=== PATIENT | female | born 1940 | race Caucasian/White ===

== ENCOUNTER 2017-05-31 16:10 | Inpatient (IN) ==
--- OUTSIDE RECORDS SUMMARY | 2017-05-31 17:08 | External Medical Summary | Summary of Care ---
:1940 Author Name Mireya Lance Address [address] [place], [place] [id number] Care Team Providers Name Role Phone Nilton Jaeger, Alessandro Collins Unavailable Unavailable Abraham Bustos, Mireya Unavailable Unavailable Guillermina Jaeger, Jaimee Falcon Unavailable Unavailable Wilberto Jaeger, Cami Unavailable Unavailable Dalton Jaeger, Joselyn Garsia Unavailable Unavailable Cami Ladd Unavailable Unavailable Unavailable Unavailable Unavailable Functional Status Functional Status Health Issues Name Dates Details Functional status health issues are not documented Status: Cognitive Status Health Issues Name Dates Details Cognitive status health issues are not documented Status: Problems Name Dates Details Weakness (780.79, R53.1) Status: Active Insomnia (780.52, G47.00) Status: Active Purpura (287.2, D69.2) Status: Active Hypokalemia (276.8, E87.6) Status: Active Vitamin B12 deficiency (266.2, E53.8) Status: Active Thrombocytopenia (287.5, D69.6) Status: Active Pernicious anemia (281.0, D51.0) Status: Active 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, 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 Start 11-Aug-2016 Active Budesonide 0.25 MG/2ML Inhalation Suspension NEBULIZE TWO TIMES DAILY (Dx: J44.9/J43.9) Quantity: 120 Refills: 11 Dennis Callaway M.D. Start 11-Aug-2016 Active Prolia 60 MG/ML Subcutaneous Solution INJECT SUBCUTANEOUSLY 60 MG / 1 ML EVERY 6 MONTHS Quantity: 1 Refills: 0 Cami Ladd M.D. Start 11-Nov-2014 Active Oxygen Home O2 ConcentratorUse 2 liters 8-10 hours/nightQualifying 07/22/15: Nocturnal oximetry=82%, <88%x 35 minutes Quantity: 1 Refills: 0 Ady Hoffman M.D. Start 23-Jul-2015 Active ProAir RespiClick 108 (90 Base) MCG/ACT Inhalation Aerosol Powder Breath Activated 1-2 puffs every 4-6 hours as needed Quantity: 1 Refills: 11 Dennis Callaway M.D. Start 16-Oct-2015 Active 1 Aerosol Powder Breath Activated Box Mixture 50\\50 Eucerin\\HC 1%-Apply TID 30 gm Quantity: 1 Refills: 1 Cami Ladd M.D. Start 13-Jun-2016 Active Incruse Ellipta 62.5 MCG/INH Inhalation Aerosol Powder Breath Activated INHALE 1 PUFF DAILY. Quantity: 1 Refills: 3 Ady Hoffman M.D. Start 14-Aug-2016 Active 30 Aerosol Powder Breath Activated Disp Pack Memantine HCl - 10 MG Oral Tablet TAKE 1 TABLET TWICE DAILY. Quantity: 60 Refills: 5 Ezekiel Sarmiento M.D. 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 Memory impairment (780.93, R41.3) Status: Active Osteoporosis (733.00, M81.0) Status: Active Pernicious anemia (281.0, D51.0) Status: Active Thrombocytopenia (287.5, D69.6) Status: Active Vitamin B12 deficiency (266.2, E53.8) Status: Active History of abnormal weight loss (V13.89, Z87.898) Status: Resolved History of chronic obstructive lung disease (V12.69, Z87.09) Status: Resolved History of CXR Solitary Pulmonary Nodule Right Lung Status: Resolved History of dizziness (V13.89, Z87.898) Status: Resolved History of Numbness in both hands (782.0, R20.0) Status: Resolved History of Tinnitus of both ears (388.30, H93.13) Status: Resolved Procedures Procedure Dates Details History of Hysterectomy History of Complete Colonoscopy History of Cataract Surgery History of Dental Surgery DEXA Ordered: 15-Nov-2016 MAMMOGRAM-SCREENING Ordered: 15-Nov-2016 Immunization Name Dates Details Pneumo (Pneumovax) on: 12-Dec-2008 Tdap (Adacel) on: 05-Dec-2013 Lot #: [id number] Prevnar 13 Intramuscular Suspension on: 05-Dec-2013 Lot #: [id number] Prevnar 13 Intramuscular Suspension on: 25-Nov-2014 Lot #: [id number] Fluvirin 0.5 ML Intramuscular Suspension Prefilled Syringe on: 20-May-2015 Fluzone High-Dose 0.5 ML Intramuscular Suspension Prefilled Syringe on: 2015 Pneumovax 23 25 MCG/0.5ML Injection Injectable on: 21-Jul-2016 Lot #: [id number] Family History Unknown Family Member Name Dates Details Family history of Asthma (V17.5) Comments: Family History Status: Active Mother Name Dates Details Family history of memory loss (V17.2, Z82.0) Status: Active Father Name Dates Details Family history of myocardial infarction (V17.3, Z82.49) Status: Active Social History Name Dates Details - Status: Smoking Status Name Dates Details Former smoker Vital Signs Date Test Result Details 06-Jan-2017 13:09 BP Systolic 140 mm[Hg] Status: Comments: Location: ; Position: BP Diastolic 78 mm[Hg] Status: Comments: Location: ; Position: Temperature 97.4 f Status: Heart Rate 89 /min Status: Comments: Location: ; Height 65 in Status: Weight 134.125 lb Status: Physical Findings 94 Status: Comments: O2 Saturation Body Mass Index Calculated 22.32 kg/m2 Status: Body Surface Area Calculated 1.67 m2 Status: 16-Dec-2016 11:34 BP Systolic 138 mm[Hg] Status: Comments: Location: ; Position: BP Diastolic 78 mm[Hg] Status: Comments: Location: ; Position: Heart Rate 75 /min Status: Comments: Location: ; Physical Findings 90 Status: Comments: O2 Saturation 16-Dec-2016 11:31 Weight 134 lb Status: Body Mass Index Calculated 22.3 kg/m2 Status: Body Surface Area Calculated 1.67 m2 Status: Results Date Description Value Details Results not documented Plan of Care Name Dates Details Planned Observations Planned Goals not documented Planned Encounters Appointment; Provider: Juli Samaniego On 17-May-2017 11:30 Appointment; Provider: Cami Ladd M.D. On 20-Apr-2017 10:45 Appointment; Provider: Ezekiel Sarmiento M.D. On 18-Apr-2017 15:15 Appointment; Provider: Schedule Radiology On 16:00 Appointment; Provider: Schedule Radiology On 15:30 Interventions Provided Medication ChangesCephalexin 500 MG Oral Tablet - Completed Instructions Name Dates Details Instructions not documented Encounters Appointment; Cami Ladd M.D. On 16-Dec-2016 Encounter Diagnosis: Problem not documented 11:15 Appointment; Tabby Vallecillo M.D. On 19-Nov-2016 Encounter Diagnosis: Problem not documented 14:05 Appointment; Mireya Rosario P.A. On 09-Nov-2016 Encounter Diagnosis: Problem not documented 11:30 Appointment; Sosa Zhou P.A. On 25-Oct-2016 Encounter Diagnosis: Problem not documented 14:45 Appointment; Ezekiel Sarmiento M.D. On 10-Oct-2016 Encounter Diagnosis: Problem not documented 15:45 Appointment; Cami Ladd M.D. On 05-Oct-2016 Encounter Diagnosis: Problem not documented 08:00 Appointment; Kai Diaz D.O. On 03-Oct-2016 Encounter Diagnosis: Problem not documented 13:25 Appointment; Sosa Zhou P.A. On 26-Sep-2016 Encounter Diagnosis: Problem not documented 15:15 Appointment; Yousif Figueroa M.D. On 22-Aug-2016 Encounter Diagnosis: Problem not documented 15:30 Appointment; Cami Ladd M.D. On 02-Aug-2016 Encounter Diagnosis: Problem not documented 13:00 Appointment; Cami Ladd M.D. On 21-Jul-2016 Encounter Diagnosis: Problem not documented 10:30 Appointment; Yousif Figueroa M.D. On 12-Jul-2016 Encounter Diagnosis: Problem not documented 09:15 Appointment; Cami Ladd M.D. On 11-Jul-2016 Encounter Diagnosis: Problem not documented 15:00 Appointment; Angel Mi M.D. On 28-Jun-2016 Encounter Diagnosis: Problem not documented 15:40 Appointment; Cami Ladd M.D. On 27-Jun-2016 Encounter Diagnosis: Problem not documented 14:30 Appointment; Cami Ladd M.D. On 17-Jun-2016 Encounter Diagnosis: Problem not documented 11:00 Appointment; Cami Ladd M.D. On 13-Jun-2016 Encounter Diagnosis: Problem not documented 10:45 Appointment; Ezekiel Sarmiento M.D. On 13-Jun-2016 Encounter Diagnosis: Problem not documented 09:30 Appointment; Cami Ladd M.D. On 07-Jun-2016 Encounter Diagnosis: Problem not documented 17:30 Appointment; Ady Hoffman M.D. On 20-May-2016 Encounter Diagnosis: Problem not documented 10:15 Appointment; Cami Ladd M.D. On 19-Apr-2016 Encounter Diagnosis: Problem not documented 10:00 Appointment; Geeta Oleary P.A. On 12-Apr-2016 Encounter Diagnosis: Problem not documented 08:45 Appointment; Ezekiel Sarmiento M.D. On 01-Apr-2016 Encounter Diagnosis: Problem not documented 09:15 Appointment; Cami Ladd M.D. On 31-Mar-2016 Encounter Diagnosis: Problem not documented 14:00 Appointment; Geeta Oleary P.A. On 28-Mar-2016 Encounter Diagnosis: Problem not documented 09:15 Appointment; Ady Hoffman M.D. On 18-Mar-2016 Encounter Diagnosis: Problem not documented 14:15 Appointment; Eliel Patel M.D.|FACP|Mil,FACP|Mil,FACP, On Encounter Diagnosis: Problem not documented 11:00 Appointment; Cami Ladd M.D. On Encounter Diagnosis: Problem not documented 10:15 Appointment; zEekiel Sarmiento M.D. On Encounter Diagnosis: Problem not documented 09:15 Appointment; Cami Ladd M.D. On Encounter Diagnosis: Problem not documented 16:00 Appointment; Ady Hoffman M.D. On Encounter Diagnosis: Problem not documented 11:45 Appointment; Ady Hoffman M.D. On Encounter Diagnosis: Problem not documented 10:15 Appointment; Cami Ladd M.D. On Encounter Diagnosis: Problem not documented 10:45 Appointment; Ezekiel Sarmiento M.D. On 12-Jan-2016 Encounter Diagnosis: Problem not documented 12:00 Appointment; Cami Ladd M.D. On 05-Jan-2016 Encounter Diagnosis: Problem not documented 10:20 Appointment; Ady Hoffman M.D. On 31-Dec-2015 Encounter Diagnosis: Problem not documented 10:45 Appointment; Ezekiel Sarmiento M.D. On 24-Dec-2015 Encounter Diagnosis: Problem not documented 10:00 Appointment; Cami Ladd M.D. On 20-Nov-2015 Encounter Diagnosis: Problem not documented 11:45 Appointment; Mireya Rosario PFernanda On 20-Nov-2015 Encounter Diagnosis: Problem not documented 11:00 Appointment; Yousif Figueroa M.D. On 17-Nov-2015 Encounter Diagnosis: Problem not documented 17:45 Appointment; Yousif Figueroa M.D. On 16-Nov-2015 Encounter Diagnosis: Problem not documented 09:45 Appointment; Cami Ladd M.D. On 13-Nov-2015 Encounter Diagnosis: Problem not documented 15:15 Appointment; Geeta Oleary P.A. On 09-Nov-2015 Encounter Diagnosis: Problem not documented 14:00 Appointment; Ofelia Hdez A.P.R.N. On 04-Nov-2015 Encounter Diagnosis: Problem not documented 13:30 Appointment; Tabby Vallecillo M.D. On 08-Oct-2015 Encounter Diagnosis: Problem not documented 13:15 Appointment; Cami Ladd M.D. On 24-Aug-2015 Encounter Diagnosis: Problem not documented 13:00 Appointment; Yousif Figueroa M.D. On 13-Aug-2015 Encounter Diagnosis: Problem not documented 14:30 Appointment; Cami Ladd M.D. On 11-Aug-2015 Encounter Diagnosis: Problem not documented 13:15 Appointment; Ady Hoffman M.D. On 23-Jul-2015 Encounter Diagnosis: Problem not documented 10:45 Appointment; Cami Ladd M.D. On 20-Jul-2015 Encounter Diagnosis: Problem not documented 10:00 Appointment; Yousif Figueroa M.D. On 06-May-2015 Encounter Diagnosis: Problem not documented 06:45 Appointment; Yousif Figueroa M.D. On 05-May-2015 Encounter Diagnosis: Problem not documented 14:30 Appointment; Cami Ladd M.D. On 23-Apr-2015 Encounter Diagnosis: Problem not documented 14:15 Appointment; Cami Ladd M.D. On Encounter Diagnosis: Problem not documented 11:45 Appointment; Yousif Figueroa M.D. On Encounter Diagnosis: Problem not documented 09:30 Appointment; Ady Hoffman M.D. On Encounter Diagnosis: Problem not documented 10:45 Appointment; Eliel Patel M.D.|ANDREIA,ANDREIA,DONYA, On Encounter Diagnosis: Problem not documented 16:15 Appointment; Eliel Patel M.D.|DONYA|Mil,DONYA|Mil,KHANHP, On Encounter Diagnosis: Problem not documented 09:00 Appointment; Cami Ladd M.D. On Encounter Diagnosis: Problem not documented 13:30"
--- OUTSIDE RECORDS SUMMARY | 2017-05-31 17:08 | External Medical Summary | Summary of Care ---
:1940 Author Name Cami Ladd M.D. Address [address] [place], [place] [id number] Care Team Providers Name Role Phone Juve Jaeger, Edvin Prajapati Unavailable Unavailable Carolina Jaeger, Jessica Dodd Unavailable Unavailable Wilberto Jageer, Cami Unavailable Unavailable Dalton Jaeger, Joselyn Garsia Unavailable Unavailable Cami Ladd Primary Care Provider Unavailable Unavailable Unavailable Unavailable Functional Status Functional Status Health Issues Name Dates Details Functional status health issues are not documented Status: Cognitive Status Health Issues Name Dates Details Cognitive status health issues are not documented Status: Problems Name Dates Details Thrombocytopenia (287.5, D69.6) Status: Active Nail brittleness (703.8, L60.3) Status: Active 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, 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 Weakness (780.79, R53.1) Status: Active Insomnia (780.52, G47.00) Status: Active Pernicious anemia (281.0, D51.0) Status: Active Pre-operative exam (V72.84, Z01.818) Status: Active Hypokalemia (276.8, E87.6) Status: Active 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, 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 Vitamin B12 deficiency (266.2, E53.8) Status: Active Osteoporosis (733.00, M81.0) Status: Active Lichen planus (697.0, L43.9) Status: Active SCC (squamous cell carcinoma), 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, 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) Status: Active Acute exacerbation of emphysema (491.21, J43.9) Status: Active Hypoxia (799.02, R09.02) Status: Active Painful urination (788.1, R30.9) Status: Active Generalized weakness (780.79, R53.1) Status: Active Fatigue (780.79, R53.83) Status: Active Chronic obstructive pulmonary disease (496, J44.9) Status: Active Depression (311, F32.9) Status: Active 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 Started 15-Oct-2009 ActiveSpiriva HandiHaler 18 MCG Inhalation Capsule 1 PUFF EVERY MORNING Quantity: 30 Refills: 6 Ady Hoffman M.D. Started 17-Jun-2009 ActiveBudesonide 0.25 MG/2ML Inhalation Suspension NEBULIZE TWO TIMES DAILY (Dx: J44.9/J43.9) Quantity: 120 Refills: 11 Ady Hoffman M.D. Started 15-Oct-2009 ActiveProAir HFA 108 (90 Base) MCG/ACT Inhalation Aerosol Solution INHALE 2 PUFFS UP TO FOUR TIMES DAILY NEEDED Quantity: 8.5 Refills: 5 Ady Hoffman M.D. Started 30-Sep-2011 ActiveAmLODIPine Besylate 5 MG Oral Tablet TAKE 1 TABLET DAILY DIRECTED. Quantity: 30 Refills: 6 Alo An M.D. Started 22-Jul-2013 ActiveHalobetasol Propionate 0.05 % External Cream APPLY AND GENTLY MASSAGE INTO AFFECTED AREA(S) TWICE DAILY. Quantity: 1 Refills: 2 Yousif Figueroa M.D. Started 26-May-2014 [id number] GM Tube Prolia 60 MG/ML Subcutaneous Solution INJECT SUBCUTANEOUSLY 60 MG / 1 ML EVERY 6 MONTHS Quantity: 1 Refills: 0 Cami Ladd M.D. Started 11-Nov-2014 ActiveLexapro 10 MG Oral Tablet 1\2 tab daily for 10 day then 1 tab daily Quantity: 33 Refills: 0 Cami Ladd M.D. Started 20-Jul-2015 Active Allergies and Adverse Reactions Name Dates Details Levaquin TABS Status: Active Past Medical History Name Dates Details History of CXR Solitary Pulmonary Nodule Right Lung Status: Resolved Procedures Procedure Dates Details History of Hysterectomy History of Complete Colonoscopy URINE CULTURE [id number] Ordered:20-Jul-2015 Immunization Name Dates Details Pneumo (Pneumovax) Administered on:12-Dec-2008 Tdap (Adacel) Administered on:05-Dec-2013 Lot #: [id number] Prevnar 13 Intramuscular Suspension Administered on:05-Dec-2013 Lot #: [id number] Prevnar 13 Intramuscular Suspension Administered on:25-Nov-2014 Lot #: [id number] Fluvirin 0.5 ML Intramuscular Suspension Prefilled Syringe Administered on:May-2015 Family History Unknown Family Member Name Dates Details Family history of Asthma (V17.5) Comments: Family History Status: Active Father Name Dates Details Family history of myocardial infarction (V17.3, Z82.49) Status: Active Social History Name Dates Details Smoking StatusFormer smoker Vital Signs Date Test Result Details 20-Jul-2015 10:09 BP Systolic 156 mm[Hg] Status: BP Diastolic 80 mm[Hg] Status: Heart Rate 84 /min Status: Weight 142 lb Status: Body Mass Index Calculated 24.37 kg/m2 Status: Body Surface Area Calculated 1.69 m2 Status: Results Date Description Value Details 20-Jul-2015 11:19 CBC w/ Auto Diff 7150 Comments: Manual differential indicated. WBC 10.2 K/uL (Better) Range: 4.5-11.0 RBC 4.68 mil/uL (Better) Range: 3.60-5.00 HGB 15.1 g/dL (Better) Range: 12.0-16.0 HCT 45.8 % (Better) Range: 36.0-48.0 MCV 97.8 fL (Better) Range: 80.0-99.0 MCH 32.2 pg (Better) Range: 27.3-32.5 MCHC 32.9 % (Better) Range: 32.0-36.0 RDW 12.7 % (Better) Range: 11.6-14.8 PLATELETS 213 K/uL (Better) Range: 150-400 MPV 8.5 fL (Better) Range: 6.0-11.0 11:41 Manual Differential 7400 SEGS 83 % (Above high Range: 37-80 threshold) BANDS 0 % (Better) Range: 0-7 LYMPH 11 % (Below low Range: 13-50 threshold) MONO 6 % (Better) Range: 0-12 EOSIN 0 % (Better) Range: 0-7 BASO 0 % (Better) Range: 0-3 TRINA LYMPH 0 % (Better) Range: 0-0 META 0 % (Better) Range: 0-0 MYELO 0 % (Better) Range: 0-0 PRO 0 % (Better) Range: 0-0 BLAST 0 % (Better) Range: 0-0 NUC RBC 0 /100 WBC (Better) Range: 0-0 SMUDGE 0 /100 WBC (Better) PLATELET Decreased (Abnormal) Range: Adequate 11:44 THYROID STIM. HORMONE 3602 THYROID STIM. HORMONE 1.443 uIU/mL Range: 0.550-4.780 (Better) Comments: No established reference ranges for infants and children <2 years of age----- 11:52 Urinalysis, Reflex to Microscopic or Culture PRN 8005 pH 6.0 (Better) Range: 5.0-7.5 SP GRAVITY 1.020 (Better) Range: 1.010-1.030 APPEARANCE CLEAR (Better) Range: Clear COLOR YELLOW (Better) Range: Straw-Yellow PROTEIN NEGATIVE mg/dL Range: Negative-Trace (Better) GLUCOSE NEGATIVE mg/dL Range: Negative (Better) KETONE TRACE mg/dL Range: Negative (Abnormal) BILIRUB SMALL (Abnormal) Range: Negative BLOOD MODERATE (Abnormal) Range: Negative UROBIL 1.0 EU/dL (Better) Range: 0.2-1.0 NITRITE NEGATIVE (Better) Range: Negative LEUK LARGE (Abnormal) Range: Negative 11:52 Urine Microscopic UMIC WBC 3-5 /HPF (Better) Range: 0-5 RBC 0-2 /HPF (Better) Range: 0-2 MUCUS 1+ /LPF (Better) Range: Negative-2+ BACTERIA Trace /HPF (Better) Range: Negative-Trace EPITH 0-2 /HPF (Better) Range: 0-10 13:23 Comprehensive Metabolic Panel 1212 SODIUM 134 mmol/L (Better) Range: 133-144 POTASSIUM 3.4 mmol/L (Below Range: 3.5-5.1 low threshold) CHLORIDE 96 mmol/L (Below low Range: 98-110 threshold) CARBON DIOXIDE 30.3 mmol/L (Better) Range: 23.0-33.0 ANION GAP 8 mmol/L (Better) Range: 6-16 BUN 20 mg/dL (Above high Range: 7-18 threshold) CREATININE, SERUM 0.58 mg/dL (Better) Range: 0.55-1.02 Comments: Please note new reference ranges effective 2015.----- BUN:CREATININE RATIO 34 (Better) EST GFR, >60 ml/min Range: >60 (Better) EST GFR, NON-AFR [place] >60 ml/min Range: >60 (Better) Comments: EST GFR is reported in ml/min per 1.73 m2 of body surface area. For -[place], please multiple result by 1.2.----- GLUCOSE 101 mg/dL (Above Range: 70-100 high threshold) ALK PHOSPHATASE 49 U/L (Better) Range: 46-116 TOTAL BILIRUBIN 0.90 mg/dL (Better) Range: 0.20-1.00 AST 10 U/L (Better) Range: 8-35 ALT 26 U/L (Better) Range: 14-59 Comments: Please note new reference ranges. Effective 10/23/2014.----- ALBUMIN 3.5 g/dL (Better) Range: 3.4-5.0 TOTAL PROTEIN 6.3 g/dL (Below low Range: 6.4-8.2 threshold) A/G RATIO 1.3 units (Better) Range: 1.0-1.8 CALCIUM 8.0 mg/dL (Below low Range: 8.5-10.1 threshold) Plan of Care Planned Observations Name Dates Details Planned Goals not documented Goal Planned Encounters Appointment; Provider: Eliel Patel On 09:30 Appointment; Provider: Yousif Figueroa On 13-Aug-2015 14:30 Appointment; Provider: Geeta Oleary On 03-Aug-2015 10:00 Appointment; Provider: Ady Hoffman On 23-Jul-2015 10:45 Instructions Instructions not documented Encounters Appointment; Cami Ladd On 20-Jul-2015 Encounter Diagnosis: Problem not documented 10:00 Appointment; Yousif Figueroa On 06-May-2015 Encounter Diagnosis: Problem not documented 06:45 Appointment; Yousif Figueroa On 05-May-2015 Encounter Diagnosis: Problem not documented 14:30 Appointment; Cami Ladd On 23-Apr-2015 Encounter Diagnosis: Problem not documented 14:15 Appointment; Cami Ladd On Encounter Diagnosis: Problem not documented 11:45 Appointment; Yousif Figueroa On Encounter Diagnosis: Problem not documented 09:30 Appointment; Ady Hoffman On Encounter Diagnosis: Problem not documented 10:45 Appointment; Eliel Patel On Encounter Diagnosis: Problem not documented 16:15 Appointment; Eliel Patel On Encounter Diagnosis: Problem not documented 09:00 Appointment; Cami Ladd On Encounter Diagnosis: Problem not documented 13:30 Appointment; Cami Ladd On 19-Dec-2014 Encounter Diagnosis: Problem not documented 11:15 Appointment; Cami Ladd On 04-Dec-2014 Encounter Diagnosis: Problem not documented 14:45 Appointment; Ady Hoffman On 25-Nov-2014 Encounter Diagnosis: Problem not documented 10:15 Appointment; Cami Ladd On 10-Nov-2014 Encounter Diagnosis: Problem not documented 11:30 Appointment; Alo An On 09-Oct-2014 Encounter Diagnosis: Problem not documented 10:30 Appointment; Alo An On 17-Sep-2014 Encounter Diagnosis: Problem not documented 10:30 Appointment; Ady Hoffman On 15-Sep-2014 Encounter Diagnosis: Problem not documented 11:30 Appointment; Alo An On 29-Aug-2014 Encounter Diagnosis: Problem not documented 10:30 Appointment; Alo An On 22-Aug-2014 Encounter Diagnosis: Problem not documented 13:00 Appointment; Alo An On 06-Jun-2014 Encounter Diagnosis: Problem not documented 13:00 Appointment; Yousif Figueroa On 21-May-2014 Encounter Diagnosis: Problem not documented 10:00 Appointment; Alo An On 09-May-2014 Encounter Diagnosis: Problem not documented 13:30 Appointment; Ady Hoffman On Encounter Diagnosis: Problem not documented 10:30 Appointment; Eliel Patel On Encounter Diagnosis: Problem not documented 13:15 Appointment; Alo An On 05-Dec-2013 Encounter Diagnosis: Problem not documented 13:45 Appointment; Delicia Jeronimo On 25-Sep-2013 Encounter Diagnosis: Problem not documented 10:00 Appointment; Delicia Jeronimo On 28-Aug-2013 Encounter Diagnosis: Problem not documented 10:00 Appointment; Delicia Jeronimo On 22-Jul-2013 Encounter Diagnosis: Problem not documented 09:00
--- OUTSIDE RECORDS SUMMARY | 2017-05-31 17:09 | External Medical Summary | Summary of Care ---
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 Started 26-May-2014 Bfwlel60 GM Tube Prolia 60 MG/ML Subcutaneous Solution INJECT SUBCUTANEOUSLY 60 MG / 1 ML EVERY 6 MONTHS Quantity: 1 Refills: 0 Cami Ladd M.D. Started 11-Nov-2014 ActiveLexapro 10 MG Oral Tablet 1\2 tab daily for 10 day then 1 tab daily Quantity: 33 Refills: 0 Cami Ladd M.D. Started 20-Jul-2015 ActiveNitrofurantoin Monohyd Macro 100 MG Oral Capsule TAKE 1 CAPSULE TWICE DAILY WITH MEALS. Quantity: 14 Refills: 0 Cami Ladd M.D. Started 23-Jul-2015 Ended 30-Jul-2015 ActiveOxygen Home O2 ConcentratorUse 2 liters 8-10 hours/nightQualifying 12/9/15: Nocturnal oximetry=82%, <88%x 35 minutes Quantity: 1 Refills: 0 Ady Hoffman M.D. Started 23-Jul-2015 Active Allergies and Adverse Reactions Name Dates Details Levaquin TABS Status: Active Past Medical History Name Dates Details History of CXR Solitary Pulmonary Nodule Right Lung Status: Resolved Procedures Procedure Dates Details History of Hysterectomy History of Complete Colonoscopy Procedures not documented Immunization Name Dates Details Pneumo (Pneumovax) Administered on:12-Dec-2008 Tdap (Adacel) Administered on:05-Dec-2013 Lot #: [id number] Prevnar 13 Intramuscular Suspension Administered on:05-Dec-2013 Lot #: [id number] Prevnar 13 Intramuscular Suspension Administered on:25-Nov-2014 Lot #: [id number] Fluvirin 0.5 ML Intramuscular Suspension Prefilled Syringe Administered on:May-2015 Family History Unknown Family Member Name Dates Details Family history of Asthma (V17.5) Comments: Family History Status: Active Father Name Dates Details Family history of myocardial infarction (V17.3, Z82.49) Status: Active Social History Name Dates Details Smoking StatusFormer smoker Vital Signs Date Test Result Details 23-Jul-2015 10:47 BP Systolic 126 mm[Hg] Status: BP Diastolic 78 mm[Hg] Status: Heart Rate 84 /min Status: Weight 142 lb Status: O2 SAT 96 % Status: Body Mass Index Calculated 24.37 kg/m2 Status: Body Surface Area Calculated 1.69 m2 Status: 20-Jul-2015 10:09 BP Systolic 156 mm[Hg] Status: BP Diastolic 80 mm[Hg] Status: Heart Rate 84 /min Status: Weight 142 lb Status: Body Mass Index Calculated 24.37 kg/m2 Status: Body Surface Area Calculated 1.69 m2 Status: Results Date Description Value Details 20-Jul-2015 11:19 CBC w/ Auto Diff 7150 Comments: Manual differential indicated. WBC 10.2 K/uL (Better) Range: 4.5-11.0 RBC 4.68 mil/uL Range: 3.60-5.00 (Better) HGB 15.1 g/dL (Better) Range: 12.0-16.0 HCT [...] SMUDGE 0 /100 WBC (Better) PLATELET Decreased Range: Adequate (Abnormal) 11:44 THYROID STIM. HORMONE 3602 THYROID STIM. [...] 3.5-5.1 low threshold) CHLORIDE 96 mmol/L (Below Range: 98-110 low threshold) CARBON DIOXIDE 30.3 mmol/L Range: 23.0-33.0 (Better) ANION GAP 8 mmol/L (Better) Range: 6-16 BUN 20 mg/dL (Above Range: 7-18 high threshold) CREATININE, SERUM 0.58 mg/dL (Better) Range: 0.55-1.02 Comments: Please note new reference ranges effective 2015.----- BUN:CREATININE RATIO 34 (Better) EST GFR, >60 ml/min Range: >60 LATVIAN (Better) EST GFR, NON-AFR >60 ml/min Range: >60 LATVIAN (Better) Comments: EST GFR is reported in ml/min per 1.73 m2 of body surface area. For -Swiss, please multiple result by 1.2.----- GLUCOSE 101 [...] (Better) Range: 1.0-1.8 CALCIUM 8.0 mg/dL (Below Range: 8.5-10.1 low threshold) 23-Jul-2015 URINE CULTURE [id number] Comments: [facility] performed at: [facility], [facility] [place], [address], Bag Hanger: Ezekiel Sun D.O., MPHQuest Collection Date/Time: 20140815 07:56 [id number] Results Received Date/Time: [id number] Reported Date/Time: [id number] performed at: [facility], [address] [place], [address], Bag Hanger: Ezekiel Sun D.O., MPHQuest Collection Date/Time: [id number] Results Received Date/Time: [id number] Reported Date/Time: [id number] CULTURE, URINE, ROUTINE SEE NOTE (Abnormal) Comments: CULTURE, URINE, ROUTINE MICRO NUMBER: [id number] TEST STATUS: FINAL SPECIMEN SOURCE : URINE, CLEAN CATCH SPECIMEN QUALITY: ADEQUATE RESULT: 10,000- 50,000 CFU/mL of Enteroco ccus species COMMENT: Additional organism(s) less than 10,000 CFU/mL isolated. These organisms, commonly found on external and internal genitalia, are considered colonizers. No further testing performed. Enterococcus sp. ---- INT KIM AMPICILL IN S <=2 NITROFURANTOIN S <=16 VANCOMYCIN S 1S=Susceptible I=Intermediate R=Resistant *=Not TestedNR=Not Reported NN=See Therapy Comments[KS]----- Plan of Care Planned Observations Name Dates Details Planned Goals not documented Goal Planned Encounters Appointment; Provider: Eliel Patel On 09:30 Appointment; Provider: Ady Hoffman On 13:15 Appointment; Provider: Yousif Figueroa On 13-Aug-2015 14:30 Instructions Instructions not documented Encounters Appointment; Ady Hoffman On 23-Jul-2015 Encounter Diagnosis: Problem not documented 10:45 Appointment; Cami Ladd On 20-Jul-2015 Encounter Diagnosis: [...]
--- OUTSIDE RECORDS SUMMARY | 2017-05-31 17:09 | External Medical Summary | Summary of Care ---
:1940 Author Name Wilberto Jaeger, Cami Address Unavailable Unavailable , Care Team Providers Name Role Phone Carolina Jaeger, Jessica Dodd Unavailable Unavailable Jaimee Sarmiento M.D. 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, 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 Generalized weakness (780.79, R53.1) Status: Active Fatigue (780.79, R53.83) Status: Active 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, 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 Other specified local infection of skin or subcutaneous tissue (686.8, L08.89) Status: Active Edema (782.3, R60.9) Status: Active 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, 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 Purpura (287.2, D69.2) Status: Active Keloid (701.4, L91.0) Status: Active Complaints of leg weakness (729.89, R29.898) Status: Active Hypokalemia (276.8, E87.6) Status: Active Confusion (298.9, R41.0) Status: Active Difficulty breathing (786.09, R06.89) Status: Active Depression (311, F32.9) Status: Active Left shoulder pain (719.41, M25.512) Status: Active Hypertension, uncontrolled (401.9, I10) Status: Active Acute exacerbation of emphysema (491.21, J43.9) Status: Active Nausea (787.02, R11.0) Status: Active Pernicious anemia (281.0, D51.0) Status: Active Vitamin B12 deficiency (266.2, E53.8) Status: Active Osteoporosis (733.00, M81.0) Status: Active Hypertension (401.9, I10) Status: Active Memory impairment (780.93, R41.3) Status: Active 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 Start 15-Oct-2009 Active Spiriva HandiHaler 18 MCG Inhalation Capsule USE 1 PUFF BY MOUTH EVERY MORNING Quantity: 30 Refills: 11 Ady Hoffman M.D. Start 17-Jun-2009 Active Budesonide 0.25 MG/2ML Inhalation Suspension NEBULIZE TWO TIMES DAILY (Dx: J44.9/J43.9) Quantity: 120 Refills: 0 Ady Hoffman M.D. Start 15-Oct-2009 Active Halobetasol Propionate 0.05 % External Cream APPLY AND GENTLY MASSAGE INTO AFFECTED AREA(S) ON LEGS TWICE DAILY. Quantity: 1 Refills: 2 Yousif Figueroa M.D. Start 26-May-2014 Active 50 GM Tube Prolia 60 MG/ML Subcutaneous Solution INJECT SUBCUTANEOUSLY 60 MG / 1 ML EVERY 6 MONTHS Quantity: 1 Refills: 0 Cami Ladd M.D. Start 11-Nov-2014 Active Oxygen Home O2 ConcentratorUse 2 liters 8-10 hours/nightQualifying 07/22/15: Nocturnal oximetry=82%, <88%x 35 minutes Quantity: 1 Refills: 0 Ady Hoffman M.D. Start 23-Jul-2015 Active Potassium Chloride ER 10 MEQ Oral Capsule Extended Release TAKE ONE CAPSULE BY MOUTH TWICE A DAY Quantity: 60 Refills: 3 Ladd M.Livia Cami Start 11-Aug-2015 Active ProAir RespiClick 108 (90 Base) MCG/ACT Inhalation Aerosol Powder Breath Activated INHALE 2 PUFFS BY MOUTH UP TO FOUR TIMES A DAY NEEDED Quantity: 1 Refills: 5 Dalton Jaeger Ady Joselyn Start 16-Oct-2015 Active AmLODIPine Besylate 10 MG Oral Tablet TAKE 1 TABLET DAILY. Quantity: 30 Refills: 4 Ladd M.Livia, Cami Start 13-Nov-2015 Active Escitalopram Oxalate 5 MG Oral Tablet TAKE 1 TABLET Every morning at breakfast Quantity: 30 Refills: 3 Ladd M.D., Cami Start Active Losartan Potassium-HCTZ 100-12.5 MG Oral Tablet ONE TABLET BY MOUTH EVERY DAY Quantity: 30 Refills: 6 Ladd M.D., Cami Start Active Memantine HCl - 10 MG Oral Tablet TAKE 1 TABLET TWICE DAILY. Quantity: 60 Refills: 5 Ezekiel Sarmiento M.D. Start 01-Apr-2016 Active Allergies and Adverse Reactions Name Dates Details Levaquin TABS (Allergy) Reaction: Other Status: Active Past Medical History Name Dates Details History of abnormal weight loss (V13.89, Z87.898) [...] of Cataract Surgery History of Dental Surgery CBC w/ Auto Diff 7150 Ordered: 19-Apr-2016 Comprehensive Metabolic Panel 1212 Ordered: 19-Apr-2016 LIPID PROFILE 1184 Ordered: 19-Apr-2016 THYROID STIM. HORMONE 3602 Ordered: 19-Apr-2016 Urinalysis, Reflex to Microscopic or Culture PRN [id number] Ordered: 19-Apr-2016 Comprehensive Metabolic Panel 1212 Ordered: 28-Apr-2016 Immunization Name Dates Details Pneumo (Pneumovax) on: 12-Dec-2008 Tdap (Adacel) on: 05-Dec-2013 Lot #: [id number] Prevnar 13 Intramuscular Suspension on: 05-Dec-2013 Lot #: [id number] Prevnar 13 Intramuscular Suspension on: 25-Nov-2014 Lot #: [id number] Fluvirin 0.5 ML Intramuscular Suspension Prefilled Syringe on: 20-May-2015 Family History Unknown Family Member Name Dates [...] smoker Vital Signs Date Test Result Details 20-May-2016 10:10 BP Systolic 122 mm[Hg] Status: Comments: Location: ; Position: BP Diastolic 76 mm[Hg] Status: Comments: Location: ; Position: Heart Rate 88 /min Status: Comments: Location: ; Height 64 in Status: Weight 140 lb Status: Physical Findings 97 Status: Comments: O2 Saturation Body Mass Index Calculated 24.03 kg/m2 Status: Body Surface Area Calculated 1.68 m2 Status: Results Date Description Value Details Results not documented Plan of Care Name Dates Details Planned Observations Comprehensive Metabolic Panel 1212 On 19-May-2016 Intent Planned Goals not documented Planned Encounters Appointment; Provider: Cami Ladd M.D. On 21-Jul-2016 10:30 Appointment; Provider: Ezekiel Sarmiento M.D. On 13-Jun-2016 09:30 Instructions Name Dates Details Instructions not documented Encounters Appointment; Cami Ladd M.D. On 19-Apr-2016 Encounter Diagnosis: Problem not documented 10:00 Appointment; Geeta Oleary, PFernanda On 12-Apr-2016 Encounter Diagnosis: Problem not documented [...] Encounter Diagnosis: Problem not documented 10:15 Appointment; Ezekiel Sarmiento M.D. On Encounter Diagnosis: Problem not [...] Diagnosis: Problem not documented 11:45 Appointment; Mireya Rosario, P.AAshley On 20-Nov-2015 Encounter Diagnosis: Problem not documented 11:00 Appointment; Yousif Figueroa M.D. On 17-Nov-2015 Encounter Diagnosis: Problem not documented 17:45 Appointment; Yousif Figueroa M.D. On 16-Nov-2015 Encounter Diagnosis: Problem not documented 09:45 Appointment; Cami Ladd M.D. On 13-Nov-2015 Encounter Diagnosis: Problem not documented 15:15 Appointment; Geeta Oleary, P.AAshley On 09-Nov-2015 Encounter Diagnosis: Problem not documented 14:00 Appointment; Ofelia Hdez A.PLuis On 04-Nov-2015 Encounter Diagnosis: Problem not documented [...] Problem not documented 10:45 Appointment; Eliel Patel M.D.|FACP|M.DAshley,FACPRexMDella,FACP, On Encounter Diagnosis: Problem not documented 16:15 Appointment; Eliel Patel M.D.|FACP|M.DAshley,FACP|MDella,FACP, On Encounter Diagnosis: Problem not documented 09:00 Appointment; Cami Ladd M.D. On Encounter Diagnosis: Problem not documented 13:30 Appointment; Cami Ladd M.D. On 19-Dec-2014 Encounter Diagnosis: Problem not documented 11:15 Appointment; Cami Ladd M.D. On 04-Dec-2014 Encounter Diagnosis: Problem not documented 14:45 Appointment; Ady Hoffman M.D. On 25-Nov-2014 Encounter Diagnosis: Problem not documented 10:15 Appointment; Cami Ladd M.D. On 10-Nov-2014 Encounter Diagnosis: Problem not documented 11:30 Appointment; Alo An M.D. On 09-Oct-2014 Encounter Diagnosis: Problem not documented 10:30 Appointment; Alo An M.D. On 17-Sep-2014 Encounter Diagnosis: Problem not documented 10:30 Appointment; Ady Hoffman M.D. On 15-Sep-2014 Encounter Diagnosis: Problem not documented 11:30 Appointment; Alo An M.D. On 29-Aug-2014 Encounter Diagnosis: Problem not documented 10:30 Appointment; Alo An M.D. On 22-Aug-2014 Encounter Diagnosis: Problem not documented 13:00 Appointment; Alo An M.D. On 06-Jun-2014 Encounter Diagnosis: Problem not documented 13:00"
--- OUTSIDE RECORDS SUMMARY | 2017-05-31 17:09 | External Medical Summary | Summary of Care ---
:1940 Author Name Wilberto Jaeger, Cami Address Unavailable Unavailable , Care Team Providers Name Role Phone Nilton Jaeger, Alessandro Collins Unavailable Unavailable Jaimee Sarmiento M.D. 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 , F99) Status: Active Secondary infection of skin (686.8, L08.89) Status: Active Asteototic dermatitis (692.89, L30.8) Status: Active Osteoporosis (733.00, M81.0) Status: Active Generalized anxiety disorder (300.02, F41.1) Status: Active Depression (311, F32.9) Status: Active Acute exacerbation of emphysema (491.21, J43.9) Status: Active Hypoxia (799.02, R09.02) Status: Active Eczema craquele (706.8, L30.8) Status: Active Memory impairment (780.93, R41.3) Status: Active Difficulty breathing (786.09, R06.89) Status: Active Hospital discharge follow-up (V67.59, Z09) Status: Active Metabolic encephalopathy (348.31, G93.41) Status: Active 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 Quantity: 60 Refills: 5 Ezekiel Sarmiento M.D. Start 01-Apr-2016 Active Mixture 50\\50 Eucerin\\HC 1%-Apply TID 30 gm Quantity: 1 Refills: 1 Cami Ladd M.D. Start 13-Jun-2016 Active Incruse Ellipta 62.5 MCG/INH Inhalation Aerosol Powder Breath Activated INHALE 1 PUFF DAILY. Quantity: 1 Refills: 3 Janack M.Jessica., Ady Alves Start 14-Aug-2016 Active 30 Aerosol Powder Breath Activated Disp Pack Aspirin 81 MG Oral Tablet Delayed Release TAKE 1 TABLET DAILY. Refills: 0 Start Active AmLODIPine Besylate 10 MG Oral Tablet TAKE 1 TABLET DAILY. Refills: 0 Ladd M.D., Cami Start Active Allergies and Adverse Reactions Name Dates [...] of Cataract Surgery History of Dental Surgery Procedures not documented Immunization Name Dates Details Pneumo (Pneumovax) on: 12-Dec-2008 Tdap (Adacel) on: 05-Dec-2013 Lot #: [id number] Prevnar 13 Intramuscular Suspension on: 05-Dec-2013 Lot #: [id number] Prevnar 13 Intramuscular Suspension on: 25-Nov-2014 Lot #: [id number] Fluvirin 0.5 ML Intramuscular Suspension Prefilled Syringe on: 20-May-2015 Fluzone High-Dose 0.5 ML Intramuscular Suspension Prefilled Syringe on: 2015 Pneumovax 23 25 MCG/0.5ML Injection Injectable on: 21-Jul-2016 Lot #: [id number] Family History Unknown Family Member Name Dates [...] smoker Vital Signs Date Test Result Details 14:28 BP Systolic 126 mm[Hg] Status: Comments: Location: ; Position: BP Diastolic 74 mm[Hg] Status: Comments: Location: ; Position: Heart Rate 75 /min Status: Comments: Location: ; Weight 124 lb Status: Physical Findings 96 Status: Comments: O2 Saturation Body Mass Index Calculated 20.63 kg/m2 Status: Body Surface Area Calculated 1.61 m2 Status: 10:33 BP Systolic 134 mm[Hg] Status: Comments: Location: ; Position: BP Diastolic 62 mm[Hg] Status: Comments: Location: ; Position: Heart Rate 79 /min Status: Comments: Location: ; Weight 128 lb Status: Physical Findings 95 Status: Comments: O2 Saturation Body Mass Index Calculated 21.3 kg/m2 Status: Body Surface Area Calculated 1.64 m2 Status: Results Date Description Value Details 09:21 XRay CHEST-PA & LAT Comments: Exam Date: 01/26/2017 09 :06Dictation Date: 01/26/2017 09:21 X CHEST PA & LAT Plan of Care Name Dates Details Planned Observations Planned Goals not documented Planned Encounters Appointment; Provider: Juli Samaniego On 17-May-2017 11:30 Appointment; Provider: Schedule Radiology On 03-May-2017 15:30 Appointment; Provider: Schedule Radiology On 03-May-2017 15:00 Appointment; Provider: Cami Ladd M.D. On 20-Apr-2017 10:45 Appointment; Provider: Ezekiel Sarmiento M.D. On 18-Apr-2017 15:15 Appointment; Provider: Dennis Callaway M.D. On 12:45 Appointment; Provider: Cami Ladd M.D. On 14:15 Instructions Name Dates Details Instructions not documented Encounters Appointment; Dennis Callaway M.D. On Encounter Diagnosis: Problem not documented 10:30 Appointment; Dennis Callaway M.D. On Encounter Diagnosis: Problem not documented 12:30 Appointment; Mireya Rosario PFernanda On 06-Jan-2017 Encounter Diagnosis: Problem not documented 13:00 Appointment; Cami Ladd M.D. On 16-Dec-2016 Encounter Diagnosis: Problem not documented 11:15 Appointment; Tabby Vallecillo M.D. On 19-Nov-2016 Encounter Diagnosis: Problem not documented 14:05 Appointment; Mireya Rosario P.AAshley On 09-Nov-2016 Encounter Diagnosis: Problem not documented 11:30 Appointment; Sosa Zhou PFernanda On 25-Oct-2016 Encounter Diagnosis: Problem not documented 14:45 Appointment; Ezekiel Sarmiento M.D. On 10-Oct-2016 Encounter Diagnosis: Problem not documented 15:45 Appointment; Cami Ladd M.D. On 05-Oct-2016 Encounter Diagnosis: Problem not documented 08:00 Appointment; Kai Diaz D.O. On 03-Oct-2016 Encounter Diagnosis: Problem not documented 13:25 Appointment; Sosa Zhou PAshleyAAshley On 26-Sep-2016 Encounter Diagnosis: Problem not documented [...] Problem not documented 14:15 Appointment; Eliel Patel M.D.|ANDREIA,ANDREIA,DONYA, On Encounter Diagnosis: Problem not documented 11:00 [...] Problem not documented 11:45 Appointment; Mireya Rosario, PAshleyAAshley On 20-Nov-2015 Encounter Diagnosis: Problem not documented [...] M.D.|ANDREIA,ANDREIA,DONYA, On Encounter Diagnosis: Problem not documented 16:15"
--- OUTSIDE RECORDS SUMMARY | 2017-05-31 17:09 | External Medical Summary | Summary of Care ---
:1940 Author Name Dalton Jaeger, Joselyn Garsia Address Unavailable Unavailable , Care Team Providers Name Role Phone Abraham Bustos, Mireya Unavailable Unavailable Carolina Jaeger, Jessica Dodd Unavailable Unavailable Wilberto Jaeger, Cami Unavailable Unavailable Dalton Jaeger, Joselyn Garsia Unavailable Unavailable aCmi Ladd Unavailable Unavailable Unavailable Unavailable Unavailable Functional Status Functional Status Health Issues Name Dates Details Functional status health issues are not documented Status: Cognitive Status Health Issues Name Dates Details Cognitive status health issues are not documented Status: Problems Name Dates Details Thrombocytopenia (287.5, D69.6) Status: Active Weakness (780.79, R53.1) Status: Active Insomnia (780.52, G47.00) Status: Active Pernicious anemia (281.0, D51.0) Status: Active 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, 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 Vitamin B12 deficiency (266.2, E53.8) Status: Active Osteoporosis (733.00, M81.0) Status: Active Generalized weakness (780.79, R53.1) Status: Active Fatigue (780.79, R53.83) Status: Active 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, 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 Other specified local infection of skin or subcutaneous tissue (686.8, L08.89) Status: Active Edema (782.3, R60.9) Status: Active Hypertension (401.9, I10) Status: Active 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, 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 Purpura (287.2, D69.2) Status: Active Keloid (701.4, L91.0) Status: Active Complaints of leg weakness (729.89, R29.898) Status: Active Hypokalemia (276.8, E87.6) Status: Active Confusion (298.9, R41.0) Status: Active Difficulty breathing (786.09, R06.89) Status: Active Emphysema/COPD (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 Quantity: 1 Refills: 2 Carolina Jaeger, Yousif Lopez Start 26-May-2014 Active 50 GM Tube Prolia [...] TWICE A DAY Quantity: 60 Refills: 3 Cami Ladd M.D. Start 11-Aug-2015 Active ProAir RespiClick 108 (90 Base) MCG/ACT Inhalation Aerosol Powder Breath Activated INHALE 2 PUFFS BY MOUTH UP TO FOUR TIMES A DAY NEEDED Quantity: 1 Refills: 5 Ady Hoffman M.D. Start 16-Oct-2015 Active AmLODIPine Besylate 10 MG Oral Tablet TAKE 1 TABLET DAILY. Quantity: 30 Refills: 4 Ladd M.D.Cami Start 13-Nov-2015 Active Donepezil HCl - 5 MG Oral Tablet take one tablet by mouth every day Quantity: 30 Refills: 2 Ladd M.D., Cami Start 20-Nov-2015 Active Escitalopram Oxalate 5 MG Oral Tablet TAKE 1 TABLET Every morning at breakfast Quantity: 30 Refills: 3 Ladd M.D., Cami Start Active Losartan Potassium-HCTZ 50-12.5 MG Oral Tablet take one tablet by mouth every day Quantity: 30 Refills: 4 Ladd M.D., Cami Start Active Azithromycin 250 MG Oral Tablet TAKE 2 TABLETS ON DAY 1 THEN TAKE 1 TABLET A DAY FOR 4 DAYS. Quantity: 1 Refills: 0 Abraham P.A. Mireya Start 18-Mar-2016 Active 6 Tablet Bottle Allergies and Adverse Reactions Name Dates Details Levaquin TABS (Allergy) Status: Active Past Medical History Name Dates [...] 12-Dec-2008 Tdap (Adacel) on: 05-Dec-2013 Lot #: [id number] Prevnar 13 Intramuscular Suspension on: 05-Dec-2013 Lot #: [id number] Prevnar 13 Intramuscular Suspension on: 25-Nov-2014 Lot #: [id number] Fluvirin 0.5 ML Intramuscular Suspension Prefilled Syringe [...] smoker Vital Signs Date Test Result Details 18-Mar-2016 13:56 BP Systolic 158 mm[Hg] Status: Comments: Location: ; Position: BP Diastolic 82 mm[Hg] Status: Comments: Location: ; Position: Heart Rate 84 /min Status: Comments: Location: ; Height 64 in Status: Weight 140 lb Status: Physical Findings 94 Status: Comments: O2 Saturation Body Mass Index Calculated 24.03 kg/m2 Status: Body Surface Area Calculated 1.68 m2 Status: Results Date Description Value Details Results not documented Plan of Care Name Dates Details Planned Observations Planned Goals not documented Planned Encounters Appointment; Provider: Ady Hoffman M.D. On 18-Jul-2016 15:00 Appointment; Provider: Ady Hoffman M.D. On 20-May-2016 10:15 Appointment; Provider: Cami Ladd M.D. On 19-Apr-2016 10:00 Appointment; Provider: Ezekiel Sarmiento M.D. On 01-Apr-2016 09:15 Appointment; Provider: Eliel Patel M.D.|ANDREIA,ANDREIA,DONYA, On Mar-2016 10:45 Interventions Provided Medication ChangesAzithromycin 250 MG Oral Tablet - Start Instructions Name Dates Details Instructions not documented Encounters Appointment; Eliel Patel M.D.|ANDREIA,KHANHPSanjay,DONYA, On Encounter Diagnosis: Problem not documented 11:00 [...] Problem not documented 10:45 Appointment; Eliel Patel M.D.|FACP|M.DAshley,FACP|M.DAshley,FACP, On Encounter Diagnosis: Problem not documented 16:15 [...] documented 13:00 Appointment; Yousif Figueroa M.D. On 21-May-2014 Encounter Diagnosis: Problem not documented 10:00 Appointment; Alo An M.D. On 09-May-2014 Encounter Diagnosis: Problem not documented 13:30"
--- OUTSIDE RECORDS SUMMARY | 2017-05-31 17:09 | External Medical Summary ---
:1940 Author Name GENERATED, SYSTEM Care Team Providers Name Role Phone MD CASIMIRO, MARILU Primary Care Provider [phone] Reason For Visit Reason for Visit from 06/03/2015 11:14 AM:Pt Stated Reason for Adm : Prolia injection Chief Complaint OSTEOPOROSIS Social History Functional Status Functional Status from 06/03/2015 11:14 AM:LOC : AlertOriented To : Person,Place ,Time,Event Vital Signs Hospital Vital Signs from 06/03/2015 11:02 AM:Height : 5/5 ft,inTemperature : 98.0 FPulse : 83Respirations : 18BP : 166/91 Results Problems Encounter Diagnosis No relevant problems exist. Additional Problems Pulmonary Emphysema Comment:Problem resolved by [facility] Workflow upon Discharge , Status:Resolved. Encounters Encounter Diagnosis No relevant problems exist. Plan of Care Procedures Completed Procedure Code: 00.00 Procedure Name: not valued, on 11/28/2014 12:00 AM Immunizations No immunizations administered or ordered. Hospital Course Hospital Discharge Instructions Allergies, Adverse Reactions, Alerts Levaquin causes unspecified.No Latex Allergy.No IV Contrast Allergy. Medication Medication reconciliation has not been performed.
--- OUTSIDE RECORDS SUMMARY | 2017-05-31 17:09 | External Medical Summary | Summary of Care ---
:1940 Author Name Cami Ladd M.D. Address [address] [place], [place] [id number] Care Team Providers Name Role Phone Juve [...] Status: Active Hypoxia (799.02, R09.02) Status: Active Edema (782.3, R60.9) Status: Active Medications Name Dates Details Brovana 15 MCG/2ML Inhalation Nebulization Solution USE EVERY 12 HOURS (copd J44.9/J43.9) Quantity: 120 Refills: 5 Ady Hoffman M.D. Started 15-Oct-2009 ActiveSpiriva HandiHaler 18 MCG Inhalation Capsule 1 PUFF EVERY MORNING Quantity: 30 Refills: 6 Ady Hoffman M.D. Started 17-Jun-2009 ActiveBudesonide 0.25 MG/2ML Inhalation Suspension NEBULIZE TWO TIMES DAILY (Dx: J44.9/J43.9) Quantity: 120 Refills: 5 Ady Hoffman M.D. Started 15-Oct-2009 ActiveProAir HFA [...] Refills: 2 Yousif Figueroa M.D. Started 26-May-2014 Vihpcq59 GM Tube Prolia 60 MG/ML Subcutaneous Solution INJECT SUBCUTANEOUSLY 60 MG / 1 ML EVERY 6 MONTHS Quantity: 1 Refills: 0 Cami Ladd M.D. Started 11-Nov-2014 ActiveLexapro 10 MG Oral Tablet 1\2 tab daily for 10 day then 1 tab daily Quantity: 33 Refills: 0 Cami Ladd M.D. Started 20-Jul-2015 ActiveOxygen Home O2 ConcentratorUse 2 liters 8-10 hours/nightQualifying 07/22/15: Nocturnal oximetry=82%, <88%x 35 minutes Quantity: 1 Refills: 0 Ady Hoffman M.D. Started 23-Jul-2015 ActiveHydrochlorothiazide 25 MG Oral Tablet take one tablet by mouth every day Quantity: 30 Refills: 3 Cami Ladd M.D. Started 11-Aug-2015 ActivePotassium Chloride ER 10 MEQ Oral Capsule Extended Release TAKE ONE CAPSULE BY MOUTH TWICE A DAY Quantity: 60 Refills: 3 Cami Ladd M.D. Started 11-Aug-2015 Active Allergies and Adverse Reactions Name Dates Details Levaquin TABS Status: Active Past Medical History Name Dates Details History of CXR Solitary Pulmonary Nodule Right Lung Status: Resolved Procedures Procedure Dates Details History of Hysterectomy History of Complete Colonoscopy Urinalysis, Reflex to Microscopic or Culture PRN [id number] Ordered:11-Aug-2015 BASIC METABOLIC PROFILE 1210 Ordered:11-Aug-2015 Immunization Name Dates Details Pneumo (Pneumovax) Administered on:12-Dec-2008 Tdap (Adacel) Administered on:05-Dec-2013 Lot #: [id number] Prevnar 13 Intramuscular Suspension Administered on:05-Dec-2013 Lot #: [id number] Prevnar 13 Intramuscular Suspension Administered on:25-Nov-2014 Lot #: [id number] Fluvirin 0.5 ML Intramuscular Suspension Prefilled Syringe Administered on:May-2015 Family History Unknown Family Member Name Dates Details Family history of Asthma (V17.5) Comments: Family History Status: Active Father Name Dates Details Family history of myocardial infarction (V17.3, Z82.49) Status: Active Social History Name Dates Details Smoking StatusFormer smoker Vital Signs Date Test Result Details 11-Aug-2015 12:59 BP Systolic 130 mm[Hg] Status: BP Diastolic 76 mm[Hg] Status: Heart Rate 94 /min Status: Weight 148 lb Status: O2 SAT 94 % Status: Body Mass Index Calculated 25.4 kg/m2 Status: Body Surface Area Calculated 1.72 m2 Status: 23-Jul-2015 10:47 BP Systolic 126 mm[Hg] Status: [...] (Better) EST GFR, >60 ml/min Range: >60 TUVALUAN (Better) EST GFR, NON-AFR >60 ml/min Range: >60 TUVALUAN (Better) Comments: EST GFR is reported in ml/min per 1.73 m2 of body surface area. For -Palestinian, please multiple result by 1.2.----- GLUCOSE 101 [...] Range: 8.5-10.1 low threshold) 23-Jul-2015 URINE CULTURE [id number] Comments: Aunalytics performed at: [facility], [address] [place] [address], [phone], [place] Cutter: Ezekiel Sun D.O., MPHQuest Collection Date/Time: 20140815 07:56 [id number] Results Received Date/Time: [id number] Reported Date/Time: [id number] performed at: [facility], [address] [place] [address], [phone], [place] Cutter: Ezekiel Sun D.O., MPHQuest Collection Date/Time: [id number] Results Received Date/Time: [id number] Reported Date/Time: [id number] CULTURE, URINE, ROUTINE SEE NOTE (Abnormal) Comments: CULTURE, URINE, ROUTINE MICRO NUMBER: [id number] TEST STATUS: FINAL SPECIMEN SOURCE : URINE, [...] I=Intermediate R=Resistant *=Not TestedNR=Not Reported NN=See Therapy Comments[OK]----- 11-Aug-2015 CBC w/ Auto Diff 7150 13:31 WBC 7.7 K/uL (Better) Range: 4.5-11.0 RBC 4.22 mil/uL Range: 3.60-5.00 (Better) HGB 13.6 g/dL (Better) Range: 12.0-16.0 HCT 41.6 % (Better) Range: 36.0-48.0 MCV 98.4 fL (Better) Range: 80.0-99.0 MCH 32.3 pg (Better) Range: 27.3-32.5 MCHC 32.8 % (Better) Range: 32.0-36.0 RDW 12.8 % (Better) Range: 11.6-14.8 PLATELETS 243 K/uL (Better) Range: 150-400 MPV 8.2 fL (Better) Range: 6.0-11.0 %NEUTRO 75.2 % (Better) Range: 37.0-80.0 %LYMPHS 13.4 % (Better) Range: 13.0-50.0 %MONO 5.9 % (Better) Range: 0.0-12.0 %EOS 2.7 % (Better) Range: 0.0-7.0 %BASO 0.7 % (Better) Range: 0.0-2.5 %SIMONE 2.1 % (Better) Range: 0.0-5.0 NEUTRO 5.8 K/uL (Better) Range: 2.0-6.9 LYMPHS 1.0 K/uL (Better) Range: 0.6-3.4 MONOS 0.5 K/uL (Better) Range: 0.0-0.9 EOS 0.2 K/uL (Better) Range: 0.0-0.7 BASO 0.1 K/uL (Better) Range: 0.0-0.2 13:54 BNP 3103 BNP 84.8 pg/mL (Better) Range: 0.0-100.0 13:58 Comprehensive Metabolic Panel 1212 SODIUM 140 mmol/L (Better) Range: 133-144 POTASSIUM 3.2 mmol/L (Below Range: 3.5-5.1 low threshold) CHLORIDE 104 mmol/L (Better) Range: 98-110 CARBON DIOXIDE 30.2 mmol/L Range: 23.0-33.0 (Better) ANION GAP 6 mmol/L (Better) Range: 6-16 BUN 14 mg/dL (Better) Range: 7-18 CREATININE, SERUM 0.64 mg/dL (Better) Range: 0.55-1.02 Comments: Please note new reference ranges effective 2015.----- BUN:CREATININE RATIO 22 (Better) EST GFR, >60 ml/min Range: >60 TUVALUAN (Better) EST GFR, NON-AFR >60 ml/min Range: >60 TUVALUAN (Better) Comments: EST GFR is reported in ml/min per 1.73 m2 of body surface area. For -Palestinian, please multiple result by 1.2.----- GLUCOSE 102 mg/dL (Above Range: 70-100 high threshold) ALK PHOSPHATASE 57 U/L (Better) Range: 46-116 TOTAL BILIRUBIN 0.60 mg/dL (Better) Range: 0.20-1.00 AST 11 U/L (Better) Range: 8-35 ALT 19 U/L (Better) Range: 14-59 Comments: Please note new reference ranges. Effective 10/23/2014.----- ALBUMIN 3.4 g/dL (Better) Range: 3.4-5.0 TOTAL PROTEIN 6.3 g/dL (Below low Range: 6.4-8.2 threshold) A/G RATIO 1.2 units (Better) Range: 1.0-1.8 CALCIUM 8.1 mg/dL (Below Range: 8.5-10.1 low threshold) Plan of Care Planned Observations Name Dates Details Planned Goals not documented Goal Planned Encounters Appointment; Provider: Eliel Patel On 09:30 Appointment; Provider: Ady Hoffman On 13:15 Appointment; Provider: Cami Ladd On 24-Aug-2015 13:00 Appointment; Provider: Yousif Figueroa On 13-Aug-2015 14:30 Instructions Instructions not documented Encounters Appointment; Cami Ladd On 11-Aug-2015 Encounter Diagnosis: Problem not documented 13:15 Appointment; Ady Hoffman On 23-Jul-2015 Encounter Diagnosis: [...]
--- OUTSIDE RECORDS SUMMARY | 2017-05-31 17:10 | External Medical Summary | Summary of Care ---
:1940 Author Name Geeta Quach Address [address] [place] [address] Care Team Providers Name Role Phone Geeta Quach Unavailable Unavailable Jessica Figueroa M.D. 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 Started 15-Oct-2009 ActiveHalobetasol Propionate 0.05 % External Cream APPLY AND GENTLY MASSAGE INTO AFFECTED AREA(S) ON LEGS TWICE DAILY. Quantity: 1 Refills: 2 Yousif Figueroa M.D. Started 26-May-2014 Grpxst59 GM Tube Prolia 60 MG/ML Subcutaneous Solution INJECT SUBCUTANEOUSLY 60 MG / 1 ML EVERY 6 MONTHS Quantity: 1 Refills: 0 Cami Ladd M.D. Started 11-Nov-2014 ActiveOxygen Home O2 ConcentratorUse 2 liters 8-10 hours/nightQualifying 07/22/15: Nocturnal oximetry=82%, <88%x 35 minutes Quantity: 1 Refills: 0 Ady Hoffman M.D. Started 23-Jul-2015 ActiveHydrochlorothiazide 25 MG Oral Tablet take one tablet by mouth every day Quantity: 30 Refills: 3 Ladd, Cami M.D. Started 11-Aug-2015 ActivePotassium Chloride ER 10 MEQ Oral Capsule Extended Release TAKE ONE CAPSULE BY MOUTH TWICE A DAY Quantity: 60 Refills: 3 Cami Ladd M.D. Started 11-Aug-2015 ActiveProAir RespiClick 108 (90 Base) MCG/ACT Inhalation Aerosol Powder Breath Activated INHALE 2 PUFFS BY MOUTH UP TO FOUR TIMES A DAY NEEDED Quantity: 1 Refills: 5 Ady Hoffman M.D. Started 16-Oct-2015 ActiveAmLODIPine Besylate 10 MG Oral Tablet TAKE 1 TABLET DAILY. Quantity: 30 Refills: 1 Cami Ladd M.D. Started 13-Nov-2015 ActiveLosartan Potassium 50 MG Oral Tablet Take one tablet by mouth daily Quantity: 30 Refills: 0 Cami Ladd M.D. Started 13-Nov-2015 ActiveDonepezil HCl - 5 MG Oral Tablet take one tablet by mouth every day Quantity: 30 Refills: 2 Cami Ladd M.D. Started 20-Nov-2015 ActiveAzithromycin 250 MG Oral Tablet TAKE 2 TABLETS ON DAY 1 THEN TAKE 1 TABLET A DAY FOR 4 DAYS. Quantity: 1 Refills: 0 Geeta Oleary Started 31-Dec-2015 Active Allergies and Adverse Reactions Name Dates [...] of Cataract Surgery History of Dental Surgery CT HEAD WITHOUT AND WITH IV CONTRAST Ordered:25-Dec-2015 Immunization Name Dates Details Pneumo (Pneumovax) Administered on:12-Dec-2008 Tdap (Adacel) Administered on:05-Dec-2013 Lot #: [id number] Prevnar 13 Intramuscular Suspension Administered on:05-Dec-2013 Lot #: [id number] Prevnar 13 Intramuscular Suspension Administered on:25-Nov-2014 Lot #: [id number] Fluvirin 0.5 ML Intramuscular Suspension Prefilled Syringe [...] smoker Vital Signs Date Test Result Details 31-Dec-2015 10:52 BP Systolic 146 mm[Hg] Status: BP Diastolic 86 mm[Hg] Status: Heart Rate 82 /min Status: Weight 141 lb Status: O2 SAT 96 % Status: Body Mass Index Calculated 24.2 kg/m2 Status: Body Surface Area Calculated 1.69 m2 Status: 24-Dec-2015 10:25 BP Systolic 120 mm[Hg] Status: BP Diastolic 84 mm[Hg] Status: Heart Rate 88 /min Status: Height 64 in Status: Weight 143.4 lb Status: O2 SAT 96 % Status: Body Mass Index Calculated 24.61 kg/m2 Status: Body Surface Area Calculated 1.7 m2 Status: Results Date Description Value Details Results not documented Plan of Care Planned Observations Name Dates Details Planned Goals not documented Goal Planned Encounters Appointment; Provider: Ady Hoffman On 20-May-2016 10:15 Appointment; Provider: Ezekiel Sarmiento On 09:15 Appointment; Provider: Eliel Patel On 09:30 Appointment; Provider: Cami Ladd On 10:45 Appointment; Provider: Ezekiel Sarmiento On 12-Jan-2016 12:00 Appointment; Provider: Schedule Radiology On 05-Jan-2016 13:00 Appointment; Provider: Chai Garcias On 16-Nov-2015 08:20 Instructions Instructions not documented Encounters Appointment; Ady Hoffman On 31-Dec-2015 Encounter Diagnosis: Problem not documented 10:45 Appointment; Ezekiel Sarmiento On 24-Dec-2015 Encounter Diagnosis: Problem not documented 10:00 Appointment; Cami Ladd On 20-Nov-2015 Encounter Diagnosis: Problem not documented 11:45 Appointment; Mireya Rosario On 20-Nov-2015 Encounter Diagnosis: Problem not documented 11:00 Appointment; Yousif Figueroa On 17-Nov-2015 Encounter Diagnosis: Problem not documented 17:45 Appointment; Yousif Figueroa On 16-Nov-2015 Encounter Diagnosis: Problem not documented 09:45 Appointment; Cami Ladd On 13-Nov-2015 Encounter Diagnosis: Problem not documented 15:15 Appointment; Geeta Oleary On 09-Nov-2015 Encounter Diagnosis: Problem not documented 14:00 Appointment; Ofelia Hdez On 04-Nov-2015 Encounter Diagnosis: Problem not documented 13:30 Appointment; Tabby Vallecillo On 08-Oct-2015 Encounter Diagnosis: Problem not documented 13:15 Appointment; Cami Ladd On 24-Aug-2015 Encounter Diagnosis: Problem not documented 13:00 Appointment; Yousif Figueroa On 13-Aug-2015 Encounter Diagnosis: Problem not documented 14:30 Appointment; Cami Ladd On 11-Aug-2015 Encounter Diagnosis: [...]
--- OUTSIDE RECORDS SUMMARY | 2017-05-31 17:10 | External Medical Summary ---
:1940 Author Name GENERATED, SYSTEM Care Team Providers Name Role Phone MD CASIMIRO, MARILU Primary Care Provider [phone] Reason For Visit Chief Complaint LEFT SHOULDER PAIN Social History Functional Status Vital Signs Results Problems Encounter Diagnosis No relevant problems exist. Additional Problems Acute Exacerbation of Chronic Obstructive Airways Disease Comment:Problem resolved by [facility] Workflow upon Discharge, Status:Resolved.Acute Renal Failure Syndrome Comment:Problem resolved by [facility] Workflow upon Discharge, Status:Resolved.Chronic Obstructive Lung Disease Comment:Problem resolved by [facility] Workflow upon Discharge, Status:Resolved.Fall Risk Comment:Problem resolved by [facility] Workflow upon Discharge, Status:Resolved.Fall Risk Comment: Problem resolved by [facility] Workflow upon Discharge, Status:Resolved.History of Hypertension Comment:Problem resolved by [facility] Workflow upon Discharge, Status :Resolved.Hypertensive Disorder Comment:Problem resolved by [facility] Workflow upon Discharge, Status:Resolved.Pulmonary Emphysema Comment:Problem resolved by [facility] Workflow upon Discharge, Status:Resolved.Pulmonary Emphysema Comment: Problem resolved by [facility] Workflow upon Discharge, Status:Resolved. Encounters Encounter Diagnosis No relevant problems exist. Plan of Care Procedures Completed Procedure Code: 00.00 Procedure Name: not valued, on 11/28/2014 12:00 AM Immunizations No immunizations administered or ordered. Hospital Course Hospital Discharge Instructions Allergies, Adverse Reactions, Alerts Levaquin causes unspecified.Latex Allergy has not been assessed.IV Contrast Allergy has not been assessed.No Known Food Allergies. Medication Medication reconciliation has not been performed.
--- OUTSIDE RECORDS SUMMARY | 2017-05-31 17:10 | External Medical Summary | Summary of Care ---
:1940 Author Name Jaimee Sarmiento M.D. Address [address], [place] [id number] Care Team Providers Name Role Phone Geeta [...] Active Difficulty breathing (786.09, R06.89) Status: Active Hypoxia (799.02, R09.02) Status: Active Shortness of breath at rest (786.05, R06.02) Status: Active Acute bronchitis, unspecified organism (466.0, J20.9) Status: Active Acute exacerbation of emphysema (491.21, J43.9) Status: Active Chronic obstructive pulmonary disease (496, J44.9) Status: Active Medications Name Dates Details Brovana 15 MCG/2ML Inhalation Nebulization Solution USE EVERY 12 HOURS (copd J44.9/J43.9) Quantity: 120 Refills: 5 Ady Hoffman M.D. Started 15-Oct-2009 ActiveSpiriva HandiHaler 18 MCG Inhalation Capsule USE 1 PUFF BY MOUTH EVERY MORNING Quantity: 30 Refills: 11 Ady Hoffman M.D. Started 17-Jun-2009 ActiveBudesonide 0.25 MG/2ML Inhalation Suspension NEBULIZE TWO TIMES DAILY (Dx: J44.9/J43.9) Quantity: 120 Refills: 5 Ady Hoffman M.D. Started 15-Oct-2009 ActiveHalobetasol Propionate 0.05 % External Cream APPLY AND GENTLY MASSAGE INTO AFFECTED AREA(S) ON LEGS TWICE DAILY. Quantity: 1 Refills: 2 Yousif Figueroa M.D. Started 26-May-2014 Lorpdq48 GM Tube Prolia 60 MG/ML Subcutaneous Solution INJECT SUBCUTANEOUSLY 60 MG / 1 ML EVERY 6 MONTHS Quantity: 1 Refills: 0 Cami Ladd M.D. Started 11-Nov-2014 ActiveOxygen Home O2 ConcentratorUse 2 liters 8-10 hours/nightQualifying 07/22/15: Nocturnal oximetry=82%, <88%x 35 minutes Quantity: 1 Refills: 0 Ady oHffman M.D. Started 23-Jul-2015 ActiveHydrochlorothiazide 25 MG Oral [...] 1 Refills: 0 Geeta Oleary Started 31-Dec-2015 ActivePredniSONE 10 MG Oral Tablet 4 tabs for 2 days, 2 tabs for 4 days and 1 tab for 4 days then d/c Quantity: 20 Refills: 0 Cami Ladd M.D. Started 05-Jan-2016 ActiveAmoxicillin-Pot Clavulanate 875-125 MG Oral Tablet TAKE 1 TABLET EVERY 12 HOURS UNTIL GONE. Quantity: 20 Refills: 0 Cami Ladd M.D. Started 05-Jan-2016 Ended Active Allergies and Adverse Reactions Name Dates [...] on:12-Dec-2008 Tdap (Adacel) Administered on:05-Dec-2013 Lot #: [id number] Prevnar 13 Intramuscular Suspension Administered on:05-Dec-2013 Lot #: [id number] Prevnar 13 Intramuscular Suspension Administered on:25-Nov-2014 Lot #: [id number] Fluvirin 0.5 ML Intramuscular Suspension Prefilled Syringe [...] smoker Vital Signs Date Test Result Details 05-Jan-2016 10:24 BP Systolic 150 mm[Hg] Status: BP Diastolic 80 mm[Hg] Status: Temperature 98.6 f Status: Heart Rate 86 /min Status: O2 SAT 95 % Status: 31-Dec-2015 10:52 BP Systolic 146 mm[Hg] Status: [...] m2 Status: Results Date Description Value Details 31-Dec-2015 XRay CHEST-PA & LAT Comments: Exam Date: 12/31/2015 10: 38Dictation Date: 12/31/2015 11:00 11:00 X CHEST PA & LAT (Better) 05-Jan-2016 CBC w/ Auto Diff 7150 Comments: Manual differential indicated. 11:13 WBC 8.2 K/uL (Better) Range: 4.5-11.0 RBC 4.37 mil/uL Range: 3.60-5.00 (Better) HGB 13.9 g/dL (Better) Range: 12.0-16.0 HCT 42.7 % (Better) Range: 36.0-48.0 MCV 97.6 fL (Better) Range: 80.0-99.0 MCH 31.9 pg (Better) Range: 27.3-32.5 MCHC 32.6 % (Better) Range: 32.0-36.0 RDW 13.7 % (Better) Range: 11.6-14.8 PLATELETS 330 K/uL (Better) Range: 150-400 MPV 8.2 fL (Better) Range: 6.0-11.0 11:21 XRay CHEST-PA & LAT Comments: Exam Date: 01/05/2016 10: 53Dictation Date: 01/05/2016 11:21 X CHEST PA & LAT (Better) 11:37 Manual Differential 7400 SEGS 89 % (Above high Range: 37-80 threshold) BANDS 0 % (Better) Range: 0-7 LYMPH 5 % (Below low Range: 13-50 threshold) MONO [...] 0-0 SMUDGE 0 /100 WBC (Better) PLATELET Adequate (Better) Range: Adequate 11:38 Comprehensive Metabolic Panel 1212 SODIUM 142 mmol/L (Better) Range: 133-144 POTASSIUM 3.4 mmol/L (Below Range: 3.5-5.1 low threshold) CHLORIDE 102 mmol/L (Better) Range: 98-110 CARBON DIOXIDE 30.2 mmol/L Range: 23.0-33.0 (Better) ANION GAP 10 mmol/L (Better) Range: 6-16 BUN 9 mg/dL (Better) Range: 7-18 CREATININE, SERUM 0.49 mg/dL (Below Range: 0.55-1.02 low threshold) Comments: Please note new reference ranges effective 2014.----- BUN:CREATININE RATIO 18 (Better) EST GFR, >60 ml/min Range: >60 (Better) EST GFR, NON-AFR BANGLADESHI >60 ml/min Range: >60 (Better) Comments: EST GFR is reported in ml/min per 1.73 m2 of body surface area. For -Nigerian, please multiple result by 1.2.----- GLUCOSE 101 mg/dL (Above Range: 70-100 high threshold) ALK PHOSPHATASE 57 U/L (Better) Range: 46-116 TOTAL BILIRUBIN 0.70 mg/dL (Better) Range: 0.20-1.00 AST 11 U/L (Better) Range: 8-35 ALT 22 U/L (Better) Range: 14-59 Comments: Please note new reference ranges. Effective 10/23/2014.----- ALBUMIN 3.5 g/dL (Better) Range: 3.4-5.0 TOTAL PROTEIN 6.8 g/dL (Better) Range: 6.4-8.2 A/G RATIO 1.1 units (Better) Range: 1.0-1.8 CALCIUM 7.8 mg/dL (Below Range: 8.5-10.1 low threshold) 13:37 CT HEAD WITHOUT AND WITH Comments: Exam Date: 01/05/2016 12: 53Dictation Date: 01/05/2016 13:37 IV CONTRAST XC HEAD (Better) Plan of Care Planned Observations Name Dates Details Planned Goals not documented Goal Planned Encounters Appointment; Provider: Ady Hoffman On 20-May-2016 10:15 Appointment; Provider: Ezekiel Sarmiento On 09:15 Appointment; Provider: Cami Ladd On 10:45 Appointment; Provider: Ezekiel Sarmiento On 12-Jan-2016 12:00 Appointment; Provider: Schedule Radiology On 05-Jan-2016 13:00 Appointment; Provider: Chai Garcias On 16-Nov-2015 08:20 Instructions Instructions not documented Encounters Appointment; Cami Ladd On 05-Jan-2016 Encounter Diagnosis: Problem not documented 10:20 Appointment; Ady Hoffman On 31-Dec-2015 Encounter Diagnosis: [...]
--- OUTSIDE RECORDS SUMMARY | 2017-05-31 17:10 | External Medical Summary | Summary of Care ---
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 Cough (786.2, R05) Status: Active Acute exacerbation of emphysema (491.21, J43.9) Status: Active Acute bronchitis (466.0, J20.9) Status: Active Weakness (780.79, R53.1) Status: Active Depression (311, F32.9) Status: Active Insomnia (780.52, G47.00) Status: Active Pernicious anemia (281.0, D51.0) Status: Active Sinusitis (473.9, J32.9) Status: Active Pre-operative exam (V72.84, Z01.818) Status: Active Chronic obstructive pulmonary disease (496, J44.9) Status: Active Hypertension (401.9, I10) Status: Active Emphysema/COPD (492.8, J43.9) Status: Active Hypokalemia (276.8, E87.6) Status: Active Osteoporosis (733.00, M81.0) Status: Active 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 Started 15-Oct-2009 ActiveSpiriva HandiHaler 18 MCG Inhalation Capsule 1 PUFF EVERY MORNING Quantity: 30 Refills: 6 Ady Hoffman M.D. Started 17-Jun-2009 ActiveBudesonide 0.25 MG/2ML Inhalation Suspension NEBULIZE TWO TIMES DAILY Dx: copd 496 Quantity: 120 Refills: 0 Ady Hoffman M.D. Started 15-Oct-2009 ActiveProAir HFA 108 (90 Base) MCG/ACT Inhalation Aerosol Solution INHALE 1 TO 2 PUFFS EVERY 4 TO 6 HOURS NEEDED. Quantity: 1 Refills: 11 Ady Hoffman M.D. Started 30-Sep-2011 Active8.5 GM Inhaler AmLODIPine Besylate 5 MG Oral Tablet TAKE 1 TABLET DAILY DIRECTED. Quantity: 30 Refills: 6 Alo An M.D. Started 22-Jul-2013 ActiveProlia 60 MG/ML Subcutaneous Solution INJECT SUBCUTANEOUSLY 60 MG / 1 ML EVERY 6 MONTHS Refills: 0 Cami Ladd M.D. Started 11-Nov-2014 ActivePredniSONE 10 MG Oral Tablet 2 tabs for 7 days then 1 tab daily for 7 days. Quantity: 21 Refills: 0 Cami Ladd M.D. Started ActiveTriamcinolone Acetonide 0.1 % External Cream APPLY SPARINGLY TO AFFECTED AREA(S) 3 TIMES A DAY Quantity: 1 Refills: 0 Cami Ladd M.D. Started Ended [id number] GM Tube Allergies and Adverse Reactions Name Dates Details Levaquin TABS Status: Active Past Medical History Name Dates Details History of CXR Solitary Pulmonary Nodule Right Lung Status: Resolved Procedures Procedure Dates Details History of Hysterectomy History of Complete Colonoscopy CBC w/ Auto Diff 7150 Ordered: Comprehensive Metabolic Panel 1212 Ordered: EPO PANEL 3699 Ordered: CBC w/ Auto Diff 7150 Ordered: Immunization Name Dates Details Pneumo (Pneumovax) Administered on:12-Dec-2008 Tdap (Adacel) Administered on:05-Dec-2013 Lot #: [id number] Prevnar 13 Intramuscular Suspension Administered on:05-Dec-2013 Lot #: [id number] Prevnar 13 Intramuscular Suspension Administered on:25-Nov-2014 Lot #: [id number] Family History Unknown Family Member Name Dates Details Family history of Asthma (V17.5) Comments: Family History Status: Active Father Name Dates Details Family history of myocardial infarction (V17.3, Z82.49) Status: Active Social History Name Dates Details Smoking StatusFormer smoker Vital Signs Date Test Result Details 16:20 BP Systolic 146 mm[Hg] Status: BP Diastolic 83 mm[Hg] Status: Heart Rate 89 /min Status: Temperature 98.6 f Status: Weight 144 lb Status: Body Mass Index Calculated 24.72 kg/m2 Status: Body Surface Area Calculated 1.7 m2 Status: 09:47 BP Systolic 165 mm[Hg] Status: BP Diastolic 84 mm[Hg] Status: Heart Rate 79 /min Status: Temperature 97.8 f Status: Weight 148 lb Status: Body Mass Index Calculated 25.4 kg/m2 Status: Body Surface Area Calculated 1.72 m2 Status: 13:57 BP Systolic 162 mm[Hg] Status: BP Diastolic 84 mm[Hg] Status: Heart Rate 78 /min Status: Weight 147 lb Status: O2 SAT 96 % Status: Body Mass Index Calculated 25.23 kg/m2 Status: Body Surface Area Calculated 1.72 m2 Status: Results Date Description Value Details 09:09 CBC w/ Auto Diff 7150 WBC 7.3 K/uL (Better) Range: 4.5-11.0 RBC 4.80 mil/uL Range: 3.60-5.00 (Better) HGB 14.8 g/dL Range: 12.0-16.0 (Better) HCT 45.1 % (Better) Range: 36.0-48.0 MCV 93.9 fL (Better) Range: 80.0-99.0 MCH 30.9 pg (Better) Range: 27.3-32.5 MCHC 32.8 % (Better) Range: 32.0-36.0 RDW 12.5 % (Better) Range: 11.6-14.8 PLATELETS 197 K/uL (Better) Range: 150-400 MPV 8.7 fL (Better) Range: 6.0-11.0 %NEUTRO 69.7 % (Better) Range: 37.0-80.0 %LYMPHS 15.9 % (Better) Range: 13.0-50.0 %MONO 7.9 % (Better) Range: 0.0-12.0 %EOS 3.4 % (Better) Range: 0.0-7.0 %BASO 0.9 % (Better) Range: 0.0-2.5 %SIMONE 2.2 % (Better) Range: 0.0-5.0 NEUTRO 5.1 K/uL (Better) Range: 2.0-6.9 LYMPHS 1.2 K/uL (Better) Range: 0.6-3.4 MONOS 0.6 K/uL (Better) Range: 0.0-0.9 EOS 0.3 K/uL (Better) Range: 0.0-0.7 BASO 0.1 K/uL (Better) Range: 0.0-0.2 09:37 Iron Panel with TIBC 1612 IRON 106 ug/dL Range: 50-170 (Better) TOTAL IRON BIND. CAPACITY 289 ug/dL Range: 250-450 (Better) % IRON SATURATION 37 % (Better) Range: 20-55 09:37 Comprehensive Metabolic Panel 1212 SODIUM 136 mmol/L Range: 133-144 (Better) POTASSIUM 4.0 mmol/L Range: 3.5-5.1 (Better) CHLORIDE 99 mmol/L Range: 98-110 (Better) CARBON DIOXIDE 30.6 mmol/L Range: 23.0-33.0 (Better) ANION GAP 6 mmol/L (Better) Range: 6-16 BUN 17 mg/dL (Better) Range: 7-18 CREATININE, SERUM 0.70 mg/dL Range: 0.70-1.30 (Better) Comments: Please note new reference ranges effective 2015.- ---- BUN:CREATININE RATIO 24 (Better) EST GFR, >60 ml/min Range: >60 (Better) EST GFR, NON-AFR LITHUANIAN >60 ml/min Range: >60 (Better) Comments: EST GFR is reported in ml/min per 1.73 m2 of body surface area. For -Armenian, please multiple result by 1.2.----- GLUCOSE 95 mg/dL (Better) Range: 70-100 ALK PHOSPHATASE 52 U/L (Better) Range: 46-116 TOTAL BILIRUBIN 0.80 mg/dL Range: 0.20-1.00 (Better) AST 16 U/L (Better) Range: 8-35 ALT 17 U/L (Better) Range: 14-59 Comments: Please note new reference ranges. Effective 10/23/2014.----- ALBUMIN 3.8 g/dL (Better) Range: 3.4-5.0 TOTAL PROTEIN 6.6 g/dL (Better) Range: 6.4-8.2 A/G RATIO 1.4 units Range: 1.0-1.8 (Better) CALCIUM 8.3 mg/dL (Below Range: 8.5-10.1 low threshold) 09:46 VITAMIN B12 3606 VITAMIN B12 583 pg/mL Range: 211-911 (Better) 09:46 FOLATE 3608 FOLATE 9.8 ng/mL Range: 5.4-20.8 (Better) 09:46 FERRITIN 3025 FERRITIN 96 ng/mL (Better) Range: 10-291 Plan of Care Planned Observations Name Dates Details Planned Goals not documented Goal Planned Encounters Appointment; Provider: Eliel Patel On 09:30 Appointment; Provider: Ady Hoffman On 10:45 Instructions Instructions not documented Encounters Appointment; Eliel Patel On Encounter Diagnosis: Problem [...] 22-Jul-2013 Encounter Diagnosis: Problem not documented 09:00 Appointment; Delicia Jeronimo On 15-Jul-2013 Encounter Diagnosis: Problem not documented 09:45 Appointment; Delicia Jernoimo On 27-Jun-2013 Encounter Diagnosis: Problem not documented 10:30
--- OUTSIDE RECORDS SUMMARY | 2017-05-31 17:10 | External Medical Summary | Summary of Care ---
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 Vitamin B12 deficiency (266.2, E53.8) Status: Active Osteoporosis (733.00, M81.0) Status: Active Lichen planus (697.0, L43.9) Status: Active SCC (squamous cell carcinoma), arm (173.62, C44.621) Status: Active Generalized weakness (780.79, R53.1) Status: Active Fatigue (780.79, R53.83) Status: Active Chronic obstructive pulmonary disease (496, J44.9) Status: Active Depression (311, F32.9) Status: Active Hypoxia (799.02, R09.02) Status: Active 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 Started 26-May-2014 [id number] GM Tube Prolia 60 MG/ML Subcutaneous Solution [...] MCG/ACT Inhalation Aerosol Powder Breath Activated 1-2 inhilations every 4-6 hrs Refills: 0 Ady Hoffman M.D. Started 16-Oct-2015 ActiveAzithromycin 500 MG Oral Tablet Take 1 tablet daily Quantity: 10 Refills: 0 Ofelia Hdez APRN Started 04-Nov-2015 Active Allergies and Adverse Reactions Name Dates Details Levaquin TABS Status: Active Past Medical History Name Dates Details History of CXR Solitary Pulmonary Nodule Right Lung Status: Resolved Procedures Procedure Dates Details History of Hysterectomy History of Complete Colonoscopy Procedures not documented Immunization Name Dates Details Pneumo (Pneumovax) Administered on:12-Dec-2008 Tdap (Adacel) Administered on:05-Dec-2013 Lot #: [id number] Prevnar 13 Intramuscular Suspension Administered on:05-Dec-2013 Lot #: [id number] Prevnar 13 Intramuscular Suspension Administered on:25-Nov-2014 Lot #: [id number] Fluvirin 0.5 ML Intramuscular Suspension Prefilled Syringe Administered on:May-2015 Family History Unknown Family Member Name Dates Details Family history of Asthma (V17.5) Comments: Family History Status: Active Father Name Dates Details Family history of myocardial infarction (V17.3, Z82.49) Status: Active Social History Name Dates Details Smoking StatusFormer smoker Vital Signs Date Test Result Details 04-Nov-2015 13:21 BP Systolic 152 mm[Hg] Status: BP Diastolic 90 mm[Hg] Status: Heart Rate 84 /min Status: Weight 143 lb Status: O2 SAT 91 % Status: Body Mass Index Calculated 24.55 kg/m2 Status: Body Surface Area Calculated 1.7 m2 Status: 08-Oct-2015 13:18 BP Systolic 156 mm[Hg] Status: BP Diastolic 80 mm[Hg] Status: Heart Rate 84 /min Status: Respiration Rate 20 /min Status: Weight 147 lb Status: Body Mass Index Calculated 25.23 kg/m2 Status: Body Surface Area Calculated 1.72 m2 Status: Results Date Description Value Details Results not documented Plan of Care Planned Observations Name Dates Details Planned Goals not documented Goal Planned Encounters Appointment; Provider: Eliel Patel On 09:30 Appointment; Provider: Ady Hoffman On 13:15 Appointment; Provider: Yousif Figueroa On 16-Nov-2015 09:45 Instructions Instructions not documented Encounters Appointment; Ofelia Hdez On 04-Nov-2015 Encounter Diagnosis: [...]
--- OUTSIDE RECORDS SUMMARY | 2017-05-31 17:10 | External Medical Summary ---
:1940 Author Name GENERATED, SYSTEM Care Team Providers Name Role Phone MD CASIMIRO, MARILU Primary Care Provider [phone] Reason For Visit Chief Complaint DIFFICULTY BREATHING Social History Functional Status Vital Signs Results Problems Encounter Diagnosis No relevant problems exist. Additional Problems Acute Exacerbation of Chronic Obstructive Airways Disease Comment:Problem resolved by [facility] Workflow upon Discharge, Status:Resolved.Acute Renal Failure Syndrome Comment:Problem resolved by [facility] Workflow upon Discharge, Status:Resolved.Fall Risk Comment:Problem resolved by [facility] Workflow upon Discharge, Status:Resolved.Hypertensive Disorder Comment:Problem resolved by [facility] Workflow upon [...]
--- OUTSIDE RECORDS SUMMARY | 2017-05-31 17:10 | External Medical Summary | Summary of Care ---
:1940 Author Name Dalotn Jaeger, Joselyn Garsia Address [address] [place], [place] [address] Care Team Providers Name Role Phone Abraham Bustos, Mireya Unavailable Unavailable Anirudh Bustos, Geeta Unavailable Unavailable Carolina Jaeger, Jessica Dodd Unavailable Unavailable Wilberto Jaeger, Cami Unavailable Unavailable Dalton Jaeger, Jsoelyn Garsia Unavailable Unavailable Cami Ladd Unavailable Unavailable [...] Active Hypertension, uncontrolled (401.9, I10) Status: Active Hypoxia (799.02, R09.02) Status: Active Acute exacerbation of emphysema (491.21, J43.9) Status: Active Nausea (787.02, R11.0) Status: Active Hypertension (401.9, I10) Status: Active [...] A DAY Quantity: 60 Refills: 3 Ladd M.DCami Ramirez Start 11-Aug-2015 Active ProAir RespiClick 108 (90 Base) MCG/ACT Inhalation Aerosol Powder Breath Activated INHALE 2 PUFFS BY MOUTH UP TO FOUR TIMES A DAY NEEDED Quantity: 1 Refills: 5 Dalton MDella Ady Joselyn Start 16-Oct-2015 Active AmLODIPine Besylate [...] 4 DAYS. Quantity: 1 Refills: 0 Abraham Pereyra.AMireya Ramirez Start 18-Mar-2016 Active 6 Tablet Bottle Allergies [...] 12-Dec-2008 Tdap (Adacel) on: 05-Dec-2013 Lot #: [id number] Prevnar 13 Intramuscular Suspension on: 05-Dec-2013 Lot #: [id number] Prevnar 13 Intramuscular Suspension on: 25-Nov-2014 Lot #: [id number] Fluvirin 0.5 ML Intramuscular Suspension Prefilled Syringe [...] smoker Vital Signs Date Test Result Details 28-Mar-2016 09:42 Heart Rate 76 /min Status: Comments: Location: ; Height 64 in Status: Weight 135.2 lb Status: Physical Findings 96 Status: Comments: O2 Saturation Body Mass Index Calculated 23.21 kg/m2 Status: Body Surface Area Calculated 1.66 m2 Status: 18-Mar-2016 13:56 BP Systolic 158 mm[Hg] Status: BP Diastolic 82 mm[Hg] Status: Heart Rate 84 /min Status: Comments: Location: [...] Provider: Ezekiel Sarmiento M.D. On 01-Apr-2016 09:15 Instructions Name Dates Details Instructions not documented Encounters Appointment; Geeta Oleary P.A. On 28-Mar-2016 Encounter Diagnosis: Problem not documented 09:15 Appointment; Ady Hoffman M.D. On 18-Mar-2016 Encounter Diagnosis: Problem not documented 14:15 Appointment; Eliel Patel M.D.|[facility], On Encounter Diagnosis: Problem not documented 11:00 [...] Diagnosis: Problem not documented 15:15 Appointment; Geeta Oleayr, PAshleyAAshley On 09-Nov-2015 Encounter Diagnosis: Problem not documented [...] Problem not documented 10:45 Appointment; Eliel Patel M.D.|FACP|M.D.,FACP|M.DAshley,FACP, On Encounter Diagnosis: Problem not documented 16:15 Appointment; Eliel Patel M.D.|FACP|M.D.,FACP|M.D.,FACP, On Encounter Diagnosis: Problem not documented 09:00 [...]
--- OUTSIDE RECORDS SUMMARY | 2017-05-31 17:10 | External Medical Summary | Summary of Care ---
:1940 Author Name Tabby Vallecillo M.D. Address [address] [place], [place] [address] Care Team Providers Name Role Phone Avel Jaeger, Tabby Unavailable Unavailable Jessica Fgiueroa M.D. Unavailable Unavailable Wilberto Jaeger, Cami Unavailable [...] Active Pre-operative exam (V72.84, Z01.818) Status: Active 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, D69.3) [...] Refills: 5 Ady Hoffman M.D. Started 30-Sep-2011 ActiveHalobetasol Propionate 0.05 % External Cream APPLY AND GENTLY MASSAGE INTO AFFECTED AREA(S) TWICE DAILY. Quantity: 1 Refills: 2 Yousif Figueroa M.D. Started 26-May-2014 [id number] GM Tube Prolia 60 MG/ML Subcutaneous Solution [...] Refills: 3 Cami Ladd M.D. Started 11-Aug-2015 ActivePredniSONE 10 MG Oral Tablet 3 pills for 3 days, 2 pills for 3 days, 1 pill for 3 days then stop Quantity: 18 Refills: 0 Tabby Vallecillo M.D. Started 08-Oct-2015 Active Allergies and Adverse Reactions Name Dates Details Levaquin TABS Status: Active Past Medical History Name Dates Details History of CXR Solitary Pulmonary Nodule Right Lung Status: Resolved Procedures Procedure Dates Details History of Hysterectomy History of Complete Colonoscopy Procedures not documented Immunization Name Dates Details Pneumo (Pneumovax) Administered on:12-Dec-2008 Tdap (Adacel) Administered on:05-Dec-2013 Lot #: [id number] Prevnar 13 Intramuscular Suspension Administered on:05-Dec-2013 Lot #: [id number] Prevnar 13 Intramuscular Suspension Administered on:25-Nov-2014 Lot #: [id number] Fluvirin 0.5 ML Intramuscular Suspension Prefilled Syringe Administered on:May-2015 Family History Unknown Family Member Name Dates Details Family history of Asthma (V17.5) Comments: Family History Status: Active Father Name Dates Details Family history of myocardial infarction (V17.3, Z82.49) Status: Active Social History Name Dates Details Smoking StatusFormer smoker Vital Signs Date Test Result Details 08-Oct-2015 13:18 BP Systolic 156 mm[Hg] Status: [...] 09:45 Instructions Instructions not documented Encounters Appointment; Tabby Vallecillo On 08-Oct-2015 Encounter Diagnosis: [...] Diagnosis: Problem not documented 14:15 Appointment; Cami Ldad On Encounter Diagnosis: Problem not documented 11:45 [...]
--- OUTSIDE RECORDS SUMMARY | 2017-05-31 17:11 | External Medical Summary | Summary of Care ---
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 Started 26-May-2014 [id number] GM Tube Prolia 60 MG/ML Subcutaneous Solution INJECT SUBCUTANEOUSLY 60 MG / 1 ML EVERY 6 MONTHS Quantity: 1 Refills: 0 Cami Ladd M.D. Started 11-Nov-2014 Active Allergies and Adverse Reactions Name Dates Details Levaquin TABS Status: Active Past Medical History Name Dates Details History of CXR Solitary Pulmonary Nodule Right Lung Status: Resolved Procedures Procedure Dates Details History of Hysterectomy History of Complete Colonoscopy Procedures not documented Immunization Name Dates Details Pneumo (Pneumovax) Administered on:12-Dec-2008 Tdap (Adacel) Administered on:05-Dec-2013 Lot #: [id number] Prevnar 13 Intramuscular Suspension Administered on:05-Dec-2013 Lot #: [id number] Prevnar 13 Intramuscular Suspension Administered on:25-Nov-2014 Lot #: [id number] Family History Unknown Family Member Name Dates Details Family history of Asthma (V17.5) Comments: Family History Status: Active Father Name Dates Details Family history of myocardial infarction (V17.3, Z82.49) Status: Active Social History Name Dates Details Smoking StatusFormer smoker Vital Signs Date Test Result Details No Known Vitals to report Results Date Description Value Details Results not documented Plan of Care Planned Observations Name Dates Details Planned Goals not documented Goal Planned Encounters Appointment; Provider: Eliel Patel On 09:30 Appointment; Provider: Yousif Figueroa On 13-Aug-2015 14:30 Appointment; Provider: Ady Hoffman On 23-Jul-2015 10:45 Instructions Instructions not documented Encounters Appointment; Yousif Figueroa On 06-May-2015 Encounter Diagnosis: [...]
--- OUTSIDE RECORDS SUMMARY | 2017-05-31 17:11 | External Medical Summary ---
:1940 Author Name GENERATED, SYSTEM Care Team Providers Name Role Phone MD CASIMIRO, MARILU Primary Care Provider [phone] Reason For Visit Reason for Visit from 12/04/2015 10:10 AM:Pt Stated Reason for Adm : Prolia Chief Complaint OSTEOPOROSIS Social History Functional Status Functional Status from 12/04/2015 10:10 AM:LOC : AlertOriented To : Person,Place, Time Vital Signs Hospital Vital Signs from 12/04/2015 10:17 AM:Height : 5/8 ft,inTemperature : 97.8 FPulse : 85Respirations : 18BP : 149/74Hospital Vital Signs from 12/04/2015 10:10 AM:Weight : 137/ lbs,ozHeight : 5/8 ft,in Results Problems Encounter Diagnosis No relevant problems [...] Levaquin causes unspecified.No Latex Allergy.No IV Contrast Allergy.No Known Food Allergies. Medication Medication reconciliation has not been performed.
--- OUTSIDE RECORDS SUMMARY | 2017-05-31 17:11 | External Medical Summary | Summary of Care ---
:1940 Author Name Cami Ladd M.D. Address Unavailable Unavailable , Care Team Providers Name Role Phone Jessica Figueroa M.D. Unavailable Unavailable Caim Ladd M.D. Unavailable Unavailable Joselyn Hoffman M.D. Unavailable Unavailable Cami Ladd Unavailable Unavailable Unavailable [...] A DAY NEEDED Quantity: 1 Refills: 5 Ronsick M.D.Jordonlevar Alves Start 16-Oct-2015 Active AmLODIPine Besylate 10 MG Oral Tablet TAKE 1 TABLET DAILY. Quantity: 30 Refills: 4 Ladd M.D., Cami Start 13-Nov-2015 Active Donepezil HCl - 5 [...] Refills: 6 Ladd M.D., Cami Start Active Allergies and [...] 12-Dec-2008 Tdap (Adacel) on: 05-Dec-2013 Lot #: [id number] Prevnar 13 Intramuscular Suspension on: 05-Dec-2013 Lot #: [id number] Prevnar 13 Intramuscular Suspension on: 25-Nov-2014 Lot #: [id number] Fluvirin 0.5 ML Intramuscular Suspension Prefilled Syringe [...] smoker Vital Signs Date Test Result Details 31-Mar-2016 14:24 Physical Findings 95 Status: Comments: O2 Saturation 31-Mar-2016 14:18 BP Systolic 136 mm[Hg] Status: Comments: Location: ; Position: BP Diastolic 72 mm[Hg] Status: Comments: Location: ; Position: Heart Rate 90 /min Status: Comments: Location: ; Weight 137 lb Status: Physical Findings 92 Status: Comments: O2 Saturation Body Mass Index Calculated 23.52 kg/m2 Status: Body Surface Area Calculated 1.67 m2 Status: 28-Mar-2016 09:42 Heart Rate 76 /min Status: Comments: Location: ; Height 64 in Status: Weight 135.2 lb Status: Physical Findings 96 Status: Comments: O2 Saturation Body Mass Index Calculated 23.21 kg/m2 Status: Body Surface Area Calculated 1.66 m2 Status: 18-Mar-2016 13:56 BP Systolic 158 mm[Hg] Status: BP Diastolic 82 mm[Hg] Status: Heart Rate 84 /min Status: Height 64 in Status: Weight 140 lb [...] Ladd M.D. On 19-Apr-2016 10:00 Appointment; Provider: Juli Cullen On 12-Apr-2016 08:45 Appointment; Provider: Ezekiel Sarmiento M.D. On 01-Apr-2016 09:15 Interventions Provided Medication ChangesAzithromycin 250 MG Oral Tablet - Completed Instructions Name Dates Details Instructions not documented Encounters Appointment; Geeta Oleary P.A. On 28-Mar-2016 Encounter Diagnosis: Problem not documented 09:15 Appointment; Ady Hoffman M.D. On 18-Mar-2016 Encounter Diagnosis: Problem not documented 14:15 Appointment; Eliel Patel M.D.|DONYA|Mil,DONYA|Mil,FACHafsa, On Encounter Diagnosis: Problem not documented 11:00 [...] Problem not documented 15:15 Appointment; Geeta Oleary, PAshleyAAshley On 09-Nov-2015 Encounter Diagnosis: Problem not [...] Problem not documented 10:45 Appointment; Eliel Patel M.D.|FACP|M.DAshley,FACP|MDella,FACP, On Encounter Diagnosis: Problem not documented 16:15 [...]
--- OUTSIDE RECORDS SUMMARY | 2017-05-31 17:11 | External Medical Summary | Summary of Care ---
:1940 Author Name Cami Ladd M.D. 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 Cough (786.2, R05) Status: Active Acute exacerbation of emphysema (491.21, J43.9) Status: Active Acute bronchitis (466.0, J20.9) Status: Active Weakness (780.79, R53.1) Status: Active Fatigue (780.79, R53.83) Status: Active Depression (311, F32.9) Status: Active Insomnia (780.52, G47.00) Status: Active Pernicious anemia (281.0, D51.0) Status: Active 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 Started 15-Oct-2009 ActiveSpiriva HandiHaler 18 MCG Inhalation Capsule 1 PUFF EVERY MORNING Quantity: 30 Refills: 6 Ady Hoffman M.D. Started 17-Jun-2009 ActiveBudesonide 0.25 MG/2ML Inhalation Suspension NEBULIZE TWO TIMES DAILY Quantity: 120 Refills: 0 Dennis Callaway M.D. Started 15-Oct-2009 ActiveProAir HFA 108 (90 Base) MCG/ACT Inhalation Aerosol Solution INHALE 1 TO 2 PUFFS EVERY 4 TO 6 HOURS NEEDED. Quantity: 1 Refills: 11 Ady Hoffman M.D. Started 30-Sep-2011 Active8.5 GM Inhaler Hydrochlorothiazide 25 MG Oral Tablet TAKE 1/2 TABLET DAILY. Quantity: 30 Refills: 3 Alo An M.D. Started 27-Jun-2013 ActiveAmLODIPine Besylate 5 MG Oral Tablet TAKE [...] on:12-Dec-2008 Tdap (Adacel) Administered on:05-Dec-2013 Lot #: [id number] Prevnar 13 Intramuscular Suspension Administered on:05-Dec-2013 Lot #: [id number] Prevnar 13 Intramuscular Suspension Administered on:25-Nov-2014 Lot #: [id number] Family History Unknown Family Member Name Dates [...] not documented Goal Planned Encounters Appointment; Provider: Cami Ladd On 27-Mar-2015 10:00 Appointment; Provider: Ady Hoffman On 10:45 Appointment; Provider: Eliel Patel On 09:00 Instructions Instructions not documented Encounters Appointment; Cami Ladd On 19-Dec-2014 Encounter Diagnosis: [...] Diagnosis: Problem not documented 09:45 Appointment; Delicia Jeronimo On 27-Jun-2013 Encounter Diagnosis: Problem not documented 10:30 Appointment; Eliel Patel On Encounter Diagnosis: Problem not documented 10:00
--- OUTSIDE RECORDS SUMMARY | 2017-05-31 17:11 | External Medical Summary | Summary of Care ---
:1940 Author Name Tabby Vallecillo M.D. Address [address] [place], [place] [id number] Care Team Providers Name Role Phone Avel Jaeger, Tabby Unavailable Unavailable Jessica Figueroa M.D. Unavailable Unavailable [...] Refills: 2 Yousif Figueroa M.D. Started 26-May-2014 [id number] GM Tube Prolia 60 MG/ML Subcutaneous Solution INJECT SUBCUTANEOUSLY 60 MG / 1 ML EVERY 6 MONTHS Quantity: 1 Refills: 0 Cami Ladd M.D. Started 11-Nov-2014 ActiveOxygen Home O2 ConcentratorUse 2 liters 8-10 hours/nightQualifying 07/22/15: Nocturnal oximetry=82%, <88%x 35 minutes Quantity: 1 Refills: 0 dAy Hoffman M.D. Started 23-Jul-2015 ActiveHydrochlorothiazide 25 MG [...] on:12-Dec-2008 Tdap (Adacel) Administered on:05-Dec-2013 Lot #: [id number] Prevnar 13 Intramuscular Suspension Administered on:05-Dec-2013 Lot #: [id number] Prevnar 13 Intramuscular Suspension Administered on:25-Nov-2014 Lot #: [id number] Fluvirin 0.5 ML Intramuscular Suspension Prefilled Syringe [...] Encounter Diagnosis: Problem not documented 13:15 Appointment; Cmai Ladd On 24-Aug-2015 Encounter Diagnosis: Problem not [...]
--- OUTSIDE RECORDS SUMMARY | 2017-05-31 17:11 | External Medical Summary | Summary of Care ---
:1940 Author Name Wilberto Jaeger, Cami Address Unavailable Unavailable , Care Team Providers Name Role Phone Hiwot Jaeger, Alessandro Ortiz Unavailable Unavailable Carolina Jaeger, Jessica Dodd Unavailable Unavailable Guillermina Jaeger, Jaimee Falcon Unavailable [...] Status: Active Insomnia (780.52, G47.00) Status: Active Generalized weakness (780.79, R53.1) Status: Active Fatigue (780.79, R53.83) Status: Active Purpura (287.2, D69.2) Status: Active Complaints of leg weakness (729.89, R29.898) Status: Active Confusion (298.9, R41.0) Status: Active Difficulty breathing (786.09, R06.89) Status: Active Left shoulder pain (719.41, M25.512) Status: Active Acute exacerbation of emphysema (491.21, J43.9) Status: Active Hypokalemia (276.8, E87.6) Status: Active Edema (782.3, R60.9) Status: Active Cellulitis (682.9, L03.90) Status: Active Thrombocytopenia (287.5, D69.6) Status: Active Vitamin B12 deficiency (266.2, E53.8) Status: Active 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, 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 Pernicious anemia (281.0, D51.0) Status: Active 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, 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 Hypoxia (799.02, R09.02) Status: Active Keloid (701.4, L91.0) Status: Active 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, 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 Generalized anxiety disorder (300.02, F41.1) Status: Active Syncope (780.2, R55) Status: Active Contusion of right shoulder (923.00, S40.011A) Status: Active Memory impairment (780.93, R41.3) Status: Active Other specified local infection of skin or subcutaneous tissue (686.8, L08.89) Status: Active 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, 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 Visit for screening mammogram (V76.12, Z12.31) Status: Active Skin rash (782.1, R21) Status: Active Hypertension (401.9, I10) Status: Active Osteoporosis (733.00, M81.0) Status: Active Depression (311, F32.9) Status: Active 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 15-Oct-2009 Active Spiriva HandiHaler 18 MCG Inhalation Capsule USE 1 PUFF BY MOUTH EVERY MORNING Quantity: 30 Refills: 11 Ady Hoffman M.D. 17-Jun-2009 Active Budesonide 0.25 MG/2ML Inhalation Suspension NEBULIZE TWO TIMES DAILY (Dx: J44.9/J43.9) Quantity: 120 Refills: 0 Ady Hoffman M.D. 15-Oct-2009 Active Halobetasol Propionate 0.05 % External Cream APPLY AND GENTLY MASSAGE INTO AFFECTED AREA(S) ON LEGS TWICE DAILY. Quantity: 1 Refills: 2 Carolina JaegerYousif Start 26-May-2014 Active 50 GM Tube Prolia 60 MG/ML Subcutaneous Solution INJECT SUBCUTANEOUSLY 60 MG / 1 ML EVERY 6 MONTHS Quantity: 1 Refills: 0 Wilberto JaegerCami Start 11-Nov-2014 Active Oxygen Home O2 ConcentratorUse 2 liters 8-10 hours/nightQualifying 07/22/15: Nocturnal oximetry=82%, <88%x 35 minutes Quantity: 1 Refills: 0 Ady Hoffman M.D. Start 23-Jul-2015 Active Potassium Chloride ER 10 MEQ Oral Capsule Extended Release TAKE TWO CAPSULE BY MOUTH ONCE A DAY Quantity: 60 Refills: 3 Cami Ladd M.D. Start 11-Aug-2015 Active ProAir RespiClick 108 (90 Base) MCG/ACT Inhalation Aerosol Powder Breath Activated INHALE 2 PUFFS BY MOUTH UP TO FOUR TIMES A DAY NEEDED Quantity: 1 Refills: 5 Jordon Hoffman M.D.en Joselyn Start 16-Oct-2015 Active Losartan Potassium-HCTZ 100-12.5 MG Oral Tablet ONE TABLET BY MOUTH EVERY DAY Quantity: 30 Refills: 6 Wilberto Jaeger Cami Start Active Memantine HCl - 10 MG Oral Tablet TAKE 1 TABLET TWICE DAILY. Quantity: 60 Refills: 5 Ezekiel Sarmiento M.D. Start 01-Apr-2016 Active Furosemide 40 MG Oral Tablet TAKE 1 TABLET DAILY. Quantity: 30 Refills: 3 Cami Ladd M.D. Start 08-Jun-2016 Active Mixture 50\\50 Eucerin\\HC 1%-Apply TID 30 gm Quantity: 1 Refills: 1 Ladd Mil, Cami Start 13-Jun-2016 Active Escitalopram Oxalate 5 MG Oral Tablet TAKE 1 TABLET DAILY. Quantity: 30 Refills: 1 Ladd Cami Jaeger Start 17-Jun-2016 Active Triamcinolone .1%/ Eucerin Compound (50/50 Mix) -- 1 pound tub (480 grams) Apply TID to affected area Quantity: 1 Refills: 0 Angel Mi M.D. Start 28-Jun-2016 Active 480 GM Package Clobetasol Propionate 0.05 % External Cream APPLY SPARINGLY TO AFFECTED AREA(S) TWICE DAILY Quantity: 45 Refills: 1 Carolina JaegerYousif Start 12-Jul-2016 Active Incruse Ellipta 62.5 MCG/INH Inhalation Aerosol Powder Breath Activated INHALE 1 PUFF DAILY. 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, 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 Memory impairment (780.93, R41.3) Status: Active Osteoporosis (733.00, M81.0) Status: Active Pernicious anemia (281.0, D51.0) Status: Active Syncope (780.2, R55) Status: Active Thrombocytopenia (287.5, D69.6) Status: Active [...] of Cataract Surgery History of Dental Surgery ECG/ EKG Pendin27-Jun-2016 MAMMOGRAM-SCREENING Ordered: 21-Jul-2016 DEXA Ordered: 21-Jul-2016 XRay RIBS-Left W/PA CXR Ordered: 02-Aug-2016 Immunization Name Dates Details Pneumo (Pneumovax) on: 12-Dec-2008 Tdap (Adacel) on: 05-Dec-2013 Lot #: [id number] Prevnar 13 Intramuscular Suspension on: 05-Dec-2013 Lot #: [id number] Prevnar 13 Intramuscular Suspension on: 25-Nov-2014 Lot #: [id number] Fluvirin 0.5 ML Intramuscular Suspension Prefilled Syringe on: 20-May-2015 Fluzone High-Dose 0.5 ML Intramuscular Suspension Prefilled Syringe on: 2015 Pneumovax 23 25 MCG/0.5ML Injection Injectable on: 21-Jul-2016 Lot #: [id number] Family History Unknown Family Member Name Dates [...] smoker Vital Signs Date Test Result Details 02-Aug-2016 12:55 BP Systolic 136 mm[Hg] Status: Comments: Location: ; Position: BP Diastolic 78 mm[Hg] Status: Comments: Location: ; Position: Heart Rate 83 /min Status: Comments: Location: ; Weight 139 lb Status: Physical Findings 93 Status: Comments: O2 Saturation Body Mass Index Calculated 23.13 kg/m2 Status: Body Surface Area Calculated 1.69 m2 Status: 21-Jul-2016 10:34 BP Systolic 140 mm[Hg] Status: Comments: Location: ; Position: BP Diastolic 80 mm[Hg] Status: Comments: Location: ; Position: Heart Rate 84 /min Status: Comments: Location: ; Height 65 in Status: Weight 141 lb Status: Body Mass Index Calculated 23.46 kg/m2 Status: Body Surface Area Calculated 1.71 m2 Status: 11-Jul-2016 15:12 BP Systolic 128 mm[Hg] Status: Comments: Location: ; Position: BP Diastolic 70 mm[Hg] Status: Comments: Location: ; Position: Heart Rate 95 /min Status: Comments: Location: ; Weight 141 lb Status: Physical Findings 96 Status: Comments: O2 Saturation Body Mass Index Calculated 24.2 kg/m2 Status: Body Surface Area Calculated 1.69 m2 Status: Results Date Description Value Details 02-Aug-2016 14:27 CT HEAD WITHOUT IV CONTRAST Comments: Exam Date: 2015 14:00Dictation Date: 08/02/2016 14:27 XC HEAD 14:35 CT FACIAL BONES Comments: Exam Date: 08/02/2016 13:59Dictation Date: 14:35 XC FACIAL BONES Plan of Care Name Dates Details Planned Observations Planned Goals not documented Planned Encounters Appointment; Provider: Juli Samaniego On 09-Nov-2016 11:30 Appointment; Provider: Cami Ladd M.D. On 21-Oct-2016 10:00 Appointment; Provider: Ezekiel Sarmiento M.D. On 10-Oct-2016 15:45 Appointment; Provider: Schedule Radiology On 05-Oct-2016 14:00 Appointment; Provider: Schedule Radiology On 05-Oct-2016 13:40 Appointment; Provider: Yousif Figueroa M.D. On 18-Aug-2016 15:45 Interventions Provided Labs/Procedures/ImagingXRay RIBS-Left W/PA CXR; To be Done: 02 Aug 2016CT FACIAL BONES; Done: Aug 02 2016 2:35PMCT HEAD WITHOUT IV CONTRAST; Done: Aug 02 2016 2:27PM Instructions Name Dates Details Instructions not documented Encounters Appointment; Cami Ladd M.D. On 21-Jul-2016 Encounter [...] Problem not documented 14:15 Appointment; Eliel Patel M.D.|KHANHP|Mil,FACP|Mil,FACP, On Encounter Diagnosis: Problem not documented 11:00 [...] Problem not documented 10:45 Appointment; Eliel Patel M.D.|FACP|M.D.,FACP|MDella,FACP, On Encounter Diagnosis: Problem not documented 16:15 Appointment; Eliel Patel M.D.|FACP|M.D.,FACP|Mil,FACP, On Encounter Diagnosis: Problem not documented 09:00 [...] On 22-Aug-2014 Encounter Diagnosis: Problem not documented 13:00"
[2017-05-31] MEDS ORDERED: HALOPERIDOL 5 MG/ML INJECTION IM PRN (17:12)
--- OUTSIDE RECORDS SUMMARY | 2017-05-31 17:12 | External Medical Summary | Summary of Care ---
:1940 Author Name Cami Ladd M.D. 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 Cough (786.2, R05) Status: Active Acute exacerbation of emphysema (491.21, J43.9) Status: Active Acute bronchitis (466.0, J20.9) Status: Active Weakness (780.79, R53.1) Status: Active Fatigue (780.79, R53.83) Status: Active Depression (311, F32.9) Status: Active Chronic obstructive pulmonary disease (496, J44.9) Status: Active Insomnia (780.52, G47.00) Status: Active Pre-operative exam (V72.84, Z01.818) Status: Active Hypertension (401.9, I10) Status: Active Osteoporosis (733.00, M81.0) Status: Active Pernicious anemia (281.0, D51.0) Status: Active 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 Started 15-Oct-2009 ActiveSpiriva HandiHaler 18 MCG Inhalation Capsule 1 PUFF EVERY MORNING Quantity: 30 Refills: 0 Ady Hoffman M.D. Started 17-Jun-2009 ActiveBudesonide 0.25 MG/2ML Inhalation Suspension NEBULIZE TWO TIMES DAILY Quantity: 120 Refills: 11 Ady Hoffman M.D. [...] Complete Colonoscopy CBC w/ Auto Diff 7150 Ordered:06-Nov-2014 Comprehensive Metabolic Panel 1212 Ordered:06-Nov-2014 LIPID PROFILE 1184 Ordered:06-Nov-2014 THYROID STIM. HORMONE 3602 Ordered:06-Nov-2014 Urinalysis, Reflex to Microscopic or Culture PRN 8005 Ordered:06-Nov-2014 Vitamin D, 25 - Hydroxy 3111 Ordered:10-Nov-2014 Immunization Name Dates Details Pneumo (Pneumovax) Administered on:12-Dec-2008 Tdap (Adacel) Administered on:05-Dec-2013 Lot #: [id number] Prevnar 13 Intramuscular Suspension Administered on:05-Dec-2013 Lot #: [id number] Prevnar 13 Intramuscular Suspension Administered on:25-Nov-2014 Lot #: [id number] Family History Unknown Family Member Name Dates Details Family history of Asthma (V17.5) Comments: Family History Status: Active Father Name Dates Details Family history of myocardial infarction (V17.3, Z82.49) Status: Active Social History Name Dates Details Smoking StatusFormer smoker Vital Signs Date Test Result Details 04-Dec-2014 14:55 BP Systolic 140 mm[Hg] Status: BP Diastolic 82 mm[Hg] Status: Heart Rate 81 /min Status: Weight 148 lb Status: O2 SAT 96 % Status: Body Mass Index Calculated 25.4 kg/m2 Status: Body Surface Area Calculated 1.72 m2 Status: 25-Nov-2014 10:29 BP Systolic 156 mm[Hg] Status: BP Diastolic 82 mm[Hg] Status: Heart Rate 83 /min Status: Weight 148 lb Status: Height 64 in Status: O2 SAT 96 % Status: Body Mass Index Calculated 25.4 kg/m2 Status: Body Surface Area Calculated 1.72 m2 Status: Results Date Description Value Details 04-Dec-2014 13:53 CBC w/ Auto Diff 7150 Comments: DOS 12-17-14 AND 12-24-14 DR. MCCLENDON @ [facility] WBC 6.7 K/uL (Better) Range: 4.5-11.0 RBC 4.47 mil/uL (Better) Range: 3.60-5.00 HGB 14.4 g/dL (Better) Range: 12.0-16.0 HCT 40.3 % (Better) Range: 36.0-48.0 MCV 90.1 fL (Better) Range: 80.0-99.0 MCH 32.3 pg (Better) Range: 27.3-32.5 MCHC 35.8 % (Better) Range: 32.0-36.0 RDW 12.8 % (Better) Range: 11.6-14.8 PLATELETS 224 K/uL (Better) Range: 150-400 MPV 8.4 fL (Better) Range: 6.0-11.0 %NEUTRO 71.3 % (Better) Range: 37.0-80.0 %LYMPHS 16.1 % (Better) Range: 13.0-50.0 %MONO 6.8 % (Better) Range: 0.0-12.0 %EOS 3.6 % (Better) Range: 0.0-7.0 %BASO 1.2 % (Better) Range: 0.0-2.5 %SIMONE 0.9 % (Better) Range: 0.0-5.0 NEUTRO 4.8 K/uL (Better) Range: 2.0-6.9 LYMPHS 1.1 K/uL (Better) Range: 0.6-3.4 MONOS 0.5 K/uL (Better) Range: 0.0-0.9 EOS 0.2 K/uL (Better) Range: 0.0-0.7 BASO 0.1 K/uL (Better) Range: 0.0-0.2 14:02 ECG/ EKG Preop Electro CardioGram ECG waiting for interpretation, click ImageLink button to view/confirm the study. (Better) 14:21 BASIC METABOLIC PROFILE Comments: DOS 12-17-14 AND 12-24-14 DR. MCCLENDON @ [facility] 1210 SODIUM 136 mmol/L (Better) Range: 133-144 POTASSIUM 3.6 mmol/L (Better) Range: 3.5-5.1 CHLORIDE 99 mmol/L (Better) Range: 98-110 CARBON DIOXIDE 31.1 mmol/L (Better) Range: 23.0-33.0 ANION GAP 6 mmol/L (Better) Range: 6-16 BUN 11 mg/dL (Better) Range: 7-18 CREATININE, SERUM 0.58 mg/dL (Better) Range: 0.43-1.13 EST GFR, >60 ml/min Range: >60 RWANDAN (Better) EST GFR, NON-AFR >60 ml/min Range: >60 RWANDAN (Better) Comments: EST GFR is reported in ml/min per 1.73 m2 of body surface area. For -Panamanian, please multiple result by 1.2.----- BUN:CREATININE RATIO 19 (Better) GLUCOSE 81 mg/dL (Better) Range: 70-100 CALCIUM 8.2 mg/dL (Below low Range: 8.5-10.1 threshold) Comments: Verified by Repeat Analysis----- 14:41 XRay CHEST-PA & LAT Comments: Exam Date: 14: 08Dictation Date: 14:41 X CHEST PA & LAT (Better) 15:01 Urinalysis, Reflex to Comments: DOS 12-17-14 AND 12-24-14 DR. MCCLENDON @ [facility] Microscopic or Culture PRN 8005 pH 7.5 (Better) Range: 5.0-7.5 SP GRAVITY <=1.005 (Abnormal) Range: 1.010-1.030 APPEARANCE CLEAR (Better) Range: Clear COLOR YELLOW (Better) Range: Straw-Yellow PROTEIN NEGATIVE mg/dL Range: Negative-Trace (Better) GLUCOSE NEGATIVE mg/dL Range: Negative (Better) KETONE NEGATIVE mg/dL Range: Negative (Better) BILIRUB NEGATIVE (Better) Range: Negative BLOOD MODERATE (Abnormal) Range: Negative UROBIL 1.0 EU/dL (Better) Range: 0.2-1.0 NITRITE NEGATIVE (Better) Range: Negative LEUK NEGATIVE (Better) Range: Negative 15:01 Urine Microscopic UMIC RBC 3-5 /HPF (Abnormal) Range: 0-2 Plan of Care Planned Observations Name Dates Details Planned Goals not documented Goal Planned Encounters Appointment; Provider: Ady Hoffman On 10:45 Appointment; Provider: Eliel Patel On 09:00 Appointment; Provider: Cami Ladd On 19-Dec-2014 11:15 Instructions Instructions not documented Encounters Appointment; Cami Ladd On 04-Dec-2014 Encounter Diagnosis: [...]
--- OUTSIDE RECORDS SUMMARY | 2017-05-31 17:12 | External Medical Summary | Summary of Care ---
:1940 Author Name Cami Ladd M.D. Address [address] [place], [place] [id number] Care Team Providers Name Role Phone Ketty JACKSON Ofelia Unavailable Unavailable Jessica Figueroa M.D. 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 Hypokalemia (276.8, E87.6) Status: Active Asteototic dermatitis (692.89, L30.8) Status: Active Other specified local infection of skin or subcutaneous tissue (686.8, L08.89) Status: Active Actinic keratosis (702.0, L57.0) Status: Active Edema (782.3, R60.9) Status: Active Rash and other nonspecific skin eruption (782.1, R21) Status: Active Emphysema/COPD (492.8, J43.9) Status: Active Chronic obstructive pulmonary disease (496, J44.9) Status: Active Acute exacerbation of emphysema (491.21, J43.9) Status: Active Hypertension (401.9, I10) Status: Active Confusion (298.9, R41.0) Status: Active Hypoxia (799.02, R09.02) Status: Active [...] Refills: 2 Yousif Figueroa M.D. Started 26-May-2014 [id number] GM Tube Prolia 60 MG/ML Subcutaneous Solution [...] Refills: 0 Ofelia Hdez APRN Started 04-Nov-2015 ActiveAmLODIPine Besylate 10 MG Oral Tablet TAKE 1 TABLET DAILY. Quantity: 30 Refills: 1 LaddCami M.D. Started 13-Nov-2015 ActiveLosartan Potassium 50 MG Oral Tablet Take 1 tablet daily Quantity: 30 Refills: 0 Cami Ladd M.D. Started 13-Nov-2015 Active Allergies and Adverse Reactions Name Dates Details Levaquin TABS Status: Active Past Medical History Name Dates Details History of CXR Solitary Pulmonary Nodule Right Lung Status: Resolved Procedures Procedure Dates Details History of Hysterectomy History of Complete Colonoscopy Procedures not documented Immunization Name Dates Details Pneumo (Pneumovax) Administered on:12-Dec-2008 Tdap (Adacel) Administered on:05-Dec-2013 Lot #: [id number] Prevnar 13 Intramuscular Suspension Administered on:05-Dec-2013 Lot #: [id number] Prevnar 13 Intramuscular Suspension Administered on:25-Nov-2014 Lot #: [id number] Fluvirin 0.5 ML Intramuscular Suspension Prefilled Syringe Administered on:May-2015 Family History Unknown Family Member Name Dates Details Family history of Asthma (V17.5) Comments: Family History Status: Active Father Name Dates Details Family history of myocardial infarction (V17.3, Z82.49) Status: Active Social History Name Dates Details Smoking StatusFormer smoker Vital Signs Date Test Result Details 13-Nov-2015 16:18 BP Systolic 160 mm[Hg] Status: BP Diastolic 76 mm[Hg] Status: Heart Rate 93 /min Status: Weight 138 lb Status: O2 SAT 95 % Status: Body Mass Index Calculated 23.69 kg/m2 Status: Body Surface Area Calculated 1.67 m2 Status: 09-Nov-2015 14:15 Heart Rate 117 /min Status: Weight 142 lb Status: O2 SAT 97 % Status: Body Mass Index Calculated 24.37 kg/m2 Status: Body Surface Area Calculated 1.69 m2 Status: 04-Nov-2015 13:21 BP Systolic 152 mm[Hg] Status: [...] Provider: Ady Hoffman On 13:15 Appointment; Provider: Ezekiel Sarmiento On 24-Dec-2015 10:00 Appointment; Provider: Cami Ladd On 20-Nov-2015 11:45 Appointment; Provider: Mireya Rosario On 20-Nov-2015 11:00 Appointment; Provider: Yousif Figueroa On 16-Nov-2015 09:45 Instructions Instructions not documented Encounters Appointment; Cami Ladd On 13-Nov-2015 Encounter Diagnosis: [...]
--- OUTSIDE RECORDS SUMMARY | 2017-05-31 17:12 | External Medical Summary ---
:1940 Author Name GENERATED, SYSTEM Care Team Providers Name Role Phone MD CASIMIRO, MARILU Primary Care Provider [phone] Reason For Visit Reason for Visit from 03/28/2016 10:30 AM:Pt Stated Reason for Adm : COPD Chief Complaint COPD EXACERBATION Social History Social History from 03/29/2016 6:15 PM:Tobacco Use? : Former SmokerSocial History from 03/28/2016 10:30 AM:Tobacco Use? : Former Smoker Functional Status Functional Status from 03/29/2016 8:20 AM:LOC : ConfusedOriented To : PlaceWeight Bearing Status : FullAssist Level : Independent# Assists : IndependentFunctional Status from 03/28/2016 7:23 PM:LOC : AlertOriented To : Person,Place,TimeWeight Bearing Status : FullAssist Level : Independent# Assists : IndependentFunctional Status from 03/28/2016 10:30 AM:Oriented To : Person,Place,EventWeight Bearing Status : FullAssist Level : Partial# Assists : 1 Vital Signs Hospital Vital Signs from 03/29/2016 6:10 PM:Height : 5/7 ft,inBP : 145/ 69Hospital Vital Signs from 03/29/2016 5:40 PM:Height : 5/7 ft,inBP : 163/ 97Hospital Vital Signs from 03/29/2016 3:29 PM:Height : 5/7 ft,inBP : 185/ 78Hospital Vital Signs from 03/29/2016 3:24 PM:Height : 5/7 ft,inTemperature : 97.2 FPulse : 93Respirations : 18BP : 175/79Hospital Vital Signs from 03/29/2016 11:30 AM:Height : 5/7 ft,inTemperature : 96.6 FPulse : 91Respirations : 18BP : 144/67Hospital Vital Signs from 03/29/2016 11:20 AM:Weight : 62.2/ kgHeight : 5/ 7 ft,inHospital Vital Signs from 03/29/2016 6:13 AM:Height : 5/7 ft, inTemperature : 96.7 FPulse : 114Respirations : 18BP : 187/86Hospital Vital Signs from 03/29/2016 4:41 AM:Height : 5/7 ft,inPulse : 96BP : 193/86Hospital Vital Signs from 03/29/2016 3:36 AM:Height : 5/7 ft,inBP : 179/123Hospital Vital Signs from 03/29/2016 2:57 AM:Height : 5/7 ft,inTemperature : 97.1 FPulse : 86Respirations : 18BP : 207/95Hospital Vital Signs from 03/28/2016 10:06 PM: Height : 5/7 ft,inTemperature : 97.5 FPulse : 82Respirations : 18BP : 146/ 67Hospital Vital Signs from 03/28/2016 6:31 PM:Height : 5/7 ft,inTemperature : 96.1 FPulse : 98Respirations : 18BP : 120/76Hospital Vital Signs from 03/28/2016 3:17 PM:Height : 5/7 ft,inTemperature : 98.9 FPulse : 82Respirations : 18BP : 161/68Hospital Vital Signs from 03/28/2016 10:30 AM:Weight : 62.2/ kgHeight : 5/ 7 ft,inHospital Vital Signs from 03/28/2016 10:21 AM:Weight : 62.2/ kgHeight : 5/ 7 ft,inTemperature : 97.0 FPulse : 69Respirations : 18BP : 170/74 Results Problems Encounter Diagnosis Activity Intolerance Status:Active.Acute Exacerbation of Chronic Obstructive Airways Disease Status:Active.Altered Mental Status Status:Active.Anxiety Status :Active.Fall Risk Status:Active.Additional Problems Acute Renal Failure Syndrome Comment:Problem resolved by [facility] Work[facility] upon Discharge, Status:Resolved.Chronic Obstructive Lung Disease Comment:Problem resolved by [facility] Work[facility] upon Discharge, Status:Resolved.History of Hypertension Comment:Problem resolved by [facility] Work[facility] upon Discharge, Status :Resolved.Hypertensive Disorder Comment:Problem resolved by [facility] Work[facility] upon Discharge, Status:Resolved.Pulmonary Emphysema Comment:Problem resolved by [facility] Work[facility] upon Discharge, Status:Resolved.Pulmonary Emphysema Comment: Problem resolved by [facility] Workflow upon Discharge, Status:Resolved. Encounters Encounter Diagnosis Activity Intolerance Status:Active.Acute Exacerbation of Chronic Obstructive Airways Disease Status:Active.Altered Mental Status Status:Active.Anxiety Status :Active.Fall Risk Status:Active. Plan of Care Follow-up Appointments from 03/29/2016 6:15 PM:#1 Office appointment: : Dr. Ladd Call in am for appointment to be seen in 2 daysAddress # 1 : [facility]: [address] [place]- or #2 Office appointment: : Dr. Hoffman's office call in am to be seen by Geeta Inman or Ton Rosario in 1-2 weeksAddress # 2 : [facility]: [address] [place]- or Treatment Plan from 2:14 PM:Care Management Note : Medicare guidelines regarding medications in outpatient setting and Code 44 letter provided to patient and spouse with questions answered to their satisfaction. Copy of Code 44 letter given to patient and original placed on chart.Treatment Plan from 03/29/2016 1: 51 PM:Care Management Note : Clinical information provided to Dr. Deven Prescott. She agrees with outpatient observation and completed Medical Necessity Determination form. Copy of form provided to Dr. Mejia and original placed on chart.Treatment Plan from 03/29/2016 11:40 AM:Care Management Note : Patient is inpatient status being treated for COPD exacerbation. POC reviewed with Dr. Mejia. Plan is discharge today. Patient will not meet CMS guideline for 2 midnights as inpatient. Order received to change to outpatient observation. Will complete Code 44 process.Treatment Plan from 03/29/2016 9:30 AM :Care Management Note :SW consulted with Pt to assess and address Pt's barriers to accessing appropriate and affordable care.SOCIAL BACKGROUNDPt currently resides at home with her , Nimisha Ball (p: [phone] [place] p: [phone] ) in [place], [place]. Pt reports that she and are "around eachother /" (per Pt). Current dx- COPD Exacerbation. Hx- (per Pt's chart)- Chronic Kidney Disease, arthritis. Pt is currently on SSI. Medical insurance coverage- Medicare (primary) and BCBS, 65+ plan (secondary)Pt reports that she is independent with IDLs, and mostly independent with ADLs. Pt did report some concerns showering due to her COPD- "The steam suffocates me." Pt reports that she uses a lawn chair in the shower, or takes baths. Pt denies concerns moving in and out of the bathtub (while lying). Pt also reported some concerns with cleaning her home while recovering from her hospitalization. Pt is able to mobilize at home, and have no DME.Pt wears a CPAP machine at night; denied concerns with CPAP; CPAP from [facility].Pt's current discharge plan is to return home without services.SOCIAL WORK INTERVENTION/ OUTCOMEPt denies the need for services at this time. Pt would not qualify for Pulmonary Program (Pt does not wear O2).SW provided the Pt with a list of private-duty care facilities to address her concerns with house keeping.LUIGI also educated Pt about Voice Alert to address her concerns about her increased COPD symptoms in the shower; Pt denied need for this services due to her being present at all times. Procedures Completed Procedure Code: 00.00 Procedure Name: not valued, on 11/28/2014 12:00 AM Immunizations No immunizations administered or ordered. Hospital Course Hospital Discharge Instructions How to care for yourself at home from 03/29/2016 6:15 PM:Discharge Activity : Activity as toleratedDischarge Diet : Modification as given by physicianDischarge Diet: : No added saltCall your doctor if: : Fever over 101 F or severe chills,Chest pain or other unexplained symptoms,Tingling or numbness develops,A sudden increase or decrease in weight,You have persistent or worsening symptoms,If you have Heart Failure and you gain 3 pounds within 1 week or your symptoms worsen. (Weigh at home tomorrow morning)Specific Discharge Teaching Instructions provided: : NoDischarge on Warfarin : No Allergies, Adverse Reactions, Alerts Levaquin causes unspecified.No Latex Allergy.No IV Contrast Allergy.No Known Food Allergies. Medication It is the responsibility of the patient or patient key account representative to confirm the list of medicationswith either the patient's personal care provider or the patient's follow-up care provider to ensure the patient has an appropriate list of medications to take at home. Discharge medicationsContinued medicationsalbuterol sulfate (ProAir RespiClick) 90 mcg Aerosol Powdr Breath Activated, Ordered By: KEATON MEJIA MD Directions: 2 puff by inhalation up to 4 times a day PRN cough amLODIPine 10 mg Tablet, Ordered By: KEATON MEJIA MD Directions: 1 tablet oral daily arformoterol (Brovana) 15 mcg/2 mL Solution for Nebulization, Ordered By: KEATON MEJIA MD Directions: 2 mL by inhalation twice a day budesonide 0.5 mg/2 mL Suspension for Nebulization, Ordered By: KEATON MEJIA MD Directions: 2 mL by inhalation twice a day denosumab (Prolia) 60 mg/mL Syringe, Ordered By: KEATON MEJIA MD Directions: 1 mL subcutaneous every 6 months donepezil 5 mg Tablet, Ordered By: KEATON MEJIA MD Directions: 1 tablet oral daily escitalopram oxalate 5 mg Tablet, Ordered By: KEATON MEJIA MD Directions: 1 tablet oral daily every morning halobetasol propionate 0.05 % Cream, Ordered By: KEATON MEJIA MD Directions: 1 application topical twice a day potassium chloride 10 mEq Capsule, Extended Release, Ordered By: KEATON MEJIA MD Directions: 1 capsule oral twice a day tiotropium bromide (SPIriva with HandiHaler) 18 mcg Capsule, w/Inhalation Device , Ordered By: KEATON MEJIA MD Directions: 1 capsule by inhalation daily Changed medicationslosartan-hydrochlorothiazide (Hyzaar) 100 mg-12.5 mg Tablet, Ordered By: KEATON MEJIA MD Directions: 1 tablet oral daily Stopped medicationsNone
--- OUTSIDE RECORDS SUMMARY | 2017-05-31 17:12 | External Medical Summary | Summary of Care ---
:1940 Author Name Cami Ladd M.D. Address Unavailable Unavailable , Care Team Providers Name Role Phone Alessandro Callaway M.D. Unavailable Unavailable Avel Jaeger, Tabby Unavailable Unavailable Jaimee Sarmiento M.D. Unavailable Unavailable Wilberto Jaeger, Cami Unavailable Unavailable Joselyn Hoffman M.D. Unavailable Unavailable [...] Status: Active Hypertension (401.9, I10) Status: Active Hypoxia (799.02, R09.02) Status: Active Asteototic dermatitis (692.89, L30.8) Status: Active Memory impairment (780.93, R41.3) Status: Active Osteoporosis (733.00, M81.0) Status: Active Generalized anxiety disorder (300.02, F41.1) Status: Active Depression (311, F32.9) Status: Active Emphysema/COPD (492.8, J43.9) Status: Active Medications Name Dates Details Brovana 15 MCG/2ML Inhalation Nebulization Solution USE EVERY 12 HOURS (copd J44.9/J43.9) Quantity: 120 Refills: 11 Nilton JaegerDennis Start 11-Aug-2016 Active Budesonide 0.25 MG/2ML Inhalation Suspension NEBULIZE TWO TIMES DAILY (Dx: J44.9/J43.9) Quantity: 120 Refills: 11 Nilton JaegerDennis Start 11-Aug-2016 Active Prolia 60 MG/ML Subcutaneous [...] hours as needed Quantity: 1 Refills: 11 Nilton Jaeger Dennis Alessandro Start 16-Oct-2015 Active 1 Aerosol Powder Breath [...] 30 Aerosol Powder Breath Activated Disp Pack Cephalexin 500 MG Oral Tablet TAKE 1 TABLET 3 TIMES DAILY. Quantity: 21 Refills: 0 Tabby Vallecillo M.D. Start 19-Nov-2016 Active Allergies and Adverse Reactions Name Dates [...] 12-Dec-2008 Tdap (Adacel) on: 05-Dec-2013 Lot #: [id number] Prevnar 13 Intramuscular Suspension on: 05-Dec-2013 Lot #: [id number] Prevnar 13 Intramuscular Suspension on: 25-Nov-2014 Lot #: [id number] Fluvirin 0.5 ML Intramuscular Suspension Prefilled Syringe on: 20-May-2015 Fluzone High-Dose 0.5 ML Intramuscular Suspension Prefilled Syringe on: 2015 Pneumovax 23 25 MCG/0.5ML Injection Injectable on: 21-Jul-2016 Lot #: [id number] Family History Unknown Family Member Name Dates [...] smoker Vital Signs Date Test Result Details 16-Dec-2016 11:34 BP Systolic 138 mm[Hg] Status: Comments: Location: ; Position: BP Diastolic 78 mm[Hg] Status: Comments: Location: ; Position: Heart Rate 75 /min Status: Comments: Location: ; Physical Findings 90 Status: Comments: O2 Saturation 16-Dec-2016 11:31 Weight 134 lb Status: Body Mass Index Calculated 22.3 kg/m2 Status: Body Surface Area Calculated 1.67 m2 Status: 19-Nov-2016 14:30 BP Systolic 140 mm[Hg] Status: BP Diastolic 86 mm[Hg] Status: Temperature 97.2 f Status: Heart Rate 88 /min Status: Weight 130 lb Status: Physical Findings 92 Status: Comments: O2 Saturation Body Mass Index Calculated 21.63 kg/m2 Status: Body Surface Area Calculated 1.65 m2 Status: Results Date Description Value Details 05-Dec-2016 15:42 Comprehensive Metabolic Panel 1212 SODIUM 141 mmol/L Range: 133-144 POTASSIUM 3.4 mmol/L (Below low Range: 3.5-5.1 threshold) CHLORIDE 103 mmol/L Range: 98-110 CARBON DIOXIDE 33.6 mmol/L (Above high Range: 23.0-33.0 threshold) ANION GAP 4 mmol/L (Below low Range: 6-16 threshold) BUN 22 mg/dL (Above high Range: 7-18 threshold) CREATININE, SERUM 0.81 mg/dL Range: 0.55-1.02 BUN:CREATININE RATIO 27 EST GFR, >60 ml/min Range: >60 EST GFR, NON-AFR CUBAN >60 ml/min Range: >60 Comments: EST GFR is reported in ml/min per 1.73 m2 of body surface area. ----- GLUCOSE 149 mg/dL (Above high Range: 70-100 threshold) ALK PHOSPHATASE 68 U/L Range: 46-116 TOTAL BILIRUBIN 0.40 mg/dL Range: 0.20-1.00 AST 10 U/L Range: 8-35 ALT 19 U/L Range: 14-59 ALBUMIN 3.2 g/dL (Below low Range: 3.4-5.0 threshold) TOTAL PROTEIN 6.3 g/dL (Below low Range: 6.4-8.2 threshold) A/G RATIO 1.0 units Range: 1.0-1.8 CALCIUM 8.5 mg/dL Range: 8.5-10.1 Plan of Care Name Dates Details Planned Observations Planned Goals not documented Planned Encounters Appointment; Provider: Juli Samaniego On 17-May-2017 11:30 Appointment; Provider: Cami Ladd M.D. On 20-Apr-2017 10:45 Appointment; Provider: Ezekiel Sarmiento M.D. On 18-Apr-2017 15:15 Appointment; Provider: Schedule Radiology On 16:00 Appointment; Provider: Schedule Radiology On 15:30 Instructions Name Dates Details Instructions not documented Encounters Appointment; Tabby Vallecillo M.D. On 19-Nov-2016 Encounter [...] Diagnosis: Problem not documented 14:00 Appointment; Geeta Oleary, P.AAshley On 28-Mar-2016 Encounter Diagnosis: Problem not documented [...] Problem not documented 11:45 Appointment; Mireya Rosario, PFernanda On 20-Nov-2015 Encounter Diagnosis: Problem not documented 11:00 Appointment; Yousif Figueroa M.D. On 17-Nov-2015 Encounter Diagnosis: Problem not documented 17:45 Appointment; Yousif Figueroa M.D. On 16-Nov-2015 Encounter Diagnosis: Problem not documented 09:45 Appointment; Cami Ladd M.D. On 13-Nov-2015 Encounter Diagnosis: Problem not documented 15:15 Appointment; Geeta Oleary, PFernanda On 09-Nov-2015 Encounter Diagnosis: Problem not documented [...] Problem not documented 16:15 Appointment; Eliel Patel M.D.|FACP|M.D.,FACP|M.DAshley,FACP, On Encounter Diagnosis: Problem not documented 09:00 Appointment; Cami Ladd M.D. On Encounter Diagnosis: Problem not documented 13:30 Appointment; Cami Ladd M.D. On 19-Dec-2014 Encounter Diagnosis: Problem not documented 11:15"
--- OUTSIDE RECORDS SUMMARY | 2017-05-31 17:12 | External Medical Summary | Summary of Care ---
[...] Active Eczema craquele (706.8, L30.8) Status: Active Medications Name Dates Details Brovana [...] 6 MONTHS Quantity: 1 Refills: 0 Wilberto Jaeger Cami Start 11-Nov-2014 Active Oxygen Home O2 ConcentratorUse 2 liters 8-10 hours/nightQualifying 07/22/15: Nocturnal oximetry=82%, <88%x 35 minutes Quantity: 1 Refills: 0 Dalton JaegerAdy Joselyn Start 23-Jul-2015 Active Potassium Chloride ER 10 MEQ Oral Capsule Extended Release TAKE TWO CAPSULE BY MOUTH ONCE A DAY Quantity: 60 Refills: 3 Renetta Ladd M.D.thia Start 11-Aug-2015 Active ProAir RespiClick 108 (90 Base) MCG/ACT Inhalation Aerosol Powder Breath Activated INHALE 2 PUFFS BY MOUTH UP TO FOUR TIMES A DAY NEEDED Quantity: 1 Refills: 5 Dalton Jaeger Ady Joselyn Start 16-Oct-2015 Active Losartan Potassium-HCTZ 100-12.5 MG Oral Tablet ONE TABLET BY MOUTH EVERY DAY Quantity: 30 Refills: 6 Renetta Ladd M.D.thia Start Active Memantine HCl - 10 MG Oral Tablet TAKE 1 TABLET TWICE DAILY. Quantity: 60 Refills: 5 Guillermina Jaeger Ezekiel [place] Start 01-Apr-2016 Active Furosemide 40 MG Oral Tablet TAKE 1 TABLET DAILY. Quantity: 30 Refills: 3 Renetta Ladd M.D.thia Start 08-Jun-2016 Active Mixture 50\\50 Eucerin\\HC 1%-Apply TID 30 gm Quantity: 1 Refills: 1 Wilberto Jaeger, Cami Start 13-Jun-2016 Active Escitalopram Oxalate 5 MG Oral Tablet TAKE 1 TABLET DAILY. Quantity: 30 Refills: 1 Cami Ladd M.D. Start 17-Jun-2016 Active Triamcinolone .1%/ Eucerin Compound (50/50 Mix) -- 1 pound tub (480 grams) Apply TID to affected area Quantity: 1 Refills: 0 Hiwot Jaeger Angel Alessandro Start 28-Jun-2016 Active 480 GM Package Clobetasol Propionate 0.05 % External Cream APPLY SPARINGLY TO AFFECTED AREA(S) TWICE DAILY Quantity: 45 Refills: 1 Yousif Figueroa M.D. Start 12-Jul-2016 Active Incruse Ellipta 62.5 MCG/INH Inhalation Aerosol Powder Breath Activated INHALE 1 PUFF DAILY. Quantity: 1 Refills: 3 Dalton Jaeger Ady Joselyn Coyle 14-Aug-2016 Active 30 Aerosol Powder Breath Activated [...] Pendin27-Jun-2016 MAMMOGRAM-SCREENING Ordered: 21-Jul-2016 DEXA Ordered: 21-Jul-2016 Immunization Name Dates Details Pneumo (Pneumovax) on: 12-Dec-2008 Tdap (Adacel) on: 05-Dec-2013 Lot #: [id number] Prevnar 13 Intramuscular Suspension on: 05-Dec-2013 Lot #: [id number] Prevnar 13 Intramuscular Suspension on: 25-Nov-2014 Lot #: [id number] Fluvirin 0.5 ML Intramuscular Suspension Prefilled Syringe on: 20-May-2015 Fluzone High-Dose 0.5 ML Intramuscular Suspension Prefilled Syringe on: 2015 Pneumovax 23 25 MCG/0.5ML Injection Injectable on: 21-Jul-2016 Lot #: [id number] Family History Unknown Family Member Name Dates [...] smoker Vital Signs Date Test Result Details 21-Jul-2016 10:34 BP Systolic 140 mm[Hg] Status: [...] Body Surface Area Calculated 1.69 m2 Status: 28-Jun-2016 16:03 BP Systolic 130 mm[Hg] Status: Comments: Location: ; Position: BP Diastolic 78 mm[Hg] Status: Comments: Location: ; Position: Temperature 97.9 f Status: Heart Rate 87 /min Status: Comments: Location: ; Physical Findings 97 Status: Comments: O2 Saturation 27-Jun-2016 15:05 BP Systolic 122 mm[Hg] Status: Comments: Location: ; Position: BP Diastolic 68 mm[Hg] Status: Comments: Location: ; Position: Heart Rate 104 /min Status: Comments: Location: ; Weight 143 lb Status: Physical Findings 98 Status: Comments: O2 Saturation Body Mass Index Calculated 24.55 kg/m2 Status: Body Surface Area Calculated 1.7 m2 Status: Results Date Description Value Details 30-Jun-2016 10:27 CBC w/ Auto Diff 7150 Comments: Non Fasting ok'd by Graciela BANGURA WBC 7.8 K/uL Range: 4.5-11.0 RBC 4.02 mil/uL Range: 3.60-5.00 HGB 13.3 g/dL Range: 12.0-16.0 HCT 39.5 % Range: 36.0-48.0 MCV 98.1 fL Range: 80.0-99.0 MCH 33.0 pg (Above high threshold) Range: 27.3-32.5 MCHC 33.7 % Range: 32.0-36.0 RDW 14.1 % Range: 11.6-14.8 PLATELETS 248 K/uL Range: 150-400 MPV 8.3 fL Range: 6.0-11.0 %NEUTRO 72.3 % Range: 37.0-80.0 %LYMPHS 14.5 % Range: 13.0-50.0 %MONO 5.8 % Range: 0.0-12.0 %EOS 4.4 % Range: 0.0-7.0 %BASO 0.9 % Range: 0.0-2.5 %SIMONE 2.0 % Range: 0.0-5.0 NEUTRO 5.6 K/uL Range: 2.0-6.9 LYMPHS 1.1 K/uL Range: 0.6-3.4 MONOS 0.5 K/uL Range: 0.0-0.9 EOS 0.3 K/uL Range: 0.0-0.7 BASO 0.1 K/uL Range: 0.0-0.2 10:49 Urinalysis, Reflex to Microscopic or Comments: Non Fasting ok'd by Graciela BANGURA Culture PRN 8005 pH 6.5 Range: 5.0-7.5 SP GRAVITY 1.025 Range: 1.010-1.030 APPEARANCE CLEAR Range: Clear COLOR DKYELLOW (Abnormal) Range: Straw-Yellow PROTEIN NEGATIVE mg/dL Range: Negative-Trace GLUCOSE NEGATIVE mg/dL Range: Negative KETONE NEGATIVE mg/dL Range: Negative BILIRUB SMALL (Abnormal) Range: Negative BLOOD NEGATIVE Range: Negative UROBIL 1.0 EU/dL Range: 0.2-1.0 NITRITE NEGATIVE Range: Negative LEUK TRACE (Abnormal) Range: Negative 10:49 Urine Microscopic UMIC Comments: Non Fasting ok'd by Graciela BANGURA WBC 0-2 /HPF Range: 0-5 RBC 0-2 /HPF Range: 0-2 HYAL CAST 3-5 /LPF (Abnormal) Range: 0-2 MUCUS 1+ /LPF Range: Negative-2+ EPITH 0-2 /HPF Range: 0-10 10:50 Comprehensive Metabolic Panel 1212 Comments: Non Fasting ok'd by Graciela BANGURA SODIUM 140 mmol/L Range: 133-144 POTASSIUM 3.5 mmol/L Range: 3.5-5.1 CHLORIDE 101 mmol/L Range: 98-110 CARBON DIOXIDE 32.3 mmol/L Range: 23.0-33.0 ANION GAP 7 mmol/L Range: 6-16 BUN 18 mg/dL Range: 7-18 CREATININE, SERUM 0.85 mg/dL Range: 0.55-1.02 BUN:CREATININE RATIO 21 EST GFR, >60 ml/min Range: >60 EST GFR, NON-AFR DANISH >60 ml/min Range: >60 Comments: EST GFR is reported in ml/min per 1.73 m2 of body surface area. ----- GLUCOSE 103 mg/dL (Above high Range: 70-100 threshold) ALK PHOSPHATASE 63 U/L Range: 46-116 TOTAL BILIRUBIN 0.70 mg/dL Range: 0.20-1.00 AST 9 U/L Range: 8-35 ALT 18 U/L Range: 14-59 ALBUMIN 3.6 g/dL Range: 3.4-5.0 TOTAL PROTEIN 6.8 g/dL Range: 6.4-8.2 A/G RATIO 1.1 units Range: 1.0-1.8 CALCIUM 8.5 mg/dL Range: 8.5-10.1 10:50 LIPID PROFILE 1184 Comments: Non Fasting ok'd by Graciela BANGURA CHOLESTEROL 204 mg/dL (Above high threshold) Range: <200 TRIGLYCERIDES 88 mg/dL Range: 30-200 HDL Cholesterol 110 mg/dL Range: >39 NON HDL CHOLESTEROL 94 CARDIAC RSK FACTOR 1.9 units (Below low threshold) Range: 4.4-5.0 LDL - CALCULATED 76 mg/dL Range: 0-130 11:05 THYROID STIM. HORMONE 3602 Comments: Non Fasting ok'd by Graciela BANGURA THYROID STIM. HORMONE 2.272 uIU/mL Range: 0.550-4.780 Comments: No established reference ranges for infants and children &lt ;2 years of age----- 13:37 CT HEAD WITHOUT AND WITH IV CONTRAST Comments: Exam Date: 06/30/2016 12 :52Dictation Date: 06/30/2016 13:37 [facility] Radiologic ReportSUSAN BALL A- [id number] (X-RAY)PATIENT OF DR. LADD BD: 1940 SECONDARY 06/30/16 XC HEAD WITHOUT/ WITH XC OPTIRAY 320 75ML INDICATION: SYNCOPE Plan of Care Name Dates Details Planned Observations Planned Goals not documented Planned Encounters Appointment; Provider: Juli Samaniego On 09-Nov-2016 11:30 Appointment; Provider: Cami Ladd M.D. On 21-Oct-2016 10:00 Appointment; Provider: Ezekiel Sarmiento M.D. On 10-Oct-2016 15:45 Appointment; Provider: Schedule Radiology On 05-Oct-2016 14:00 Appointment; Provider: Schedule Radiology On 05-Oct-2016 13:40 Appointment; Provider: Yousif Figueroa M.D. On 18-Aug-2016 15:45 Interventions Provided Medication ChangesCephalexin 500 MG Oral Capsule - CompletedLabs/Procedures/ ImagingDEXA; To be Done: 21 Jul 2016MAMMOGRAM-SCREENING; To be Done: 21 Jul 2016 Medications/Immunizations AdministeredPneumovax 23 25 MCG/0.5ML Injection Injectable; Done: 21 Jul 2016 Instructions Name Dates Details Instructions not documented Encounters Appointment; Yousif Figueroa M.D. On 12-Jul-2016 Encounter [...] Problem not documented 14:15 Appointment; Eliel Patel M.D.|ANDREIA,ANDREIA,FACHafsa, On Encounter Diagnosis: Problem not documented 11:00 [...] Problem not documented 11:45 Appointment; Mireya Rosario P.Casa On 20-Nov-2015 Encounter Diagnosis: Problem not documented 11:00 Appointment; Yousif Figueroa M.D. On 17-Nov-2015 Encounter Diagnosis: Problem not documented 17:45 Appointment; Yousif Figueroa M.D. On 16-Nov-2015 Encounter Diagnosis: Problem not documented 09:45 Appointment; Cami Ladd M.D. On 13-Nov-2015 Encounter Diagnosis: Problem not documented 15:15 Appointment; Geeta Oleary PFernanda On 09-Nov-2015 Encounter Diagnosis: Problem not [...] Problem not documented 10:45 Appointment; Eliel Patel M.D.|FACP|M.DAshley,FACP|Mil,FACP, On Encounter Diagnosis: Problem not documented 16:15 Appointment; Eliel Patel M.D.|FACP|MDella,FACP|Mil,FACP, On Encounter Diagnosis: Problem not documented 09:00 [...]
--- OUTSIDE RECORDS SUMMARY | 2017-05-31 17:12 | External Medical Summary | Summary of Care ---
:1940 Author Name Alessandro Callaway M.D. Address Unavailable Unavailable , Care Team Providers Name Role Phone Alessandro Callaway M.D. Unavailable Unavailable Jaimee Sarmiento M.D. 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, J43.9) Status: Active Difficulty breathing (786.09, R06.89) Status: Active Medications Name Dates Details Brovana 15 MCG/2ML Inhalation Nebulization Solution USE EVERY 12 HOURS (copd J44.9/J43.9) Quantity: 120 Refills: 11 Nilton Jaeger Dennis Alessandro Start 11-Aug-2016 Active Budesonide 0.25 MG/2ML Inhalation [...] 12-Dec-2008 Tdap (Adacel) on: 05-Dec-2013 Lot #: [id number] Prevnar 13 Intramuscular Suspension on: 05-Dec-2013 Lot #: [id number] Prevnar 13 Intramuscular Suspension on: 25-Nov-2014 Lot #: [id number] Fluvirin 0.5 ML Intramuscular Suspension Prefilled Syringe on: 20-May-2015 Fluzone High-Dose 0.5 ML Intramuscular Suspension Prefilled Syringe on: 2015 Pneumovax 23 25 MCG/0.5ML Injection Injectable on: 21-Jul-2016 Lot #: [id number] Family History Unknown Family Member Name Dates [...] smoker Vital Signs Date Test Result Details 10:33 BP Systolic 134 mm[Hg] Status: Comments: Location: ; Position: BP Diastolic 62 mm[Hg] Status: Comments: Location: ; Position: Heart Rate 79 /min Status: Comments: Location: ; Weight 128 lb Status: Physical Findings 95 Status: Comments: O2 Saturation Body Mass Index Calculated 21.3 kg/m2 Status: Body Surface Area Calculated 1.64 m2 Status: 12:44 BP Systolic 130 mm[Hg] Status: Comments: Location: ; Position: BP Diastolic 84 mm[Hg] Status: Comments: Location: ; Position: Heart Rate 79 /min Status: Comments: Location: ; Height 65 in Status: Weight 130 lb Status: Physical Findings 94 Status: Comments: O2 Saturation Body Mass Index Calculated 21.63 kg/m2 Status: Body Surface Area Calculated 1.65 m2 Status: 06-Jan-2017 13:09 BP Systolic 140 mm[Hg] Status: [...] Appointment; Provider: Dennis Callaway M.D. On 12:45 Interventions Provided Labs/Procedures/ImagingXRay CHEST-PA & LAT; Done: Jan 26 2017 9:21AM Instructions Name Dates Details Instructions not documented Encounters Appointment; Dennis Callaway M.D. On Encounter Diagnosis: Problem not documented 12:30 Appointment; Mireya Rosario P.A. On 06-Jan-2017 Encounter Diagnosis: Problem not documented 13:00 Appointment; Cami Ladd M.D. On 16-Dec-2016 Encounter Diagnosis: Problem not documented 11:15 Appointment; Tabby Vallecillo M.D. On 19-Nov-2016 Encounter Diagnosis: Problem not documented 14:05 Appointment; Mireya Rosario PAshleyAAshley On 09-Nov-2016 Encounter Diagnosis: Problem not documented 11:30 Appointment; Sosa Zhou P.A. On 25-Oct-2016 Encounter Diagnosis: Problem not documented 14:45 Appointment; Ezekiel Sarmiento M.D. On 10-Oct-2016 Encounter Diagnosis: Problem not documented 15:45 Appointment; Cami Ladd M.D. On 05-Oct-2016 Encounter Diagnosis: Problem not documented 08:00 Appointment; Kai Diaz D.O. On 03-Oct-2016 Encounter Diagnosis: Problem not documented 13:25 Appointment; Sosa Zhou PFernanda On 26-Sep-2016 Encounter Diagnosis: Problem not documented [...] Problem not documented 14:15 Appointment; Eliel Patel M.D.|DONYA|Mil,FACP|Mil,FACP, On Encounter Diagnosis: Problem not documented 11:00 [...] Problem not documented 15:15 Appointment; Geeta Oleary, P.Casa On 09-Nov-2015 Encounter Diagnosis: Problem not documented [...] Problem not documented 10:45 Appointment; Eliel Patel M.D.|FACP|MDella,FACP|Mil,FACP, On Encounter Diagnosis: Problem not documented 16:15 Appointment; Eliel Patel M.D.|FACP|MDella,FACP|Mil,FACP, On Encounter Diagnosis: Problem not documented 09:00 Appointment; Cami Ladd M.D. On Encounter Diagnosis: Problem not documented 13:30"
--- OUTSIDE RECORDS SUMMARY | 2017-05-31 17:13 | External Medical Summary | Summary of Care ---
:1940 Author Name Cami Ladd M.D. Address Unavailable Unavailable , Care Team Providers Name Role Phone Alessandro Callaway M.D. 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 Syncope (780.2, R55) Status: Active Contusion of right shoulder (923.00, S40.011A) Status: Active Memory impairment (780.93, R41.3) Status: Active Other specified local infection of skin or subcutaneous tissue (686.8, L08.89) Status: Active Visit for screening mammogram (V76.12, Z12.31) Status: Active Skin rash (782.1, R21) Status: Active Hypertension (401.9, I10) Status: Active Osteoporosis (733.00, M81.0) Status: Active Depression (311, F32.9) Status: Active 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, 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 , F99) Status: Active Eczema craquele (706.8, L30.8) Status: Active Chest pain, localized (786.59, R07.89) Status: Active Fall at home (E888.9, W19.XXXA) Status: Active Head injury, acute (959.01, S09.90XA) Status: Active Abrasion of nose (910.0, S00.31XA) Status: Active Facial contusion (920, S00.83XA) Status: Active Left rib fracture (807.00, S22.32XA) Status: Active Asteototic dermatitis (692.89, L30.8) Status: Active 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 11-Aug-2016 Active Budesonide 0.25 MG/2ML Inhalation Suspension NEBULIZE TWO TIMES DAILY (Dx: J44.9/J43.9) Quantity: 120 Refills: 11 Dennis Callaway M.D. 11-Aug-2016 Active Prolia 60 MG/ML Subcutaneous Solution INJECT SUBCUTANEOUSLY 60 MG / 1 ML EVERY 6 MONTHS Quantity: 1 Refills: 0 Ladd M.D., Cami Start 11-Nov-2014 Active Oxygen Home O2 ConcentratorUse 2 liters 8-10 hours/nightQualifying 07/22/15: Nocturnal oximetry=82%, <88%x 35 minutes Quantity: 1 Refills: 0 Jordon Hoffman M.D.en Joselyn Start 23-Jul-2015 Active ProAir RespiClick 108 (90 Base) MCG/ACT Inhalation Aerosol Powder Breath Activated 1-2 puffs every 4-6 hours as needed Quantity: 1 Refills: 11 Nilton Jaeger Dennis Francois Start 16-Oct-2015 Active 1 Aerosol Powder Breath Activated Box Losartan Potassium-HCTZ 100-12.5 MG Oral Tablet ONE TABLET BY MOUTH EVERY DAY Quantity: 30 Refills: 6 Ladd M.D., Cami Start Active Mixture 50\\50 Eucerin\\HC 1%-Apply TID 30 gm Quantity: 1 Refills: 1 Ladd M.D., Cami Start 13-Jun-2016 Active Incruse Ellipta 62.5 MCG/INH Inhalation Aerosol Powder Breath Activated INHALE 1 PUFF DAILY. Quantity: 1 Refills: 3 Jordon Hoffman M.D.en Joselyn Start 14-Aug-2016 Active 30 Aerosol Powder Breath [...] 12-Dec-2008 Tdap (Adacel) on: 05-Dec-2013 Lot #: [id number] Prevnar 13 Intramuscular Suspension on: 05-Dec-2013 Lot #: [id number] Prevnar 13 Intramuscular Suspension on: 25-Nov-2014 Lot #: [id number] Fluvirin 0.5 ML Intramuscular Suspension Prefilled Syringe on: 20-May-2015 Fluzone High-Dose 0.5 ML Intramuscular Suspension Prefilled Syringe on: 2015 Pneumovax 23 25 MCG/0.5ML Injection Injectable on: 21-Jul-2016 Lot #: [id number] Family History Unknown Family Member Name Dates [...] smoker Vital Signs Date Test Result Details 05-Oct-2016 08:12 BP Systolic 142 mm[Hg] Status: Comments: Location: LUE; Position: Sitting BP Diastolic 90 mm[Hg] Status: Comments: Location: LUE; Position: Sitting Heart Rate 80 /min Status: Comments: Location: ; Weight 132 lb Status: Physical Findings 96 Status: Comments: O2 Saturation Body Mass Index Calculated 21.97 kg/m2 Status: Body Surface Area Calculated 1.66 m2 Status: 20-Feb-2017 13:51 BP Systolic 124 mm[Hg] Status: Comments: Location: ; Position: BP Diastolic 86 mm[Hg] Status: Comments: Location: ; Position: Temperature 97.5 f Status: Heart Rate 79 /min Status: Comments: Location: ; Physical Findings 16 Status: Comments: Respiration Height 65 in Status: Weight 132 lb Status: Physical Findings 93 Status: Comments: O2 Saturation Body Mass Index Calculated 21.97 kg/m2 Status: Body Surface Area Calculated 1.66 m2 Status: Results Date Description Value Details Results not documented Plan of Care Name Dates Details Planned Observations Planned Goals not documented Planned Encounters Appointment; Provider: Cami Ladd M.D. On 18-Nov-2016 10:00 Appointment; Provider: Schedule Radiology On 11-Nov-2016 09:30 Appointment; Provider: Schedule Radiology On 11-Nov-2016 09:10 Appointment; Provider: Juli Samaniego On 09-Nov-2016 11:30 Appointment; Provider: Juli Velez On 25-Oct-2016 14:45 Appointment; Provider: Ezekiel Sarmiento M.D. On 10-Oct-2016 15:45 Instructions Name Dates Details Instructions not documented Encounters Appointment; Kai Diaz D.O. On 03-Oct-2016 Encounter [...] Problem not documented 14:00 Appointment; Geeta Oleary PAshleyAAshley On 28-Mar-2016 Encounter Diagnosis: Problem not documented 09:15 Appointment; Ady Hoffman M.D. On 18-Mar-2016 Encounter Diagnosis: Problem not documented 14:15 Appointment; Eliel Patel M.D.|FACHafsa|Mil,FACP|Mil,FACP, On Encounter Diagnosis: Problem not documented 11:00 [...] Problem not documented 11:45 Appointment; Mireya Rosario P.A. On 20-Nov-2015 Encounter Diagnosis: Problem not documented [...] On 09-Oct-2014 Encounter Diagnosis: Problem not documented 10:30"
--- OUTSIDE RECORDS SUMMARY | 2017-05-31 17:13 | External Medical Summary | Summary of Care ---
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 Syncope (780.2, R55) Status: Active Contusion of right shoulder (923.00, S40.011A) Status: Active Other specified local infection of skin or subcutaneous tissue (686.8, L08.89) Status: Active Visit for screening mammogram (V76.12, Z12.31) Status: Active Skin rash (782.1, R21) Status: Active Depression (311, F32.9) Status: Active [...] Left rib fracture (807.00, S22.32XA) Status: Active 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, 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 Secondary infection of skin (686.8, L08.89) Status: Active Acute exacerbation of emphysema (491.21, J43.9) Status: Active Memory impairment (780.93, R41.3) Status: Active Generalized anxiety disorder (300.02, F41.1) Status: Active Hypertension (401.9, I10) Status: Active [...] 35 minutes Quantity: 1 Refills: 0 Dalton Jaeger Ady Joselyn Start 23-Jul-2015 Active ProAir RespiClick 108 (90 Base) MCG/ACT Inhalation Aerosol Powder Breath Activated 1-2 puffs every 4-6 hours as needed Quantity: 1 Refills: 11 Nilton JaegerDennis Start 16-Oct-2015 Active 1 Aerosol Powder Breath Activated Box Memantine HCl - 10 MG Oral Tablet TAKE 1 TABLET TWICE DAILY. Quantity: 60 Refills: 5 Guillermina Jaeger Ezekiel Jaimee Start 01-Apr-2016 Active Mixture 50\\50 Eucerin\\HC 1%-Apply TID 30 gm Quantity: 1 Refills: 1 Wilberto JaegerCami Start 13-Jun-2016 Active Incruse Ellipta 62.5 MCG/INH Inhalation Aerosol Powder Breath Activated INHALE 1 PUFF DAILY. Quantity: 1 Refills: 3 Dalton JaegerAdy Joselyn Start 14-Aug-2016 Active 30 Aerosol Powder Breath Activated Disp Pack Cephalexin 500 MG Oral Tablet TAKE 1 TABLET 3 TIMES DAILY. Quantity: 21 Refills: 0 Avel Jaeger Tabby Start 19-Nov-2016 Active Allergies and Adverse Reactions [...] of Cataract Surgery History of Dental Surgery MAMMOGRAM-SCREENING Ordered: 15-Nov-2016 DEXA Ordered: 15-Nov-2016 Immunization Name Dates Details Pneumo (Pneumovax) on: 12-Dec-2008 Tdap (Adacel) on: 05-Dec-2013 Lot #: [id number] Prevnar 13 Intramuscular Suspension on: 05-Dec-2013 Lot #: [id number] Prevnar 13 Intramuscular Suspension on: 25-Nov-2014 Lot #: [id number] Fluvirin 0.5 ML Intramuscular Suspension Prefilled Syringe on: 20-May-2015 Fluzone High-Dose 0.5 ML Intramuscular Suspension Prefilled Syringe on: 2015 Pneumovax 23 25 MCG/0.5ML Injection Injectable on: 21-Jul-2016 Lot #: [id number] Family History Unknown Family Member Name Dates [...] >60 ml/min Range: >60 EST GFR, NON-AFR CHILEAN >60 ml/min Range: >60 Comments: EST GFR [...] Problem not documented 14:00 Appointment; Geeta Oleary PFernanda On 28-Mar-2016 Encounter Diagnosis: Problem not documented 09:15 Appointment; Ady Hoffman M.D. On 18-Mar-2016 Encounter Diagnosis: Problem not documented 14:15 Appointment; Eliel Patel M.D.|FACHafsa|Mil,ANDREIA,FACP, On Encounter Diagnosis: Problem not documented 11:00 Appointment; Cami Ladd M.D. On Encounter Diagnosis: Problem not documented 10:15 Appointment; Ezekiel Sarmiento M.D. On Encounter Diagnosis: Problem not documented 09:15 Appointment; Cami Ladd M.D. On Encounter Diagnosis: Problem not documented 16:00 Appointment; Ady Hfofman M.D. On Encounter Diagnosis: Problem not documented [...] Encounter Diagnosis: Problem not documented 10:45 Appointment; Caim Ladd M.D. On 20-Jul-2015 Encounter Diagnosis: Problem [...] Problem not documented 16:15 Appointment; Eliel Patel M.D.|FACP|M.DAshley,FACP|Mil,FACP, On Encounter Diagnosis: Problem not documented 09:00 Appointment; Cami Ladd M.D. On Encounter Diagnosis: Problem not documented 13:30 Appointment; Cami Ladd M.D. On 19-Dec-2014 Encounter Diagnosis: Problem not documented 11:15"
--- OUTSIDE RECORDS SUMMARY | 2017-05-31 17:13 | External Medical Summary | Summary of Care ---
[...] Surgery CBC w/ Auto Diff 7150 Ordered: Comprehensive Metabolic Panel 1212 Ordered: LIPID PROFILE 1184 Ordered: THYROID STIM. HORMONE 3602 Ordered: Urinalysis, Reflex to Microscopic or Culture PRN 8005 Ordered: Immunization Name Dates Details Pneumo (Pneumovax) on: 12-Dec-2008 Tdap (Adacel) on: 05-Dec-2013 Lot #: [id number] Prevnar 13 Intramuscular Suspension on: 05-Dec-2013 Lot #: [id number] Prevnar 13 Intramuscular Suspension on: 25-Nov-2014 Lot #: [id number] Fluvirin 0.5 ML Intramuscular Suspension Prefilled Syringe on: 20-May-2015 Fluzone High-Dose 0.5 ML Intramuscular Suspension Prefilled Syringe on: 2015 Pneumovax 23 25 MCG/0.5ML Injection Injectable on: 21-Jul-2016 Lot #: [id number] Family History Unknown Family Member Name Dates [...] smoker Vital Signs Date Test Result Details 14:22 BP Systolic 130 mm[Hg] Status: Comments: Location: ; Position: BP Diastolic 70 mm[Hg] Status: Comments: Location: ; Position: Heart Rate 90 /min Status: Comments: Location: ; Weight 126 lb Status: Physical Findings 94 Status: Comments: O2 Saturation Body Mass Index Calculated 20.97 kg/m2 Status: Body Surface Area Calculated 1.63 m2 Status: 14:28 BP Systolic 126 mm[Hg] Status: Comments: [...] of Care Name Dates Details Planned Observations CBC w/ Auto Diff 7150 On 04-Jul-2017 Intent Comprehensive Metabolic Panel 1212 On 04-Jul-2017 Intent LIPID PROFILE 1184 On 04-Jul-2017 Intent THYROID STIM. HORMONE 3602 On 04-Jul-2017 Intent Urinalysis, Reflex to Microscopic or Culture PRN 8005 On 04-Jul-2017 Intent Planned Goals not documented Planned Encounters Appointment; Provider: Cami Ladd M.D. On 04-Jul-2017 10:30 Appointment; Provider: Juli Samaniego On 17-May-2017 11:30 Appointment; Provider: Schedule Radiology On 03-May-2017 15:30 Appointment; Provider: Schedule Radiology On 03-May-2017 15:00 Appointment; Provider: Cami Ladd M.D. On 20-Apr-2017 10:45 Appointment; Provider: Ezekiel Sarmiento M.D. On 18-Apr-2017 15:15 Appointment; Provider: Dennis Callaway M.D. On 12:45 Instructions Name Dates Details Instructions not documented Encounters Appointment; Cami Ladd M.D. On Encounter Diagnosis: Problem not documented 14:15 Appointment; Dennis Callaway M.D. On Encounter Diagnosis: Problem not documented 10:30 Appointment; Dennis Callaway M.D. On Encounter Diagnosis: Problem not documented 12:30 Appointment; Mireya Rosario PAshleyAAshley On 06-Jan-2017 Encounter Diagnosis: Problem not documented 13:00 Appointment; Cami Ladd M.D. On 16-Dec-2016 Encounter Diagnosis: Problem not documented 11:15 Appointment; Tabby Vallecillo M.D. On 19-Nov-2016 Encounter Diagnosis: Problem not documented 14:05 Appointment; Mireya Rosario, P.AAshley On 09-Nov-2016 Encounter Diagnosis: Problem not [...] Encounter Diagnosis: Problem not documented 10:00 Appointment; Geeat Oleary P.A. On 12-Apr-2016 Encounter Diagnosis: Problem not documented 08:45 Appointment; Ezekiel Sarmiento M.D. On 01-Apr-2016 Encounter Diagnosis: Problem not documented 09:15 Appointment; Cami Ladd M.D. On 31-Mar-2016 Encounter Diagnosis: Problem not documented 14:00 Appointment; Geeta Oleary P.A. On 28-Mar-2016 Encounter Diagnosis: Problem not documented 09:15 Appointment; Ady Hoffman M.D. On 18-Mar-2016 Encounter Diagnosis: Problem not documented 14:15 Appointment; Eliel Patel M.D.|DONYA|Mil,DONYA|Mil,FACP, On Encounter Diagnosis: Problem not documented 11:00 [...] M.D. On Encounter Diagnosis: Problem not documented 10:45"
--- OUTSIDE RECORDS SUMMARY | 2017-05-31 17:13 | External Medical Summary | Summary of Care ---
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 , F99) Status: Active Hypokalemia (276.8, E87.6) Status: Active Hypertension (401.9, I10) Status: Active Edema (782.3, R60.9) Status: Active Generalized anxiety disorder (300.02, F41.1) Status: Active Skin rash (782.1, R21) Status: Active Syncope (780.2, R55) Status: Active Medications Name Dates Details Brovana [...] ONCE A DAY Quantity: 60 Refills: 3 Ladd M.D., Cami Start 11-Aug-2015 Active ProAir RespiClick 108 (90 Base) MCG/ACT Inhalation Aerosol Powder Breath Activated INHALE 2 PUFFS BY MOUTH UP TO FOUR TIMES A DAY NEEDED Quantity: 1 Refills: 5 Dalton Jaeger Ady Alves Start 16-Oct-2015 Active Losartan Potassium-HCTZ 100-12.5 MG Oral Tablet ONE TABLET BY MOUTH EVERY DAY Quantity: 30 Refills: 6 Ladd M.D., Cami Start Active Memantine HCl - 10 MG Oral Tablet TAKE 1 TABLET TWICE DAILY. Quantity: 60 Refills: 5 Guillermina Jaeger Ezekiel [place] Start 01-Apr-2016 Active Furosemide 40 MG Oral Tablet TAKE 1 TABLET DAILY. Quantity: 30 Refills: 3 Ladd M.D., Cami Start 08-Jun-2016 Active Mixture 50\\50 Eucerin\\HC 1%-Apply TID 30 gm Quantity: 1 Refills: 1 Ladd M.D., Cami Start 13-Jun-2016 Active Escitalopram Oxalate 5 MG Oral Tablet TAKE 1 TABLET DAILY. Quantity: 30 Refills: 1 Ladd M.D., Cami Start 17-Jun-2016 Active Allergies and Adverse Reactions Name Dates [...] History of Dental Surgery ECG/ EKG Pendin27-Jun-2016 CT HEAD WITHOUT AND WITH IV CONTRAST Ordered: 27-Jun-2016 Immunization Name Dates Details Pneumo (Pneumovax) on: 12-Dec-2008 Tdap (Adacel) on: 05-Dec-2013 Lot #: [id number] Prevnar 13 Intramuscular Suspension on: 05-Dec-2013 Lot #: [id number] Prevnar 13 Intramuscular Suspension on: 25-Nov-2014 Lot #: [id number] Fluvirin 0.5 ML Intramuscular Suspension Prefilled Syringe on: 20-May-2015 Fluzone High-Dose 0.5 ML Intramuscular Suspension Prefilled Syringe on: 2015 Family History Unknown Family Member Name Dates [...] smoker Vital Signs Date Test Result Details 27-Jun-2016 15:05 BP Systolic 122 mm[Hg] Status: Comments: Location: ; Position: BP Diastolic 68 mm[Hg] Status: Comments: Location: ; Position: Heart Rate 104 /min Status: Comments: Location: ; Weight 143 lb Status: Physical Findings 98 Status: Comments: O2 Saturation Body Mass Index Calculated 24.55 kg/m2 Status: Body Surface Area Calculated 1.7 m2 Status: 17-Jun-2016 10:59 BP Systolic 126 mm[Hg] Status: Comments: Location: LUE; Position: Sitting BP Diastolic 68 mm[Hg] Status: Comments: Location: LUE; Position: Sitting Temperature 99 f Status: Heart Rate 83 /min Status: Comments: Location: ; Weight 143 lb Status: Physical Findings 96 Status: Comments: O2 Saturation Body Mass Index Calculated 24.55 kg/m2 Status: Body Surface Area Calculated 1.7 m2 Status: 13-Jun-2016 10:28 BP Systolic 132 mm[Hg] Status: Comments: Location: ; Position: BP Diastolic 80 mm[Hg] Status: Comments: Location: ; Position: Temperature 97.7 f Status: Comments: Method: Heart Rate 84 /min Status: Comments: Location: ; Weight 144 lb Status: Physical Findings 91 Status: Comments: O2 Saturation Body Mass Index Calculated 24.72 kg/m2 Status: Body Surface Area Calculated 1.7 m2 Status: 13-Jun-2016 09:31 BP Systolic 126 mm[Hg] Status: Comments: Location: ; Position: BP Diastolic 74 mm[Hg] Status: Comments: Location: ; Position: Heart Rate 76 /min Status: Comments: Location: ; Weight 144.8 lb Status: Physical Findings 94 Status: Comments: O2 Saturation Body Mass Index Calculated 24.85 kg/m2 Status: Body Surface Area Calculated 1.71 m2 Status: 07-Jun-2016 17:52 BP Systolic 134 mm[Hg] Status: Comments: Location: ; Position: BP Diastolic 72 mm[Hg] Status: Comments: Location: ; Position: Temperature 97.9 f Status: Heart Rate 88 /min Status: Comments: Location: ; Physical Findings 18 Status: Comments: Respiration Weight 145.5 lb Status: Physical Findings 95 Status: Comments: O2 Saturation Body Mass Index Calculated 24.98 kg/m2 Status: Body Surface Area Calculated 1.71 m2 Status: Results Date Description Value Details 06-Jun-2016 11:57 Comprehensive Metabolic Panel 1212 SODIUM 139 mmol/L Range: 133-144 POTASSIUM 3.3 mmol/L (Below low Range: 3.5-5.1 threshold) CHLORIDE 99 mmol/L Range: 98-110 CARBON DIOXIDE 32.0 mmol/L Range: 23.0-33.0 ANION GAP 8 mmol/L Range: 6-16 BUN 14 mg/dL Range: 7-18 CREATININE, SERUM 0.49 mg/dL (Below low Range: 0.55-1.02 threshold) BUN:CREATININE RATIO 29 EST GFR, >60 ml/min Range: >60 EST GFR, NON-AFR [place] >60 ml/min Range: >60 Comments: EST GFR is reported in ml/min per 1.73 m2 of body surface area. ----- GLUCOSE 94 mg/dL Range: 70-100 ALK PHOSPHATASE 53 U/L Range: 46-116 TOTAL BILIRUBIN 0.70 mg/dL Range: 0.20-1.00 AST 13 U/L Range: 8-35 ALT 22 U/L Range: 14-59 ALBUMIN 3.5 g/dL Range: 3.4-5.0 TOTAL PROTEIN 6.5 g/dL Range: 6.4-8.2 A/G RATIO 1.2 units Range: 1.0-1.8 CALCIUM 8.5 mg/dL Range: 8.5-10.1 13-Jun-2016 10:30 CBC w/ Auto Diff 7150 Comments: Manual differential indicated. WBC 7.0 K/uL Range: 4.5-11.0 RBC 4.03 mil/uL Range: 3.60-5.00 HGB 13.3 g/dL Range: 12.0-16.0 HCT 39.4 % Range: 36.0-48.0 MCV 97.7 fL Range: 80.0-99.0 MCH 33.0 pg (Above high threshold) Range: 27.3-32.5 MCHC 33.7 % Range: 32.0-36.0 RDW 14.8 % Range: 11.6-14.8 PLATELETS 283 K/uL Range: 150-400 MPV 8.3 fL Range: 6.0-11.0 10:50 BNP 3103 BNP 68.2 pg/mL Range: 0.0-100.0 10:51 Manual Differential 7400 SEGS 78 % Range: 37-80 BANDS 0 % Range: 0-7 LYMPH 12 % (Below low threshold) Range: 13-50 MONO 8 % Range: 0-12 EOSIN 2 % Range: 0-7 BASO 0 % Range: 0-3 TRINA LYMPH 0 % Range: 0-0 META 0 % Range: 0-0 MYELO 0 % Range: 0-0 PRO 0 % Range: 0-0 BLAST 0 % Range: 0-0 NUC RBC 0 /100 WBC Range: 0-0 SMUDGE 0 /100 WBC PLATELET Adequate Range: Adequate MACROCYT Slight 10:53 BASIC METABOLIC PROFILE 1210 SODIUM 139 mmol/L Range: 133-144 POTASSIUM 3.3 mmol/L (Below low Range: 3.5-5.1 threshold) CHLORIDE 101 mmol/L Range: 98-110 CARBON DIOXIDE 31.8 mmol/L Range: 23.0-33.0 ANION GAP 6 mmol/L Range: 6-16 BUN 17 mg/dL Range: 7-18 CREATININE, SERUM 0.53 mg/dL (Below low Range: 0.55-1.02 threshold) EST GFR, >60 ml/min Range: >60 EST GFR, NON-AFR [place] >60 ml/min Range: >60 Comments: EST GFR is reported in ml/min per 1.73 m2 of body surface area. ----- BUN:CREATININE RATIO 32 GLUCOSE 102 mg/dL (Above high Range: 70-100 threshold) CALCIUM 8.7 mg/dL Range: 8.5-10.1 Plan of Care Name Dates Details Planned Observations CBC w/ Auto Diff 7150 On 30-Jun-2016 Intent Comprehensive Metabolic Panel 1212 On 30-Jun-2016 Intent LIPID PROFILE 1184 On 30-Jun-2016 Intent THYROID STIM. HORMONE 3602 On 30-Jun-2016 Intent Urinalysis, Reflex to Microscopic or Culture PRN 8005 On 30-Jun-2016 Intent ECG/ EKG On 30-Jun-2016 Intent Planned Goals not documented Planned Encounters Appointment; Provider: Ezekiel Sarmiento M.D. On 10-Oct-2016 15:45 Appointment; Provider: Cami Ladd M.D. On 21-Jul-2016 10:30 Appointment; Provider: Schedule Radiology On 30-Jun-2016 13:00 Interventions Provided Labs/Procedures/ImagingCT HEAD WITHOUT AND WITH IV CONTRAST; To be Done: 27 Jun 2016 Instructions Name Dates Details Instructions not documented Encounters Appointment; Cami Ladd M.D. On 17-Jun-2016 Encounter [...] Problem not documented 10:00 Appointment; Geeta Oleary, PAhsleyAAshley On 12-Apr-2016 Encounter Diagnosis: Problem not documented [...] Diagnosis: Problem not documented 12:00 Appointment; Cami Ldad M.D. On 05-Jan-2016 Encounter Diagnosis: Problem not [...] Encounter Diagnosis: Problem not documented 15:15 Appointment; Geeat Oleary, P.AAshley On 09-Nov-2015 Encounter Diagnosis: Problem [...] Problem not documented 16:15 Appointment; Eliel Patel M.D.|FACP|M.D.,FACP|MDella,FACP, On Encounter Diagnosis: Problem not documented 09:00 [...]
--- OUTSIDE RECORDS SUMMARY | 2017-05-31 17:14 | External Medical Summary | Summary of Care ---
:1940 Author Name Cami Ladd M.D. 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 Started 26-May-2014 [id number] GM Tube Prolia 60 MG/ML Subcutaneous Solution INJECT SUBCUTANEOUSLY 60 MG / 1 ML EVERY 6 MONTHS Quantity: 1 Refills: 0 aCmi Ladd M.D. Started 11-Nov-2014 ActiveOxygen Home O2 [...] 1 TABLET DAILY. Quantity: 30 Refills: 4 Cami Ladd M.D. Started 13-Nov-2015 ActiveLosartan Potassium 50 MG Oral Tablet Take one tablet by mouth daily Quantity: 30 Refills: 0 Cami Ladd M.D. Started 13-Nov-2015 ActiveDonepezil HCl - 5 MG Oral Tablet take one tablet by mouth every day Quantity: 30 Refills: 2 Cami Ladd M.D. Started 20-Nov-2015 ActiveEscitalopram Oxalate 5 MG Oral Tablet TAKE 1 TABLET Every morning at breakfast Quantity: 30 Refills: 3 Cami Ladd M.D. Started Active Allergies and Adverse Reactions Name Dates [...] on:12-Dec-2008 Tdap (Adacel) Administered on:05-Dec-2013 Lot #: [id number] Prevnar 13 Intramuscular Suspension Administered on:05-Dec-2013 Lot #: [id number] Prevnar 13 Intramuscular Suspension Administered on:25-Nov-2014 Lot #: [id number] Fluvirin 0.5 ML Intramuscular Suspension Prefilled Syringe [...] smoker Vital Signs Date Test Result Details 15:59 BP Systolic 154 mm[Hg] Status: BP Diastolic 84 mm[Hg] Status: Heart Rate 86 /min Status: Weight 140 lb Status: O2 SAT 97 % Status: Body Mass Index Calculated 24.03 kg/m2 Status: Body Surface Area Calculated 1.68 m2 Status: 11:52 BP Systolic 140 mm[Hg] Status: BP Diastolic 72 mm[Hg] Status: Heart Rate 84 /min Status: Weight 140 lb Status: O2 SAT 98 % Status: Body Mass Index Calculated 24.03 kg/m2 Status: Body Surface Area Calculated 1.68 m2 Status: 10:57 BP Systolic 138 mm[Hg] Status: BP Diastolic 76 mm[Hg] Status: Temperature 97.9 f Status: Heart Rate 89 /min Status: Respiration Rate 20 /min Status: Weight 139 lb Status: O2 SAT 97 % Status: Body Mass Index Calculated 23.86 kg/m2 Status: Body Surface Area Calculated 1.68 m2 Status: 05-Jan-2016 10:24 BP Systolic 150 mm[Hg] Status: [...] ml/min Range: >60 (Better) EST GFR, NON-AFR [place] >60 ml/min Range: >60 (Better) Comments: EST GFR is reported in ml/min per 1.73 m2 of body surface area. For -Azerbaijani, please multiple result by 1.2.----- GLUCOSE 101 [...] Planned Encounters Appointment; Provider: Ady Hoffman On 18-Jul-2016 15:00 Appointment; Provider: Ady Hoffman On 20-May-2016 10:15 Appointment; Provider: Eliel Patel On 11:00 Appointment; Provider: Cami Ladd On 10:15 Appointment; Provider: Ezekiel Sarmiento On 09:15 Appointment; Provider: Schedule Radiology On 05-Jan-2016 13:00 Appointment; Provider: hCai Garcias On 16-Nov-2015 08:20 Instructions Instructions not documented Encounters Appointment; Cami Ladd On Encounter Diagnosis: Problem not documented 16:00 Appointment; Ady Hoffman On Encounter Diagnosis: Problem not documented 11:45 Appointment; Ady Hoffman On Encounter Diagnosis: Problem not documented 10:15 Appointment; Cami Ladd On Encounter Diagnosis: Problem not documented 10:45 Appointment; Ezekiel Sarmiento On 12-Jan-2016 Encounter Diagnosis: Problem not documented 12:00 Appointment; Cami Ladd On 05-Jan-2016 Encounter Diagnosis: [...]
--- OUTSIDE RECORDS SUMMARY | 2017-05-31 17:14 | External Medical Summary | Summary of Care ---
:1940 Author Name Cami Ladd M.D. Address [address] [place], [place] [id number] Care Team Providers Name Role Phone Ketty [...] exacerbation of emphysema (491.21, J43.9) Status: Active Confusion (298.9, R41.0) Status: Active Hypoxia (799.02, R09.02) Status: Active Hypertension (401.9, I10) Status: Active Memory impairment (780.93, R41.3) Status: Active Chronic obstructive pulmonary disease (496, [...] Refills: 2 Yousif Figueroa M.D. Started 26-May-2014 [id number] GM Tube Prolia 60 MG/ML Subcutaneous Solution [...] TWICE A DAY Quantity: 60 Refills: 3 Ladd, Cami M.D. Started 11-Aug-2015 ActiveProAir RespiClick 108 (90 [...] on:12-Dec-2008 Tdap (Adacel) Administered on:05-Dec-2013 Lot #: [id number] Prevnar 13 Intramuscular Suspension Administered on:05-Dec-2013 Lot #: [id number] Prevnar 13 Intramuscular Suspension Administered on:25-Nov-2014 Lot #: [id number] Fluvirin 0.5 ML Intramuscular Suspension Prefilled Syringe [...]
--- OUTSIDE RECORDS SUMMARY | 2017-05-31 17:14 | External Medical Summary | Summary of Care ---
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|ANDREIA,ANDREIA,DONYA, On Mar-2016 10:45 Interventions Provided Medication ChangesLosartan Potassium 50 MG Oral Tablet - StopLosartan Potassium- HCTZ 50-12.5 MG Oral Tablet - Start Instructions Name Dates Details Instructions not documented Encounters Appointment; Ezekiel Sarmiento M.D. On Encounter Diagnosis: [...] Problem not documented 10:45 Appointment; Eliel Patel M.D.|FACP|MAshleyDAshley,FACP|Mil,FACP, On Encounter Diagnosis: Problem not documented 16:15 [...]
--- OUTSIDE RECORDS SUMMARY | 2017-05-31 17:14 | External Medical Summary | Summary of Care ---
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 , F99) Status: Active Memory impairment (780.93, R41.3) Status: Active Vitamin B12 deficiency (266.2, E53.8) Status: Active Medications Name Dates Details Brovana [...] Dalton Jaeger Ady Alves Start 16-Oct-2015 Active AmLODIPine Besylate 10 [...] Microscopic or Culture PRN 8005 Ordered: 19-Apr-2016 Immunization Name Dates Details Pneumo (Pneumovax) on: 12-Dec-2008 Tdap (Adacel) on: 05-Dec-2013 Lot #: [id number] Prevnar 13 Intramuscular Suspension on: 05-Dec-2013 Lot #: [id number] Prevnar 13 Intramuscular Suspension on: 25-Nov-2014 Lot #: [id number] Fluvirin 0.5 ML Intramuscular Suspension Prefilled Syringe [...] smoker Vital Signs Date Test Result Details 19-Apr-2016 10:06 BP Systolic 134 mm[Hg] Status: Comments: Location: ; Position: BP Diastolic 70 mm[Hg] Status: Comments: Location: ; Position: Heart Rate 79 /min Status: Comments: Location: ; Physical Findings 94 Status: Comments: O2 Saturation 19-Apr-2016 10:03 Weight 139 lb Status: Body Mass Index Calculated 23.86 kg/m2 Status: Body Surface Area Calculated 1.68 m2 Status: 12-Apr-2016 08:55 BP Systolic 138 mm[Hg] Status: Comments: Location: ; Position: BP Diastolic 72 mm[Hg] Status: Comments: Location: ; Position: Heart Rate 76 /min Status: Comments: Location: ; Height 64 in Status: Weight 140 lb Status: Physical Findings 95 Status: Comments: O2 Saturation Body Mass Index Calculated 24.03 kg/m2 Status: Body Surface Area Calculated 1.68 m2 Status: 01-Apr-2016 09:29 BP Systolic 130 mm[Hg] Status: Comments: Location: ; Position: BP Diastolic 72 mm[Hg] Status: Comments: Location: ; Position: Heart Rate 77 /min Status: Comments: Location: ; Weight 136.0 lb Status: Physical Findings 96 Status: Comments: O2 Saturation Body Mass Index Calculated 23.34 kg/m2 Status: Body Surface Area Calculated 1.66 m2 Status: 31-Mar-2016 14:24 Physical Findings 95 Status: Comments: O2 Saturation 31-Mar-2016 14:18 BP Systolic 136 mm[Hg] Status: BP Diastolic 72 mm[Hg] Status: Heart Rate 90 /min Status: Weight 137 lb Status: Physical Findings 92 Status: Comments: O2 Saturation Body Mass Index Calculated 23.52 kg/m2 Status: Body Surface Area Calculated 1.67 m2 Status: 28-Mar-2016 09:42 Heart Rate 76 /min Status: Height 64 in Status: Weight 135.2 lb Status: Physical Findings 96 Status: Comments: O2 Saturation Body Mass Index Calculated 23.21 kg/m2 Status: Body Surface Area Calculated 1.66 m2 Status: Results Date Description Value Details Results not documented Plan of Care Name Dates Details Planned Observations Planned Goals not documented Planned Encounters Appointment; Provider: Ady Hoffman M.D. On 09-Nov-2016 13:15 Appointment; Provider: Cami Ladd M.D. On 21-Jul-2016 10:30 Appointment; Provider: Ezekiel Sarmiento M.D. On 13-Jun-2016 09:30 Appointment; Provider: Ady Hoffman M.D. On 20-May-2016 10:15 Interventions Provided Medication ChangesAzithromycin 250 MG Oral Tablet - Completed Instructions Name Dates Details Instructions not documented Encounters Appointment; Geeta Oleary P.A. On 28-Mar-2016 Encounter Diagnosis: Problem not documented 09:15 Appointment; Ady Hoffman M.D. On 18-Mar-2016 Encounter Diagnosis: Problem not documented 14:15 Appointment; Eliel Patel M.D.|DONYA|Mil,DONYA|Mil,DONYA, On Encounter Diagnosis: Problem not documented 11:00 [...] Encounter Diagnosis: Problem not documented 11:00 Appointment; Yosuif Figueroa M.D. On 17-Nov-2015 Encounter Diagnosis: Problem [...] Problem not documented 10:45 Appointment; Eliel Patel M.D.|FACP|Mil,FACP|Mil,FACP, On Encounter Diagnosis: Problem not documented 16:15 Appointment; Eliel Patel M.D.|FACP|Mil,FACP|Mil,FACP, On Encounter Diagnosis: Problem not documented 09:00 [...] Encounter Diagnosis: Problem not documented 10:00 Appointment; Aol An M.D. On 09-May-2014 Encounter Diagnosis: Problem not documented 13:30"
--- OUTSIDE RECORDS SUMMARY | 2017-05-31 17:14 | External Medical Summary | Summary of Care ---
:1940 Author Name Jaimee Sarmiento M.D. 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 Started 26-May-2014 [id number] GM Tube Prolia 60 MG/ML Subcutaneous Solution [...] mouth every day Quantity: 30 Refills: 2 LaddCami M.D. Started 20-Nov-2015 Active Allergies and Adverse Reactions Name Dates [...] on:12-Dec-2008 Tdap (Adacel) Administered on:05-Dec-2013 Lot #: [id number] Prevnar 13 Intramuscular Suspension Administered on:05-Dec-2013 Lot #: [id number] Prevnar 13 Intramuscular Suspension Administered on:25-Nov-2014 Lot #: [id number] Fluvirin 0.5 ML Intramuscular Suspension Prefilled Syringe [...] smoker Vital Signs Date Test Result Details 24-Dec-2015 10:25 BP Systolic 120 mm[Hg] Status: [...] Provider: Cami Ladd On 10:45 Appointment; Provider: Chai Garcias On 16-Nov-2015 08:20 Instructions Instructions not documented Encounters Appointment; Ezekiel Sarmiento On 24-Dec-2015 Encounter Diagnosis: [...] Diagnosis: Problem not documented 13:30 Appointment; Cami aLdd On 19-Dec-2014 Encounter Diagnosis: Problem not documented [...]
--- OUTSIDE RECORDS SUMMARY | 2017-05-31 17:15 | External Medical Summary | Summary of Care ---
:1940 Author Name Jorge Jaeger, DONYA,, Shun Julian Address [address] [place], [place] [id number] Care Team Providers Name Role Phone Nilton [...] Refills: 0 Cami Ladd M.D. Started Ended [id number] GM Tube Allergies and Adverse Reactions Name Dates Details Levaquin TABS Status: Active Past Medical History Name Dates Details History of CXR Solitary Pulmonary Nodule Right Lung Status: Resolved Procedures Procedure Dates Details History of Hysterectomy History of Complete Colonoscopy Procedures not documented Immunization Name Dates Details Pneumo (Pneumovax) Administered on:12-Dec-2008 Tdap (Adacel) Administered on:05-Dec-2013 Lot #: [id number] Prevnar 13 Intramuscular Suspension Administered on:05-Dec-2013 Lot #: [id number] Prevnar 13 Intramuscular Suspension Administered on:25-Nov-2014 Lot #: [id number] Family History Unknown Family Member Name Dates Details Family history of Asthma (V17.5) Comments: Family History Status: Active Father Name Dates Details Family history of myocardial infarction (V17.3, Z82.49) Status: Active Social History Name Dates Details Smoking StatusFormer smoker Vital Signs Date Test Result Details 13:57 BP Systolic 162 mm[Hg] Status: BP [...]
--- OUTSIDE RECORDS SUMMARY | 2017-05-31 17:15 | External Medical Summary | Summary of Care ---
[...] Active Skin rash (782.1, R21) Status: Active Medications Name Dates [...] DAY NEEDED Quantity: 1 Refills: 5 Dalton JaegerAdy Start 16-Oct-2015 Active Losartan Potassium-HCTZ 100-12.5 MG Oral Tablet ONE TABLET BY MOUTH EVERY DAY Quantity: 30 Refills: 6 Ladd M.D., Cami Start Active Memantine HCl - 10 MG Oral Tablet TAKE 1 TABLET TWICE DAILY. Quantity: 60 Refills: 5 Guillermina JaegerEzekiel Start 01-Apr-2016 Active Furosemide 40 MG Oral [...] 12-Dec-2008 Tdap (Adacel) on: 05-Dec-2013 Lot #: [id number] Prevnar 13 Intramuscular Suspension on: 05-Dec-2013 Lot #: [id number] Prevnar 13 Intramuscular Suspension on: 25-Nov-2014 Lot #: [id number] Fluvirin 0.5 ML Intramuscular Suspension Prefilled Syringe [...] smoker Vital Signs Date Test Result Details 17-Jun-2016 10:59 BP Systolic 126 mm[Hg] Status: Comments: Location: ; Position: BP Diastolic 68 mm[Hg] Status: Comments: Location: ; Position: Temperature 99 f Status: Heart Rate 83 [...] Comments: Location: LUE; Position: Sitting BP Diastolic 74 mm[Hg] Status: Comments: Location: LUE; Position: Sitting Heart Rate 76 /min Status: Comments: Location: ; Weight 144.8 lb Status: Physical Findings 94 Status: Comments: O2 Saturation Body Mass Index Calculated 24.85 kg/m2 Status: Body Surface Area Calculated 1.71 m2 Status: 07-Jun-2016 17:52 BP Systolic 134 mm[Hg] Status: Comments: Location: ; Position: BP Diastolic 72 mm[Hg] Status: Comments: Location: ; Position: Temperature 97.9 f Status: Comments: Method: Heart Rate 88 /min Status: Comments: Location: ; Physical Findings 18 Status: Comments: Respiration Weight 145.5 lb Status: Physical Findings 95 Status: Comments: O2 Saturation Body Mass Index Calculated 24.98 kg/m2 Status: Body Surface Area Calculated 1.71 m2 Status: 20-May-2016 10:10 BP Systolic 122 mm[Hg] Status: [...] >60 ml/min Range: >60 EST GFR, NON-AFR DUTCH >60 ml/min Range: >60 Comments: EST GFR [...] >60 ml/min Range: >60 EST GFR, NON-AFR DUTCH >60 ml/min Range: >60 Comments: EST GFR [...] Ladd M.D. On 21-Jul-2016 10:30 Appointment; Provider: Cami Ladd M.D. On 27-Jun-2016 14:30 Interventions Provided Medication ChangesEscitalopram Oxalate 5 MG Oral Tablet - StartMixture - Renew Instructions Name Dates Details Instructions not documented Encounters Appointment; Cami Ladd M.D. On 13-Jun-2016 Encounter Diagnosis: Problem not documented 10:45 Appointment; Ezekiel Sarmiento M.D. On 13-Jun-2016 Encounter Diagnosis: Problem not documented 09:30 Appointment; Cami Ladd M.D. On 07-Jun-2016 Encounter Diagnosis: Problem not documented 17:30 Appointment; Ady Hoffman M.D. On 20-May-2016 Encounter Diagnosis: Problem not documented 10:15 Appointment; Cami Ladd M.D. On 19-Apr-2016 Encounter Diagnosis: Problem not documented 10:00 Appointment; Geeta Oleary, P.AAshley On 12-Apr-2016 Encounter Diagnosis: Problem not documented 08:45 Appointment; Ezekiel Sarmiento M.D. On 01-Apr-2016 Encounter Diagnosis: Problem not documented 09:15 Appointment; Cami Ladd M.D. On 31-Mar-2016 Encounter Diagnosis: Problem not documented 14:00 Appointment; Geeta Oleary, P.AAshley On 28-Mar-2016 Encounter Diagnosis: Problem not documented 09:15 Appointment; Ady Hoffman M.D. On 18-Mar-2016 Encounter Diagnosis: Problem not documented 14:15 Appointment; Eliel Patel M.D.|DONYA|Mil,ANDREIA,FACP, On Encounter Diagnosis: Problem not documented 11:00 [...] Problem not documented 11:45 Appointment; Mireya Rosario, P.Casa On 20-Nov-2015 Encounter Diagnosis: Problem not [...] Encounter Diagnosis: Problem not documented 10:30 Appointment; lAo An M.D. On 17-Sep-2014 Encounter Diagnosis: Problem not documented 10:30 Appointment; Ady Hoffman M.D. On 15-Sep-2014 Encounter Diagnosis: Problem not documented 11:30 Appointment; Alo An M.D. On 29-Aug-2014 Encounter Diagnosis: Problem not documented 10:30 Appointment; Alo An M.D. On 22-Aug-2014 Encounter Diagnosis: Problem not documented 13:00"
--- OUTSIDE RECORDS SUMMARY | 2017-05-31 17:15 | External Medical Summary | Summary of Care ---
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 Pernicious anemia (281.0, D51.0) Status: Active Osteoporosis (733.00, M81.0) Status: Active 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, 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 Emphysema/COPD (492.8, J43.9) Status: Active Hypoxia (799.02, R09.02) Status: Active Keloid (701.4, L91.0) Status: Active 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, 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 Hypertension, uncontrolled (401.9, I10) Status: Active Generalized anxiety disorder (300.02, F41.1) Status: Active Syncope (780.2, R55) Status: Active Contusion of right shoulder (923.00, S40.011A) Status: Active Memory impairment (780.93, R41.3) Status: Active Eczema craquele (706.8, L30.8) Status: Active Other specified local infection of skin or subcutaneous tissue (686.8, L08.89) Status: Active 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 Start 15-Oct-2009 Active Spiriva HandiHaler 18 [...] ONCE A DAY Quantity: 60 Refills: 3 Wilberto Jaeger Cami Start 11-Aug-2015 Active ProAir RespiClick 108 [...] Quantity: 1 Refills: 3 Ady Hoffman M.D. 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) [...] 12-Dec-2008 Tdap (Adacel) on: 05-Dec-2013 Lot #: [id number] Prevnar 13 Intramuscular Suspension on: 05-Dec-2013 Lot #: [id number] Prevnar 13 Intramuscular Suspension on: 25-Nov-2014 Lot #: [id number] Fluvirin 0.5 ML Intramuscular Suspension Prefilled Syringe on: 20-May-2015 Fluzone High-Dose 0.5 ML Intramuscular Suspension Prefilled Syringe on: 2015 Pneumovax 23 25 MCG/0.5ML Injection Injectable on: 21-Jul-2016 Lot #: [id number] Family History Unknown Family Member Name Dates [...] >60 ml/min Range: >60 EST GFR, NON-AFR ENGLISH >60 ml/min Range: >60 Comments: EST GFR [...] :52Dictation Date: 06/30/2016 13:37 [facility] Radiologic ReportEARSUSAN CELESTIN A- [id number] (X-RAY)PATIENT OF DR. LADD BD: 1940 SECONDARY 06/30/16 XC HEAD WITHOUT/ WITH XC OPTIRAY 320 75ML INDICATION: SYNCOPE Plan of Care Name Dates Details Planned Observations Planned Goals not documented Planned Encounters Appointment; Provider: Juli Samaniego On 09-Nov-2016 11:30 Appointment; Provider: Cami Ladd M.D. On 21-Oct-2016 10:00 Appointment; Provider: Ezekiel Sarmiento M.D. On 10-Oct-2016 15:45 Appointment; Provider: Yousif Figueroa M.D. On 18-Aug-2016 [...] Encounter Diagnosis: Problem not documented 11:30 Appointment; Aol An M.D. On 29-Aug-2014 Encounter Diagnosis: Problem not documented 10:30 Appointment; Alo An M.D. On 22-Aug-2014 Encounter Diagnosis: Problem not documented 13:00"
--- OUTSIDE RECORDS SUMMARY | 2017-05-31 17:15 | External Medical Summary | Summary of Care ---
:1940 Author Name Cami Ladd M.D. Address [address] [place], [place] [id number] Care Team Providers Name Role Phone Juve [...] Refills: 2 Yousif Figueroa M.D. Started 26-May-2014 [id number] GM Tube Prolia 60 MG/ML Subcutaneous Solution [...] History of Hysterectomy History of Complete Colonoscopy BNP 3103 Ordered:11-Aug-2015 CBC w/ Auto Diff 7150 Ordered:11-Aug-2015 Comprehensive Metabolic Panel 1212 Ordered:11-Aug-2015 Urinalysis, Reflex to Microscopic or Culture PRN 8005 Ordered:11-Aug-2015 Immunization Name Dates Details Pneumo (Pneumovax) Administered on:12-Dec-2008 Tdap (Adacel) Administered on:05-Dec-2013 Lot #: [id number] Prevnar 13 Intramuscular Suspension Administered on:05-Dec-2013 Lot #: [id number] Prevnar 13 Intramuscular Suspension Administered on:25-Nov-2014 Lot #: [id number] Fluvirin 0.5 ML Intramuscular Suspension Prefilled Syringe [...] (Better) EST GFR, >60 ml/min Range: >60 KYRGYZ (Better) EST GFR, NON-AFR >60 ml/min Range: >60 KYRGYZ (Better) Comments: EST GFR is reported in ml/min per 1.73 m2 of body surface area. For -Maltese, please multiple result by 1.2.----- GLUCOSE 101 [...] Range: 8.5-10.1 low threshold) 23-Jul-2015 URINE CULTURE [id number] Comments: SoFi performed at: [facility], [address] [place] [address], [id number], Gluten Settling Tender: Ezekiel Sun D.O., MPHQuest Collection Date/Time: [id number] 07:56 [id number] Results Received Date/Time: [id number] Reported Date/Time: [id number] performed at: [facility] SoFi [facility], [address] [place] [address], [id number], Gluten Settling Tender: Ezekiel Sun D.O., MPHQuest Collection Date/Time: [id number] Results Received Date/Time: [id number] Reported Date/Time: [id number] CULTURE, URINE, ROUTINE SEE NOTE (Abnormal) Comments: CULTURE, URINE, ROUTINE MICRO NUMBER: [id number] TEST STATUS: FINAL SPECIMEN SOURCE : URINE, [...] I=Intermediate R=Resistant *=Not TestedNR=Not Reported NN=See Therapy Comments[OR]----- Plan of Care Planned Observations Name Dates [...]
--- OUTSIDE RECORDS SUMMARY | 2017-05-31 17:15 | External Medical Summary | Summary of Care ---
:1940 Author Name Cami Ladd M.D. Address [address] [place], [place] [id number] Care Team Providers Name Role Phone Juve [...] Refills: 2 Yousif Figueroa M.D. Started 26-May-2014 Vineqv72 GM Tube Prolia 60 MG/ML Subcutaneous Solution [...] on:12-Dec-2008 Tdap (Adacel) Administered on:05-Dec-2013 Lot #: [id number] Prevnar 13 Intramuscular Suspension Administered on:05-Dec-2013 Lot #: [id number] Prevnar 13 Intramuscular Suspension Administered on:25-Nov-2014 Lot #: [id number] Fluvirin 0.5 ML Intramuscular Suspension Prefilled Syringe Administered on:May-2015 Family History Unknown Family Member Name Dates Details Family history of Asthma (V17.5) Comments: Family History Status: Active Father Name Dates Details Family history of myocardial infarction (V17.3, Z82.49) Status: Active Social History Name Dates Details Smoking StatusFormer smoker Vital Signs Date Test Result Details 24-Aug-2015 11:34 BP Systolic 132 mm[Hg] Status: BP Diastolic 72 mm[Hg] Status: Heart Rate 79 /min Status: Weight 141 lb Status: O2 SAT 98 % Status: Body Mass Index Calculated 24.2 kg/m2 Status: Body Surface Area Calculated 1.69 m2 Status: 11-Aug-2015 12:59 BP Systolic 130 mm[Hg] Status: BP Diastolic 76 mm[Hg] Status: Heart Rate 94 /min Status: Weight 148 lb Status: O2 SAT 94 % Status: Body Mass Index Calculated 25.4 kg/m2 Status: Body Surface Area Calculated 1.72 m2 Status: Results Date Description Value Details 11-Aug-2015 CBC w/ Auto Diff 7150 13:31 [...] ml/min Range: >60 (Better) EST GFR, NON-AFR CITIZEN OF [place] >60 ml/min Range: >60 (Better) Comments: EST GFR is reported in ml/min per 1.73 m2 of body surface area. For -Moroccan, please multiple result by 1.2.----- GLUCOSE 102 [...] 8.1 mg/dL (Below Range: 8.5-10.1 low threshold) 12-Aug-2015 Urinalysis, Reflex to Comments: refridgerated 09:55 Microscopic or Culture PRN 8005 pH 7.0 (Better) Range: 5.0-7.5 SP GRAVITY 1.015 (Better) Range: 1.010-1.030 APPEARANCE CLEAR (Better) Range: Clear COLOR YELLOW (Better) Range: Straw-Yellow PROTEIN NEGATIVE mg/dL Range: Negative-Trace (Better) GLUCOSE NEGATIVE mg/dL Range: Negative (Better) KETONE TRACE mg/dL Range: Negative (Abnormal) BILIRUB NEGATIVE (Better) Range: Negative BLOOD SMALL (Abnormal) Range: Negative UROBIL 1.0 EU/dL (Better) Range: 0.2-1.0 NITRITE NEGATIVE (Better) Range: Negative LEUK NEGATIVE (Better) Range: Negative 09:55 Urine Microscopic UMIC Comments: refridgerated WBC 0-2 /HPF (Better) Range: 0-5 RBC 3-5 /HPF (Abnormal) Range: 0-2 EPITH 0-2 /HPF (Better) Range: 0-10 24-Aug-2015 BASIC METABOLIC PROFILE 11:38 1210 SODIUM 137 mmol/L (Better) Range: 133-144 POTASSIUM 3.4 mmol/L (Below Range: 3.5-5.1 low threshold) CHLORIDE 97 mmol/L (Below Range: 98-110 low threshold) CARBON DIOXIDE 33.5 mmol/L (Above Range: 23.0-33.0 high threshold) ANION GAP 7 mmol/L (Better) Range: 6-16 BUN 25 mg/dL (Above Range: 7-18 high threshold) Comments: Variance from previous testing noted.----- CREATININE, SERUM 0.63 mg/dL (Better) Range: 0.55-1.02 Comments: Please note new reference ranges effective 2015.----- EST GFR, >60 ml/min Range: >60 (Better) EST GFR, NON-AFR CITIZEN OF [place] >60 ml/min Range: >60 (Better) Comments: EST GFR is reported in ml/min per 1.73 m2 of body surface area. For -Moroccan, please multiple result by 1.2.----- BUN:CREATININE RATIO 40 (Better) GLUCOSE 94 mg/dL (Better) Range: 70-100 CALCIUM 8.7 mg/dL (Better) Range: 8.5-10.1 Plan of Care Planned Observations Name Dates Details Planned Goals not documented Goal Planned Encounters Appointment; Provider: Ady Hoffman On 13:15 Appointment; Provider: Yousif Figueroa On 16-Nov-2015 09:45 Instructions Instructions not documented Encounters Appointment; Cami Ladd On 24-Aug-2015 Encounter Diagnosis: [...]
--- OUTSIDE RECORDS SUMMARY | 2017-05-31 17:16 | External Medical Summary | Summary of Care ---
:1940 Author Name Cami Ladd M.D. Address [address] [place], [place] [address] Care Team Providers Name Role Phone Carolina [...] shoulder pain (719.41, M25.512) Status: Active Acute bronchitis, unspecified organism (466.0, [...] Refills: 2 Yousif Figueroa M.D. Started 26-May-2014 [id number] GM Tube Prolia 60 MG/ML Subcutaneous Solution [...] on:12-Dec-2008 Tdap (Adacel) Administered on:05-Dec-2013 Lot #: [id number] Prevnar 13 Intramuscular Suspension Administered on:05-Dec-2013 Lot #: [id number] Prevnar 13 Intramuscular Suspension Administered on:25-Nov-2014 Lot #: [id number] Fluvirin 0.5 ML Intramuscular Suspension Prefilled Syringe [...] /min Status: O2 SAT 95 % Status: Results Date Description Value Details 05-Jan-2016 CBC w/ Auto Diff 7150 Comments: [...] ml/min Range: >60 (Better) EST GFR, NON-AFR [place] >60 ml/min Range: >60 (Better) Comments: EST GFR is reported in ml/min per 1.73 m2 of body surface area. For -Portuguese, please multiple result by 1.2.----- GLUCOSE 101 [...]
--- OUTSIDE RECORDS SUMMARY | 2017-05-31 17:16 | External Medical Summary | Summary of Care ---
:1940 Author Name Guillermina Jaeger, Jaimee Falcon Address Unavailable Unavailable , Care Team Providers [...] Status: Active Hypertension (401.9, I10) Status: Active Hypokalemia (276.8, E87.6) Status: Active Skin rash (782.1, R21) Status: Active Memory impairment (780.93, R41.3) Status: [...] DAY NEEDED Quantity: 1 Refills: 5 Ronsick M.D., Ady Alves Start 16-Oct-2015 Active Escitalopram Oxalate 5 MG Oral Tablet TAKE 1 TABLET Every morning at breakfast Quantity: 30 Refills: 3 Ladd M.D., Cami Start Active Losartan Potassium-HCTZ 100-12.5 MG Oral Tablet ONE TABLET BY MOUTH EVERY DAY Quantity: 30 Refills: 6 Ladd M.D., Cami Start Active Memantine HCl - 10 MG Oral Tablet TAKE 1 TABLET TWICE DAILY. Quantity: 60 Refills: 5 [place] M.D., Ezekiel [place] Start 01-Apr-2016 Active Furosemide 40 MG Oral Tablet TAKE 1 TABLET DAILY. Quantity: 30 Refills: 3 Ladd M.D., Cami Start 08-Jun-2016 Active Mixture 50\\50 Eucerin\\HC 1%-Apply TID 30 gm Quantity: 1 Refills: 0 Ladd M.D., Cami Start 13-Jun-2016 Active Allergies and Adverse Reactions Name Dates [...] 12-Dec-2008 Tdap (Adacel) on: 05-Dec-2013 Lot #: [id number] Prevnar 13 Intramuscular Suspension on: 05-Dec-2013 Lot #: [id number] Prevnar 13 Intramuscular Suspension on: 25-Nov-2014 Lot #: [id number] Fluvirin 0.5 ML Intramuscular Suspension Prefilled Syringe [...] smoker Vital Signs Date Test Result Details 13-Jun-2016 10:28 BP Systolic 132 mm[Hg] Status: Comments: Location: ; Position: BP Diastolic 80 mm[Hg] Status: Comments: Location: ; Position: Temperature 97.7 f Status: Heart Rate 84 /min Status: Comments: [...] BP Systolic 134 mm[Hg] Status: Comments: Location: LUE; Position: Sitting BP Diastolic 72 mm[Hg] Status: Comments: Location: LUE; Position: Sitting Temperature 97.9 f Status: Heart Rate 88 [...] >60 ml/min Range: >60 EST GFR, NON-AFR MAURITIAN >60 ml/min Range: >60 Comments: EST GFR [...] >60 ml/min Range: >60 EST GFR, NON-AFR MAURITIAN >60 ml/min Range: >60 Comments: EST GFR [...] Provider: Cami Ladd M.D. On 27-Jun-2016 14:30 Instructions Name Dates Details Instructions not documented Encounters Appointment; Cami Ladd M.D. On 07-Jun-2016 Encounter [...] Problem not documented 11:45 Appointment; Mireya Rosario P.AAshley On 20-Nov-2015 Encounter Diagnosis: Problem not [...]
--- OUTSIDE RECORDS SUMMARY | 2017-05-31 17:16 | External Medical Summary | Summary of Care ---
[...] Active Skin rash (782.1, R21) Status: Active Osteoporosis (733.00, M81.0) Status: Active [...] 6 MONTHS Quantity: 1 Refills: 0 Ladd Renetta Jaegerthia Start 11-Nov-2014 Active Oxygen Home O2 ConcentratorUse [...] EVERY DAY Quantity: 30 Refills: 6 Ladd M.DAshley, Cami Start Active Mixture 50\\50 Eucerin\\HC 1%-Apply TID 30 gm Quantity: 1 Refills: 1 Ladd MDella, Cami Start 13-Jun-2016 Active Incruse Ellipta 62.5 [...] Right Lung Status: Resolved History of dizziness (V13., Z87.898) Status: Resolved History of Numbness in both hands (782.0, R20.0) Status: Resolved History of Tinnitus of both ears (388.30, H93.13) Status: Resolved Procedures Procedure Dates Details History of Hysterectomy History of Complete Colonoscopy History of Cataract Surgery History of Dental Surgery Procedures not documented Immunization Name Dates Details Pneumo (Pneumovax) on: 12-Dec-2008 Tdap (Adacel) on: 05-Dec-2013 Lot #: [id number] Prevnar 13 Intramuscular Suspension on: 05-Dec-2013 Lot #: [id number] Prevnar 13 Intramuscular Suspension on: 25-Nov-2014 Lot #: [id number] Fluvirin 0.5 ML Intramuscular Suspension Prefilled Syringe on: 20-May-2015 Fluzone High-Dose 0.5 ML Intramuscular Suspension Prefilled Syringe on: 2015 Pneumovax 23 25 MCG/0.5ML Injection Injectable on: 21-Jul-2016 Lot #: [id number] Family History Unknown Family Member Name Dates [...] smoker Vital Signs Date Test Result Details 10-Oct-2016 16:11 BP Systolic 148 mm[Hg] Status: Comments: Location: LUE; Position: Sitting BP Diastolic 88 mm[Hg] Status: Comments: Location: LUE; Position: Sitting Heart Rate 72 /min Status: Comments: Location: ; Weight 133 lb Status: Body Mass Index Calculated 22.13 kg/m2 Status: Body Surface Area Calculated 1.66 m2 Status: 05-Oct-2016 08:12 BP Systolic 142 mm[Hg] Status: Comments: Location: ; Position: BP Diastolic 90 mm[Hg] Status: Comments: Location: ; Position: Heart Rate 80 /min Status: Comments: Location: ; Weight 132 lb Status: Physical Findings 96 Status: Comments: O2 Saturation Body Mass Index Calculated 21.97 kg/m2 Status: Body Surface Area Calculated 1.66 m2 Status: 03-Oct-2016 13:51 BP Systolic 124 mm[Hg] Status: Comments: [...] Encounters Appointment; Provider: Ezekiel Sarmiento M.D. On 18-Apr-2017 15:15 Appointment; Provider: Cami Ladd M.D. On 18-Nov-2016 10:00 Appointment; Provider: Schedule Radiology On 11-Nov-2016 09:30 Appointment; Provider: Schedule Radiology On 11-Nov-2016 09:10 Appointment; Provider: Juli Samaniego On 09-Nov-2016 11:30 Appointment; Provider: Juli Velez On 25-Oct-2016 14:45 Instructions Name Dates Details Instructions not documented Encounters Appointment; Cami Ladd M.D. On 05-Oct-2016 Encounter [...] Problem not documented 10:00 Appointment; Geeta Oleary PFernanda On 12-Apr-2016 Encounter Diagnosis: Problem not documented 08:45 Appointment; Ezekiel Sarmiento M.D. On 01-Apr-2016 Encounter Diagnosis: Problem not documented 09:15 Appointment; Cami Ladd M.D. On 31-Mar-2016 Encounter Diagnosis: Problem not documented 14:00 Appointment; Geeta Oleary, P.AAshley On 28-Mar-2016 Encounter Diagnosis: Problem not documented 09:15 Appointment; Ady Hoffman M.D. On 18-Mar-2016 Encounter Diagnosis: Problem not documented 14:15 Appointment; Eliel Patel M.D.|ANDREIA,ANDREIA,FACP, On Encounter Diagnosis: Problem not documented 11:00 Appointment; Cami Ladd M.D. On Encounter Diagnosis: Problem not documented 10:15 Appointment; Ezekeil Sarmiento M.D. On Encounter Diagnosis: Problem not [...] On 10-Nov-2014 Encounter Diagnosis: Problem not documented 11:30"
--- OUTSIDE RECORDS SUMMARY | 2017-05-31 17:16 | External Medical Summary | Summary of Care ---
:1940 Author Name Frida Kim APRN Address [address] [place], [place] [id number] Care Team Providers Name Role Phone Nilton [...] Vitamin B12 deficiency (266.2, E53.8) Status: Active Fatigue (780.79, R53.83) Status: Active Medications Name Dates Details Brovana [...] Refills: 0 Cami Ladd M.D. Started Ended [id number] GM Tube Allergies and Adverse Reactions Name Dates Details Levaquin TABS Status: Active Past Medical History Name Dates Details History of CXR Solitary Pulmonary Nodule Right Lung Status: Resolved Procedures Procedure Dates Details History of Hysterectomy History of Complete Colonoscopy CBC w/ Auto Diff 7150 Ordered: Comprehensive Metabolic Panel 1212 Ordered: EPO PANEL 3699 Ordered: Immunization Name Dates Details Pneumo (Pneumovax) Administered on:12-Dec-2008 Tdap (Adacel) Administered on:05-Dec-2013 Lot #: [id number] Prevnar 13 Intramuscular Suspension Administered on:05-Dec-2013 Lot #: [id number] Prevnar 13 Intramuscular Suspension Administered on:25-Nov-2014 Lot #: [id number] Family History Unknown Family Member Name Dates Details Family history of Asthma (V17.5) Comments: Family History Status: Active Father Name Dates Details Family history of myocardial infarction (V17.3, Z82.49) Status: Active Social History Name Dates Details Smoking StatusFormer smoker Vital Signs Date Test Result Details 09:47 BP Systolic 165 mm[Hg] Status: BP [...] ml/min Range: >60 (Better) EST GFR, NON-AFR SOUTH AFR[place] >60 ml/min Range: >60 (Better) Comments: EST GFR is reported in ml/min per 1.73 m2 of body surface area. For -Moldovan, please multiple result by 1.2.----- GLUCOSE 95 [...]
--- OUTSIDE RECORDS SUMMARY | 2017-05-31 17:17 | External Medical Summary | Summary of Care ---
:1940 Author Name Mireya Lance Address [address] [place], [place] [id number] Care Team Providers Name Role Phone Carolina [...] Status: Active Hypokalemia (276.8, E87.6) Status: Active Other specified local infection of [...] (Dx: J44.9/J43.9) Quantity: 120 Refills: 5 Ady Hoffmna M.D. Started 15-Oct-2009 ActiveHalobetasol Propionate 0.05 % External Cream APPLY AND GENTLY MASSAGE INTO AFFECTED AREA(S) ON LEGS TWICE DAILY. Quantity: 1 Refills: 2 Yousif Figueroa M.D. Started 26-May-2014 [id number] GM Tube Prolia 60 MG/ML Subcutaneous Solution [...] Refills: 0 Ady Hoffman M.D. Started 16-Oct-2015 ActiveAmLODIPine Besylate 10 MG Oral Tablet TAKE 1 TABLET DAILY. Quantity: 30 Refills: 1 Ladd, Cami M.D. Started 13-Nov-2015 ActiveLosartan Potassium 50 MG [...] on:12-Dec-2008 Tdap (Adacel) Administered on:05-Dec-2013 Lot #: [id number] Prevnar 13 Intramuscular Suspension Administered on:05-Dec-2013 Lot #: [id number] Prevnar 13 Intramuscular Suspension Administered on:25-Nov-2014 Lot #: [id number] Fluvirin 0.5 ML Intramuscular Suspension Prefilled Syringe Administered on:May-2015 Family History Unknown Family Member Name Dates Details Family history of Asthma (V17.5) Comments: Family History Status: Active Father Name Dates Details Family history of myocardial infarction (V17.3, Z82.49) Status: Active Social History Name Dates Details Smoking StatusFormer smoker Vital Signs Date Test Result Details 20-Nov-2015 11:02 BP Systolic 137 mm[Hg] Status: BP Diastolic 66 mm[Hg] Status: Heart Rate 74 /min Status: Weight 139.8 lb Status: O2 SAT 98 % Status: Body Mass Index Calculated 24 kg/m2 Status: Body Surface Area Calculated 1.68 m2 Status: 13-Nov-2015 16:18 BP Systolic 160 mm[Hg] Status: [...] m2 Status: Results Date Description Value Details 19-Nov-2015 11:04 CBC w/ Auto Diff 7150 Comments: Manual differential indicated. WBC 13.2 K/uL (Above Range: 4.5-11.0 high threshold) RBC 4.91 mil/uL Range: 3.60-5.00 (Better) HGB 16.0 g/dL (Better) Range: 12.0-16.0 HCT 46.3 % (Better) Range: 36.0-48.0 MCV 94.3 fL (Better) Range: 80.0-99.0 MCH 32.6 pg (Above high Range: 27.3-32.5 threshold) MCHC 34.6 % (Better) Range: 32.0-36.0 RDW 12.1 % (Better) Range: 11.6-14.8 PLATELETS 239 K/uL (Better) Range: 150-400 MPV 8.4 fL (Better) Range: 6.0-11.0 11:24 Manual Differential 7400 SEGS 87 % (Above high Range: 37-80 threshold) BANDS 0 % (Better) Range: 0-7 LYMPH 8 % (Below low Range: 13-50 threshold) MONO 4 % (Better) Range: 0-12 EOSIN 1 % (Better) Range: 0-7 BASO 0 % (Better) Range: 0-3 TRINA LYMPH 0 % (Better) Range: 0-0 META 0 % (Better) Range: 0-0 MYELO 0 % (Better) Range: 0-0 PRO 0 % (Better) Range: 0-0 BLAST 0 % (Better) Range: 0-0 NUC RBC 0 /100 WBC (Better) Range: 0-0 SMUDGE 0 /100 WBC (Better) PLATELET Adequate (Better) Range: Adequate 11:31 BASIC METABOLIC PROFILE 1210 SODIUM 131 mmol/L (Below Range: 133-144 low threshold) POTASSIUM 3.4 mmol/L (Below Range: 3.5-5.1 low threshold) CHLORIDE 92 mmol/L (Below Range: 98-110 low threshold) CARBON DIOXIDE 30.6 mmol/L Range: 23.0-33.0 (Better) ANION GAP 8 mmol/L (Better) Range: 6-16 BUN 24 mg/dL (Above Range: 7-18 high threshold) CREATININE, SERUM 0.64 mg/dL (Better) Range: 0.55-1.02 Comments: Please note new reference ranges effective 2015.----- EST GFR, >60 ml/min Range: >60 [place] (Better) EST GFR, NON-AFR >60 ml/min Range: >60 [place] (Better) Comments: EST GFR is reported in ml/min per 1.73 m2 of body surface area. For -Malaysian, please multiple result by 1.2.----- BUN:CREATININE RATIO 38 (Better) GLUCOSE 109 mg/dL (Above Range: 70-100 high threshold) CALCIUM 9.1 mg/dL (Better) Range: 8.5-10.1 Plan of Care Planned Observations Name Dates Details Planned Goals not documented Goal Planned Encounters Appointment; Provider: Ady Hoffman On 20-May-2016 10:15 Appointment; Provider: Eliel Patel On 09:30 Appointment; Provider: Ezekiel Sarmiento On 24-Dec-2015 10:00 Appointment; Provider: Chai Garcias On 16-Nov-2015 08:20 Instructions Instructions not documented Encounters Appointment; Mireya Rosario On 20-Nov-2015 Encounter Diagnosis: [...]
--- OUTSIDE RECORDS SUMMARY | 2017-05-31 17:17 | External Medical Summary | Summary of Care ---
:1940 Author Name Cami Ladd M.D. Address [address] [place], [place] [id number] Care Team Providers Name Role Phone Juve [...] Status: Active Depression (311, F32.9) Status: Active Medications Name Dates Details Brovana [...] Refills: 2 Yousif Figueroa M.D. Started 26-May-2014 [id number] GM Tube Prolia 60 MG/ML Subcutaneous Solution INJECT SUBCUTANEOUSLY 60 MG / 1 ML EVERY 6 MONTHS Quantity: 1 Refills: 0 Caim Ladd M.D. Started 11-Nov-2014 ActiveLexapro 10 MG [...] Hysterectomy History of Complete Colonoscopy URINE CULTURE [id number] Ordered:20-Jul-2015 Immunization Name Dates Details Pneumo (Pneumovax) Administered on:12-Dec-2008 Tdap (Adacel) Administered on:05-Dec-2013 Lot #: [id number] Prevnar 13 Intramuscular Suspension Administered on:05-Dec-2013 Lot #: [id number] Prevnar 13 Intramuscular Suspension Administered on:25-Nov-2014 Lot #: [id number] Fluvirin 0.5 ML Intramuscular Suspension Prefilled Syringe [...] ml/min Range: >60 (Better) EST GFR, NON-AFR [place] >60 ml/min Range: >60 (Better) Comments: EST GFR is reported in ml/min per 1.73 m2 of body surface area. For -Citizen Of [place], please multiple result by 1.2.----- GLUCOSE 101 [...]
--- OUTSIDE RECORDS SUMMARY | 2017-05-31 17:17 | External Medical Summary | Summary of Care ---
:1940 Author Name Cami Ladd M.D. Address [address] [place], [place] [id number] Care Team Providers Name Role Phone Nilton [...] Refills: 0 Cami Ladd M.D. Started Ended Hugniw96 GM Tube Allergies and Adverse Reactions Name Dates Details Levaquin TABS Status: Active Past Medical History Name Dates Details History of CXR Solitary Pulmonary Nodule Right Lung Status: Resolved Procedures Procedure Dates Details History of Hysterectomy History of Complete Colonoscopy Procedures not documented Immunization Name Dates Details Pneumo (Pneumovax) Administered on:12-Dec-2008 Tdap (Adacel) Administered on:05-Dec-2013 Lot #: [id number] Prevnar 13 Intramuscular Suspension Administered on:05-Dec-2013 Lot #: [id number] Prevnar 13 Intramuscular Suspension Administered on:25-Nov-2014 Lot #: [id number] Family History Unknown Family Member Name Dates [...]
--- OUTSIDE RECORDS SUMMARY | 2017-05-31 17:17 | External Medical Summary | Summary of Care ---
:1940 Author Name Alessandro Diaz D.O. Address [address] [place], [place] [address] Care Team Providers Name Role Phone Alessandro Callaway M.D. Unavailable Unavailable Alessandro Diaz D.O. 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 11-Aug-2016 Active Spiriva HandiHaler 18 MCG Inhalation Capsule USE 1 PUFF BY MOUTH EVERY MORNING Quantity: 30 Refills: 11 Ady Hoffman M.D. 17-Jun-2009 Active Budesonide 0.25 MG/2ML Inhalation Suspension NEBULIZE TWO TIMES DAILY (Dx: J44.9/J43.9) Quantity: 120 Refills: 11 Nilton Jaeger Dennis Alessandro Start 11-Aug-2016 Active Prolia 60 MG/ML Subcutaneous Solution INJECT SUBCUTANEOUSLY 60 MG / 1 ML EVERY 6 MONTHS Quantity: 1 Refills: 0 Ladd Mil, Cami Start 11-Nov-2014 Active Oxygen Home O2 [...] EVERY DAY Quantity: 30 Refills: 6 Ladd MDella, Cami Start Active Mixture 50\\50 Eucerin\\HC 1%-Apply TID 30 gm Quantity: 1 Refills: 1 Ladd MAshleyDAshley, Cami Start 13-Jun-2016 Active Incruse Ellipta 62.5 [...] 12-Dec-2008 Tdap (Adacel) on: 05-Dec-2013 Lot #: [id number] Prevnar 13 Intramuscular Suspension on: 05-Dec-2013 Lot #: [id number] Prevnar 13 Intramuscular Suspension on: 25-Nov-2014 Lot #: [id number] Fluvirin 0.5 ML Intramuscular Suspension Prefilled Syringe on: 20-May-2015 Fluzone High-Dose 0.5 ML Intramuscular Suspension Prefilled Syringe on: 2015 Pneumovax 23 25 MCG/0.5ML Injection Injectable on: 21-Jul-2016 Lot #: [id number] Family History Unknown Family Member Name Dates [...] smoker Vital Signs Date Test Result Details 03-Oct-2016 13:51 BP Systolic 124 mm[Hg] Status: Comments: Location: LUE; Position: Sitting BP Diastolic 86 mm[Hg] Status: Comments: Location: LUE; Position: Sitting Temperature 97.5 f Status: Comments: Method: Heart Rate 79 /min Status: Comments: Location: [...] 15:45 Appointment; Provider: Cami Ladd M.D. On 05-Oct-2016 08:00 Instructions Name Dates Details Instructions not documented Encounters Appointment; Sosa Zhou P.A. On 26-Sep-2016 Encounter [...]
--- OUTSIDE RECORDS SUMMARY | 2017-05-31 17:17 | External Medical Summary | Summary of Care ---
[...] Status: Active Osteoporosis (733.00, M81.0) Status: Active Memory impairment (780.93, R41.3) Status: [...] 12-Dec-2008 Tdap (Adacel) on: 05-Dec-2013 Lot #: [id number] Prevnar 13 Intramuscular Suspension on: 05-Dec-2013 Lot #: [id number] Prevnar 13 Intramuscular Suspension on: 25-Nov-2014 Lot #: [id number] Fluvirin 0.5 ML Intramuscular Suspension Prefilled Syringe [...] >60 ml/min Range: >60 EST GFR, NON-AFR YEMENI >60 ml/min Range: >60 Comments: EST GFR [...] >60 ml/min Range: >60 EST GFR, NON-AFR YEMENI >60 ml/min Range: >60 Comments: EST GFR [...] M.D. On 27-Jun-2016 14:30 Interventions Provided Medication ChangesAmLODIPine Besylate 10 MG Oral Tablet - CompletedFurosemide 40 MG Oral Tablet - RenewMixture - Start Instructions Name Dates Details Instructions not documented Encounters Appointment; Ezekiel Sarmiento M.D. On 13-Jun-2016 Encounter [...] Problem not documented 14:15 Appointment; Eliel Patel M.D.|DONYA|Mil,FACCharlie,FACP, On Encounter Diagnosis: Problem not documented 11:00 [...]
--- OUTSIDE RECORDS SUMMARY | 2017-05-31 17:18 | External Medical Summary ---
:1940 Author Name GENERATED, SYSTEM Care Team Providers Name Role Phone MD CASIMIRO, MARILU Primary Care Provider [phone] Reason For Visit Chief Complaint FALL Social History Functional Status Vital Signs Results DX Radiology from 02/11/2017 2:28 AMFOOT LEFT 3 VIEWSHistory: pain . Technique: 3view foot Priors: None. Findings: Alignment is within normal limits. There is dorsal soft tissue swelling of the forefoot. No acute fracture or dislocation is noted. There are mild degenerative changes of the 1st metatarsal phalangeal joint. No radiopaque foreign body is identified. Impression: No evidence of acute fracture, dislocation, or radiopaque foreign body. Electronically signed by: Debora Martinez MD Dictated: 02/11/2017 11:13 (Reference Range: not available) Problems Encounter Diagnosis No relevant problems exist. Additional Problems Activity Intolerance Comment:Problem resolved by [facility] Workflow upon Discharge , Status:Resolved.Acute Exacerbation of Chronic Obstructive Airways Disease Comment:Problem resolved by [facility] Workflow upon Discharge, Status: Resolved.Acute Exacerbation of Chronic Obstructive Airways Disease Comment: Problem resolved by So[facility] Workflow upon Discharge, Status:Resolved.Acute Renal Failure Syndrome Comment:Problem resolved by So[facility] Workflow upon Discharge, Status:Resolved.Altered Mental Status Comment:Problem resolved by [facility] Workflow upon Discharge, Status:Resolved.Altered Mental Status Comment: Problem resolved by Soarian Workflow upon Discharge, Status:Resolved.Anxiety Comment:Problem resolved by Soarian Workflow upon Discharge, Status: Resolved.Anxiety Comment:Problem resolved by Soarian Workflow upon Discharge, Status:Resolved.Chronic Obstructive Lung Disease Comment:Problem resolved by Soarian Workflow upon Discharge, Status:Resolved.Chronic Obstructive Lung Disease Comment:Problem resolved by Soarian Workflow upon Discharge, Status: Resolved.Dementia Comment:Problem resolved by Soarian Workflow upon Discharge, Status:Resolved.Depression Comment:Problem resolved by Soarian Workflow upon Discharge, Status:Resolved.Fall Risk Comment:Problem resolved by Soarian Workflow upon Discharge, Status:Resolved.Fall Risk Comment:Problem resolved by Soarian Workflow upon Discharge, Status:Resolved.Fall Risk Comment:Problem resolved by Soarian Workflow upon Discharge, Status:Resolved.Fall Risk Comment: Problem resolved by Soarian Workflow upon Discharge, Status:Resolved.History of Anemia Comment:Problem resolved by Soarian Workflow upon Discharge, Status: Resolved.History of Hypertension Comment:Problem resolved by Soarian Workflow upon Discharge, Status:Resolved.Hypertensive Disorder Comment:Problem resolved by Soarian Workflow upon Discharge, Status:Resolved.Hypertensive Disorder Comment:Problem resolved by Soarian Workflow upon Discharge, Status: Resolved.Osteoporosis Comment:Problem resolved by Soarian Workflow upon Discharge, Status:Resolved.Poor Short Term Memory Comment:Problem resolved by Soarian Workflow upon Discharge, Status:Resolved.Pulmonary Emphysema Comment: Problem resolved by Soarian Workflow upon Discharge, Status:Resolved.Pulmonary Emphysema Comment:Problem resolved by Soarian Workflow upon Discharge, Status: Resolved.Pulmonary Emphysema Comment:Problem resolved by Soarian Workflow upon Discharge, Status:Resolved.Skin Integrity Impairment Risk Comment:Problem resolved by So[facility] Workflow upon Discharge, Status:Resolved.Vertigo Comment: Problem resolved by [facility] Workflow upon Discharge, Status:Resolved. Encounters Encounter Diagnosis No relevant problems exist. Plan of Care Procedures Completed Procedure Code: 00.00 Procedure Name: not valued, on 11/28/2014 12:00 AM Immunizations No immunizations administered or ordered. Hospital Course Hospital Discharge Instructions Allergies, Adverse Reactions, Alerts This section is auto service representative of the current allergy information, at the time of the CCD generation. In the case of regeneration of the CCD, the allergy information may not reflect the state of known allergies at the time of the CCD' s subject visit. Levaquin causes unspecified.Latex Allergy has not been assessed.IV Contrast Allergy has not been assessed.No Known Food Allergies. Medication Medication reconciliation has not been performed.
--- OUTSIDE RECORDS SUMMARY | 2017-05-31 17:18 | External Medical Summary ---
:1940 Author Name GENERATED, SYSTEM Care Team Providers Name Role Phone MD CASIMIRO, MARILU Primary Care Provider [phone] Reason For Visit Reason for Visit from 11/28/2014 1:15 PM:Pt Stated Reason for Adm : Prolia Chief Complaint OSTEOPOROSIS Social History Functional Status Functional Status from 11/28/2014 1:15 PM:LOC : AlertOriented To : Person,Place, Time,Event Vital Signs Hospital Vital Signs from 11/28/2014 1:22 PM:Height : 5/5 ft,inTemperature : 96.6 FPulse : 87Respirations : 18BP : 157/86 Results Problems Encounter Diagnosis No relevant problems exist. Additional Problems Pulmonary Emphysema Comment:Problem resolved by So[facility] Workflow upon Discharge , Status:Resolved. Encounters Encounter Diagnosis No relevant problems exist. Plan of Care Procedures No relevant procedures performed. Immunizations No immunizations administered or ordered. Hospital Course Hospital Discharge Instructions Allergies, Adverse Reactions, Alerts Levaquin causes unspecified.Latex Allergy has not been assessed.IV Contrast Allergy has not been assessed. Medication Medication reconciliation has not been performed.
--- OUTSIDE RECORDS SUMMARY | 2017-05-31 17:18 | External Medical Summary | Summary of Care ---
:1940 Author Name Cami Ladd M.D. 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 HORMONE 3602 Ordered:06-Nov-2014 LIPID PROFILE 1184 Ordered:06-Nov-2014 Comprehensive Metabolic Panel 1212 Ordered:06-Nov-2014 CBC w/ Auto Diff 7150 Ordered:06-Nov-2014 Immunization Name Dates Details Pneumo (Pneumovax) Administered on:12-Dec-2008 Tdap (Adacel) Administered on:05-Dec-2013 Lot #: [id number] Prevnar 13 Intramuscular Suspension Administered on:05-Dec-2013 Lot #: [id number] Prevnar 13 Intramuscular Suspension Administered on:25-Nov-2014 Lot #: [id number] Family History Unknown Family Member Name Dates Details Family history of Asthma (V17.5) Comments: Family History Status: Active Father Name Dates Details Family history of myocardial infarction (V17.3, Z82.49) Status: Active Social History Name Dates Details Smoking StatusFormer smoker Vital Signs Date Test Result Details 19-Dec-2014 11:16 BP Systolic 133 mm[Hg] Status: BP Diastolic 76 mm[Hg] Status: Heart Rate 88 /min Status: Weight 147 lb Status: Body Mass Index Calculated 25.23 kg/m2 Status: Body Surface Area Calculated 1.72 m2 Status: 04-Dec-2014 14:55 BP Systolic 140 mm[Hg] Status: [...] DOS 12-17-14 AND 12-24-14 DR. MCCLENDON @ [facility] WBC 6.7 K/uL (Better) Range: [...] 0.0-0.2 14:02 ECG/ EKG Preop Electro CardioGram (Better) 14:21 BASIC METABOLIC PROFILE Comments: DOS 12-17-14 AND 12-24-14 DR. MCCLENDON @ [facility] 1210 SODIUM 136 mmol/L (Better) Range: 133-144 POTASSIUM 3.6 mmol/L (Better) Range: 3.5-5.1 CHLORIDE 99 mmol/L (Better) Range: 98-110 CARBON DIOXIDE 31.1 mmol/L (Better) Range: 23.0-33.0 ANION GAP 6 mmol/L (Better) Range: 6-16 BUN 11 mg/dL (Better) Range: 7-18 CREATININE, SERUM 0.58 mg/dL (Better) Range: 0.43-1.13 EST GFR, >60 ml/min Range: >60 (Better) EST GFR, NON-AFR [place] >60 ml/min Range: >60 (Better) Comments: EST GFR is reported in ml/min per 1.73 m2 of body surface area. For -Maltese, please multiple result by 1.2.----- BUN:CREATININE RATIO 19 (Better) GLUCOSE 81 mg/dL (Better) Range: 70-100 CALCIUM 8.2 mg/dL (Below low Range: 8.5-10.1 threshold) Comments: Verified by Repeat Analysis----- 14:41 XRay CHEST-PA & LAT Comments: Exam Date: 14: 08Dictation Date: 14:41 X CHEST PA & LAT (Better) 15:01 Urinalysis, Reflex to Comments: DOS 12-17-14 AND 12-24-14 DR. MCCLENDON @ [facility] Microscopic or Culture PRN 8005 pH 7.5 (Better) Range: 5.0-7.5 SP GRAVITY <=1.005 Range: 1.010-1.030 (Abnormal) APPEARANCE CLEAR (Better) Range: Clear COLOR YELLOW [...]
--- OUTSIDE RECORDS SUMMARY | 2017-05-31 17:18 | External Medical Summary | Summary of Care ---
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 Quantity: 30 Refills: 4 Ladd M.D., Cami Start 13-Nov-2015 Active Escitalopram Oxalate 5 [...] 12-Dec-2008 Tdap (Adacel) on: 05-Dec-2013 Lot #: [id number] Prevnar 13 Intramuscular Suspension on: 05-Dec-2013 Lot #: [id number] Prevnar 13 Intramuscular Suspension on: 25-Nov-2014 Lot #: [id number] Fluvirin 0.5 ML Intramuscular Suspension Prefilled Syringe [...] smoker Vital Signs Date Test Result Details 12-Apr-2016 08:55 BP Systolic 138 mm[Hg] Status: [...] Hoffman M.D. On 09-Nov-2016 13:15 Appointment; Provider: Ezekiel Sarmiento M.D. On 13-Jun-2016 09:30 Appointment; Provider: Ady Hoffman M.D. On 20-May-2016 10:15 Appointment; Provider: Cami Ladd M.D. On 19-Apr-2016 10:00 Instructions Name Dates Details Instructions not documented Encounters Appointment; Ezekiel Sarmiento M.D. On 01-Apr-2016 Encounter Diagnosis: Problem not documented 09:15 Appointment; Cami Ladd M.D. On 31-Mar-2016 Encounter Diagnosis: Problem not documented 14:00 Appointment; Geeta Oleary P.A. On 28-Mar-2016 Encounter Diagnosis: Problem not documented 09:15 Appointment; Ady Hoffman M.D. On 18-Mar-2016 Encounter Diagnosis: Problem not documented 14:15 Appointment; Eliel Paetl M.D.|KHANHP|Mil,FACP|Mil,FACP, On Encounter Diagnosis: Problem not documented [...] Encounter Diagnosis: Problem not documented 10:20 Appointment; Ayd Hoffman M.D. On 31-Dec-2015 Encounter Diagnosis: Problem [...]
--- OUTSIDE RECORDS SUMMARY | 2017-05-31 17:18 | External Medical Summary | Summary of Care ---
:1940 Author Name Cami Ladd M.D. Address [address] [place], [place] [id number] Care Team Providers Name Role Phone Geeta [...] Status: Active Cough (786.2, R05) Status: Active Hypoxia (799.02, R09.02) Status: Active [...] Refills: 2 Yousif Figueroa M.D. Started 26-May-2014 [id number] GM Tube Prolia 60 MG/ML Subcutaneous Solution [...] on:12-Dec-2008 Tdap (Adacel) Administered on:05-Dec-2013 Lot #: [id number] Prevnar 13 Intramuscular Suspension Administered on:05-Dec-2013 Lot #: [id number] Prevnar 13 Intramuscular Suspension Administered on:25-Nov-2014 Lot #: [id number] Fluvirin 0.5 ML Intramuscular Suspension Prefilled Syringe [...] 11:00 X CHEST PA & LAT (Better) 24-May-2016 CBC w/ Auto Diff 7150 Comments: Manual [...] ml/min Range: >60 (Better) EST GFR, NON-AFR MAURITANIAN >60 ml/min Range: >60 (Better) Comments: EST GFR is reported in ml/min per 1.73 m2 of body surface area. For -[place], please multiple result by 1.2.----- GLUCOSE 101 [...] 7.8 mg/dL (Below Range: 8.5-10.1 low threshold) Plan of Care Planned Observations Name Dates Details Planned Goals not documented Goal Planned Encounters Appointment; Provider: Ady Hoffman On 20-May-2016 10:15 Appointment; Provider: Ezekiel Sarmiento On 09:15 Appointment; Provider: Cami Ladd On 10:45 Appointment; Provider: Ezekiel Sarmiento On 12-Jan-2016 12:00 Appointment; Provider: [facility] On 05-Jan-2016 13:00 Appointment; Provider: Chai [...]
--- OUTSIDE RECORDS SUMMARY | 2017-05-31 17:18 | External Medical Summary | Summary of Care ---
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 Depression (311, F32.9) Status: Active Osteoporosis (733.00, M81.0) Status: Active 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, 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 Keloid (701.4, L91.0) Status: Active Hypoxia (799.02, R09.02) Status: Active 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, 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 Hypertension, uncontrolled (401.9, I10) Status: Active Generalized anxiety disorder (300.02, F41.1) Status: Active Emphysema/COPD (492.8, J43.9) Status: Active Syncope (780.2, R55) Status: Active Contusion of right shoulder (923.00, S40.011A) Status: Active Memory impairment (780.93, R41.3) Status: Active Medications Name Dates Details Brovana [...] 0 Dalton JaegerAdy Joselyn Start 23-Jul-2015 Active ProAir RespiClick 108 (90 Base) MCG/ACT Inhalation Aerosol Powder Breath Activated INHALE 2 PUFFS BY MOUTH UP TO FOUR TIMES A DAY NEEDED Quantity: 1 Refills: 5 Dalton Jaeger Ady Alves Start 16-Oct-2015 Active Losartan Potassium-HCTZ 100-12.5 MG Oral Tablet ONE TABLET BY MOUTH EVERY DAY Quantity: 30 Refills: 6 Ladd M.Jessica., Cami Start Active Memantine HCl - 10 MG Oral Tablet TAKE 1 TABLET TWICE DAILY. Quantity: 60 Refills: 5 Guillermina Jaeger Ezekiel [place] Start 01-Apr-2016 Active Furosemide 40 MG Oral Tablet TAKE 1 TABLET DAILY. Quantity: 30 Refills: 3 Ladd M.Jessica., Cami Start 08-Jun-2016 Active Potassium Chloride ER 10 MEQ Oral Capsule Extended Release TAKE TWO CAPSULE BY MOUTH ONCE A DAY Quantity: 60 Refills: 3 Ladd M.Jessica., Cami Start 11-Aug-2015 Active Mixture 50\\50 Eucerin\\HC 1%-Apply TID 30 gm Quantity: 1 Refills: 1 Ladd M.D., Cami Start 13-Jun-2016 Active Escitalopram Oxalate 5 MG Oral Tablet TAKE 1 TABLET DAILY. Quantity: 30 Refills: 1 Ladd M.D., Cami Start 17-Jun-2016 Active Triamcinolone .1%/ Eucerin Compound (50/50 Mix) -- 1 pound tub (480 grams) Apply TID to affected area Quantity: 1 Refills: 0 Lacywilder MilAngel Start 28-Jun-2016 Active 480 GM Package Allergies and Adverse Reactions Name Dates Details [...] History of Dental Surgery ECG/ EKG Pendin27-Jun-2016 Immunization Name Dates Details Pneumo (Pneumovax) on: 12-Dec-2008 Tdap (Adacel) on: 05-Dec-2013 Lot #: [id number] Prevnar 13 Intramuscular Suspension on: 05-Dec-2013 Lot #: [id number] Prevnar 13 Intramuscular Suspension on: 25-Nov-2014 Lot #: [id number] Fluvirin 0.5 ML Intramuscular Suspension Prefilled Syringe [...] smoker Vital Signs Date Test Result Details 28-Jun-2016 16:03 BP Systolic 130 mm[Hg] Status: Comments: Location: LUE; Position: Sitting BP Diastolic 78 mm[Hg] Status: Comments: Location: LUE; Position: Sitting Temperature 97.9 f Status: Heart Rate 87 [...] Location: ; Position: Temperature 99 f Status: Comments: Method: Heart Rate 83 /min Status: Comments: Location: [...] m2 Status: Results Date Description Value Details 13-Jun-2016 10:30 CBC w/ Auto Diff 7150 [...] >60 ml/min Range: >60 EST GFR, NON-AFR SWAZI >60 ml/min Range: >60 Comments: EST GFR is reported in ml/min per 1.73 m2 of body surface area. ----- BUN:CREATININE RATIO 32 GLUCOSE 102 mg/dL (Above high Range: 70-100 threshold) CALCIUM 8.7 mg/dL Range: 8.5-10.1 30-Jun-2016 10:27 CBC w/ Auto Diff 7150 [...] Microscopic UMIC Comments: Non Fasting ok'd by Graicela BANGURA WBC 0-2 /HPF Range: 0-5 RBC [...] >60 ml/min Range: >60 EST GFR, NON-AFR SWAZI >60 ml/min Range: >60 Comments: EST GFR [...] :52Dictation Date: 06/30/2016 13:37 [facility] Radiologic ReportSUSAN BALL A- [id number] (X-RAY)PATIENT OF DR. LADD BD: 1940 SECONDARY 06/30/16 XC HEAD WITHOUT/ WITH XC OPTIRAY 320 75ML INDICATION: SYNCOPE Plan of Care Name Dates Details Planned Observations ECG/ EKG On 30-Jun-2016 Intent Planned Goals not documented Planned Encounters Appointment; Provider: Ezekiel Sarmiento M.D. On 10-Oct-2016 15:45 Appointment; Provider: Cami Ladd M.D. On 21-Jul-2016 10:30 Appointment; Provider: [facility] On 30-Jun-2016 13:00 Instructions Name Dates Details Instructions not documented [...] Encounter Diagnosis: Problem not documented 11:00 Appointment; oYusif Figueroa M.D. On 17-Nov-2015 Encounter Diagnosis: Problem [...]
--- OUTSIDE RECORDS SUMMARY | 2017-05-31 17:18 | External Medical Summary | Summary of Care ---
:1940 Author Name Cami Ladd M.D. 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 Started 26-May-2014 [id number] GM Tube Prolia 60 MG/ML Subcutaneous Solution [...] Complete Colonoscopy CBC w/ Auto Diff 7150 Ordered:19-Nov-2015 BASIC METABOLIC PROFILE 1210 Ordered:19-Nov-2015 Immunization Name Dates Details Pneumo (Pneumovax) Administered on:12-Dec-2008 Tdap (Adacel) Administered on:05-Dec-2013 Lot #: [id number] Prevnar 13 Intramuscular Suspension Administered on:05-Dec-2013 Lot #: [id number] Prevnar 13 Intramuscular Suspension Administered on:25-Nov-2014 Lot #: [id number] Fluvirin 0.5 ML Intramuscular Suspension Prefilled Syringe [...] Mireya Rosario On 20-Nov-2015 11:00 Appointment; Provider: Chai Garcias On 16-Nov-2015 08:20 Instructions Instructions not documented Encounters Appointment; Yousif Figueroa On 17-Nov-2015 Encounter Diagnosis: [...] Encounter Diagnosis: Problem not documented 11:15 Appointment; Caim Ladd On 04-Dec-2014 Encounter Diagnosis: Problem not [...]
--- OUTSIDE RECORDS SUMMARY | 2017-05-31 17:18 | External Medical Summary ---
:1940 Author Name GENERATED, SYSTEM Care Team Providers Name Role Phone MD CASIMIRO, MARILU Primary Care Provider [phone] Reason For Visit Reason for Visit from 11/09/2015 5:46 PM:Pt Stated Reason for Adm : emphysema Chief Complaint EMPHYSEMA EXACERBATION Social History Social History from 11/11/2015 10:43 AM:Tobacco Use? : Former SmokerSocial History from 11/09/2015 5:46 PM:Tobacco Use? : Former Smoker Functional Status Functional Status from 11/11/2015 12:00 PM:# Assists : IndependentFunctional Status from 11/11/2015 9:42 AM:# Assists : IndependentFunctional Status from 11/10 8:00 AM:LOC : ConfusedOriented To : Person,Place,TimeWeight Bearing Status : FullAssist Level : Partial# Assists : 1Functional Status from 2015 7:30 PM:LOC : ConfusedOriented To : PersonWeight Bearing Status : FullAssist Level : Partial# Assists : 1Functional Status from 11/10/2015 10:43 AM :LOC : ConfusedOriented To : PersonWeight Bearing Status : FullAssist Level : Independent# Assists : IndependentFunctional Status from 11/09/2015 8:42 PM:LOC : AlertOriented To : Person,Place,Time,EventWeight Bearing Status : FullAssist Level : Partial# Assists : 1Functional Status from 11/09/2015 5:46 PM:LOC : AlertOriented To : Person,Place,Time,EventWeight Bearing Status : FullAssist Level : Independent# Assists : Independent Vital Signs Hospital Vital Signs from 11/11/2015 10:45 AM:Height : 5/7 ft,inPulse : 81Respirations : 18BP : 192/86Hospital Vital Signs from 11/11/2015 8:00 AM:Heart Rate : 101Hospital Vital Signs from 11/11/2015 6:55 AM:Height : 5/7 ft, inTemperature : 98.2 FPulse : 101Respirations : 18BP : 192/86Hospital Vital Signs from 11/10/2015 7:00 PM:Height : 5/7 ft,inTemperature : 96.0 FPulse : 109Respirations : 20BP : 136/81Hospital Vital Signs from 11/10/2015 3:33 PM: Height : 5/7 ft,inTemperature : 96.4 FPulse : 105Respirations : 20BP : 176/ 76Hospital Vital Signs from 11/10/2015 11:33 AM:Height : 5/7 ft,inTemperature : 96.5 FPulse : 93Respirations : 20BP : 151/101Hospital Vital Signs from 2015 8:16 AM:Height : 5/7 ft,inHospital Vital Signs from 11/10/2015 7:45 AM: Height : 5/7 ft,inTemperature : 96.1 FPulse : 87Respirations : 20BP : 181/ 87Hospital Vital Signs from 11/09/2015 10:59 PM:Height : 5/7 ft,inTemperature : 96.3 FPulse : 98Respirations : 20BP : 192/84Hospital Vital Signs from 11/09/2015 7:00 PM:Height : 5/7 ft,inTemperature : 97.1 FPulse : 78Respirations : 20BP : 179/75Hospital Vital Signs from 11/09/2015 5:46 PM:Weight : 65.1/ kgHeight : 5/7 ft,inHospital Vital Signs from 11/09/2015 4:11 PM:Height : 5/7 ft,inBP : 210/ 101Hospital Vital Signs from 11/09/2015 3:23 PM:Height : 5/7 ft,inBP : 220/ 90Hospital Vital Signs from 11/09/2015 3:19 PM:Weight : 65.0/ kgHeight : 5/7 ft, inTemperature : 98.0 FPulse : 82Respirations : 18 Results Problems Encounter Diagnosis Chronic Obstructive Lung Disease Status:Active.Fall Risk Status:Active.History of Hypertension Status:Active.Pulmonary Emphysema Status:Active.Additional Problems Acute Exacerbation of Chronic Obstructive Airways Disease Comment:Problem resolved by [facility] Work[facility] upon Discharge, Status:Resolved.Acute Renal Failure Syndrome Comment:Problem resolved by [facility] Work[facility] upon Discharge, Status:Resolved.Hypertensive Disorder Comment:Problem resolved by [facility] Work[facility] upon Discharge, Status:Resolved. Encounters Encounter Diagnosis Chronic Obstructive Lung Disease Status:Active.Fall Risk Status:Active.History of Hypertension Status:Active.Pulmonary Emphysema Status:Active. Plan of Care Follow-up Appointments from 11/11/2015 10:43 AM:#1 Office appointment: : Dr. Ladd#1 Date/Time : 11/13/2015 3:15 PMAddress # 1 : [facility]: [address] [place]- or #2 Office appointment: : Dr. Hoffman (Mireya LAM) breathing test at 10:30 with appt at 11:00#2 Date/Time : 11/20/2015 10:30 AMAddress # 2 : [facility]: [address] [place]- or Treatment Plan from 11/10/2015 2: 50 PM:Care Management Note : Went to visit patient. Patient obviously confused , thinking she is at home, asking what I'm selling, etc. [place] patient is going home tomorrow with spouse. RN brendon had talked with spouse when he was here, and he denied any home health, etc. Patient is a rising risk for readmissions.Treatment Plan from 11/10/2015 2:45 PM:Care Management Note : Spouse provided Medicare guidelines regarding meds in outpatient setting and Code 44 letter. All questions answered and copy of Code 44 letter given to spouse, original placed onchart.Treatment Plan from 11/10/2015 2:30 PM:Care Management Note : Dr. Ladd, Physician has been contacted with clinical information, Determination letter signed and returned per fax. Will be placed on chart and copy provided to PCP.Treatment Plan from 11/10/2015 1:54 PM:Care Management Note :Based on medical necessity Accretive Physician reviewer recommendation is outpatient observation. Copy of recommendation placed on chart. CXR is clear, patient is afebrile, WBC's WNL. Dr. Cook contacted with order received to change to outpatient observation with plan to continue current medication regimen and discharge in AM. Will initiate Code 44 process.Treatment Plan from 11/10/2015 12:24 PM:Care Management Note : Patient is inpatient due to failed outpatient treatment of emphysema. Accretive referrral made, will await recommendation. Procedures Completed Procedure Code: 00.00 Procedure Name: not valued, on 11/28/2014 12:00 AM Immunizations No immunizations administered or ordered. Hospital Course Hospital Discharge Instructions How to care for yourself at home from 11/11/2015 10:43 AM:Discharge Activity : Activity as tolerated,May ShowerDo not drive or operate machinery for: : Until released by physicianDischarge Diet : Diet as toleratedCall your doctor if: : Fever over 101 F or severe chills,Chest pain or other unexplained symptoms, Tingling or numbness develops,A sudden increase or decrease in weight,You have persistent or worsening symptoms,If you have Heart Failure and you gain 3 pounds within 1 week or your symptoms worsen. (Weigh at home tomorrow morning) Specific Discharge Teaching Instructions provided: : NoDischarge on Warfarin : No Allergies, Adverse Reactions, Alerts Levaquin causes unspecified.No Latex Allergy.No IV Contrast Allergy.No Known Food Allergies. Medication It is the responsibility of the patient or patient fundraising sale representative to confirm the list of medicationswith either the patient's personal care provider or the patient's follow-up care provider to ensure the patient has an appropriate list of medications to take at home. Discharge medicationsNew medicationsamLODIPine 10 mg Tablet Directions: 1 tablet oral daily Continued medicationsarformoterol (Brovana) 15 mcg/2 mL Solution for Nebulization, Ordered By: CATHERINE COOK MD Directions: 2 mL by inhalation twice a day budesonide 0.5 mg/2 mL Suspension for Nebulization, Ordered By: CATHERINE COOK MD Directions: 2 mL by inhalation twice a day halobetasol propionate 0.05 % Cream, Ordered By: CATHERINE COOK MD Directions: 1 application topical twice a day hydrochlorothiazide 25 mg Tablet, Ordered By: CATHERINE COOK MD Directions: 1 tablet oral daily potassium chloride 10 mEq Capsule, Extended Release, Ordered By: CATHERINE COOK MD Directions: 1 capsule oral twice a day tiotropium bromide (SPIriva with HandiHaler) 18 mcg Capsule, w/Inhalation Device , Ordered By: CATHERINE COOK MD Directions: 1 capsule by inhalation daily Stopped medicationsNone
--- OUTSIDE RECORDS SUMMARY | 2017-05-31 17:19 | External Medical Summary | Summary of Care ---
:1940 Author Name Alessandro Mi M.D. Address Unavailable Unavailable , Care Team [...] Status: Active Syncope (780.2, R55) Status: Active Cellulitis (682.9, L03.90) Status: Active Medications Name Dates Details Brovana [...] minutes Quantity: 1 Refills: 0 Dalton JaegerAdy Start 23-Jul-2015 Active Potassium Chloride ER 10 MEQ Oral Capsule Extended Release TAKE TWO CAPSULE BY MOUTH ONCE A DAY Quantity: 60 Refills: 3 Ladd Mil Cami Start 11-Aug-2015 Active ProAir RespiClick 108 [...] 1 Ladd MDella, Cami Start 13-Jun-2016 Active Escitalopram Oxalate 5 MG Oral Tablet TAKE 1 TABLET DAILY. Quantity: 30 Refills: 1 Ladd M.Livia, Cami Start 17-Jun-2016 Active Sulfamethoxazole-Trimethoprim 800-160 MG Oral Tablet TAKE 1 TABLET TWICE DAILY. Quantity: 14 Refills: 0 Angel Mi M.D. Start 28-Jun-2016 End 05-Jul-2016 Active Triamcinolone .1%/ Eucerin Compound (50/50 Mix) -- 1 pound tub (480 grams) Apply TID to affected area Quantity: 1 Refills: 0 Angel Mi M.D. Start 28-Jun-2016 Active 480 GM Package Allergies [...] 12-Dec-2008 Tdap (Adacel) on: 05-Dec-2013 Lot #: [id number] Prevnar 13 Intramuscular Suspension on: 05-Dec-2013 Lot #: [id number] Prevnar 13 Intramuscular Suspension on: 25-Nov-2014 Lot #: [id number] Fluvirin 0.5 ML Intramuscular Suspension Prefilled Syringe [...] 97.9 f Status: Comments: Method: Heart Rate 87 /min Status: Comments: Location: ; Physical Findings 97 Status: Comments: O2 Saturation 27-Jun-2016 15:05 BP Systolic 122 mm[Hg] Status: Comments: Location: LUE; Position: Sitting BP Diastolic 68 mm[Hg] Status: Comments: Location: LUE; Position: Sitting Heart Rate 104 /min Status: Comments: Location: [...] >60 ml/min Range: >60 EST GFR, NON-AFR GREEK >60 ml/min Range: >60 Comments: EST GFR [...] >60 ml/min Range: >60 EST GFR, NON-AFR GREEK >60 ml/min Range: >60 Comments: EST GFR [...] Schedule Radiology On 30-Jun-2016 13:00 Interventions Provided Medication ChangesSulfamethoxazole-Trimethoprim 800-160 MG Oral Tablet - StartTriamcinolone .1%/ Eucerin Compound (50/50 Mix) -- 1 pound tub (480 grams) - Start Instructions Name Dates Details Instructions not documented Encounters Appointment; Cami Ladd M.D. On 27-Jun-2016 Encounter [...] Problem not documented 10:45 Appointment; Eliel Patel M.D.|FACP|Mil,FACP|Mil,DONYA, On Encounter Diagnosis: Problem not documented 16:15 [...]
--- OUTSIDE RECORDS SUMMARY | 2017-05-31 17:19 | External Medical Summary | Summary of Care ---
:1940 Author Name Jaimee Sarmiento M.D. Address [address] [place], [place] [phone] Care Team Providers Name Role Phone Carolina 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) Status: Active Confusion (298.9, R41.0) Status: Active [...] Refills: 2 Yousif Figueroa M.D. Started 26-May-2014 [id number] GM Tube Prolia 60 MG/ML Subcutaneous Solution [...] 1 TABLET DAILY. Quantity: 30 Refills: 4 LaddCami M.D. Started 13-Nov-2015 ActiveLosartan Potassium 50 MG Oral Tablet Take one tablet by mouth daily Quantity: 30 Refills: 0 LaddCami M.D. Started 13-Nov-2015 ActiveDonepezil HCl - 5 MG Oral Tablet take one tablet by mouth every day Quantity: 30 Refills: 2 LaddCami M.D. Started 20-Nov-2015 ActiveEscitalopram Oxalate 5 MG Oral Tablet TAKE 1 TABLET Every morning at breakfast Quantity: 30 Refills: 3 LaddCami M.D. Started Active Allergies and Adverse Reactions [...] on:12-Dec-2008 Tdap (Adacel) Administered on:05-Dec-2013 Lot #: [id number] Prevnar 13 Intramuscular Suspension Administered on:05-Dec-2013 Lot #: [id number] Prevnar 13 Intramuscular Suspension Administered on:25-Nov-2014 Lot #: [id number] Fluvirin 0.5 ML Intramuscular Suspension Prefilled Syringe [...] smoker Vital Signs Date Test Result Details 11:52 BP Systolic 140 mm[Hg] Status: BP [...] ml/min Range: >60 (Better) EST GFR, NON-AFR BAHRAINI >60 ml/min Range: >60 (Better) Comments: EST GFR is reported in ml/min per 1.73 m2 of body surface area. For -Barb[place], please multiple result by 1.2.----- GLUCOSE 101 [...] not documented Encounters Appointment; Ady Hoffman On Encounter Diagnosis: Problem [...] Encounter Diagnosis: Problem not documented 14:00 Appointment; Oeflia Hdez On 04-Nov-2015 Encounter Diagnosis: Problem not [...]
--- OUTSIDE RECORDS SUMMARY | 2017-05-31 17:19 | External Medical Summary | Summary of Care ---
:1940 Author Name Cami Ladd M.D. Address [address] [place], [place] [phone] Care Team Providers Name Role Phone Juve [...] Status: Active Fatigue (780.79, R53.83) Status: Active Rash (782.1, R21) Status: Active [...] Refills: 0 Cami Ladd M.D. Started Ended [id number] GM Tube Allergies and Adverse Reactions Name [...] on:12-Dec-2008 Tdap (Adacel) Administered on:05-Dec-2013 Lot #: [id number] Prevnar 13 Intramuscular Suspension Administered on:05-Dec-2013 Lot #: [id number] Prevnar 13 Intramuscular Suspension Administered on:25-Nov-2014 Lot #: [id number] Family History Unknown Family Member Name Dates [...] ml/min Range: >60 (Better) EST GFR, NON-AFR MALIAN >60 ml/min Range: >60 (Better) Comments: EST GFR is reported in ml/min per 1.73 m2 of body surface area. For -[place] Islander, please multiple result by 1.2.----- GLUCOSE 95 [...] Diagnosis: Problem not documented 11:30 Appointment; Alo nA On 29-Aug-2014 Encounter Diagnosis: Problem not documented [...]
--- OUTSIDE RECORDS SUMMARY | 2017-05-31 17:19 | External Medical Summary | Summary of Care ---
:1940 Author Name Anirudh Bustos Geeta Address [address] [place] [address] Care Team Providers Name Role Phone Carolina [...] 12-Dec-2008 Tdap (Adacel) on: 05-Dec-2013 Lot #: [id number] Prevnar 13 Intramuscular Suspension on: 05-Dec-2013 Lot #: [id number] Prevnar 13 Intramuscular Suspension on: 25-Nov-2014 Lot #: [id number] Fluvirin 0.5 ML Intramuscular Suspension Prefilled Syringe [...] Problem not documented 14:00 Appointment; Geeta Oleary, PFernanda On 28-Mar-2016 Encounter Diagnosis: Problem not documented 09:15 Appointment; Ady Hoffman M.D. On 18-Mar-2016 Encounter Diagnosis: Problem not documented 14:15 Appointment; Eliel Patel M.D.|ANDREIA,DONYA|Mil,FACHafsa, On Encounter Diagnosis: Problem not documented 11:00 [...] Encounter Diagnosis: Problem not documented 17:45 Appointment; Youisf Figueroa M.D. On 16-Nov-2015 Encounter Diagnosis: Problem [...] On 21-May-2014 Encounter Diagnosis: Problem not documented 10:00"
--- OUTSIDE RECORDS SUMMARY | 2017-05-31 17:20 | External Medical Summary | Summary of Care ---
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 11-Aug-2016 Active Budesonide 0.25 MG/2ML Inhalation Suspension NEBULIZE TWO TIMES DAILY (Dx: J44.9/J43.9) Quantity: 120 Refills: 11 Nilton JaegerDennis Start 11-Aug-2016 Active Prolia 60 MG/ML Subcutaneous Solution INJECT SUBCUTANEOUSLY 60 MG / 1 ML EVERY 6 MONTHS Quantity: 1 Refills: 0 Ladd MilCami Start 11-Nov-2014 Active Oxygen Home O2 ConcentratorUse [...] Refills: 5 Guillermina JaegerEzekiel Start 01-Apr-2016 Active Mixture 50\\50 Eucerin\\HC 1%-Apply TID 30 gm Quantity: 1 Refills: 1 Wilberto Jaeegr Cami Start 13-Jun-2016 Active Incruse Ellipta 62.5 [...] 12-Dec-2008 Tdap (Adacel) on: 05-Dec-2013 Lot #: [id number] Prevnar 13 Intramuscular Suspension on: 05-Dec-2013 Lot #: [id number] Prevnar 13 Intramuscular Suspension on: 25-Nov-2014 Lot #: [id number] Fluvirin 0.5 ML Intramuscular Suspension Prefilled Syringe on: 20-May-2015 Fluzone High-Dose 0.5 ML Intramuscular Suspension Prefilled Syringe on: 2015 Pneumovax 23 25 MCG/0.5ML Injection Injectable on: 21-Jul-2016 Lot #: [id number] Family History Unknown Family Member Name Dates [...] Appointment; Provider: Juli Samaniego On 09-Nov-2016 11:30 Instructions Name Dates Details Instructions not documented Encounters Appointment; Ezekiel Sarmiento M.D. On 10-Oct-2016 Encounter Diagnosis: Problem not documented 15:45 Appointment; Cami Ladd M.D. On 05-Oct-2016 Encounter Diagnosis: Problem not documented 08:00 Appointment; Kai Diaz D.O. On 03-Oct-2016 Encounter Diagnosis: Problem not documented 13:25 Appointment; Sosa Zhou P.A. On 26-Sep-2016 Encounter Diagnosis: Problem not documented 15:15 Appointment; Yousif Figueroa M.D. On 22-Aug-2016 Encounter Diagnosis: Problem not documented 15:30 Appointment; Caim Ladd M.D. On 02-Aug-2016 Encounter Diagnosis: Problem [...]
--- OUTSIDE RECORDS SUMMARY | 2017-05-31 17:20 | External Medical Summary | Summary of Care ---
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) Status: Active Edema (782.3, R60.9) Status: Active Hypokalemia (276.8, E87.6) Status: Active Hypertension (401.9, I10) Status: Active Skin rash (782.1, R21) Status: Active Generalized anxiety disorder (300.02, F41.1) [...] 12-Dec-2008 Tdap (Adacel) on: 05-Dec-2013 Lot #: [id number] Prevnar 13 Intramuscular Suspension on: 05-Dec-2013 Lot #: [id number] Prevnar 13 Intramuscular Suspension on: 25-Nov-2014 Lot #: [id number] Fluvirin 0.5 ML Intramuscular Suspension Prefilled Syringe [...] >60 ml/min Range: >60 EST GFR, NON-AFR [place] >60 ml/min Range: >60 Comments: EST GFR [...] >60 ml/min Range: >60 EST GFR, NON-AFR [place] >60 ml/min Range: >60 Comments: EST GFR [...]
--- OUTSIDE RECORDS SUMMARY | 2017-05-31 17:20 | External Medical Summary | Summary of Care ---
:1940 Author Name Cami Ladd M.D. Address [address] [place], [place] [id number] Care Team Providers Name Role Phone Juve Jaeger, Edvin Praajpati Unavailable Unavailable Carolina Jaeger, Jessica Dodd Unavailable [...] Status: Active Hypertension (401.9, I10) Status: Active Hypertrophic lichen planus [...] Refills: 2 Yousif Figueroa M.D. Started 26-May-2014 Ncrerr13 GM Tube Prolia 60 MG/ML Subcutaneous Solution [...] History of Hysterectomy History of Complete Colonoscopy BASIC METABOLIC PROFILE 1210 Ordered:11-Aug-2015 Immunization Name Dates Details Pneumo (Pneumovax) Administered on:12-Dec-2008 Tdap (Adacel) Administered on:05-Dec-2013 Lot #: [id number] Prevnar 13 Intramuscular Suspension Administered on:05-Dec-2013 Lot #: [id number] Prevnar 13 Intramuscular Suspension Administered on:25-Nov-2014 Lot #: [id number] Fluvirin 0.5 ML Intramuscular Suspension Prefilled Syringe [...] (Better) EST GFR, >60 ml/min Range: >60 URUGUAYAN (Better) EST GFR, NON-AFR >60 ml/min Range: >60 URUGUAYAN (Better) Comments: EST GFR is reported in [...] Range: 8.5-10.1 low threshold) 23-Jul-2015 URINE CULTURE [id number] Comments: [employer] performed at: [facility], [address] [place] [address], [address], Weighmaster: Ezekiel Sun D.O., MPHQuest Collection Date/Time: 20140815 07:56 [id number] Results Received Date/Time: [id number] Reported Date/Time: [id number] performed at: [facility] [employer], [address] [place] [address], [address], Weighmaster: Ezekiel Sun D.O., MPHQuest Collection Date/Time: [id number] Results Received Date/Time: [id number] Reported Date/Time: [id number] CULTURE, URINE, ROUTINE SEE NOTE (Abnormal) Comments: CULTURE, URINE, ROUTINE MICRO NUMBER: [id number] TEST STATUS: FINAL SPECIMEN SOURCE : URINE, [...] I=Intermediate R=Resistant *=Not TestedNR=Not Reported NN=See Therapy Comments[IA]----- 11-Aug-2015 CBC w/ Auto Diff 7150 13:31 [...] (Better) EST GFR, >60 ml/min Range: >60 URUGUAYAN (Better) EST GFR, NON-AFR >60 ml/min Range: >60 URUGUAYAN (Better) Comments: EST GFR is reported in ml/min per 1.73 m2 of body surface area. For -Maltese, please multiple result by 1.2.----- GLUCOSE 102 [...] 0-2 EPITH 0-2 /HPF (Better) Range: 0-10 Plan of Care Planned Observations Name Dates [...]
--- OUTSIDE RECORDS SUMMARY | 2017-05-31 17:20 | External Medical Summary | Summary of Care ---
:1940 Author Name Cami Ladd M.D. Address [address] [place], [place] [phone] Care Team Providers Name Role Phone Juve [...] Active Actinic keratosis (702.0, L57.0) Status: Active Medications Name Dates Details Brovana [...] Refills: 2 Yousif Figueroa M.D. Started 26-May-2014 Kzzscm22 GM Tube Prolia 60 MG/ML Subcutaneous Solution [...] Refills: 3 Cami Ladd M.D. Started 11-Aug-2015 ActiveCephalexin 500 MG Oral Capsule one capsule BID x 7days Quantity: 14 Refills: 0 Yousif Figueroa M.D. Started 13-Aug-2015 Active Allergies and Adverse Reactions Name Dates Details Levaquin TABS Status: Active Past Medical History Name Dates Details History of CXR Solitary Pulmonary Nodule Right Lung Status: Resolved Procedures Procedure Dates Details History of Hysterectomy History of Complete Colonoscopy BASIC METABOLIC PROFILE 1210 Ordered:11-Aug-2015 Immunization Name Dates Details Pneumo (Pneumovax) Administered on:12-Dec-2008 Tdap (Adacel) Administered on:05-Dec-2013 Lot #: [id number] Prevnar 13 Intramuscular Suspension Administered on:05-Dec-2013 Lot #: [id number] Prevnar 13 Intramuscular Suspension Administered on:25-Nov-2014 Lot #: [id number] Fluvirin 0.5 ML Intramuscular Suspension Prefilled Syringe [...] ml/min Range: >60 (Better) EST GFR, NON-AFR THAI >60 ml/min Range: >60 (Better) Comments: EST GFR is reported in ml/min per 1.73 m2 of body surface area. For -Syrian, please multiple result by 1.2.----- GLUCOSE 102 [...] 09:45 Instructions Instructions not documented Encounters Appointment; Yousif Figueroa On 13-Aug-2015 Encounter Diagnosis: [...]
--- OUTSIDE RECORDS SUMMARY | 2017-05-31 17:20 | External Medical Summary | Summary of Care ---
:1940 Author Name Jorge Jaeger, KHANHP, ,, F Eliel Address Unavailable Unavailable , Care Team Providers Name Role Phone Jorge Jaeger, DONYA, ,, F Eliel Unavailable Unavailable Jessica Figueroa M.D. Unavailable Unavailable [...] TWICE A DAY Quantity: 60 Refills: 3 Renetta Ladd M.D.thia Start 11-Aug-2015 Active ProAir RespiClick 108 (90 Base) MCG/ACT Inhalation Aerosol Powder Breath Activated INHALE 2 PUFFS BY MOUTH UP TO FOUR TIMES A DAY NEEDED Quantity: 1 Refills: 5 Ronsick M.D. Ady Alves Start 16-Oct-2015 Active AmLODIPine Besylate [...] 12-Dec-2008 Tdap (Adacel) on: 05-Dec-2013 Lot #: [id number] Prevnar 13 Intramuscular Suspension on: 05-Dec-2013 Lot #: [id number] Prevnar 13 Intramuscular Suspension on: 25-Nov-2014 Lot #: [id number] Fluvirin 0.5 ML Intramuscular Suspension Prefilled Syringe [...] Provider: Eliel Patel M.D.|ANDREIA,ANDREIA,DONYA, On Mar-2016 10:45 Appointment; Provider: Ady Hoffman M.D. On 18-Mar-2016 14:15 Appointment; Provider: Schedule Radiology On 05-Jan-2016 13:00 Appointment; Provider: Chai Garcias On 16-Nov-2015 08:20 Instructions Name Dates Details Instructions not documented [...]
--- OUTSIDE RECORDS SUMMARY | 2017-05-31 17:21 | External Medical Summary | Summary of Care ---
:1940 Author Name Cami Ladd M.D. Address Unavailable Unavailable , Care Team Providers Name Role Phone Jessica Figueroa M.D. Unavailable Unavailable Cami Ladd M.D. Unavailable Unavailable Joselyn Hoffman M.D. Unavailable Unavailable Cami Ladd Primary Care Provider [...] Refills: 0 Ady Hoffman M.D. Started 15-Oct-2009 ActiveSpiriva HandiHaler 18 MCG Inhalation Capsule USE 1 PUFF BY MOUTH EVERY MORNING Quantity: 30 Refills: 11 Ady Hoffman M.D. Started 17-Jun-2009 ActiveBudesonide 0.25 MG/2ML Inhalation Suspension NEBULIZE TWO TIMES DAILY (Dx: J44.9/J43.9) Quantity: 120 Refills: 0 Ady Hoffman M.D. Started 15-Oct-2009 ActiveHalobetasol Propionate 0.05 % External Cream APPLY AND GENTLY MASSAGE INTO AFFECTED AREA(S) ON LEGS TWICE DAILY. Quantity: 1 Refills: 2 Yousif Figueroa M.D. Started 26-May-2014 Ierdnd96 GM Tube Prolia 60 MG/ML Subcutaneous Solution INJECT SUBCUTANEOUSLY 60 MG / 1 ML EVERY 6 MONTHS Quantity: 1 Refills: 0 Cami Ladd M.D. Started 11-Nov-2014 ActiveOxygen Home O2 ConcentratorUse 2 liters 8-10 hours/nightQualifying 07/22/15: Nocturnal oximetry=82%, <88%x 35 minutes Quantity: 1 Refills: 0 Ady Hoffman M.D. Started 23-Jul-2015 ActivePotassium Chloride ER 10 MEQ Oral Capsule Extended Release TAKE ONE CAPSULE BY MOUTH TWICE A DAY Quantity: 60 Refills: 3 Cami Ladd M.D. Started 11-Aug-2015 ActiveDonepezil HCl - 5 MG Oral Tablet take one tablet by mouth every day Quantity: 30 Refills: 2 Cami Ladd M.D. Started 20-Nov-2015 ActiveProAir RespiClick 108 (90 Base) MCG/ACT Inhalation Aerosol Powder Breath Activated INHALE 2 PUFFS BY MOUTH UP TO FOUR TIMES A DAY NEEDED Quantity: 1 Refills: 5 Ady Hoffman M.D. Started 16-Oct-2015 ActiveAmLODIPine Besylate 10 MG Oral Tablet TAKE 1 TABLET DAILY. Quantity: 30 Refills: 4 Cami Ladd M.D. Started 13-Nov-2015 ActiveEscitalopram Oxalate 5 MG Oral Tablet TAKE 1 TABLET Every morning at breakfast Quantity: 30 Refills: 3 Cami Ladd M.D. Started ActiveLosartan Potassium-HCTZ 50-12.5 MG Oral Tablet take one tablet by mouth every day Quantity: 30 Refills: 4 LaddCami hall M.D. Started Active Allergies and Adverse Reactions [...] on:12-Dec-2008 Tdap (Adacel) Administered on:05-Dec-2013 Lot #: [id number] Prevnar 13 Intramuscular Suspension Administered on:05-Dec-2013 Lot #: [id number] Prevnar 13 Intramuscular Suspension Administered on:25-Nov-2014 Lot #: [id number] Fluvirin 0.5 ML Intramuscular Suspension Prefilled Syringe [...] smoker Vital Signs Date Test Result Details 10:04 BP Systolic 150 mm[Hg] Status: BP Diastolic 96 mm[Hg] Status: Heart Rate 88 /min Status: Weight 143 lb Status: Body Mass Index Calculated 24.55 kg/m2 Status: Body Surface Area Calculated 1.7 m2 Status: 15:59 BP Systolic 154 mm[Hg] Status: BP [...] Ady Hoffman On 20-May-2016 10:15 Appointment; Provider: Cami Ladd On 19-Apr-2016 10:00 Appointment; Provider: Eliel Patel On 11:00 Appointment; Provider: Ezekiel Sarmiento On 09:15 Appointment; Provider: Schedule Radiology On 05-Jan-2016 13:00 Appointment; Provider: Chai Garcias On 16-Nov-2015 08:20 Instructions Instructions not documented Encounters Appointment; Cami Ladd On Encounter Diagnosis: Problem not documented 10:15 [...]
--- OUTSIDE RECORDS SUMMARY | 2017-05-31 17:21 | External Medical Summary | Summary of Care ---
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.8, J43.9) [...] on:12-Dec-2008 Tdap (Adacel) Administered on:05-Dec-2013 Lot #: [id number] Prevnar 13 Intramuscular Suspension Administered on:05-Dec-2013 Lot #: [id number] Prevnar 13 Intramuscular Suspension Administered on:25-Nov-2014 Lot #: [id number] Family History Unknown Family Member Name Dates Details Family history of Asthma (V17.5) Comments: Family History Status: Active Father Name Dates Details Family history of myocardial infarction (V17.3, Z82.49) Status: Active Social History Name Dates Details Smoking StatusFormer smoker Vital Signs Date Test Result Details 10:39 BP Systolic 128 mm[Hg] Status: BP Diastolic 68 mm[Hg] Status: Heart Rate 83 /min Status: Weight 145 lb Status: O2 SAT 98 % Status: Body Mass Index Calculated 24.89 kg/m2 Status: Body Surface Area Calculated 1.71 m2 Status: 16:20 BP Systolic 146 mm[Hg] Status: BP [...] ml/min Range: >60 (Better) EST GFR, NON-AFR [facility] [place] >60 ml/min Range: >60 (Better) Comments: EST GFR is reported in ml/min per 1.73 m2 of body surface area. For -Senegalese, please multiple result by 1.2.----- GLUCOSE 95 [...] 3025 FERRITIN 96 ng/mL (Better) Range: 10-291 16:47 CBC w/ Auto Diff 7150 WBC 7.9 K/uL (Better) Range: 4.5-11.0 RBC 4.54 mil/uL Range: 3.60-5.00 (Better) HGB 14.2 g/dL Range: 12.0-16.0 (Better) HCT 41.4 % (Better) Range: 36.0-48.0 MCV 91.2 fL (Better) Range: 80.0-99.0 MCH 31.4 pg (Better) Range: 27.3-32.5 MCHC 34.4 % (Better) Range: 32.0-36.0 RDW 12.7 % (Better) Range: 11.6-14.8 PLATELETS 190 K/uL (Better) Range: 150-400 MPV 8.7 fL (Better) Range: 6.0-11.0 %NEUTRO 71.3 % (Better) Range: 37.0-80.0 %LYMPHS 17.0 % (Better) Range: 13.0-50.0 %MONO 5.6 % (Better) Range: 0.0-12.0 %EOS 3.5 % (Better) Range: 0.0-7.0 %BASO 1.0 % (Better) Range: 0.0-2.5 %SIMONE 1.8 % (Better) Range: 0.0-5.0 NEUTRO 5.6 K/uL (Better) Range: 2.0-6.9 LYMPHS 1.3 K/uL (Better) Range: 0.6-3.4 MONOS 0.4 K/uL (Better) Range: 0.0-0.9 EOS 0.3 K/uL (Better) Range: 0.0-0.7 BASO 0.1 K/uL (Better) Range: 0.0-0.2 Plan of Care Planned Observations Name Dates Details Planned Goals not documented Goal Planned Encounters Appointment; Provider: Eliel Patel On 09:30 Appointment; Provider: Yousif Figueroa On 05-May-2015 14:30 Instructions Instructions not documented Encounters Appointment; [...]
--- OUTSIDE RECORDS SUMMARY | 2017-05-31 17:21 | External Medical Summary | Summary of Care ---
:1940 Author Name Cami Ladd M.D. Address [address] [place], [place] [id number] Care Team Providers Name Role Phone Juve [...] Refills: 2 Yousif Figueroa M.D. Started 26-May-2014 Nfnslp91 GM Tube Prolia 60 MG/ML Subcutaneous Solution [...] on:12-Dec-2008 Tdap (Adacel) Administered on:05-Dec-2013 Lot #: [id number] Prevnar 13 Intramuscular Suspension Administered on:05-Dec-2013 Lot #: [id number] Prevnar 13 Intramuscular Suspension Administered on:25-Nov-2014 Lot #: [id number] Fluvirin 0.5 ML Intramuscular Suspension Prefilled Syringe [...] (Better) EST GFR, >60 ml/min Range: >60 ECU[place]OREAN (Better) EST GFR, NON-AFR >60 ml/min Range: >60 ECUADOREAN (Better) Comments: EST GFR is reported in ml/min per 1.73 m2 of body surface area. For -Armenian, please multiple result by 1.2.----- GLUCOSE 101 [...] Range: 8.5-10.1 low threshold) 23-Jul-2015 URINE CULTURE [id number] Comments: [employer] performed at: [facility], [address] [place] [address], [address], Automation Control Technician: Ezekiel Sun D.O., MPHQuest Collection Date/Time: 20140815 07:56 [id number] Results Received Date/Time: [id number] Reported Date/Time: [id number] performed at: [facility], [address] [place], [address], Automation Control Technician: Ezekiel Sun D.O., MPHQuest Collection Date/Time: [id number] Results Received Date/Time: [id number] Reported Date/Time: [id number] CULTURE, URINE, ROUTINE SEE NOTE (Abnormal) Comments: CULTURE, URINE, ROUTINE MICRO NUMBER: [id number] TEST STATUS: FINAL SPECIMEN SOURCE : URINE, [...] I=Intermediate R=Resistant *=Not TestedNR=Not Reported NN=See Therapy Comments[SC]----- 11-Aug-2015 CBC w/ Auto Diff 7150 13:31 [...] (Better) EST GFR, >60 ml/min Range: >60 ECU[place]OREAN (Better) EST GFR, NON-AFR >60 ml/min Range: >60 ECU[place]OREAN (Better) Comments: EST GFR is reported in ml/min per 1.73 m2 of body surface area. For -Armenian, please multiple result by 1.2.----- GLUCOSE 102 [...] Encounter Diagnosis: Problem not documented 10:00 Appointment; Yuosif Figueroa On 06-May-2015 Encounter Diagnosis: Problem not [...]
--- OUTSIDE RECORDS SUMMARY | 2017-05-31 17:21 | External Medical Summary | Summary of Care ---
:1940 Author Name Hiwot Jaeger, Alessandro Ortiz Address Unavailable Unavailable , Care Team Providers [...] Active Memory impairment (780.93, R41.3) Status: Active Keloid (701.4, L91.0) Status: Active [...] 12-Dec-2008 Tdap (Adacel) on: 05-Dec-2013 Lot #: [id number] Prevnar 13 Intramuscular Suspension on: 05-Dec-2013 Lot #: [id number] Prevnar 13 Intramuscular Suspension on: 25-Nov-2014 Lot #: [id number] Fluvirin 0.5 ML Intramuscular Suspension Prefilled Syringe [...] >60 ml/min Range: >60 EST GFR, NON-AFR [place]UD[place] ARABIAN >60 ml/min Range: >60 Comments: EST GFR [...] >60 ml/min Range: >60 EST GFR, NON-AFR [place]AB[place] >60 ml/min Range: >60 Comments: EST GFR [...] >60 ml/min Range: >60 EST GFR, NON-AFR [place]UD[place] ARABIAN >60 ml/min Range: >60 Comments: EST GFR [...] :52Dictation Date: 06/30/2016 13:37 XC [facility] Radiologic ReportSUSAN BALL A- [id number] (X-RAY)PATIENT OF DR. LADD BD: 1940 SECONDARY [...] Problem not documented 10:00 Appointment; Geeta Oleary, PAshleyAAshley On 12-Apr-2016 Encounter Diagnosis: Problem not documented [...] Problem not documented 10:45 Appointment; Eliel Patel M.D.|FACP|MDella,FACPSanjay,FACP, On Encounter Diagnosis: Problem not documented 16:15 [...] Encounter Diagnosis: Problem not documented 11:30 Appointment; lAo An M.D. On 09-Oct-2014 Encounter Diagnosis: Problem [...]
--- OUTSIDE RECORDS SUMMARY | 2017-05-31 17:22 | External Medical Summary | Summary of Care ---
:1940 Author Name Cami Ladd M.D. Address [address] [place], [place] [phone] Care Team Providers Name Role Phone Juve [...] lichen planus (697.0, 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 Acute bronchitis (466.0, J20.9) Status: [...] Status: Active Hypoxia (799.02, R09.02) Status: Active Generalized weakness (780.79, R53.1) Status: Active Painful urination (788.1, R30.9) Status: Active Medications Name Dates Details Brovana [...] Refills: 2 Yousif Figueroa M.D. Started 26-May-2014 Bmisyx62 GM Tube Prolia 60 MG/ML Subcutaneous Solution [...] Hysterectomy History of Complete Colonoscopy URINE CULTURE [id number] Ordered:20-Jul-2015 Immunization Name Dates Details Pneumo (Pneumovax) Administered on:12-Dec-2008 Tdap (Adacel) Administered on:05-Dec-2013 Lot #: [id number] Prevnar 13 Intramuscular Suspension Administered on:05-Dec-2013 Lot #: [id number] Prevnar 13 Intramuscular Suspension Administered on:25-Nov-2014 Lot #: [id number] Fluvirin 0.5 ML Intramuscular Suspension Prefilled Syringe [...] ml/min Range: >60 (Better) EST GFR, NON-AFR CHILEAN >60 ml/min Range: >60 (Better) Comments: EST GFR is reported in ml/min per 1.73 m2 of body surface area. For -[place] Citizen, please multiple result by 1.2.----- GLUCOSE 101 [...]
--- OUTSIDE RECORDS SUMMARY | 2017-05-31 17:22 | External Medical Summary | Summary of Care ---
:1940 Author Name Cami Ladd M.D. Address [address] [place], [place] [address] Care Team Providers Name Role Phone Juve [...] Active Lichen planus (697.0, L43.9) Status: Active Medications Name Dates Details Brovana 15 MCG/2ML Inhalation Nebulization Solution USE EVERY 12 HOURS (copd 496) Quantity: 120 Refills: 5 Ady Hoffman M.D. Started 15-Oct-2009 ActiveSpiriva HandiHaler 18 MCG Inhalation Capsule 1 PUFF EVERY MORNING Quantity: 30 Refills: 6 Ady Hoffman M.D. Started 17-Jun-2009 ActiveBudesonide 0.25 MG/2ML Inhalation Suspension NEBULIZE TWO TIMES DAILY (Dx: 496) Quantity: 120 Refills: 5 Ady Hoffman M.D. Started 15-Oct-2009 ActiveProAir HFA 108 (90 Base) MCG/ACT Inhalation Aerosol Solution INHALE 2 PUFFS UP TO FOUR TIMES DAILY NEEDED Quantity: 8.5 Refills: 5 Ady Hoffman M.D. Started 30-Sep-2011 ActiveAmLODIPine Besylate 5 MG Oral Tablet TAKE 1 TABLET DAILY DIRECTED. Quantity: 30 Refills: 6 Alo nA M.D. Started 22-Jul-2013 ActiveHalobetasol Propionate 0.05 % External Cream APPLY AND GENTLY MASSAGE INTO AFFECTED AREA(S) TWICE DAILY. Quantity: 1 Refills: 0 Yousif Figueroa M.D. Started 26-May-2014 Anfxit22 GM Tube Prolia 60 MG/ML Subcutaneous Solution [...] on:12-Dec-2008 Tdap (Adacel) Administered on:05-Dec-2013 Lot #: [id number] Prevnar 13 Intramuscular Suspension Administered on:05-Dec-2013 Lot #: [id number] Prevnar 13 Intramuscular Suspension Administered on:25-Nov-2014 Lot #: [id number] Family History Unknown Family Member Name Dates Details Family history of Asthma (V17.5) Comments: Family History Status: Active Father Name Dates Details Family history of myocardial infarction (V17.3, Z82.49) Status: Active Social History Name Dates Details Smoking StatusFormer smoker Vital Signs Date Test Result Details 23-Apr-2015 14:11 BP Systolic 146 mm[Hg] Status: BP Diastolic 84 mm[Hg] Status: Heart Rate 94 /min Status: Weight 146 lb Status: O2 SAT 93 % Status: Body Mass Index Calculated 25.06 kg/m2 Status: Body Surface Area Calculated 1.71 m2 Status: Results Date Description Value Details Results not documented Plan of Care Planned Observations Name Dates Details Planned Goals not documented Goal Planned Encounters Appointment; Provider: Eliel Patel On 09:30 Instructions Instructions not documented Encounters Appointment; Cami Ladd On 23-Apr-2015 Encounter Diagnosis: [...]
--- OUTSIDE RECORDS SUMMARY | 2017-05-31 17:22 | External Medical Summary | Summary of Care ---
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 Keloid (701.4, L91.0) Status: Active [...] 6 MONTHS Quantity: 1 Refills: 0 Wilberto MilCami Start 11-Nov-2014 Active Oxygen Home O2 ConcentratorUse 2 liters 8-10 hours/nightQualifying 07/22/15: Nocturnal oximetry=82%, <88%x 35 minutes Quantity: 1 Refills: 0 Dalton JeagerAdy Start 23-Jul-2015 Active Mixture 50\\50 Eucerin\\HC 1%-Apply TID 30 gm Quantity: 1 Refills: 1 Wilberto JaegerCami Start 13-Jun-2016 Active ProAir RespiClick 108 (90 Base) MCG/ACT Inhalation Aerosol Powder Breath Activated 1-2 puffs every 4-6 hours as needed Quantity: 1 Refills: 11 Nilton JaegerDennis Start 16-Oct-2015 Active 1 Aerosol Powder Breath Activated Box Memantine HCl - 10 MG Oral Tablet TAKE 1 TABLET TWICE DAILY. Quantity: 60 Refills: 5 Guillermina JaegerEzekiel Start 01-Apr-2016 Active Incruse Ellipta 62.5 MCG/INH Inhalation Aerosol Powder Breath Activated INHALE 1 PUFF DAILY. Quantity: 1 Refills: 3 Janarandy MilAdy Start 14-Aug-2016 Active 30 Aerosol Powder Breath Activated Disp Pack Cephalexin 500 MG Oral Tablet TAKE 1 TABLET 3 TIMES DAILY. Quantity: 21 Refills: 0 Avel JaegerTabby Start 19-Nov-2016 Active Allergies and Adverse Reactions [...] 12-Dec-2008 Tdap (Adacel) on: 05-Dec-2013 Lot #: [id number] Prevnar 13 Intramuscular Suspension on: 05-Dec-2013 Lot #: [id number] Prevnar 13 Intramuscular Suspension on: 25-Nov-2014 Lot #: [id number] Fluvirin 0.5 ML Intramuscular Suspension Prefilled Syringe on: 20-May-2015 Fluzone High-Dose 0.5 ML Intramuscular Suspension Prefilled Syringe on: 2015 Pneumovax 23 25 MCG/0.5ML Injection Injectable on: 21-Jul-2016 Lot #: [id number] Family History Unknown Family Member Name Dates [...] smoker Vital Signs Date Test Result Details 19-Nov-2016 14:30 BP Systolic 140 mm[Hg] Status: Comments: Location: ; Position: BP Diastolic 86 mm[Hg] Status: Comments: Location: ; Position: Temperature 97.2 f Status: Heart Rate 88 /min Status: Comments: Location: ; Weight 130 lb Status: Physical Findings 92 Status: Comments: O2 Saturation Body Mass Index Calculated 21.63 kg/m2 Status: Body Surface Area Calculated 1.65 m2 Status: 09-Nov-2016 11:32 BP Systolic 136 mm[Hg] Status: Comments: Location: ; Position: BP Diastolic 74 mm[Hg] Status: Comments: Location: ; Position: Heart Rate 84 /min Status: Comments: Location: ; Height 65 in Status: Weight 137 lb Status: Physical Findings 92 Status: Comments: O2 Saturation Body Mass Index Calculated 22.8 kg/m2 Status: Body Surface Area Calculated 1.68 m2 Status: Results Date Description Value Details Results not documented Plan of Care Name Dates Details Planned Observations Planned Goals not documented Planned Encounters Appointment; Provider: Juli Samaniego On 17-May-2017 11:30 Appointment; Provider: Ezekiel Sarmiento M.D. On 18-Apr-2017 15:15 Appointment; Provider: Schedule Radiology On 16:00 Appointment; Provider: Schedule Radiology On 15:30 Appointment; Provider: Cami Ladd M.D. On 16-Dec-2016 11:15 Interventions Provided Medication ChangesCephalexin 500 MG Oral Tablet - Start Instructions Name Dates Details Instructions not documented Encounters Appointment; Mireya Rosario P.A. On 09-Nov-2016 Encounter [...] Problem not documented 14:15 Appointment; Eliel Patel M.D.|ANDREIA,ANDREIA,[facility], On Encounter Diagnosis: Problem not documented [...] Problem not documented 14:00 Appointment; Ofelia Hdez A.P.RMichela On 04-Nov-2015 Encounter Diagnosis: Problem not documented [...] On 25-Nov-2014 Encounter Diagnosis: Problem not documented 10:15"
--- OUTSIDE RECORDS SUMMARY | 2017-05-31 17:22 | External Medical Summary | Summary of Care ---
:1940 Author Name Cami Ladd M.D. Address [address] [place], [place] [id number] Care Team Providers Name Role Phone Juve [...] Refills: 0 Yousif Figueroa M.D. Started 26-May-2014 [id number] GM Tube Prolia 60 MG/ML Subcutaneous Solution INJECT SUBCUTANEOUSLY 60 MG / 1 ML EVERY 6 MONTHS Refills: 0 Cami Ladd M.D. Started 11-Nov-2014 Active Allergies and Adverse Reactions Name Dates Details Levaquin TABS Status: Active Past Medical History Name Dates Details History of CXR Solitary Pulmonary Nodule Right Lung Status: Resolved Procedures Procedure Dates Details History of Hysterectomy History of Complete Colonoscopy ECG/ EKG Preop Ordered:11-Nov-2014 Vitamin D, 25 - Hydroxy 3111 Ordered:10-Nov-2014 Urinalysis, Reflex to Microscopic or Culture PRN 8005 Ordered:06-Nov-2014 THYROID STIM. HORMONE 3602 Ordered:06-Nov-2014 LIPID PROFILE 1184 Ordered:06-Nov-2014 Comprehensive Metabolic Panel 1212 Ordered:06-Nov-2014 CBC w/ Auto Diff 7150 Ordered:06-Nov-2014 CBC w/ Auto Diff 7150 Ordered:11-Nov-2014 BASIC METABOLIC PROFILE 1210 Ordered:11-Nov-2014 Urinalysis, Reflex to Microscopic or Culture PRN 8005 Ordered:11-Nov-2014 XRay CHEST-PA & LAT Ordered:11-Nov-2014 Immunization Name Dates Details Pneumo (Pneumovax) Administered on:12-Dec-2008 Tdap (Adacel) Administered on:05-Dec-2013 Lot #: [id number] Prevnar 13 Intramuscular Suspension Administered on:05-Dec-2013 Lot #: [id number] Prevnar 13 Intramuscular Suspension Administered on:25-Nov-2014 Lot #: [id number] Family History Unknown Family Member Name Dates Details Family history of Asthma (V17.5) Comments: Family History Status: Active Father Name Dates Details Family history of myocardial infarction (V17.3, Z82.49) Status: Active Social History Name Dates Details Smoking StatusFormer smoker Vital Signs Date Test Result Details 25-Nov-2014 10:29 BP Systolic 156 mm[Hg] Status: [...] Appointment; Provider: Cami Ladd On 19-Dec-2014 11:15 Appointment; Provider: Cami Ladd On 04-Dec-2014 14:45 Instructions Instructions not documented Encounters Appointment; Ady Hoffman On 25-Nov-2014 Encounter Diagnosis: [...]
--- OUTSIDE RECORDS SUMMARY | 2017-05-31 17:22 | External Medical Summary ---
:1940 Author Name GENERATED, SYSTEM Care Team Providers Name Role Phone MD CASIMIRO, MARILU Primary Care Provider [phone] Reason For Visit Chief Complaint ARM PAIN Social History Functional Status Vital Signs [...]
--- OUTSIDE RECORDS SUMMARY | 2017-05-31 17:22 | External Medical Summary | Summary of Care ---
:1940 Author Name Jaimee Sarmiento M.D. 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 Started 26-May-2014 [id number] GM Tube Prolia 60 MG/ML Subcutaneous Solution [...] on:12-Dec-2008 Tdap (Adacel) Administered on:05-Dec-2013 Lot #: [id number] Prevnar 13 Intramuscular Suspension Administered on:05-Dec-2013 Lot #: [id number] Prevnar 13 Intramuscular Suspension Administered on:25-Nov-2014 Lot #: [id number] Fluvirin 0.5 ML Intramuscular Suspension Prefilled Syringe [...] smoker Vital Signs Date Test Result Details 10:40 BP Systolic 138 mm[Hg] Status: BP Diastolic 78 mm[Hg] Status: Heart Rate 98 /min Status: Weight 143.4 lb Status: O2 SAT 99 % Status: Body Mass Index Calculated 24.61 kg/m2 Status: Body Surface Area Calculated 1.7 m2 Status: 10:04 BP Systolic 150 mm[Hg] Status: BP [...] Cami Ladd On 19-Apr-2016 10:00 Appointment; Provider: Ezekiel Sarmiento On 01-Apr-2016 09:15 Appointment; Provider: Eliel Patel On 11:00 Appointment; Provider: Schedule Radiology On 05-Jan-2016 13:00 Appointment; Provider: Chai Garcias On 16-Nov-2015 08:20 Instructions Instructions not documented Encounters Appointment; Cami Ladd On Encounter Diagnosis: Problem not documented 10:15 Appointment; Ezekiel Sarmiento On Encounter Diagnosis: Problem not documented 09:15 Appointment; Cami Ladd On Encounter Diagnosis: Problem [...] Diagnosis: Problem not documented 10:45 Appointment; Eliel aPtel On Encounter Diagnosis: Problem not documented 16:15 [...]
--- OUTSIDE RECORDS SUMMARY | 2017-05-31 17:22 | External Medical Summary | Summary of Care ---
:1940 Author Name Cami Ladd M.D. Address [address] [place], [place] [id number] Care Team Providers Name Role Phone Juve [...] Active Generalized weakness (780.79, R53.1) Status: Active Medications Name Dates Details Brovana [...] Refills: 2 Yousif Figueroa M.D. Started 26-May-2014 [id number] GM Tube Prolia 60 MG/ML Subcutaneous Solution [...] Complete Colonoscopy CBC w/ Auto Diff 7150 Ordered:20-Jul-2015 Comprehensive Metabolic Panel 1212 Ordered:20-Jul-2015 THYROID STIM. HORMONE 3602 Ordered:20-Jul-2015 Urinalysis, Reflex to Microscopic or Culture PRN 8005 Ordered:20-Jul-2015 Immunization Name Dates Details Pneumo (Pneumovax) Administered on:12-Dec-2008 Tdap (Adacel) Administered on:05-Dec-2013 Lot #: [id number] Prevnar 13 Intramuscular Suspension Administered on:05-Dec-2013 Lot #: [id number] Prevnar 13 Intramuscular Suspension Administered on:25-Nov-2014 Lot #: [id number] Fluvirin 0.5 ML Intramuscular Suspension Prefilled Syringe [...]
--- OUTSIDE RECORDS SUMMARY | 2017-05-31 17:23 | External Medical Summary | Summary of Care ---
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 Quantity: 1 Refills: 2 Carolina JaegerYousif Start 26-May-2014 Active 50 GM Tube Prolia 60 MG/ML Subcutaneous Solution INJECT SUBCUTANEOUSLY 60 MG / 1 ML EVERY 6 MONTHS Quantity: 1 Refills: 0 Wilberto Jaeger, Cami Start 11-Nov-2014 Active Oxygen Home O2 ConcentratorUse 2 liters 8-10 hours/nightQualifying 07/22/15: Nocturnal oximetry=82%, <88%x 35 minutes Quantity: 1 Refills: 0 Ady Hoffman M.D. Start 23-Jul-2015 Active Potassium Chloride ER 10 MEQ Oral Capsule Extended Release TAKE TWO CAPSULE BY MOUTH ONCE A DAY Quantity: 60 Refills: 3 Ladd MJaimie., Cami Start 11-Aug-2015 Active ProAir RespiClick 108 (90 Base) MCG/ACT Inhalation Aerosol Powder Breath Activated INHALE 2 PUFFS BY MOUTH UP TO FOUR TIMES A DAY NEEDED Quantity: 1 Refills: 5 Jordon Hoffman M.D.en Joselyn Start 16-Oct-2015 Active Losartan Potassium-HCTZ 100-12.5 MG Oral Tablet ONE TABLET BY MOUTH EVERY DAY Quantity: 30 Refills: 6 Ladd MJaimie., Cami Start Active Memantine HCl - 10 MG Oral Tablet TAKE 1 TABLET TWICE DAILY. Quantity: 60 Refills: 5 Ezekiel Sarmiento M.D. Start 01-Apr-2016 Active Furosemide 40 MG Oral Tablet TAKE 1 TABLET DAILY. Quantity: 30 Refills: 3 Ladd M.D.Cami Start 08-Jun-2016 Active Mixture 50\\50 Eucerin\\HC 1%-Apply TID 30 gm Quantity: 1 Refills: 1 Ladd M.D., Cami Start 13-Jun-2016 Active Escitalopram Oxalate 5 MG Oral Tablet TAKE 1 TABLET DAILY. Quantity: 30 Refills: 1 Ladd M.D., Cami Start 17-Jun-2016 Active Triamcinolone .1%/ Eucerin Compound (50/50 Mix) -- 1 pound tub (480 grams) Apply TID to affected area Quantity: 1 Refills: 0 Hiwot JaegerAngel Start 28-Jun-2016 Active 480 GM Package Clobetasol [...] 12-Dec-2008 Tdap (Adacel) on: 05-Dec-2013 Lot #: [id number] Prevnar 13 Intramuscular Suspension on: 05-Dec-2013 Lot #: [id number] Prevnar 13 Intramuscular Suspension on: 25-Nov-2014 Lot #: [id number] Fluvirin 0.5 ML Intramuscular Suspension Prefilled Syringe on: 20-May-2015 Fluzone High-Dose 0.5 ML Intramuscular Suspension Prefilled Syringe on: 2015 Pneumovax 23 25 MCG/0.5ML Injection Injectable on: 21-Jul-2016 Lot #: [id number] Family History Unknown Family Member Name Dates [...] 08/02/2016 13:59Dictation Date: 14:35 XC FACIAL BONES 15:55 XRay RIBS-Left W/PA CXR Comments: Exam Date: 08/02/2016 13:38Dictation Date: 08/02/2016 15:55 X RIBS UNILAT W/PA CHEST LT Plan of Care Name Dates Details Planned Observations Planned Goals not documented Planned Encounters Appointment; Provider: Juli Samaniego On 09-Nov-2016 11:30 Appointment; Provider: Ezekiel Sarmiento M.D. On 10-Oct-2016 15:45 Appointment; Provider: Schedule Radiology On 05-Oct-2016 14:00 Appointment; Provider: Schedule Radiology On 05-Oct-2016 13:40 Appointment; Provider: Yousif Figueroa M.D. On 18-Aug-2016 15:45 Interventions Provided Labs/Procedures/ImagingCT FACIAL BONES; Done: Aug 02 2016 2:35PMCT HEAD WITHOUT IV CONTRAST; Done: Aug 02 2016 2:27PMXRay RIBS-Left W/PA CXR; Done: Aug 02 2016 3:55PM Instructions Name Dates Details Instructions not documented [...] Problem not documented 10:00 Appointment; Geeta Oleary P.AAshley On 12-Apr-2016 Encounter Diagnosis: Problem not documented 08:45 Appointment; Ezekiel Sarmiento M.D. On 01-Apr-2016 Encounter Diagnosis: Problem not documented 09:15 Appointment; Cami Ladd M.D. On 31-Mar-2016 Encounter Diagnosis: Problem not documented 14:00 Appointment; Geeta Oleary PAshleyAAshley On 28-Mar-2016 Encounter Diagnosis: Problem not documented 09:15 Appointment; Ady Hoffman M.D. On 18-Mar-2016 Encounter Diagnosis: Problem not documented 14:15 Appointment; Eliel Patel M.D.|ANDREIA,DONYA|Mil,FACP, On Encounter Diagnosis: Problem not documented 11:00 [...] Problem not documented 10:45 Appointment; Eliel Patel M.D.|FACP|M.DAshley,FACP|MAshleyDAshley,FACP, On Encounter Diagnosis: Problem not documented 16:15 [...]
--- OUTSIDE RECORDS SUMMARY | 2017-05-31 17:23 | External Medical Summary | Summary of Care ---
[...] DAY NEEDED Quantity: 1 Refills: 5 Dalton Jaeger, Ady Alves Start 16-Oct-2015 Active AmLODIPine Besylate [...] Ezekiel Sarmiento M.D. Start 01-Apr-2016 Active Furosemide 20 MG Oral Tablet TAKE 1 TABLET DAILY. Quantity: 30 Refills: 0 Ladd M.D., Cami Start 08-Jun-2016 Active Allergies and Adverse Reactions Name Dates [...] Microscopic or Culture PRN 8005 Ordered: 19-Apr-2016 BASIC METABOLIC PROFILE 1210 Ordered: 08-Jun-2016 BNP 3103 Ordered: 08-Jun-2016 Immunization Name Dates Details Pneumo (Pneumovax) on: 12-Dec-2008 Tdap (Adacel) on: 05-Dec-2013 Lot #: [id number] Prevnar 13 Intramuscular Suspension on: 05-Dec-2013 Lot #: [id number] Prevnar 13 Intramuscular Suspension on: 25-Nov-2014 Lot #: [id number] Fluvirin 0.5 ML Intramuscular Suspension Prefilled Syringe [...] >60 ml/min Range: >60 EST GFR, NON-AFR [place] >60 ml/min Range: >60 Comments: EST GFR [...] Range: 150-400 MPV 8.3 fL Range: 6.0-11.0 Plan of Care Name Dates Details Planned Observations Planned Goals not documented Planned Encounters Appointment; Provider: Ezekiel Sarmiento M.D. On 10-Oct-2016 15:45 Appointment; Provider: Cami Ladd M.D. On 21-Jul-2016 10:30 Interventions Provided Medication ChangesFurosemide 20 MG Oral Tablet - StartLabs/Procedures/Imaging BASIC METABOLIC PROFILE 1210; To be Done: 08 Jun 2016BNP 3103; To be Done: 08 Jun 2016CBC w/ Auto Diff 7150; Done: Jun 13 2016 10:13AM Instructions Name Dates Details Instructions not documented [...] Problem not documented 10:45 Appointment; Eliel Patel M.D.|FACP|M.D.,FACP|M.D.,FACP, On Encounter Diagnosis: Problem not documented 16:15 [...]
--- OUTSIDE RECORDS SUMMARY | 2017-05-31 17:23 | External Medical Summary | Summary of Care ---
[...] A DAY Quantity: 60 Refills: 3 Ladd M.DAshley Cami Start 11-Aug-2015 Active ProAir RespiClick 108 [...] 12-Dec-2008 Tdap (Adacel) on: 05-Dec-2013 Lot #: [id number] Prevnar 13 Intramuscular Suspension on: 05-Dec-2013 Lot #: [id number] Prevnar 13 Intramuscular Suspension on: 25-Nov-2014 Lot #: [id number] Fluvirin 0.5 ML Intramuscular Suspension Prefilled Syringe [...] Provider: Ady Hoffman M.D. On 20-May-2016 10:15 Instructions Name Dates Details Instructions not documented Encounters Appointment; Geeta Oleary P.A. On 12-Apr-2016 Encounter [...] Problem not documented 11:45 Appointment; Mireya Rosario P.AAshlye On 20-Nov-2015 Encounter Diagnosis: Problem not documented [...] Problem not documented 16:15 Appointment; Eliel Patel M.D.|FACP|Mil,FACP|Mil,KHANHP, On Encounter Diagnosis: Problem not documented 09:00 [...]
--- OUTSIDE RECORDS SUMMARY | 2017-05-31 17:23 | External Medical Summary | Summary of Care ---
:1940 Author Name Cami Ladd M.D. Address [address] [place], [place] [id number] Care Team Providers Name Role Phone Juve [...] on:12-Dec-2008 Tdap (Adacel) Administered on:05-Dec-2013 Lot #: [id number] Prevnar 13 Intramuscular Suspension Administered on:05-Dec-2013 Lot #: [id number] Prevnar 13 Intramuscular Suspension Administered on:25-Nov-2014 Lot #: [id number] Family History Unknown Family Member Name Dates [...] DOS 12-17-14 AND 12-24-14 DR. MCCLENDON @ [facility] WBC 6.7 K/uL (Better) Range: 4.5-11.0 RBC [...] DOS 12-17-14 AND 12-24-14 DR. MCCLENDON @ [facility] 1210 SODIUM 136 mmol/L (Better) Range: 133-144 POTASSIUM 3.6 mmol/L (Better) Range: 3.5-5.1 CHLORIDE 99 mmol/L (Better) Range: 98-110 CARBON DIOXIDE 31.1 mmol/L (Better) Range: 23.0-33.0 ANION GAP 6 mmol/L (Better) Range: 6-16 BUN 11 mg/dL (Better) Range: 7-18 CREATININE, SERUM 0.58 mg/dL (Better) Range: 0.43-1.13 EST GFR, >60 ml/min Range: >60 (Better) EST GFR, NON-AFR LAO >60 ml/min Range: >60 (Better) Comments: EST GFR is reported in ml/min per 1.73 m2 of body surface area. For -Ecuadorean, please multiple result by 1.2.----- BUN:CREATININE RATIO 19 (Better) GLUCOSE 81 mg/dL (Better) Range: 70-100 CALCIUM 8.2 mg/dL (Below low Range: 8.5-10.1 threshold) Comments: Verified by Repeat Analysis----- 14:41 XRay CHEST-PA & LAT Comments: Exam Date: 14: 08Dictation Date: 14:41 X CHEST PA & LAT (Better) 15:01 Urinalysis, Reflex to Comments: DOS 12-17-14 AND 12-24-14 DR. MCCLENDON @ [facility] Microscopic or Culture PRN 8005 pH 7.5 [...]
--- OUTSIDE RECORDS SUMMARY | 2017-05-31 17:24 | External Medical Summary | Summary of Care ---
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 11-Aug-2016 Active Spiriva HandiHaler 18 MCG Inhalation Capsule USE 1 PUFF BY MOUTH EVERY MORNING Quantity: 30 Refills: 11 Dalton JaegerAdy Joselyn Start 17-Jun-2009 Active Budesonide 0.25 MG/2ML Inhalation Suspension NEBULIZE TWO TIMES DAILY (Dx: J44.9/J43.9) Quantity: 120 Refills: 11 Nilton JaegerDennis Alessandro Start 11-Aug-2016 Active Halobetasol Propionate 0.05 % External Cream [...] Jordon Hoffman M.D.en Joselyn Start 23-Jul-2015 Active Potassium Chloride ER 10 MEQ Oral Capsule Extended Release TAKE TWO CAPSULE BY MOUTH ONCE A DAY Quantity: 60 Refills: 3 Wilberto Jaeger, Cami Start 11-Aug-2015 Active ProAir RespiClick 108 (90 Base) MCG/ACT Inhalation Aerosol Powder Breath Activated 1-2 puffs every 4-6 hours as needed Quantity: 1 Refills: 11 Nilton Jaeger Dennis Alessandro Start 16-Oct-2015 Active 1 Aerosol Powder Breath Activated Box Losartan Potassium-HCTZ 100-12.5 MG Oral Tablet ONE TABLET BY MOUTH EVERY DAY Quantity: 30 Refills: 6 Cami Ladd M.D. Start Active Memantine HCl - 10 MG Oral Tablet TAKE 1 TABLET TWICE DAILY. Quantity: 60 Refills: 5 Ezekiel Sarmiento M.D. Start 01-Apr-2016 Active Furosemide 40 MG Oral Tablet TAKE 1 TABLET DAILY. Quantity: 30 Refills: 3 Ladd Cami Jaeger Start 08-Jun-2016 Active Mixture 50\\50 Eucerin\\HC 1%-Apply TID 30 gm Quantity: 1 Refills: 1 Ladd M.D., Cami Start 13-Jun-2016 Active Escitalopram Oxalate 5 MG Oral Tablet TAKE 1 TABLET DAILY. Quantity: 30 Refills: 1 Ladd Mil Cami Start 17-Jun-2016 Active Triamcinolone .1%/ Eucerin Compound (50/50 Mix) -- 1 pound tub (480 grams) Apply TID to affected area Quantity: 1 Refills: 0 Lacywilder Mil Angel Francois Start 28-Jun-2016 Active 480 GM Package Clobetasol Propionate 0.05 % External Cream APPLY SPARINGLY TO AFFECTED AREA(S) TWICE DAILY Quantity: 45 Refills: 1 Carolina Jaeger Yousif Jessica Start 12-Jul-2016 Active Incruse Ellipta 62.5 MCG/INH Inhalation Aerosol Powder Breath Activated INHALE 1 PUFF DAILY. Quantity: 1 Refills: 3 Dalton Jaeger Ady Joselyn Start 14-Aug-2016 Active 30 Aerosol Powder Breath Activated Disp Pack Cephalexin 500 MG Oral Capsule TAKE 1 CAPSULE Twice daily for 1 week Quantity: 14 Refills: 0 Yousif Figueroa M.D. Start 22-Aug-2016 Active Cephalexin 500 MG Oral Capsule TAKE 1 CAPSULE TWICE DAILY UNTIL GONE. Quantity: 14 Refills: 0 Abelardo P.A.Sosa Start 26-Sep-2016 Active PredniSONE 20 MG Oral Tablet TAKE 3 TABLETS A DAY FOR 4 DAYS, 2 TABS FOR 4 DAYS, 1 TAB FOR 4 DAYS, HALF A TABLET FOR 10 DAYS Quantity: 1 Refills: 0 Abelardo P.A.Sosa Start 26-Sep-2016 Active 30 Tablet Bottle Allergies and Adverse Reactions Name [...] 12-Dec-2008 Tdap (Adacel) on: 05-Dec-2013 Lot #: [id number] Prevnar 13 Intramuscular Suspension on: 05-Dec-2013 Lot #: [id number] Prevnar 13 Intramuscular Suspension on: 25-Nov-2014 Lot #: [id number] Fluvirin 0.5 ML Intramuscular Suspension Prefilled Syringe on: 20-May-2015 Fluzone High-Dose 0.5 ML Intramuscular Suspension Prefilled Syringe on: 2015 Pneumovax 23 25 MCG/0.5ML Injection Injectable on: 21-Jul-2016 Lot #: [id number] Family History Unknown Family Member Name Dates [...] Ladd M.D. On 18-Nov-2016 10:00 Appointment; Provider: Juli Samaniego On 09-Nov-2016 11:30 Appointment; Provider: Juli Velez On 25-Oct-2016 14:45 Appointment; Provider: Ezekiel Sarmiento M.D. On 10-Oct-2016 15:45 Appointment; Provider: Schedule Radiology On 05-Oct-2016 14:00 Appointment; Provider: Schedule Radiology On 05-Oct-2016 13:40 Interventions Provided Medication ChangesCephalexin 500 MG Oral Capsule - StartPredniSONE 20 MG Oral Tablet - Start Instructions Name Dates Details Instructions not documented Encounters Appointment; Yousif Figueroa M.D. On 22-Aug-2016 Encounter [...] Problem not documented 16:15 Appointment; Eliel Patel M.D.|DONYA|Mil,DONYA|Mil,FACP, On Encounter Diagnosis: Problem not documented 09:00 [...]
--- OUTSIDE RECORDS SUMMARY | 2017-05-31 17:24 | External Medical Summary | Summary of Care ---
:1940 Author Name Cami Ladd M.D. Address [address] [place], [place] [id number] Care Team Providers Name Role Phone Carolina [...] Refills: 2 Yousif Figueroa M.D. Started 26-May-2014 [id number] GM Tube Prolia 60 MG/ML Subcutaneous Solution [...] Refills: 2 Cami Ladd M.D. Started 20-Nov-2015 Active Allergies and Adverse [...] on:12-Dec-2008 Tdap (Adacel) Administered on:05-Dec-2013 Lot #: [id number] Prevnar 13 Intramuscular Suspension Administered on:05-Dec-2013 Lot #: [id number] Prevnar 13 Intramuscular Suspension Administered on:25-Nov-2014 Lot #: [id number] Fluvirin 0.5 ML Intramuscular Suspension Prefilled Syringe [...] smoker Vital Signs Date Test Result Details 10:57 BP Systolic 138 mm[Hg] Status: BP [...] ml/min Range: >60 (Better) EST GFR, NON-AFR [place]ICAN CITIZEN >60 ml/min Range: >60 (Better) Comments: EST GFR is reported in ml/min per 1.73 m2 of body surface area. For -Burmese, please multiple result by 1.2.----- GLUCOSE 101 [...]
--- OUTSIDE RECORDS SUMMARY | 2017-05-31 17:24 | External Medical Summary | Summary of Care ---
[...] Active Eczema craquele (706.8, L30.8) Status: Active Emphysema/COPD (492.8, J43.9) Status: Active [...] 12-Dec-2008 Tdap (Adacel) on: 05-Dec-2013 Lot #: [id number] Prevnar 13 Intramuscular Suspension on: 05-Dec-2013 Lot #: [id number] Prevnar 13 Intramuscular Suspension on: 25-Nov-2014 Lot #: [id number] Fluvirin 0.5 ML Intramuscular Suspension Prefilled Syringe on: 20-May-2015 Fluzone High-Dose 0.5 ML Intramuscular Suspension Prefilled Syringe on: 2015 Pneumovax 23 25 MCG/0.5ML Injection Injectable on: 21-Jul-2016 Lot #: [id number] Family History Unknown Family Member Name Dates [...] smoker Vital Signs Date Test Result Details 12:44 BP Systolic 130 mm[Hg] Status: Comments: [...] 15:15 Appointment; Provider: Dennis Callaway M.D. On 10:30 Appointment; Provider: Schedule Radiology On 16:00 Appointment; Provider: Schedule Radiology On 15:30 Instructions Name Dates Details Instructions not documented Encounters Appointment; Mireya Rosario P.A. On 06-Jan-2017 Encounter Diagnosis: Problem not documented 13:00 Appointment; Cami Ladd M.D. On 16-Dec-2016 Encounter Diagnosis: Problem not documented 11:15 Appointment; Tabby Vallecillo M.D. On 19-Nov-2016 Encounter Diagnosis: Problem not documented 14:05 Appointment; Mireya Rosario PFernanda On 09-Nov-2016 Encounter Diagnosis: Problem not documented 11:30 Appointment; Sosa Zhou P.A. On 25-Oct-2016 Encounter Diagnosis: Problem not documented 14:45 Appointment; Ezekeil Sarmiento M.D. On 10-Oct-2016 Encounter Diagnosis: Problem [...] Diagnosis: Problem not documented 10:00 Appointment; Yousif Figeuroa M.D. On 06-May-2015 Encounter Diagnosis: Problem not [...] Problem not documented 10:45 Appointment; Eliel Patel M.D.|ANDREIA,ANDREIA,FACP, On Encounter Diagnosis: Problem not documented 16:15 Appointment; Eliel Patel M.D.|DONYA|Mil,DONYA|Mil,DONYA, On Encounter Diagnosis: Problem not documented 09:00 Appointment; Cami Ladd M.D. On Encounter Diagnosis: Problem not documented 13:30"
--- OUTSIDE RECORDS SUMMARY | 2017-05-31 17:24 | External Medical Summary | Summary of Care ---
:1940 Author Name Geeta Quach Address [address] [place] [address] Care Team Providers Name Role Phone Juve [...] Refills: 2 Yousif Figueroa M.D. Started 26-May-2014 [id number] GM Tube Prolia 60 MG/ML Subcutaneous Solution [...] on:12-Dec-2008 Tdap (Adacel) Administered on:05-Dec-2013 Lot #: [id number] Prevnar 13 Intramuscular Suspension Administered on:05-Dec-2013 Lot #: [id number] Prevnar 13 Intramuscular Suspension Administered on:25-Nov-2014 Lot #: [id number] Family History Unknown Family Member Name Dates [...]
--- OUTSIDE RECORDS SUMMARY | 2017-05-31 17:24 | External Medical Summary | Summary of Care ---
[...] EVERY 6 MONTHS Quantity: 1 Refills: 0 Renetta Ladd M.D.thia Start 11-Nov-2014 Active Oxygen Home O2 ConcentratorUse [...] TABLET DAILY. Quantity: 30 Refills: 3 Ladd MCami Hull Start 08-Jun-2016 Active Mixture 50\\50 Eucerin\\HC 1%-Apply TID 30 gm Quantity: 1 Refills: 1 Cami Ladd M.D. Start 13-Jun-2016 Active Escitalopram Oxalate 5 MG [...] 12-Dec-2008 Tdap (Adacel) on: 05-Dec-2013 Lot #: [id number] Prevnar 13 Intramuscular Suspension on: 05-Dec-2013 Lot #: [id number] Prevnar 13 Intramuscular Suspension on: 25-Nov-2014 Lot #: [id number] Fluvirin 0.5 ML Intramuscular Suspension Prefilled Syringe on: 20-May-2015 Fluzone High-Dose 0.5 ML Intramuscular Suspension Prefilled Syringe on: 2015 Pneumovax 23 25 MCG/0.5ML Injection Injectable on: 21-Jul-2016 Lot #: [id number] Family History Unknown Family Member Name Dates [...] >60 ml/min Range: >60 EST GFR, NON-AFR [place] >60 ml/min Range: >60 Comments: EST GFR [...] :52Dictation Date: 06/30/2016 13:37 [facility] Radiologic ReportEARSUSAN CELESTIN [id number]- [id number] (X-RAY)PATIENT OF DR. LADD BD: 1940 SECONDARY [...] Provider: Yousif Figueroa M.D. On 18-Aug-2016 15:45 Instructions Name Dates Details Instructions not documented Encounters Appointment; Angel Mi M.D. On 28-Jun-2016 Encounter [...] Problem not documented 10:45 Appointment; Eliel Patel M.D.|FACP|Mil,KHANHP|Mil,DONYA, On Encounter Diagnosis: Problem not documented 16:15 [...]
--- OUTSIDE RECORDS SUMMARY | 2017-05-31 17:24 | External Medical Summary ---
:1940 Author Name GENERATED, SYSTEM Care Team Providers Name Role Phone MD CASIMIRO, MARILU Primary Care Provider [phone] Reason For Visit Reason for Visit from 07/11/2015 7:19 PM:Pt Stated Reason for Adm : difficulty breathing Chief Complaint COPD EXACERBATION Social History Social History from 07/13/2015 9:56 AM:Tobacco Use? : Former SmokerSocial History from 07/11/2015 7:19 PM:Tobacco Use? : Former Smoker Functional Status Functional Status from 07/13/2015 7:30 AM:LOC : ConfusedOriented To : PersonWeight Bearing Status : FullAssist Level : Partial# Assists : 1Functional Status from 07/12/2015 7:33 PM:LOC : AlertOriented To : Person,Place,Time, EventWeight Bearing Status : FullAssist Level : Independent# Assists : IndependentFunctional Status from 07/12/2015 7:55 AM:LOC : AlertOriented To : Person,Place,Time,EventWeight Bearing Status : FullAssist Level : Independent# Assists : IndependentFunctional Status from 07/11/2015 7:19 PM:LOC : AlertOriented To : Person,Place,Time,EventWeight Bearing Status : FullAssist Level : Independent# Assists : Independent Vital Signs Hospital Vital Signs from 07/13/2015 10:41 AM:Height : 5/7 ft,inTemperature : 96.5 FPulse : 99Respirations : 18BP : 156/72Hospital Vital Signs from 2014 7:17 AM:Height : 5/7 ft,inTemperature : 96.9 FPulse : 81Respirations : 16BP : 181/83Hospital Vital Signs from 07/13/2015 3:17 AM:Height : 5/7 ft, inTemperature : 97.2 FPulse : 73Respirations : 16BP : 121/58Hospital Vital Signs from 07/12/2015 10:51 PM:Height : 5/7 ft,inTemperature : 97.4 FPulse : 79Respirations : 18BP : 197/90Hospital Vital Signs from 07/12/2015 7:46 PM: Height : 5/7 ft,inTemperature : 96.1 FPulse : 79Respirations : 16BP : 149/ 85Hospital Vital Signs from 07/12/2015 7:33 PM:Heart Rate : 80Hospital Vital Signs from 07/12/2015 3:43 PM:Height : 5/7 ft,inTemperature : 95.3 FPulse : 92Respirations : 18BP : 161/73Hospital Vital Signs from 07/12/2015 10:40 AM: Height : 5/7 ft,inTemperature : 95.7 FPulse : 85Respirations : 18BP : 157/ 67Hospital Vital Signs from 07/12/2015 7:43 AM:Height : 5/7 ft,inTemperature : 98.0 FPulse : 87Respirations : 18BP : 123/58Hospital Vital Signs from 2014 2:14 AM:Height : 5/7 ft,inTemperature : 97.7 FPulse : 89Respirations : 18BP : 120/55Hospital Vital Signs from 07/12/2015 12:36 AM:Weight : 68.0/ kgHeight : 5/7 ft,inHospital Vital Signs from 07/11/2015 10:44 PM:Height : 5/7 ft,inTemperature : 96.3 FPulse : 96Respirations : 20BP : 177/79Hospital Vital Signs from 07/11/2015 7:45 PM:Height : 5/7 ft,inTemperature : 97.2 FPulse : 99Respirations : 20BP : 170/98Hospital Vital Signs from 07/11/2015 7:19 PM: Weight : 68.1/ kgHeight : 5/7 ft,in Results Chemistry from 07/13/2015 4:13 [id number] MMOL/L (136-145 MMOL/L) POTASSIUM3.8 MMOL/L (3.5-5.1 MMOL/L) IENGTEGR089 MMOL/L (98-107 MMOL/L) MAQ423.8 MMOL/L (21.0-32.0 MMOL/L) *ANION GAP9.2 MMOL/L (8.0-16.0 MMOL/L) BUN19 MG/DL H (7-18 MG/DL) CREATININE0.64 MG/DL (0.55-1.02 MG/DL) *BUN/CREATININE RATIO29.7 H (9.1-17.0 ) AHEEVAH654 MG/DL H (65-99 MG/DL) *GFR EST NON AFR CETHRSXX95 ML/MIN *GFRA EST AFR AMER>90 ML/MIN CALCIUM8.4 MG/DL L (8.5-10.1 MG/DL) BILIRUBIN TOTAL0.39 MG/DL (0.20-1.00 MG/DL) TOTAL PROTEIN6.6 GM/DL (6.4-8.2 GM/DL) ALBUMIN3.6 GM/DL (3.4-5.0 GM/DL) *GLOBULIN3.0 GM/DL (2.3-3.5 GM/DL) *A/G RATIO1.2 MG/DL L (1.5-2.2 MG/DL) ALK PHOS51 U/L (46-116 U/L) ALT (SGPT)26 U/L (16-63 U/L) AST (SGOT)14 U/L L (15-37 U/L)Chemistry from 07/12/2015 5:07 IDCBRZNH286 MMOL/L (136-145 MMOL/L) POTASSIUM3.6 MMOL/L (3.5-5.1 MMOL/L) WKXWHLIG367 MMOL/L (98-107 MMOL/L) PSW968.1 MMOL/L (21.0-32.0 MMOL/L) *ANION GAP6.9 MMOL/L L (8.0-16.0 MMOL/L) BUN9 MG/DL (7-18 MG/DL) CREATININE0.53 MG/DL L (0.55-1.02 MG/DL) *BUN/CREATININE RATIO17.0 (9.1-17.0 ) VVZZRHL970 MG/DL H (65-99 MG/DL) *GFR EST NON AFR SOMALI>90 ML/MIN *GFRA EST AFR AMER>90 ML/MIN CALCIUM8.3 MG/DL L (8.5-10.1 MG/DL) BILIRUBIN TOTAL0.48 MG/DL (0.20-1.00 MG/DL) TOTAL PROTEIN7.1 GM/DL (6.4-8.2 GM/DL) ALBUMIN3.9 GM/DL (3.4-5.0 GM/DL) *GLOBULIN3.2 GM/DL (2.3-3.5 GM/DL) *A/G RATIO1.2 MG/DL L (1.5-2.2 MG/DL) ALK PHOS55 U/L (46-116 U/L) ALT (SGPT)26 U/L (16-63 U/L) AST (SGOT)15 U/L (15-37 U/L)Hematology from 07/13/2015 4:13 AMWBC9.6 X10e3/UL ( 3.6-11.2 X10e3/UL) RBC4.37 X10e6/UL (3.63-4.92 X10e6/UL) FVDDTHYSWN23.0 G/DL (11.0-14.3 G/DL) SKNLTJBFCY30.6 % H (31.2-41.9 %) *MCV97.4 FL (79.0-98.0 FL) *MCH31.9 PG (27.0-33.0 PG) *MCHC32.8 G/DL (32.0-36.0 G/DL) *RDW12.8 % (12.3-17.0 %) *RDWSD43.3 (37.1-47.8 ) UYCQPNVZ045 X10e3/UL (159-386 X10e3/UL) *MPV10.3 FL (7.4-10.4 FL)Hematology from 07/12/2015 5:07 AMWBC7.1 X10e3/UL (3.6- 11.2 X10e3/UL) RBC4.58 X10e6/UL (3.63-4.92 X10e6/UL) NFFMAOSTKJ93.6 G/DL H (11.0-14.3 G/DL) HRTFJYURKM70.6 % H (31.2-41.9 %) *MCV97.4 FL (79.0-98.0 FL) *MCH31.8 PG (27.0-33.0 PG) *MCHC32.6 G/DL (32.0-36.0 G/DL) *RDW12.9 % (12.3-17.0 %) *RDWSD43.3 (37.1-47.8 ) RVAXZKPE002 X10e3/UL (159-386 X10e3/UL) *MPV10.1 FL (7.4-10.4 FL) *MANUAL DIFFPERFORMED SEGS96.0 % *BANDS1.0 % *LYMPHOCYTES2.0 % *MONOCYTES1.0 % *EOSINOPHILS0.0 % *BASOPHILS0.0 % *ABSOLUTE NEUTROPHILS6.89 X10e3/UL (1.80-7.80 X10e3/UL) *ABSOLUTE LYMPHOCYTES0.14 X10e3/UL L (1.00-3.00 X10e3/UL) *ABSOLUTE MONOCYTES0.07 X10e3/UL L (0.30-1.00 X10e3/UL) *ABSOLUTE EOSINOPHILS0.00 X10e3/UL (0.00-0.50 X10e3/UL) *ABSOLUTE BASOPHILS0.00 X10e3/UL (0.00-0.20 X10e3/UL)DX Radiology from 2014 7:04 AMCHEST 2 VIEWSHistory: COPD w/Exac. Technique: 2 VIEW CHEST Priors: 07/11/15 Findings: The cardiac silhouette and pulmonary vasculature are within normal limits. There are no acute infiltrates or effusions. There are changes of COPD Impression: COPD without acute findings. Electronically signed by: Brock Gilbert MD Dictated: 07/12/2015 11:21 Problems Encounter Diagnosis Acute Exacerbation of Chronic Obstructive Airways Disease Status:Active.Acute Renal Failure Syndrome Status:Active.Fall Risk Status:Active.Hypertensive Disorder Status:Active.Additional Problems Pulmonary Emphysema Comment:Problem resolved by So[facility] Workflow upon Discharge , Status:Resolved. Encounters Encounter Diagnosis Acute Exacerbation of Chronic Obstructive Airways Disease Status:Active.Acute Renal Failure Syndrome Status:Active.Fall Risk Status:Active.Hypertensive Disorder Status:Active. Plan of Care Follow-up Appointments from 07/13/2015 9:56 AM:#1 Office appointment: : Dr Ladd #1 Date/Time : 07/20/2015 10:00 AMAddress # 1 : [facility]: [address] [place], [place]- or #2 Office appointment: : Dr Hoffman#2 Date/Time : 08/03/2015 10:00 AMAddress # 2 : [facility]: [address] [place]- or Treatment Plan from 07/12/2015 10:30 AM:Care Management Note : Patient was admitted as observation d /t exacerbation of COPD. 2 days ago wasseen d/t COPD was given PO antibiotics and Prevacid and did not coal picker scripts d/t weather conditions. Patient is now admitted for COPD. I&O's and daily wts will be monitored. Pulm is consulted, IV azithromycin started, RT treatments and IV solumedrol every 12 hours ordered. Patient is on 3L NC at this time. CM will continue to follow. Procedures Completed Procedure Code: Procedure Name: not valued, on 11/28/2014 12:00 AM Immunizations No immunizations administered or ordered. Hospital Course Hospital Discharge Instructions How to care for yourself at home from 07/13/2015 9:56 AM:Discharge Activity : Activity as toleratedDischarge Diet : Diet as toleratedDischarge Wound Care : Notify your physician if the following develops: redness, swelling, drainage or color of drainage changes, odor or increased pain.Call your doctor if: : Fever over 101 [...] the responsibility of the patient or patient insurance sales representative to confirm the list of medicationswith either the patient's personal care provider or the patient's follow-up care provider to ensure the patient has an appropriate list of medications to take at home. Discharge medicationsNew medicationspredniSONE 10 mg Tablet, Ordered By: SHAUNA THOMAS, JESI Directions: 1 tablet oral daily with breakfast Additional Instructions: 4 x 3 days then 3 x 3 days then 2 x 3 days then 1 x 3 days then dc AZITHromycin 250 mg Tablet, Ordered By: JESI DAWSON Directions: 1 tablet oral daily Additional Instructions: x 3 days amLODIPine 10 mg Tablet Directions: 1 tablet oral daily escitalopram oxalate (LexAPRO) 10 mg Tablet, Ordered By: GENO MARSHALL RN Directions: 0.5 tablet oral daily for 10 days then 1 tab daily Changed medicationsalbuterol sulfate (ProAir HFA) 180mcg HFA Aerosol Inhaler, Ordered By: JESI DAWSON Directions: 2 puff by inhalation every six hours PRN shortness of breath arformoterol (Brovana) 15 mcg/2 mL Solution for Nebulization, Ordered By: JESI DAWSON Directions: 2 mL by inhalation twice a day budesonide 0.5 mg/2 mL Suspension for Nebulization, Ordered By: JESI DAWSON Directions: 2 mL by inhalation twice a day tiotropium bromide (SPIriva with HandiHaler) 18 mcg Capsule, w/Inhalation Device , Ordered By: JESI DAWSON Directions: 1 capsule by inhalation daily Stopped medicationsAmlodipine Besylate 5 mg oral once daily
--- OUTSIDE RECORDS SUMMARY | 2017-05-31 17:25 | External Medical Summary | Summary of Care ---
:1940 Author Name Dalton Jaeger, Joselyn Garsia [facility] [address] [facility] [address] [facility] [address] [place], [place] [id number] Care Team Providers Name Role Phone Jessica [...] Refills: 2 Yousif Figueroa M.D. Started 26-May-2014 Bdscfj43 GM Tube Prolia 60 MG/ML Subcutaneous Solution [...] on:12-Dec-2008 Tdap (Adacel) Administered on:05-Dec-2013 Lot #: [id number] Prevnar 13 Intramuscular Suspension Administered on:05-Dec-2013 Lot #: [id number] Prevnar 13 Intramuscular Suspension Administered on:25-Nov-2014 Lot #: [id number] Fluvirin 0.5 ML Intramuscular Suspension Prefilled Syringe [...] ml/min Range: >60 (Better) EST GFR, NON-AFR GRENADIAN >60 ml/min Range: >60 (Better) Comments: EST GFR is reported in ml/min per 1.73 m2 of body surface area. For -Wallisian, please multiple result by 1.2.----- GLUCOSE 101 [...] Diagnosis: Problem not documented 13:15 Appointment; Ady oHffman On 23-Jul-2015 Encounter Diagnosis: Problem not documented [...]
--- OUTSIDE RECORDS SUMMARY | 2017-05-31 17:25 | External Medical Summary | Summary of Care ---
[...] 12-Dec-2008 Tdap (Adacel) on: 05-Dec-2013 Lot #: [id number] Prevnar 13 Intramuscular Suspension on: 05-Dec-2013 Lot #: [id number] Prevnar 13 Intramuscular Suspension on: 25-Nov-2014 Lot #: [id number] Fluvirin 0.5 ML Intramuscular Suspension Prefilled Syringe [...] smoker Vital Signs Date Test Result Details 01-Apr-2016 09:29 BP Systolic 130 mm[Hg] Status: [...] BP Systolic 136 mm[Hg] Status: Comments: Location: LUE; Position: Sitting BP Diastolic 72 mm[Hg] Status: Comments: Location: LUE; Position: Sitting Heart Rate 90 /min Status: Comments: Location: [...] Hoffman M.D. On 18-Jul-2016 15:00 Appointment; Provider: Ezekiel Sarmiento M.D. On 13-Jun-2016 09:30 Appointment; Provider: Ady Hoffman M.D. On 20-May-2016 10:15 Appointment; Provider: Cami Ladd M.D. On 19-Apr-2016 10:00 Appointment; Provider: Juli Cullen On 12-Apr-2016 08:45 Instructions Name Dates Details Instructions not documented Encounters Appointment; Cami Ladd M.D. On 31-Mar-2016 Encounter Diagnosis: Problem not documented 14:00 Appointment; Geeta Oleary P.A. On 28-Mar-2016 Encounter Diagnosis: Problem not documented 09:15 Appointment; Ady Hoffman M.D. On 18-Mar-2016 Encounter Diagnosis: Problem not documented 14:15 Appointment; Eliel Patel M.D.|ANDREIA,DONYA|Mil,DONYA, On Encounter Diagnosis: Problem not documented 11:00 [...] Problem not documented 10:45 Appointment; Eliel Patel M.D.|ANDREIA,FACP|Mil,FACP, On Encounter Diagnosis: Problem not documented 16:15 Appointment; Eliel Patel M.D.|FACP|Mil,DONYA|Mil,FACP, On Encounter Diagnosis: Problem not documented 09:00 [...] Problem not documented 11:30 Appointment; Alo nA M.D. On 29-Aug-2014 Encounter Diagnosis: Problem not [...]
--- OUTSIDE RECORDS SUMMARY | 2017-05-31 17:25 | External Medical Summary | Summary of Care ---
:1940 Author Name Cami Ladd M.D. Address [address] [place], [place] [phone] Care Team Providers Name Role Phone Juve [...] on:12-Dec-2008 Tdap (Adacel) Administered on:05-Dec-2013 Lot #: [id number] Prevnar 13 Intramuscular Suspension Administered on:05-Dec-2013 Lot #: [id number] Prevnar 13 Intramuscular Suspension Administered on:25-Nov-2014 Lot #: [id number] Family History Unknown Family Member Name Dates [...] DOS 12-17-14 AND 12-24-14 DR. MCCLENDON @ [facility] WBC 6.7 K/uL (Better) Range: 4.5-11.0 RBC [...] DOS 12-17-14 AND 12-24-14 DR. MCCLENDON @ [facility] 1210 SODIUM 136 mmol/L (Better) Range: 133-144 POTASSIUM 3.6 mmol/L (Better) Range: 3.5-5.1 CHLORIDE 99 mmol/L (Better) Range: 98-110 CARBON DIOXIDE 31.1 mmol/L (Better) Range: 23.0-33.0 ANION GAP 6 mmol/L (Better) Range: 6-16 BUN 11 mg/dL (Better) Range: 7-18 CREATININE, SERUM 0.58 mg/dL (Better) Range: 0.43-1.13 EST GFR, >60 ml/min Range: >60 AFGHAN (Better) EST GFR, NON-AFR >60 ml/min Range: >60 AFGHAN (Better) Comments: EST GFR is reported in ml/min per 1.73 m2 of body surface area. For -Norwegian, please multiple result by 1.2.----- BUN:CREATININE RATIO 19 (Better) GLUCOSE 81 mg/dL (Better) Range: 70-100 CALCIUM 8.2 mg/dL (Below low Range: 8.5-10.1 threshold) Comments: Verified by Repeat Analysis----- 14:41 XRay CHEST-PA & LAT Comments: Exam Date: 14: 08Dictation Date: 14:41 X CHEST PA & LAT (Better) 15:01 Urinalysis, Reflex to Comments: DOS 12-17-14 AND 12-24-14 DR. MCCLENDON @ [facility] Microscopic or Culture PRN [id number] pH 7.5 [...]
--- OUTSIDE RECORDS SUMMARY | 2017-05-31 17:25 | External Medical Summary | Summary of Care ---
:1940 Author Name Cami Ladd M.D. 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 Started 26-May-2014 Npfehn65 GM Tube Amoxicillin 500 MG Oral Capsule TAKE 1 CAPSULE 3 TIMES DAILY UNTIL GONE. Quantity: 30 Refills: 0 Cami Ladd M.D. Started 10-Nov-2014 Ended 20-Nov-2014 Active Allergies and Adverse Reactions Name Dates Details Levaquin TABS Status: Active Past Medical History Name Dates Details History of CXR Solitary Pulmonary Nodule Right Lung Status: Resolved Procedures Procedure Dates Details History of Hysterectomy History of Complete Colonoscopy CP Echo Ordered:17-Sep-2014 CBC w/ Auto Diff 7150 Ordered:06-Nov-2014 Comprehensive Metabolic Panel 1212 Ordered:06-Nov-2014 LIPID PROFILE 1184 Ordered:06-Nov-2014 THYROID STIM. HORMONE 3602 Ordered:06-Nov-2014 Urinalysis, Reflex to Microscopic or Culture PRN [id number] Ordered:06-Nov-2014 Vitamin D, 25 - Hydroxy 3111 Ordered:10-Nov-2014 Immunization Name Dates Details Pneumo (Pneumovax) Administered on:12-Dec-2008 Tdap (Adacel) Administered on:05-Dec-2013 Lot #: [id number] Prevnar 13 Intramuscular Suspension Administered on:05-Dec-2013 Lot #: [id number] Family History Unknown Family Member Name Dates Details Family history of Asthma (V17.5) Comments: Family History Status: Active Father Name Dates Details Family history of myocardial infarction (V17.3, Z82.49) Status: Active Social History Name Dates Details Smoking StatusFormer smoker Vital Signs Date Test Result Details No Known Vitals to report Results Date Description Value Details 23-Oct-2014 16:56 MAMMOGRAM-SCREENING Comments: Exam Date: 14: 12Dictation Date: 16:56 XM SCREENING (Better) Plan of Care Planned Observations Name Dates Details Planned Goals not documented Goal Planned Encounters Appointment; Provider: Eliel Patel On 09:00 Appointment; Provider: Cami Ladd On 19-Dec-2014 11:15 Appointment; Provider: Ady Hoffman On 25-Nov-2014 10:15 Instructions Instructions not documented Encounters Appointment; Cami Ladd On 10-Nov-2014 Encounter Diagnosis: [...] On Encounter Diagnosis: Problem not documented 10:00 Appointment; Ady Hoffman On 30-Nov-2012 Encounter Diagnosis: Problem not documented 15:00
--- OUTSIDE RECORDS SUMMARY | 2017-05-31 17:25 | External Medical Summary | Summary of Care ---
:1940 Author Name Sosa Santos Address [address] [place] [place], [place] [phone] Care Team Providers Name Role Phone Nilton [...] infection of skin (686.8, L08.89) Status: Active Medications Name Dates Details Brovana [...] LEGS TWICE DAILY. Quantity: 1 Refills: 2 Carloina JaegerYousif Start 26-May-2014 Active 50 GM Tube [...] 12-Dec-2008 Tdap (Adacel) on: 05-Dec-2013 Lot #: [id number] Prevnar 13 Intramuscular Suspension on: 05-Dec-2013 Lot #: [id number] Prevnar 13 Intramuscular Suspension on: 25-Nov-2014 Lot #: [id number] Fluvirin 0.5 ML Intramuscular Suspension Prefilled Syringe on: 20-May-2015 Fluzone High-Dose 0.5 ML Intramuscular Suspension Prefilled Syringe on: 2015 Pneumovax 23 25 MCG/0.5ML Injection Injectable on: 21-Jul-2016 Lot #: [id number] Family History Unknown Family Member Name Dates [...]
--- OUTSIDE RECORDS SUMMARY | 2017-05-31 17:26 | External Medical Summary | Summary of Care ---
:1940 Author Name Cami Ladd M.D. Address [address] [place], [place] [phone] Care Team Providers Name Role Phone Juve [...] Status: Active Emphysema/COPD (492.8, J43.9) Status: Active Depression (311, F32.9) Status: Active [...] Refills: 0 Yousif Figueroa M.D. Started 26-May-2014 Rucncg05 GM Tube Prolia 60 MG/ML Subcutaneous Solution [...] on:12-Dec-2008 Tdap (Adacel) Administered on:05-Dec-2013 Lot #: [id number] Prevnar 13 Intramuscular Suspension Administered on:05-Dec-2013 Lot #: [id number] Prevnar 13 Intramuscular Suspension Administered on:25-Nov-2014 Lot #: [id number] Family History Unknown Family Member Name Dates [...]
--- OUTSIDE RECORDS SUMMARY | 2017-05-31 17:26 | External Medical Summary | Summary of Care ---
:1940 Author Name Ofelia Hdez APRN Address [address] [place], [place] [phone] Care Team Providers Name Role Phone Ofelia [...] Refills: 2 Yousif Figueroa M.D. Started 26-May-2014 Ivwdhw12 GM Tube Prolia 60 MG/ML Subcutaneous Solution [...] on:12-Dec-2008 Tdap (Adacel) Administered on:05-Dec-2013 Lot #: [id number] Prevnar 13 Intramuscular Suspension Administered on:05-Dec-2013 Lot #: [id number] Prevnar 13 Intramuscular Suspension Administered on:25-Nov-2014 Lot #: [id number] Fluvirin 0.5 ML Intramuscular Suspension Prefilled Syringe [...]
--- OUTSIDE RECORDS SUMMARY | 2017-05-31 17:26 | External Medical Summary ---
:1940 Author Name GENERATED, SYSTEM Care Team Providers Name Role Phone MD CASIMIRO, MARILU Primary Care Provider [phone] Reason For Visit Chief Complaint DIMENTIA Social History Functional Status Vital Signs Results Chemistry from 05/28/2017 4:50 PM*COCAINENEGATIVE NG/ML (NEG <150 NG/ML) *PCPNEGATIVE NG/ML (NEG <25 NG/ML) *CANNABINOIDSNEGATIVE MG/DL (NEG <50 MG/DL) *BENZODIAZEINENEGATIVE NG/ML (NEG <200 NG/ML) *METHAMPHETAMINE/AMPHETAMINENEGATIVE NG/ML (NEG <500 NG/ML) *BARBITURATESNEGATIVE NG/ML (NEG <200 NG/ML) *OPIATESNEGATIVE NG/ML (NEG <300 NG/ML)Chemistry from 05/28/2017 4:18 [id number] MMOL/L (136-145 MMOL/L) POTASSIUM3.6 MMOL/L (3.5-5.1 MMOL/L) YFVAWERK467 MMOL/L (98-107 MMOL/L) XDN806.6 MMOL/L (21.0-32.0 MMOL/L) *ANION GAP7.4 MMOL/L L (8.0-16.0 MMOL/L) BUN20 MG/DL H (7-18 MG/DL) CREATININE0.51 MG/DL L (0.55-1.02 MG/DL) *BUN/CREATININE RATIO39.2 H (9.1-17.0 ) NQEDTRL47 MG/DL (65-99 MG/DL) *GFR EST NON AFR CZECH>90 ML/MIN (Reference Range: not available) *GFR EST AFR AMER>90 ML/MIN (Reference Range: not available) CALCIUM8.4 MG/DL L (8.5-10.1 MG/DL) BILIRUBIN TOTAL0.40 MG/DL (0.20-1.00 MG/DL) TOTAL PROTEIN6.5 GM/DL (6.4-8.2 GM/DL) ALBUMIN3.5 GM/DL (3.4-5.0 GM/DL) *GLOBULIN3.0 GM/DL (2.3-3.5 GM/DL) *A/G RATIO1.2 L (1.5-2.2 ) ALK PHOS61 U/L (46-116 U/L) ALT (SGPT)14 U/L L (16-63 U/L) AST (SGOT)12 U/L L (15-37 U/L) MAGNESIUM2.3 MG/DL (1.8-2.4 MG/DL) PHOSPHORUS3.3 MG/DL (2.6-4.7 MG/DL) TSH2.953 UIU/ML (0.340-4.820 UIU/ML) ALCOHOL<0.003 GM/DL (Reference Range: not available) ACETAMINOPHEN<2 MCG/ML L (10-30 MCG/ML) SALICYLATE0.3 MG/DL L (2.8-20.0 MG/DL)Hematology from 05/28/2017 4:18 PMWBC9.2 X10e3/UL (3.6-11.2 X10e3/UL) RBC4.40 X10e6/UL (3.63-4.92 X10e6/UL) AAEVUPYBVN06.1 G/DL (11.0-14.3 G/DL) RCDBOZAGVZ07.7 % (31.2-41.9 %) *MCV94.6 FL (79.0-98.0 FL) *MCH32.1 PG (27.0-33.0 PG) *MCHC33.9 G/DL (32.0-36.0 G/DL) *RDW13.4 % (12.3-17.0 %) *RDWSD44.6 (37.1-47.8 ) [id number] X10e3/UL (159-386 X10e3/UL) *MPV9.8 FL (7.4-10.4 FL) AUTOMATED DIFFPERFORMED (Reference Range: not available) SEGS77.1 % (Reference Range: not available) *LYMPHOCYTES6.4 % (Reference Range: not available) *MONOCYTES9.9 % (Reference Range: not available) *EOSINOPHILS5.5 % (Reference Range: not available) *BASOPHILS1.1 % (Reference Range: not available) *ABSOLUTE NEUTROPHILS7.10 X10e3/UL (1.80-7.80 X10e3/UL) *ABSOLUTE LYMPHOCYTES0.60 X10e3/UL L (1.00-3.00 X10e3/UL) *ABSOLUTE MONOCYTES0.90 X10e3/UL (0.30-1.00 X10e3/UL) *ABSOLUTE EOSINOPHILS0.50 X10e3/UL (0.00-0.50 X10e3/UL) *ABSOLUTE BASOPHILS0.10 X10e3/UL (0.00-0.20 X10e3/UL)Urinalysis from 05/28/2017 4:50 PM*URINE COLORYELLOW (STRAW/YELL/DK YELL ) *URINE APPEARANCECLEAR (CLEAR ) URINE PH7.5 (5.0-8.0 ) URINE SPECIFIC GRAVITY1.015 (<=1.005->=1.030 ) *URINE GLUCOSENEGATIVE MG/DL (NEGATIVE MG/DL) *URINE BILIRUBINNEGATIVE (NEGATIVE ) *URINE EPQKWEI64 MG/DL A (NEGATIVE MG/DL) *URINE BLOODSMALL A (NEGATIVE ) *URINE PROTEINNEGATIVE MG/DL (NEGATIVE MG/DL) *URINE UROBILINOGEN0.2 EU/DL (0.2-1.0 EU/DL) *URINE NITRITESNEGATIVE (NEGATIVE ) *URINE LEUKOCYTESNEGATIVE (NEGATIVE ) *MICROSCOPIC EXAM PERFORMEDPERFORMED (Reference Range: not available) *WBC URINE1-5 /HPF (0-5 /HPF) *RBC URINE1-5 /HPF A (0-1 /HPF) *SQUAMOUS EP. CELLSMANY /LPF A (NEG-FEW /LPF) *BACTERIAFEW /HPF A (NEGATIVE /HPF) Problems Encounter Diagnosis No relevant problems exist. [...] Allergies, Adverse Reactions, Alerts This section is order entry representative of the current allergy information, at [...]
--- OUTSIDE RECORDS SUMMARY | 2017-05-31 17:26 | External Medical Summary ---
:1940 Author Name GENERATED, SYSTEM Care Team Providers Name Role Phone MD CASIMIRO, MARILU Primary Care Provider [phone] Reason For Visit Reason for Visit from 02/08/2017 5:05 PM:Pt Stated Reason for Adm : Hypertensive Encephalopathy Chief Complaint HYPERTENSIVE ENCEPHALOPATHY Social History Social History from 02/09/2017 9:17 AM:Tobacco Use? : Never SmokerSocial History from 02/08/2017 5:05 PM:Tobacco Use? : Never Smoker Functional Status Functional Status from 02/09/2017 10:22 AM:# Assists : 1Functional Status from 9:12 AM:# Assists : 1Functional Status from 02/09/2017 7:27 AM:LOC : DrowsyOriented To : PersonWeight Bearing Status : PartialAssist Level : Partial # Assists : 1Functional Status from 02/08/2017 7:20 PM:LOC : ConfusedOriented To : Unable to AssessWeight Bearing Status : FullAssist Level : Partial# Assists : 1Functional Status from 02/08/2017 5:05 PM:LOC : ConfusedOriented To : Unable to AssessWeight Bearing Status : FullAssist Level : Independent# Assists : 1 Vital Signs Hospital Vital Signs from 02/09/2017 11:00 AM:Temp : 98.1Systolic BP (mmHg) : 149Diastolic BP (mmHg) : 89Mean BP (mmHg) : 121O2 Saturation (%) : 96Hospital Vital Signs from 02/09/2017 9:21 AM:Weight : 58.6/ kgHeight : 5/4 ft,inHospital Vital Signs from 02/09/2017 9:00 AM:Systolic BP (mmHg) : 166Diastolic BP (mmHg) : 95Mean BP (mmHg) : 139O2 Saturation (%) : 94Hospital Vital Signs from 2016 8:30 AM:Temp : 97.6Heart Rate : 79Resp Rate : 17Systolic BP (mmHg) : 147Diastolic BP (mmHg) : 70Mean BP (mmHg) : 99O2 Saturation (%) : 94Hospital Vital Signs from 02/09/2017 8:00 AM:Heart Rate : 70Resp Rate : 21Systolic BP ( mmHg) : 130Diastolic BP (mmHg) : 60Mean BP (mmHg) : 88O2 Saturation (%) : 95Hospital Vital Signs from 02/09/2017 7:30 AM:Heart Rate : 68Resp Rate : 16Systolic BP (mmHg) : 129Diastolic BP (mmHg) : 69Mean BP (mmHg) : 98O2 Saturation (%) : 99Hospital Vital Signs from 02/09/2017 7:00 AM:Heart Rate : 69Resp Rate : 17Systolic BP (mmHg) : 141Diastolic BP (mmHg) : 63Mean BP (mmHg) : 91O2 Saturation (%) : 99Hospital Vital Signs from 02/09/2017 6:30 AM:Heart Rate : 68Resp Rate : 16Systolic BP (mmHg) : 115Diastolic BP (mmHg) : 58Mean BP ( mmHg) : 76O2 Saturation (%) : 98Hospital Vital Signs from 02/09/2017 5:00 AM: Systolic BP (mmHg) : 145Diastolic BP (mmHg) : 90Mean BP (mmHg) : 110Hospital Vital Signs from 02/09/2017 4:45 AM:Heart Rate : 76Resp Rate : 13O2 Saturation (% ) : 98Hospital Vital Signs from 02/09/2017 4:36 AM:Weight : 58.6/ kgHeight : 5/4 ft,inHospital Vital Signs from 02/09/2017 4:30 AM:Heart Rate : 83Resp Rate : 27Systolic BP (mmHg) : 190Diastolic BP (mmHg) : 164Mean BP (mmHg) : 182O2 Saturation (%) : 98Hospital Vital Signs from 02/09/2017 4:15 AM:Heart Rate : 92Resp Rate : 32O2 Saturation (%) : 99Hospital Vital Signs from 02/09/2017 4:00 AM:Heart Rate : 95Resp Rate : 21Systolic BP (mmHg) : 173Diastolic BP (mmHg) : 88Mean BP (mmHg) : 133O2 Saturation (%) : 97Hospital Vital Signs from 02/09/2017 3:45 AM:Heart Rate : 100Resp Rate : 27O2 Saturation (%) : 97Hospital Vital Signs from 02/09/2017 3:30 AM:Heart Rate : 74Resp Rate : 61Systolic BP (mmHg) : 148Diastolic BP (mmHg) : 76Mean BP (mmHg) : 93O2 Saturation (%) : 99Hospital Vital Signs from 02/09/2017 3:15 AM:Heart Rate : 80Resp Rate : 20O2 Saturation (% ) : 100Hospital Vital Signs from 02/09/2017 3:00 AM:Temp : 98Heart Rate : 75Resp Rate : 19Systolic BP (mmHg) : 136Diastolic BP (mmHg) : 71Mean BP (mmHg) : 95O2 Saturation (%) : 98Hospital Vital Signs from 02/09/2017 2:45 AM:Heart Rate : 77Resp Rate : 18O2 Saturation (%) : 98Hospital Vital Signs from 02/09/2017 2:30 AM:Heart Rate : 77Resp Rate : 17Systolic BP (mmHg) : 137Diastolic BP (mmHg) : 69Mean BP (mmHg) : 87O2 Saturation (%) : 98Hospital Vital Signs from 02/09/2017 2 :15 AM:Heart Rate : 82Resp Rate : 54O2 Saturation (%) : 98Hospital Vital Signs from 02/09/2017 2:00 AM:Heart Rate : 79Resp Rate : 39Systolic BP (mmHg) : 147Diastolic BP (mmHg) : 78Mean BP (mmHg) : 106O2 Saturation (%) : 99Hospital Vital Signs from 02/09/2017 1:45 AM:Heart Rate : 79Resp Rate : 18O2 Saturation (% ) : 99Hospital Vital Signs from 02/09/2017 1:30 AM:Heart Rate : 82Resp Rate : 18Systolic BP (mmHg) : 155Diastolic BP (mmHg) : 71Mean BP (mmHg) : 107O2 Saturation (%) : 98Hospital Vital Signs from 02/09/2017 1:15 AM:Heart Rate : 100Resp Rate : 15O2 Saturation (%) : 94Hospital Vital Signs from 02/09/2017 12: 45 AM:Heart Rate : 80Resp Rate : 20O2 Saturation (%) : 97Hospital Vital Signs from 02/09/2017 12:30 AM:Heart Rate : 85Resp Rate : 20Systolic BP (mmHg) : 159Diastolic BP (mmHg) : 83Mean BP (mmHg) : 121O2 Saturation (%) : 95Hospital Vital Signs from 02/09/2017 12:15 AM:Heart Rate : 79Resp Rate : 17O2 Saturation ( %) : 97Hospital Vital Signs from 02/09/2017 12:00 AM:Heart Rate : 96Resp Rate : 18Systolic BP (mmHg) : 146Diastolic BP (mmHg) : 77Mean BP (mmHg) : 86O2 Saturation (%) : 97Hospital Vital Signs from 02/08/2017 11:45 PM:Heart Rate : 85Resp Rate : 19O2 Saturation (%) : 99Hospital Vital Signs from 02/08/2017 11:30 PM:Heart Rate : 95Resp Rate : 19Systolic BP (mmHg) : 147Diastolic BP (mmHg) : 79Mean BP (mmHg) : 100O2 Saturation (%) : 99Hospital Vital Signs from 02/08/2017 11:15 PM:Heart Rate : 102Resp Rate : 26Systolic BP (mmHg) : 163Diastolic BP ( mmHg) : 85Mean BP (mmHg) : 121O2 Saturation (%) : 98Hospital Vital Signs from 11:00 PM:Temp : 98.8Heart Rate : 83Resp Rate : 17Systolic BP (mmHg) : 175Diastolic BP (mmHg) : 95Mean BP (mmHg) : 120O2 Saturation (%) : 98Hospital Vital Signs from 02/08/2017 10:45 PM:Heart Rate : 90Resp Rate : 19Systolic BP ( mmHg) : 176Diastolic BP (mmHg) : 83Mean BP (mmHg) : 115O2 Saturation (%) : 98Hospital Vital Signs from 02/08/2017 10:30 PM:Heart Rate : 89Resp Rate : 20Systolic BP (mmHg) : 161Diastolic BP (mmHg) : 92Mean BP (mmHg) : 124O2 Saturation (%) : 97Hospital Vital Signs from 02/08/2017 10:15 PM:Heart Rate : 110Resp Rate : 19Systolic BP (mmHg) : 120Diastolic BP (mmHg) : 60Mean BP (mmHg) : 80O2 Saturation (%) : 96Hospital Vital Signs from 02/08/2017 10:00 PM:Heart Rate : 92Resp Rate : 19Systolic BP (mmHg) : 152Diastolic BP (mmHg) : 86Mean BP ( mmHg) : 102O2 Saturation (%) : 97Hospital Vital Signs from 02/08/2017 9:45 PM: Heart Rate : 99Resp Rate : 20Systolic BP (mmHg) : 154Diastolic BP (mmHg) : 82Mean BP (mmHg) : 118O2 Saturation (%) : 98Hospital Vital Signs from 02/08/2017 9:30 PM:Heart Rate : 95Resp Rate : 22Systolic BP (mmHg) : 146Diastolic BP (mmHg ) : 84Mean BP (mmHg) : 118O2 Saturation (%) : 98Hospital Vital Signs from 2016 9:15 PM:Resp Rate : 38Systolic BP (mmHg) : 145Diastolic BP (mmHg) : 95Mean BP (mmHg) : 103O2 Saturation (%) : 90Hospital Vital Signs from 02/08/2017 9:00 PM :Heart Rate : 103Resp Rate : 21Systolic BP (mmHg) : 168Diastolic BP (mmHg) : 92Mean BP (mmHg) : 109O2 Saturation (%) : 98Hospital Vital Signs from 02/08/2017 8:45 PM:Heart Rate : 108Resp Rate : 51Systolic BP (mmHg) : 173Diastolic BP (mmHg ) : 83Mean BP (mmHg) : 125O2 Saturation (%) : 98Hospital Vital Signs from 2016 8:30 PM:Heart Rate : 106Resp Rate : 54Systolic BP (mmHg) : 173Diastolic BP (mmHg) : 110Mean BP (mmHg) : 123O2 Saturation (%) : 98Hospital Vital Signs from 02/08/2017 8:15 PM:Heart Rate : 108Resp Rate : 29Systolic BP (mmHg) : 188Diastolic BP (mmHg) : 101Mean BP (mmHg) : 141O2 Saturation (%) : 99Hospital Vital Signs from 02/08/2017 8:00 PM:Heart Rate : 111Resp Rate : 36Systolic BP ( mmHg) : 199Diastolic BP (mmHg) : 116Mean BP (mmHg) : 129O2 Saturation (%) : 98Hospital Vital Signs from 02/08/2017 7:45 PM:Heart Rate : 111Resp Rate : 17Systolic BP (mmHg) : 219Diastolic BP (mmHg) : 125Mean BP (mmHg) : 138O2 Saturation (%) : 99Hospital Vital Signs from 02/08/2017 7:30 PM:Heart Rate : 110Resp Rate : 17Systolic BP (mmHg) : 220Diastolic BP (mmHg) : 115Mean BP (mmHg ) : 179O2 Saturation (%) : 98Hospital Vital Signs from 02/08/2017 7:15 PM:Temp : 97.4Systolic BP (mmHg) : 226Diastolic BP (mmHg) : 151Mean BP (mmHg) : 160O2 Saturation (%) : 89Hospital Vital Signs from 02/08/2017 6:00 PM:Heart Rate : 104O2 Saturation (%) : 99Hospital Vital Signs from 02/08/2017 5:45 PM:Heart Rate : 94O2 Saturation (%) : 99Hospital Vital Signs from 02/08/2017 5:30 PM:Heart Rate : 95O2 Saturation (%) : 100Hospital Vital Signs from 02/08/2017 5:15 PM: Heart Rate : 105Systolic BP (mmHg) : 175Diastolic BP (mmHg) : 115Mean BP (mmHg) : 127O2 Saturation (%) : 10Hospital Vital Signs from 02/08/2017 5:05 PM:Weight : 58.9/ kgHeight : 5/4 ft,in Results Blood Gas from 02/08/2017 7:40 PM*ARTERIAL PH7.437 (7.350-7.450 ) *ARTERIAL GM8020.3 MM HG (35.0-45.0 MM HG) *ART. QB2469 MM HG H (80-95 MM HG) *ART. TOTAL CO220.8 mmol/L (20.0-30.0 mmol/L) *ART. CTIOLXHXFHE53.1 MEQ/L (19.0-29.0 MEQ/L) *ART. BASE EXCESS0.8 (-2.5-2.5 ) ART. O2 VNPMFVXGBI55.7 % H (91.0-97.0 %) *PATIENT ATMOSPHERE2 LITERS (Reference Range: not available) *SPECIMEN SITEARTERIAL (Reference Range: not available) Chemistry from 02/09/2017 4:18 [id number] MMOL/L (136-145 MMOL/L) POTASSIUM3.1 MMOL/L L (3.5-5.1 MMOL/L) KIGGOXCJ805 MMOL/L (98-107 MMOL/L) EAV340.4 MMOL/L (21.0-32.0 MMOL/L) *ANION GAP10.6 MMOL/L (8.0-16.0 MMOL/L) BUN8 MG/DL (7-18 MG/DL) CREATININE0.52 MG/DL L (0.55-1.02 MG/DL) *BUN/CREATININE RATIO15.4 (9.1-17.0 ) UEGBEZQ065 MG/DL H (65-99 MG/DL) *GFR EST NON AFR BELGIAN>90 ML/MIN (Reference Range: not available) *GFR EST AFR AMER>90 ML/MIN (Reference Range: not available) CALCIUM7.7 MG/DL L (8.5-10.1 MG/DL) ALBUMIN3.4 GM/DL (3.4-5.0 GM/DL) PHOSPHORUS2.7 MG/DL (2.6-4.7 MG/DL)Hematology from 02/09/2017 4:18 AMWBC9.4 X10e3 /UL (3.6-11.2 X10e3/UL) RBC4.52 X10e6/UL (3.63-4.92 X10e6/UL) SATXGUCOIY61.2 G/DL (11.0-14.3 G/DL) BCIRYUITNY09.1 % H (31.2-41.9 %) *MCV93.1 FL (79.0-98.0 FL) *MCH31.5 PG (27.0-33.0 PG) *MCHC33.8 G/DL (32.0-36.0 G/DL) *RDW12.4 % (12.3-17.0 %) *RDWSD40.3 (37.1-47.8 ) SLFIBUUH051 X10e3/UL (159-386 X10e3/UL) *MPV10.3 FL (7.4-10.4 FL) AUTOMATED DIFFPERFORMED (Reference Range: not available) SEGS85.4 % (Reference Range: not available) *LYMPHOCYTES5.4 % (Reference Range: not available) *MONOCYTES8.4 % (Reference Range: not available) *EOSINOPHILS0.2 % (Reference Range: not available) *BASOPHILS0.6 % (Reference Range: not available) *ABSOLUTE NEUTROPHILS8.00 X10e3/UL H (1.80-7.80 X10e3/UL) *ABSOLUTE LYMPHOCYTES0.50 X10e3/UL L (1.00-3.00 X10e3/UL) *ABSOLUTE MONOCYTES0.80 X10e3/UL (0.30-1.00 X10e3/UL) *ABSOLUTE EOSINOPHILS0.00 X10e3/UL (0.00-0.50 X10e3/UL) *ABSOLUTE BASOPHILS0.10 X10e3/UL (0.00-0.20 X10e3/UL) Problems Encounter Diagnosis Altered Mental Status Status:Active.Anxiety Status:Active.Chronic Obstructive Lung Disease Status:Active.Dementia Status:Active.Depression Status:Active.Fall Risk Status:Active.History of Anemia Status:Active.Hypertensive Disorder Status: Active.Osteoporosis Status:Active.Poor Short Term Memory Status: Active.Pulmonary Emphysema Status:Active.Skin Integrity Impairment Risk Status: Active.Vertigo Status:Active.Additional Problems Activity Intolerance Comment:Problem resolved by Soarian [...] Workflow upon Discharge, Status:Resolved. Encounters Encounter Diagnosis Altered Mental Status Status:Active.Anxiety Status:Active.Chronic Obstructive Lung Disease Status:Active.Dementia Status:Active.Depression Status:Active.Fall Risk Status:Active.History of Anemia Status:Active.Hypertensive Disorder Status: Active.Osteoporosis Status:Active.Poor Short Term Memory Status: Active.Pulmonary Emphysema Status:Active.Skin Integrity Impairment Risk Status: Active.Vertigo Status:Active. Plan of Care Follow-up Appointments from 02/09/2017 9:17 AM:#1 Office appointment: : Dr. Ladd #1 Date/Time : 02/16/2017 2:15 PMAddress # 1 : [facility]: [address] [place]- or Treatment Plan from 02/09/2017 12 :00 PM:Care Management Note : BODY,TD,TH,BUTTON,INPUT,SELECT,TEXTAREA{FONT-SIZE : 10pt; FONT-FAMILY: [place],Helvetica; COLOR: black;} P,DIV,UL,OL,BLOCKQUOTE{ MARGIN-BOTTOM: 0px; MARGIN-TOP: 0px;} BODY{MARGIN: 5px;} Received call from Susie - [facility] for patient - that patient is being discharged and is concerned about patient returning home without services. [facility] spouse and son will be here around 11 a.m. In meantime, daughter from [place] - Rita - called, expressing concern for patient. [facility] patient has dementia and that spouse is getting worn out and is weak himself. Family has been working with them to convince both of them to go to assisted living. She plans to be here on Monday. Informed her patient is being discharged today. She is very concerned and we discussed discharge options. She would like to see patient get home health and maybe even a telecommunications repairer - as the spouse does all of it. Patient is not taking her meds like she should, partly because she can't remember if she took it or not. Has also had several falls in the last few months. Informed daughter I would visit with patientwhen her spouse and son got here, and try to convince to try services. After receiving call from nurse when family got here, went to visit with all of them. Patient getting anxious to get out of hospital. Discussed concern of needing home health nurse to help with meds, etc. Patient would look to spouse for decision, but made it clear does not like strangers in her home. Explained that home health is not out every day and when do come, they do what they need to do and leave, and would not be out every day. Patient relaxed a little hearing that. Spouse did express help with housekeeping and discussed Dept on Aging. They agreed to referral to Dept. on Aging. Spouse chose [facility] for home health and would like referral for home health and to Dept on Aging. Also provided information on assisted living, as family is having a "big pow wow" this weekend to talk with them about assisted living.Referrals made.Treatment Plan from 02/09/2017 11:04 AM :Care Management Note : BODY,TD,TH,BUTTON,INPUT,SELECT,TEXTAREA{FONT-SIZE: 10pt ; FONT-FAMILY: [place],Helvetica; COLOR: black;} P,DIV,UL,OL,BLOCKQUOTE{MARGIN- BOTTOM: 0px; MARGIN-TOP: 0px;} BODY{MARGIN: 5px;}Patient admitted inpatient status to ICU after presenting to ED w/ c/o confusion starting 3 hours prior. Patient unable to give history, spouse at bedside. Spouse reports that patient does have some dementia, but not this severe. Patient aphasic and BP 208/124. Stroke alert center notified and evaluated patient. Patient started on Cardene drip and ASA 81 mg in ED. UA pending. EKG: SR. Patientfound to have hypertensive encephalopathy. Patient admitted to ICU to monitor BP and titrate IV drip. Patient meets inpatient criteria w/ anticipated LOS > 2 midnights.VS: 208/124, 56, 20, 97.7, 97% on RALabs: Troponin: negative, Na: 140 , K+: 3.5, Cl: 101, TCO2: 29.6, BUN: 11, Creat: 0.56, WBC: 7.4, Hgb: 15.5, Hct: 46.Patient seen by Dr. Alcazar this am. Dr. Alcazar admitted patient as inpatient status because condition warranted anticipated LOS > [address] Alcazar feels patient is appropriate for discharge and that the patient's condition improved faster than anticipated. Patient will remain inpatient status at this time. Plan is to discharge home with today. meeting with and son today to discharge plans. Procedures Completed Procedure Code: 00.00 Procedure Name: not valued, on 11/28/2014 12:00 AM Immunizations No immunizations administered or ordered. Hospital Course Hospital Discharge Instructions How to care for yourself at home from 02/09/2017 9:17 AM:Discharge Activity : Activity as tolerated,May ShowerDischarge Diet : Diet as toleratedCall your doctor if: : Fever over 101 F or severe chills,Chest pain or other unexplained symptoms,Tingling or numbness develops,A sudden increase or decrease in weight, You have persistent or worsening symptoms,If you have Heart Failure and you gain 3 pounds within 1 week or your symptoms worsen. (Weigh at home tomorrow morning)Specific Discharge Teaching Instructions provided: : NoDischarge on Warfarin : No Allergies, Adverse Reactions, Alerts This section is treasury representative of the current allergy information, at the time of the CCD generation. In the case of regeneration of the CCD, the allergy information may not reflect the state of known allergies at the time of the CCD' s subject visit. Levaquin causes unspecified.No Latex Allergy.No IV Contrast Allergy.No Known Food Allergies. Medication It is the responsibility of the patient or patient treasury representative to confirm the list of medicationswith either the patient's personal care provider or the patient's follow-up care provider to ensure the patient has an appropriate list of medications to take at home. Discharge medicationsNew medicationsarformoterol (Brovana) 15 mcg/2 mL Solution for Nebulization, Ordered By: SNEHAL ALCAZAR MD Directions: 2 mL by inhalation every twelve hours aspirin 81 mg tablet,delayed release (DR/EC), Ordered By: SNEHAL ALCAZAR MD Directions: 1 tablet oral daily budesonide 0.25 mg/2 mL Suspension for Nebulization, Ordered By: SNEHAL ALCAZAR MD Directions: 2 mL by inhalation twice a day albuterol sulfate (ProAir RespiClick) 90 mcg Aerosol Powdr Breath Activated Directions: 1-2 by inhalation every four hours PRN shortness of breath MEMAntine (Namenda) 10 mg Tablet, Ordered By: SNEHAL ALCAZAR MD Directions: 1 tablet oral twice a day denosumab (Prolia) 60 mg/mL Syringe, Ordered By: SNEHAL ALCAZAR MD Directions: 1 mL subcutaneous every 6 months umeclidinium (Incruse Ellipta) 62.5 mcg/actuation blister with device, Ordered By: SNEHAL ALCAZAR MD Directions: 1 each by inhalation daily every morning amLODIPine (NorvASC) 10 mg Tablet, Ordered By: SNEHAL ALCAZAR MD Directions: 1 tablet oral daily Stopped medicationsNone
--- OUTSIDE RECORDS SUMMARY | 2017-05-31 17:26 | External Medical Summary | Summary of Care ---
:1940 Author Name Cami Ladd M.D. 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 Started 26-May-2014 [id number] GM Tube Amoxicillin 500 MG Oral Capsule TAKE 1 CAPSULE 3 TIMES DAILY UNTIL GONE. Quantity: 30 Refills: 0 Cami Ladd M.D. Started 10-Nov-2014 Ended 20-Nov-2014 ActiveProlia 60 MG/ML Subcutaneous Solution INJECT SUBCUTANEOUSLY [...] History of Complete Colonoscopy ECG/ EKG Preop Pendin11-Nov-2014 CBC w/ Auto Diff 7150 Ordered:06-Nov-2014 Comprehensive Metabolic Panel 1212 Ordered:06-Nov-2014 LIPID PROFILE 1184 Ordered:06-Nov-2014 THYROID STIM. HORMONE 3602 Ordered:06-Nov-2014 Urinalysis, Reflex to Microscopic or Culture PRN 8005 Ordered:06-Nov-2014 Vitamin D, 25 - Hydroxy 3111 Ordered:10-Nov-2014 CBC w/ Auto Diff 7150 Ordered:11-Nov-2014 BASIC METABOLIC PROFILE 1210 Ordered:11-Nov-2014 Urinalysis, Reflex to Microscopic or Culture PRN 8005 Ordered:11-Nov-2014 XRay CHEST-PA & LAT Ordered:11-Nov-2014 Immunization Name Dates Details Pneumo (Pneumovax) Administered on:12-Dec-2008 Tdap (Adacel) Administered on:05-Dec-2013 Lot #: [id number] Prevnar 13 Intramuscular Suspension Administered on:05-Dec-2013 Lot #: [id number] Family History Unknown Family Member Name Dates [...] Appointment; Provider: Cami Ladd On 04-Dec-2014 14:45 Appointment; Provider: Ady Hoffman On 25-Nov-2014 10:15 [...] Encounter Diagnosis: Problem not documented 10:30 Appointment; Eleil Patel On Encounter Diagnosis: Problem not documented [...]
--- OUTSIDE RECORDS SUMMARY | 2017-05-31 17:26 | External Medical Summary | Summary of Care ---
:1940 Author Name Cami Ladd M.D. Address [address] [place], [place] [id number] Care Team Providers Name Role Phone Juve [...] Refills: 0 Yousif Figueroa M.D. Started 26-May-2014 [id number] GM Tube Prolia 60 MG/ML Subcutaneous Solution [...] to Microscopic or Culture PRN 8005 Ordered:11-Nov-2014 Immunization Name Dates Details Pneumo (Pneumovax) Administered on:12-Dec-2008 Tdap (Adacel) Administered on:05-Dec-2013 Lot #: [id number] Prevnar 13 Intramuscular Suspension Administered on:05-Dec-2013 Lot #: [id number] Prevnar 13 Intramuscular Suspension Administered on:25-Nov-2014 Lot #: [id number] Family History Unknown Family Member Name Dates [...] DOS 12-17-14 AND 12-24-14 DR. MCCLENDON @ [facility] WBC 6.7 K/uL (Better) Range: 4.5-11.0 RBC [...] DOS 12-17-14 AND 12-24-14 DR. MCCLENDON @ [facility] 1210 SODIUM 136 mmol/L (Better) Range: 133-144 POTASSIUM 3.6 mmol/L (Better) Range: 3.5-5.1 CHLORIDE 99 mmol/L (Better) Range: 98-110 CARBON DIOXIDE 31.1 mmol/L (Better) Range: 23.0-33.0 ANION GAP 6 mmol/L (Better) Range: 6-16 BUN 11 mg/dL (Better) Range: 7-18 CREATININE, SERUM 0.58 mg/dL (Better) Range: 0.43-1.13 EST GFR, >60 ml/min Range: >60 LIBYAN (Better) EST GFR, NON-AFR >60 ml/min Range: >60 LIBYAN (Better) Comments: EST GFR is reported in ml/min per 1.73 m2 of body surface area. For -Dominican, please multiple result by 1.2.----- BUN:CREATININE RATIO 19 (Better) GLUCOSE 81 mg/dL (Better) Range: 70-100 CALCIUM 8.2 mg/dL (Below low Range: 8.5-10.1 threshold) Comments: Verified by Repeat Analysis----- 14:41 XRay CHEST-PA & LAT Comments: Exam Date: 14: 08Dictation Date: 14:41 X CHEST PA & LAT (Better) Plan of Care Planned Observations Name [...]
--- OUTSIDE RECORDS SUMMARY | 2017-05-31 17:26 | External Medical Summary | Summary of Care ---
:1940 Author Name Cami Ladd M.D. Address [address] [place], [place] [id number] Care Team Providers Name Role Phone Juve [...] Refills: 2 Yousif Figueroa M.D. Started 26-May-2014 [id number] GM Tube Prolia 60 MG/ML Subcutaneous Solution [...] History of Hysterectomy History of Complete Colonoscopy Comprehensive Metabolic Panel 1212 Ordered:20-Jul-2015 THYROID STIM. HORMONE 3602 Ordered:20-Jul-2015 Urinalysis, Reflex to Microscopic or Culture PRN 8005 Ordered:20-Jul-2015 Immunization Name Dates Details Pneumo (Pneumovax) Administered on:12-Dec-2008 Tdap (Adacel) Administered on:05-Dec-2013 Lot #: [id number] Prevnar 13 Intramuscular Suspension Administered on:05-Dec-2013 Lot #: [id number] Prevnar 13 Intramuscular Suspension Administered on:25-Nov-2014 Lot #: [id number] Fluvirin 0.5 ML Intramuscular Suspension Prefilled Syringe [...] 150-400 MPV 8.5 fL (Better) Range: 6.0-11.0 Plan of Care Planned Observations Name Dates [...] Diagnosis: Problem not documented 06:45 Appointment; Yousif iFgueroa On 05-May-2015 Encounter Diagnosis: Problem not documented [...]
--- OUTSIDE RECORDS SUMMARY | 2017-05-31 17:26 | External Medical Summary | Summary of Care ---
:1940 Author Name Cami Ladd M.D. Address [address] [place], [place] [id number] Care Team Providers Name Role Phone [place] [...] on:12-Dec-2008 Tdap (Adacel) Administered on:05-Dec-2013 Lot #: [id number] Prevnar 13 Intramuscular Suspension Administered on:05-Dec-2013 Lot #: [id number] Prevnar 13 Intramuscular Suspension Administered on:25-Nov-2014 Lot #: [id number] Family History Unknown Family Member Name Dates [...]
--- OUTSIDE RECORDS SUMMARY | 2017-05-31 17:27 | External Medical Summary | Summary of Care ---
:1940 Author Name Cami Ladd M.D. Address [address] [place], [place] [address] Care Team Providers Name Role Phone Carolina [...] of leg weakness (729.89, R29.898) Status: Active Memory impairment (780.93, R41.3) Status: Active Depression (311, F32.9) Status: Active Hypokalemia (276.8, E87.6) Status: Active Medications Name Dates Details Brovana [...] Refills: 2 Yousif Figueroa M.D. Started 26-May-2014 Tywmuf25 GM Tube Prolia 60 MG/ML Subcutaneous Solution [...] on:12-Dec-2008 Tdap (Adacel) Administered on:05-Dec-2013 Lot #: [id number] Prevnar 13 Intramuscular Suspension Administered on:05-Dec-2013 Lot #: [id number] Prevnar 13 Intramuscular Suspension Administered on:25-Nov-2014 Lot #: [id number] Fluvirin 0.5 ML Intramuscular Suspension Prefilled Syringe Administered on:May-2015 Family History Unknown Family Member Name Dates Details Family history of Asthma (V17.5) Comments: Family History Status: Active Father Name Dates Details Family history of myocardial infarction (V17.3, Z82.49) Status: Active Social History Name Dates Details Smoking StatusFormer smoker Vital Signs Date Test Result Details 20-Nov-2015 11:25 BP Systolic 116 mm[Hg] Status: BP Diastolic 70 mm[Hg] Status: Heart Rate 73 /min Status: Weight 140 lb Status: O2 SAT 98 % Status: Body Mass Index Calculated 24.03 kg/m2 Status: Body Surface Area Calculated 1.68 m2 Status: 20-Nov-2015 11:02 BP Systolic 137 mm[Hg] Status: [...] 2015.----- EST GFR, >60 ml/min Range: >60 GREENLANDIC (Better) EST GFR, NON-AFR >60 ml/min Range: >60 [place]ENLAND[place] (Better) Comments: EST GFR is reported in ml/min per 1.73 m2 of body surface area. For -Sudanese, please multiple result by 1.2.----- BUN:CREATININE RATIO 38 (Better) GLUCOSE 109 mg/dL (Above Range: 70-100 high threshold) CALCIUM 9.1 mg/dL (Better) Range: 8.5-10.1 Plan of Care Planned Observations Name Dates Details Planned Goals not documented Goal Planned Encounters Appointment; Provider: Ady Hoffman On 20-May-2016 10:15 Appointment; Provider: Eliel Patel On 09:30 Appointment; Provider: Cami Ladd On 10:45 Appointment; Provider: Ezekiel Sarmiento On 24-Dec-2015 10:00 Appointment; Provider: Chai Garcias On 16-Nov-2015 08:20 Instructions Instructions not documented Encounters Appointment; Cami Ladd On 20-Nov-2015 Encounter Diagnosis: [...] Encounter Diagnosis: Problem not documented 14:00 Appointment; Garysaurabh Ofelai On 04-Nov-2015 Encounter Diagnosis: Problem not documented [...]
--- OUTSIDE RECORDS SUMMARY | 2017-05-31 17:27 | External Medical Summary | Summary of Care ---
[...] Status: Active Hypoxia (799.02, R09.02) Status: Active Vitamin B12 deficiency (266.2, E53.8) [...] DAILY (Dx: J44.9/J43.9) Quantity: 120 Refills: 0 dAy Hoffman M.D. Start 15-Oct-2009 Active Halobetasol Propionate [...] 12-Dec-2008 Tdap (Adacel) on: 05-Dec-2013 Lot #: [id number] Prevnar 13 Intramuscular Suspension on: 05-Dec-2013 Lot #: [id number] Prevnar 13 Intramuscular Suspension on: 25-Nov-2014 Lot #: [id number] Fluvirin 0.5 ML Intramuscular Suspension Prefilled Syringe [...] 12-Apr-2016 08:55 BP Systolic 138 mm[Hg] Status: BP Diastolic 72 mm[Hg] Status: Heart Rate 76 /min Status: Height 64 [...] Problem not documented 14:15 Appointment; Eliel Patel M.D.|DONYA|Mil,FACHafsa|Mil,FACHafsa, On Encounter Diagnosis: Problem not documented 11:00 [...]
--- OUTSIDE RECORDS SUMMARY | 2017-05-31 17:27 | External Medical Summary | Summary of Care ---
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.] Problem not documented 14:15 Appointment; Eliel Patel M.D.|ANDREIA,ANDREIA,[facility], On Encounter Diagnosis: Problem not documented [...] Problem not documented 11:45 Appointment; Mireya Rosario, P.AsAhley On 20-Nov-2015 Encounter Diagnosis: Problem not documented 11:00 Appointment; Yousif Figueroa M.D. On 17-Nov-2015 Encounter Diagnosis: Problem not documented 17:45 Appointment; Yosuif Figueroa M.D. On 16-Nov-2015 Encounter Diagnosis: Problem [...]
--- OUTSIDE RECORDS SUMMARY | 2017-05-31 17:27 | External Medical Summary | Summary of Care ---
:1940 Author Name Cami Ladd M.D. Address [address] [place], [place] [address] Care Team Providers Name Role Phone Carolina [...] Refills: 2 Yousif Figueroa M.D. Started 26-May-2014 [id number] GM Tube Prolia 60 MG/ML Subcutaneous Solution [...] on:12-Dec-2008 Tdap (Adacel) Administered on:05-Dec-2013 Lot #: [id number] Prevnar 13 Intramuscular Suspension Administered on:05-Dec-2013 Lot #: [id number] Prevnar 13 Intramuscular Suspension Administered on:25-Nov-2014 Lot #: [id number] Fluvirin 0.5 ML Intramuscular Suspension Prefilled Syringe [...] 2015.----- EST GFR, >60 ml/min Range: >60 LAO (Better) EST GFR, NON-AFR >60 ml/min Range: >60 LAO (Better) Comments: EST GFR is reported in ml/min per 1.73 m2 of body surface area. For -Angolan, please multiple result by 1.2.----- BUN:CREATININE RATIO [...]
--- OUTSIDE RECORDS SUMMARY | 2017-05-31 17:27 | External Medical Summary ---
:1940 Author Name GENERATED, SYSTEM Care Team Providers Name Role Phone MD CASIMIRO, MARILU Primary Care Provider [phone] Reason For Visit Chief Complaint FALL Social [...] Allergies, Adverse Reactions, Alerts This section is telephone services sales representative of the current allergy information, at [...]
--- OUTSIDE RECORDS SUMMARY | 2017-05-31 17:27 | External Medical Summary | Summary of Care ---
:1940 Author Name Anirudh Bustos Geeta Address [address] [place] [address] Care Team Providers Name Role Phone Ofelia [...] Refills: 2 Yousif Figueroa M.D. Started 26-May-2014 [id number] GM Tube Prolia 60 MG/ML Subcutaneous Solution [...] on:12-Dec-2008 Tdap (Adacel) Administered on:05-Dec-2013 Lot #: [id number] Prevnar 13 Intramuscular Suspension Administered on:05-Dec-2013 Lot #: [id number] Prevnar 13 Intramuscular Suspension Administered on:25-Nov-2014 Lot #: [id number] Fluvirin 0.5 ML Intramuscular Suspension Prefilled Syringe Administered on:May-2015 Family History Unknown Family Member Name Dates Details Family history of Asthma (V17.5) Comments: Family History Status: Active Father Name Dates Details Family history of myocardial infarction (V17.3, Z82.49) Status: Active Social History Name Dates Details Smoking StatusFormer smoker Vital Signs Date Test Result Details 09-Nov-2015 14:15 Heart Rate 117 /min Status: [...] 09:45 Instructions Instructions not documented Encounters Appointment; Geeta Oleary On 09-Nov-2015 Encounter Diagnosis: [...]
--- OUTSIDE RECORDS SUMMARY | 2017-05-31 17:27 | External Medical Summary ---
:1940 Author Name GENERATED, SYSTEM Care Team Providers Name Role Phone MD CASIMIRO, MARILU Primary Care Provider [phone] Reason For Visit Chief Complaint SOB Social History Functional Status Vital Signs Results Blood Gas from 07/09/2015 3:10 PM*ARTERIAL PH7.446 (7.350-7.450 ) *ARTERIAL PD4373.2 MM HG (35.0-45.0 MM HG) *ART. AC5268 MM HG H (80-95 MM HG) *ART. TOTAL CO222.1 mmol/L (20.0-30.0 mmol/L) *ART. ZHDWFMCLFNW79.2 MEQ/L (19.0-29.0 MEQ/L) *ART. BASE EXCESS1.8 (-2.5-2.5 ) ART. O2 YUTLGYYCXP10.2 % H (91.0-97.0 %) *PATIENT ATMOSPHERE3 LITERS *SPECIMEN SITEARTERIALChemistry from 07/09/2015 2:58 NWUOQDBH354 MMOL/L (136- 145 MMOL/L) POTASSIUM3.3 MMOL/L L (3.5-5.1 MMOL/L) YIASMBQF226 MMOL/L (98-107 MMOL/L) TKH060.3 MMOL/L (21.0-32.0 MMOL/L) *ANION GAP4.7 MMOL/L L (8.0-16.0 MMOL/L) BUN18 MG/DL (7-18 MG/DL) CREATININE0.89 MG/DL (0.55-1.02 MG/DL) *BUN/CREATININE RATIO20.2 H (9.1-17.0 ) OBKSHXR036 MG/DL H (65-99 MG/DL) *GFR EST NON AFR HSUUQVCG01 ML/MIN *GFRA EST AFR AMER73 ML/MIN CALCIUM8.3 MG/DL L (8.5-10.1 MG/DL) BILIRUBIN TOTAL0.53 MG/DL (0.20-1.00 MG/DL) TOTAL PROTEIN6.6 GM/DL (6.4-8.2 GM/DL) ALBUMIN3.6 GM/DL (3.4-5.0 GM/DL) *GLOBULIN3.0 GM/DL (2.3-3.5 GM/DL) *A/G RATIO1.2 MG/DL L (1.5-2.2 MG/DL) ALK PHOS60 U/L (46-116 U/L) ALT (SGPT)22 U/L (16-63 U/L) AST (SGOT)12 U/L L (15-37 U/L) TROPONIN-I0.06 (SEE BELOW ) B-TYPE NATRIURETIC GZOLKMB37 PG/ML (1-100 PG/ML)Hematology from 07/09/2015 2:58 PMWBC7.6 X10e3/UL (3.6-11.2 X10e3/UL) RBC4.39 X10e6/UL (3.63-4.92 X10e6/UL) ZRPJOZWBSM95.1 G/DL (11.0-14.3 G/DL) KSFUXKLAKR05.2 % H (31.2-41.9 %) *MCV96.1 FL (79.0-98.0 FL) *MCH32.0 PG (27.0-33.0 PG) *MCHC33.3 G/DL (32.0-36.0 G/DL) *RDW12.7 % (12.3-17.0 %) *RDWSD42.4 (37.1-47.8 ) YWPWDXCN035 X10e3/UL (159-386 X10e3/UL) *MPV9.7 FL (7.4-10.4 FL) AUTOMATED DIFFPERFORMED SEGS79.3 % *LYMPHOCYTES9.2 % *MONOCYTES8.6 % *EOSINOPHILS1.5 % *BASOPHILS1.4 % *ABSOLUTE NEUTROPHILS6.00 X10e3/UL (1.80-7.80 X10e3/UL) *ABSOLUTE LYMPHOCYTES0.70 X10e3/UL L (1.00-3.00 X10e3/UL) *ABSOLUTE MONOCYTES0.70 X10e3/UL (0.30-1.00 X10e3/UL) *ABSOLUTE EOSINOPHILS0.10 X10e3/UL (0.00-0.50 X10e3/UL) *ABSOLUTE BASOPHILS0.10 X10e3/UL (0.00-0.20 X10e3/UL) Problems Encounter Diagnosis No relevant problems exist. Additional Problems Pulmonary Emphysema Comment:Problem resolved by Soarian Workflow upon Discharge , Status:Resolved. Encounters Encounter Diagnosis No relevant problems exist. Plan of Care Procedures Completed Procedure Code: .00 Procedure Name: not valued, on 11/28/2014 12:00 AM Immunizations No immunizations administered or ordered. Hospital Course Hospital Discharge Instructions Allergies, Adverse Reactions, Alerts Levaquin causes unspecified.Latex Allergy has not been assessed.IV Contrast Allergy has not been assessed. Medication Medication reconciliation has not been performed.
--- OUTSIDE RECORDS SUMMARY | 2017-05-31 17:28 | External Medical Summary ---
:1940 Author Name GENERATED, SYSTEM Care Team Providers Name Role Phone MD CASIMIRO, MARILU Primary Care Provider [phone] Reason For Visit Chief Complaint FALL- ALTERED MENTAL STATUS Social History Functional Status Vital Signs Results [...] Allergies, Adverse Reactions, Alerts This section is kiosk sales representative of the current allergy information, [...]
--- OUTSIDE RECORDS SUMMARY | 2017-05-31 17:28 | External Medical Summary | Summary of Care ---
[...] 12-Dec-2008 Tdap (Adacel) on: 05-Dec-2013 Lot #: [id number] Prevnar 13 Intramuscular Suspension on: 05-Dec-2013 Lot #: [id number] Prevnar 13 Intramuscular Suspension on: 25-Nov-2014 Lot #: [id number] Fluvirin 0.5 ML Intramuscular Suspension Prefilled Syringe [...] >60 ml/min Range: >60 EST GFR, NON-AFR MONTSERRATIAN >60 ml/min Range: >60 Comments: EST GFR [...] >60 ml/min Range: >60 EST GFR, NON-AFR MONTSERR[place]IAN >60 ml/min Range: >60 Comments: EST GFR [...] Range: 0.0-0.7 BASO 0.1 K/uL Range: 0.0-0.2 Plan of Care Name Dates Details Planned Observations Planned Goals not documented Planned Encounters Appointment; Provider: Ezekiel Sarmiento M.D. On 10-Oct-2016 15:45 Appointment; Provider: Cami Ladd M.D. On 21-Jul-2016 10:30 Instructions Name Dates Details Instructions not documented [...]
--- OUTSIDE RECORDS SUMMARY | 2017-05-31 17:28 | External Medical Summary | Summary of Care ---
:1940 Author Name Geeta Quach Address [address] [place] [address] Care Team Providers Name Role Phone Juve [...] Refills: 0 Yousif Figueroa M.D. Started 26-May-2014 Ccegmp35 GM Tube Prolia 60 MG/ML Subcutaneous Solution [...] on:12-Dec-2008 Tdap (Adacel) Administered on:05-Dec-2013 Lot #: [id number] Prevnar 13 Intramuscular Suspension Administered on:05-Dec-2013 Lot #: [id number] Family History Unknown Family Member Name Dates [...]
--- OUTSIDE RECORDS SUMMARY | 2017-05-31 17:28 | External Medical Summary | Summary of Care ---
:1940 Author Name Frida Kim APRN Address [address] [place], [place] [address] Care Team Providers Name Role Phone Nilton [...] Refills: 0 Cami Ladd M.D. Started Ended Pezmct57 GM Tube Allergies and Adverse Reactions Name Dates Details Levaquin TABS Status: Active Past Medical History Name Dates Details History of CXR Solitary Pulmonary Nodule Right Lung Status: Resolved Procedures Procedure Dates Details History of Hysterectomy History of Complete Colonoscopy Procedures not documented Immunization Name Dates Details Pneumo (Pneumovax) Administered on:12-Dec-2008 Tdap (Adacel) Administered on:05-Dec-2013 Lot #: [id number] Prevnar 13 Intramuscular Suspension Administered on:05-Dec-2013 Lot #: [id number] Prevnar 13 Intramuscular Suspension Administered on:25-Nov-2014 Lot #: [id number] Family History Unknown Family Member Name Dates [...] ml/min Range: >60 (Better) EST GFR, NON-AFR U[place]ANDAN >60 ml/min Range: >60 (Better) Comments: EST GFR is reported in ml/min per 1.73 m2 of body surface area. For -Niuean, please multiple result by 1.2.----- GLUCOSE 95 [...] Encounters Appointment; Provider: Ady Hoffman On 10:45 Instructions [...]
--- OUTSIDE RECORDS SUMMARY | 2017-05-31 17:28 | External Medical Summary | Summary of Care ---
:1940 Author Name Jaimee Sarmiento M.D. Address [address] [place], [place] [address] Care Team Providers Name Role Phone Carolina [...] Status: Active Confusion (298.9, R41.0) Status: Active Medications Name Dates Details Brovana [...] Refills: 2 Yousif Figueroa M.D. Started 26-May-2014 Epaoft39 GM Tube Prolia 60 MG/ML Subcutaneous Solution [...] on:12-Dec-2008 Tdap (Adacel) Administered on:05-Dec-2013 Lot #: [id number] Prevnar 13 Intramuscular Suspension Administered on:05-Dec-2013 Lot #: [id number] Prevnar 13 Intramuscular Suspension Administered on:25-Nov-2014 Lot #: [id number] Fluvirin 0.5 ML Intramuscular Suspension Prefilled Syringe [...] Ezekiel Sarmiento On 12-Jan-2016 12:00 Appointment; Provider: Chai Garcias On 16-Nov-2015 08:20 [...] Diagnosis: Problem not documented 10:30 Appointment; Alo nA On 22-Aug-2014 Encounter Diagnosis: Problem not documented [...]
--- OUTSIDE RECORDS SUMMARY | 2017-05-31 17:28 | External Medical Summary | Summary of Care ---
:1940 Author Name Cami Ladd M.D. Address [address] [place], [place] [address] Care Team Providers Name Role Phone Juve [...] Refills: 0 Yousif Figueroa M.D. Started 26-May-2014 Gcbpxm23 GM Tube Prolia 60 MG/ML Subcutaneous Solution INJECT SUBCUTANEOUSLY 60 MG / 1 ML EVERY 6 MONTHS Refills: 0 Cami Ladd M.D. Started 11-Nov-2014 ActiveSertraline HCl - 50 MG Oral Tablet Take 1\2 tab po every day x 6 days then 1 tab po every day x 1 month Quantity: 33 Refills: 1 Cami Ladd M.D. Started Active Allergies and [...] on:12-Dec-2008 Tdap (Adacel) Administered on:05-Dec-2013 Lot #: [id number] Prevnar 13 Intramuscular Suspension Administered on:05-Dec-2013 Lot #: [id number] Prevnar 13 Intramuscular Suspension Administered on:25-Nov-2014 Lot #: [id number] Family History Unknown Family Member Name Dates Details Family history of Asthma (V17.5) Comments: Family History Status: Active Father Name Dates Details Family history of myocardial infarction (V17.3, Z82.49) Status: Active Social History Name Dates Details Smoking StatusFormer smoker Vital Signs Date Test Result Details 11:43 BP Systolic 140 mm[Hg] Status: BP Diastolic 84 mm[Hg] Status: Heart Rate 80 /min Status: Weight 144 lb Status: Body Mass Index Calculated 24.72 kg/m2 Status: Body Surface Area Calculated 1.7 m2 Status: 10:39 BP Systolic 128 mm[Hg] Status: BP Diastolic 68 mm[Hg] Status: Heart Rate 83 /min Status: Weight 145 lb Status: O2 SAT 98 % Status: Body Mass Index Calculated 24.89 kg/m2 Status: Body Surface Area Calculated 1.71 m2 Status: 16:20 BP Systolic 146 mm[Hg] Status: BP Diastolic 83 mm[Hg] Status: Temperature 98.6 f Status: Heart Rate 89 /min Status: Weight 144 lb Status: Body Mass Index Calculated 24.72 kg/m2 Status: Body Surface Area Calculated 1.7 m2 Status: Results Date Description Value Details 16:47 CBC w/ Auto Diff 7150 WBC 7.9 K/uL (Better) Range: 4.5-11.0 RBC 4.54 mil/uL (Better) Range: 3.60-5.00 HGB 14.2 g/dL (Better) Range: 12.0-16.0 HCT 41.4 % (Better) Range: 36.0-48.0 MCV [...] On 09:30 Appointment; Provider: Cami Ladd On 23-Apr-2015 14:15 Instructions Instructions not documented Encounters Appointment; Cami [...]
--- OUTSIDE RECORDS SUMMARY | 2017-05-31 17:29 | External Medical Summary | Summary of Care ---
[...] 12-Dec-2008 Tdap (Adacel) on: 05-Dec-2013 Lot #: [id number] Prevnar 13 Intramuscular Suspension on: 05-Dec-2013 Lot #: [id number] Prevnar 13 Intramuscular Suspension on: 25-Nov-2014 Lot #: [id number] Fluvirin 0.5 ML Intramuscular Suspension Prefilled Syringe [...] smoker Vital Signs Date Test Result Details 07-Jun-2016 17:52 BP Systolic 134 mm[Hg] Status: [...] Dates Details Instructions not documented Encounters Appointment; Ady Hoffman M.D. On 20-May-2016 Encounter [...]
--- OUTSIDE RECORDS SUMMARY | 2017-05-31 17:29 | External Medical Summary | Summary of Care ---
:1940 Author Name Mireya Lance Address [address] [place], [place] [address] Care Team Providers Name Role Phone Nilton Jaeger, Alessandro Collins Unavailable Unavailable Abraham Bustos, Mierya Unavailable Unavailable Guillermina Jaeger, Jaimee Falcon Unavailable [...] Refills: 5 Guillermina JaegerEzekiel Start 01-Apr-2016 Active Allergies and Adverse Reactions [...] 12-Dec-2008 Tdap (Adacel) on: 05-Dec-2013 Lot #: [id number] Prevnar 13 Intramuscular Suspension on: 05-Dec-2013 Lot #: [id number] Prevnar 13 Intramuscular Suspension on: 25-Nov-2014 Lot #: [id number] Fluvirin 0.5 ML Intramuscular Suspension Prefilled Syringe on: 20-May-2015 Fluzone High-Dose 0.5 ML Intramuscular Suspension Prefilled Syringe on: 2015 Pneumovax 23 25 MCG/0.5ML Injection Injectable on: 21-Jul-2016 Lot #: [id number] Family History Unknown Family Member Name Dates [...] smoker Vital Signs Date Test Result Details 09-Nov-2016 11:32 BP Systolic 136 mm[Hg] Status: Comments: Location: ; Position: BP Diastolic 74 mm[Hg] Status: Comments: Location: ; Position: Heart Rate 84 /min Status: Comments: Location: ; Height 65 in Status: Weight 137 lb Status: Physical Findings 92 Status: Comments: O2 Saturation Body Mass Index Calculated 22.8 kg/m2 Status: Body Surface Area Calculated 1.68 m2 Status: 10-Oct-2016 16:11 BP Systolic 148 mm[Hg] Status: Comments: Location: ; Position: BP Diastolic 88 mm[Hg] Status: Comments: Location: ; Position: Heart Rate 72 /min Status: Comments: Location: [...] 15:15 Appointment; Provider: Cami Ladd M.D. On 16-Dec-2016 11:15 Appointment; Provider: Schedule Radiology On 11-Nov-2016 09:30 Appointment; Provider: Schedule Radiology On 11-Nov-2016 09:10 Instructions Name Dates Details Instructions not documented Encounters Appointment; Sosa Zhou P.A. On 25-Oct-2016 Encounter [...] Encounter Diagnosis: Problem not documented 09:30 Appointment; Caim Ladd M.D. On 07-Jun-2016 Encounter Diagnosis: Problem not documented 17:30 Appointment; Ayd Hoffman M.D. On 20-May-2016 Encounter Diagnosis: Problem [...] Problem not documented 16:15 Appointment; Eliel Patel M.D.|FACP|M.DAshley,FACP|M.DAshley,FACP, On Encounter Diagnosis: Problem not documented 09:00 [...]
--- OUTSIDE RECORDS SUMMARY | 2017-05-31 17:29 | External Medical Summary | Summary of Care ---
[...] 3 TIMES DAILY. Quantity: 21 Refills: 0 Aevl Jaeger Tabby Start 19-Nov-2016 Active Allergies and [...] 12-Dec-2008 Tdap (Adacel) on: 05-Dec-2013 Lot #: [id number] Prevnar 13 Intramuscular Suspension on: 05-Dec-2013 Lot #: [id number] Prevnar 13 Intramuscular Suspension on: 25-Nov-2014 Lot #: [id number] Fluvirin 0.5 ML Intramuscular Suspension Prefilled Syringe on: 20-May-2015 Fluzone High-Dose 0.5 ML Intramuscular Suspension Prefilled Syringe on: 2015 Pneumovax 23 25 MCG/0.5ML Injection Injectable on: 21-Jul-2016 Lot #: [id number] Family History Unknown Family Member Name Dates [...] >60 ml/min Range: >60 EST GFR, NON-AFR EGYPTIAN >60 ml/min Range: >60 Comments: EST GFR [...] Ladd M.D. On 16-Dec-2016 11:15 Interventions Provided Labs/Procedures/ImagingComprehensive Metabolic Panel 1212; Done: Dec 05 2016 2: 55PM Instructions Name Dates Details Instructions not documented [...] Diagnosis: Problem not documented 11:00 Appointment; Cami Ldad M.D. On 13-Jun-2016 Encounter Diagnosis: Problem not [...] Diagnosis: Problem not documented 11:45 Appointment; Yousif iFgueroa M.D. On Encounter Diagnosis: Problem not documented 09:30 Appointment; Ady Hoffman M.D. On Encounter Diagnosis: Problem not documented 10:45 Appointment; Eliel Patel M.D.|FACP|M.DAshley,FACP|M.DAshley,FACP, On Encounter Diagnosis: Problem not documented 16:15 Appointment; Eliel Patel M.D.|FACP|M.D.,FACP|M.Livia,FACP, On Encounter Diagnosis: Problem not documented 09:00 Appointment; Cami Ladd M.D. On Encounter Diagnosis: Problem not documented 13:30 Appointment; Cami Ladd M.D. On 19-Dec-2014 Encounter Diagnosis: Problem not documented 11:15"
--- OUTSIDE RECORDS SUMMARY | 2017-05-31 17:29 | External Medical Summary | Summary of Care ---
[...] 11 Nilton JaegerDennis Alessandro Start 11-Aug-2016 Active Budesonide 0.25 MG/2ML [...] 12-Dec-2008 Tdap (Adacel) on: 05-Dec-2013 Lot #: [id number] Prevnar 13 Intramuscular Suspension on: 05-Dec-2013 Lot #: [id number] Prevnar 13 Intramuscular Suspension on: 25-Nov-2014 Lot #: [id number] Fluvirin 0.5 ML Intramuscular Suspension Prefilled Syringe on: 20-May-2015 Fluzone High-Dose 0.5 ML Intramuscular Suspension Prefilled Syringe on: 2015 Pneumovax 23 25 MCG/0.5ML Injection Injectable on: 21-Jul-2016 Lot #: [id number] Family History Unknown Family Member Name Dates [...] Problem not documented 10:45 Appointment; Eliel Patel M.D.|ANDREIA,DONYA|Mil,DONYA, On Encounter Diagnosis: Problem not documented 16:15"
--- OUTSIDE RECORDS SUMMARY | 2017-05-31 17:30 | External Medical Summary | Summary of Care ---
:1940 Author Name Cami Ladd M.D. Address [address] [place], [place] [address] Care Team Providers Name Role Phone Juve [...] Refills: 2 Yousif Figueroa M.D. Started 26-May-2014 Fpqkty81 GM Tube Prolia 60 MG/ML Subcutaneous Solution [...] on:12-Dec-2008 Tdap (Adacel) Administered on:05-Dec-2013 Lot #: [id number] Prevnar 13 Intramuscular Suspension Administered on:05-Dec-2013 Lot #: [id number] Prevnar 13 Intramuscular Suspension Administered on:25-Nov-2014 Lot #: [id number] Fluvirin 0.5 ML Intramuscular Suspension Prefilled Syringe [...] (Better) EST GFR, >60 ml/min Range: >60 CUBAN (Better) EST GFR, NON-AFR >60 ml/min Range: >60 CUBAN (Better) Comments: EST GFR is reported in ml/min per 1.73 m2 of body surface area. For -Croatian, please multiple result by 1.2.----- GLUCOSE 101 [...] Range: 8.5-10.1 low threshold) 23-Jul-2015 URINE CULTURE [id number] Comments: [employer] performed at: [facility] [employer] [facility], [address] [place] [address], [phone], [employer]: Ezekiel Sun D.O., MPHQuest Collection Date/Time: [id number] 07:56 [id number] Results Received Date/Time: [id number] Reported Date/Time: [id number] performed at: [facility] [employer] [facility], [address] [place] [address], [phone], [employer]: Ezekiel Sun D.O., MPHQuest Collection Date/Time: [id number] Results Received Date/Time: [id number] Reported Date/Time: [id number] CULTURE, URINE, ROUTINE SEE NOTE (Abnormal) Comments: CULTURE, URINE, ROUTINE MICRO NUMBER: [id number] TEST STATUS: FINAL SPECIMEN SOURCE : URINE, [...] I=Intermediate R=Resistant *=Not TestedNR=Not Reported NN=See Therapy Comments[WI]----- 11-Aug-2015 CBC w/ Auto Diff 7150 13:31 [...] (Better) EST GFR, >60 ml/min Range: >60 CUBAN (Better) EST GFR, NON-AFR >60 ml/min Range: >60 CUBAN (Better) Comments: EST GFR is reported in ml/min per 1.73 m2 of body surface area. For -Croatian, please multiple result by 1.2.----- GLUCOSE 102 [...]
--- OUTSIDE RECORDS SUMMARY | 2017-05-31 17:30 | External Medical Summary | Summary of Care ---
:1940 Author Name Cami Ladd M.D. Address [address] [place], [place] [id number] Care Team Providers Name Role Phone Carolina [...] Refills: 2 Yousif Figueroa M.D. Started 26-May-2014 [id number] GM Tube Prolia 60 MG/ML Subcutaneous Solution [...] on:12-Dec-2008 Tdap (Adacel) Administered on:05-Dec-2013 Lot #: [id number] Prevnar 13 Intramuscular Suspension Administered on:05-Dec-2013 Lot #: [id number] Prevnar 13 Intramuscular Suspension Administered on:25-Nov-2014 Lot #: [id number] Fluvirin 0.5 ML Intramuscular Suspension Prefilled Syringe [...] ml/min Range: >60 (Better) EST GFR, NON-AFR PALAUAN >60 ml/min Range: >60 (Better) Comments: EST GFR is reported in ml/min per 1.73 m2 of body surface area. For -[place], please multiple result by 1.2.----- GLUCOSE 101 [...]
[2017-05-31 18:44] VITALS: BMI 18.8
[2017-05-31] MEDS: ARFORMOTEROL NEB 15mcg/2ml AEROSOL SCH (19:00)
[2017-05-31] MEDS: BUDESONIDE INH.SOLN 0.25mg/2ml NEB AEROSOL SCH (19:00)
[2017-05-31] MEDS: LORazepam 0.5 MG TABLET PO PRN (19:42)
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
[2017-05-31] MEDS: TRIAMCINOLONE 0.1% CREAM 15 G TUBE TOP PRN (20:55)
[2017-06-01] MEDS: ARFORMOTEROL NEB 15mcg/2ml AEROSOL SCH ×2 (07:41→18:17)
[2017-06-01] MEDS: BUDESONIDE INH.SOLN 0.25mg/2ml NEB AEROSOL SCH ×2 (07:42→18:17)
[2017-06-01] MEDS: AMLODIPINE 10 MG TABLET PO SCH (08:24)
[2017-06-01] MEDS: ASPIRIN 81 MG CHEWABLE TABLET PO SCH (08:25)
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
[2017-06-01] MEDS: LORazepam 0.5 MG TABLET PO PRN (19:05)
--- NOTE | 2017-06-01 19:29 | Neuropsych Progress Note ---
[facility] Subjective Date: 06/01/17 - Sujective/Severity of Illness Medications: Albuterol Sulfate (Proventil Neb (0.083%)) 2.5 mg AEROSOL Q4HR PRN Amlodipine Besylate (Norvasc) 10 mg PO DAILY [facility] Last Admin: 06/01/17 08:24 Dose: 10 mg Arformoterol Tartrate (Brovana Neb) 15 mcg AEROSOL RTBID [facility] Last Admin: 06/01/17 18:17 Dose: 15 mcg Aspirin (Asa) 81 mg PO DAILY [facility] Last Admin: 06/01/17 08:25 Dose: 81 mg Budesonide (Pulmicort Inhalation) 0.25 mg AEROSOL RTBID [facility] Last Admin: 06/01/17 18:17 Dose: 0.25 mg Haloperidol (Haldol) 0.5 mg PO Q6H PRN PRN Reason: Extreme agitation Haloperidol Lactate (Haldol) 0.5 mg IM Q6H PRN PRN Reason: Extreme agitation Lorazepam (Ativan Inj) 0.5 mg IM Q6H PRN PRN Reason: Extreme agitation Lorazepam (Ativan) 0.5 mg PO Q6H PRN PRN Reason: Extreme agitation Last Admin: 06/01/17 19:05 Dose: 0.5 mg Triamcinolone Acetonide (Kenalog) 1 applic TOP TID PRN Last Admin: 05/31/17 20:55 Dose: 1 applic Subjective: Pt seen and chart examined. Nursing reports pt received an Ativan this evening as she was pacing and packing to leave. On face to face the pt is pleasant but confused. She reports she needs to contact her . She is pleasant but confused. She reports no concerns at this time. Start Time: 17:00 Stop Time: 17:15 Mental Status Exam Vitals: Last Vital Signs Temp 97.2 F 06/01/17 16:38 Pulse 79 06/01/17 16:38 Resp 12 06/01/17 18:17 BP 133/69 06/01/17 16:38 Pulse Ox 99 06/01/17 16:38 Height: 1.7 m Weight: 54.4 kg - Mental Status Exam Muscle Strength/Tone: Normal Dressing: Casual Grooming: Good Attitude: Guarded Motor Activity: Normal Eye Contact: Fair Speech: Slowed Volume: Soft Rhythm: Appropriate Rhythm Orientation: Oriented to person Mood: Neutral Rate of Thoughts: Delayed Thought Organization: [place] Associations: Flight of Ideas Abstract Reasoning: Poor abstract reasoning Thought Content: Normal Perception/Psychotic: Perception Normal Language: Naming Impaired Fund of Knowledge: Poor fund of knowledge Memory: Poor-immediate, Poor-recent Suicidal Ideation: Intermittent Homicidal Ideation: None Insight: Poor Judgement: Poor Impulse Control: Poor Assessment and Plan (1) Major neurocognitive disorder Problem details: with behavioral disturbance. Most likely Alzheimer's Type Current visit: Yes Status: Acute Hospital Course Summary Disclaimer: The visit summary below is not to be considered part of the above Progress Note. Hospital Course: 06/01/17 Impression Self-inflicted lacerations, suicidal ideation Increase behaviors Hypertension. COPD Anemia. Chronic back pain. Anxiety, depression Plan Agree with admission to the [facility] unit under the care of Dr. Vivar for further psychiatric evaluation and treatment. Monitor superficial skin lacerations. Utilize Neosporin and dressing daily. Monitor for evidence of infection. Monitor blood pressure, continue on Norvasc daily Pulmicort, albuterol and Brovono for chronic COPD Any to use topical Kenalog for chronic psoriasis Encourage patient to participate in unit activities and provide a safe environment. The hospitalist services will continue to follow patient medically manage her existing comorbidities. At time of discharge her medical care will return to her primary care provider in [place] [facility] 06/01/17 19:29 Remains confused and agitated at times. Will contact family about starting Depakote
[2017-06-02] MEDS: ARFORMOTEROL NEB 15mcg/2ml AEROSOL SCH ×2 (07:48→16:55)
[2017-06-02] MEDS: BUDESONIDE INH.SOLN 0.25mg/2ml NEB AEROSOL SCH ×2 (07:50→16:54)
[2017-06-02] MEDS: AMLODIPINE 10 MG TABLET PO SCH (08:25)
[2017-06-02] MEDS: ASPIRIN 81 MG CHEWABLE TABLET PO SCH (08:25)
[2017-06-02] MEDS: HALOPERIDOL 0.5 MG TABLET PO PRN (13:48)
[2017-06-02] MEDS: LORazepam 0.5 MG TABLET PO PRN (13:48)
[2017-06-02] MEDS: ALBUTEROL 2.5mg/3ml (0.083%) NEB AEROSOL PRN (14:07)
--- NOTE | 2017-06-02 18:19 | Neuropsych Progress Note ---
[facility] Subjective Date: 06/02/17 - Sujective/Severity of Illness Medications: Albuterol Sulfate (Proventil Neb (0.083%)) 2.5 mg AEROSOL Q4HR PRN Last Admin: 06/02/17 14:07 Dose: 2.5 mg Amlodipine Besylate (Norvasc) 10 mg PO DAILY [facility] Last Admin: 06/02/17 08:25 Dose: 10 mg Arformoterol Tartrate (Brovana Neb) 15 mcg AEROSOL RTBID [facility] Last Admin: 06/02/17 16:55 Dose: 15 mcg Aspirin (Asa) 81 mg PO DAILY [facility] Last Admin: 06/02/17 08:25 Dose: 81 mg Budesonide (Pulmicort Inhalation) 0.25 mg AEROSOL RTBID [facility] Last Admin: 06/02/17 16:54 Dose: 0.25 mg Haloperidol (Haldol) 0.5 mg PO Q6H PRN PRN Reason: Extreme agitation Last Admin: 06/02/17 13:48 Dose: 0.5 mg Haloperidol Lactate (Haldol) 0.5 mg IM Q6H PRN PRN Reason: Extreme agitation Lorazepam (Ativan Inj) 0.5 mg IM Q6H PRN PRN Reason: Extreme agitation Lorazepam (Ativan) 0.5 mg PO Q6H PRN PRN Reason: Extreme agitation Last Admin: 06/02/17 13:48 Dose: 0.5 mg Triamcinolone Acetonide (Kenalog) 1 applic TOP TID PRN Last Admin: 05/31/17 20:55 Dose: 1 applic Subjective: Pt seen and chart examined. Nursing reports pt can be irritable and labile at times with anxiety. On face to face the pt is pleasant and cooperative. She is alert and reports her mood is stable. She denies any S/I. Family states they feel she is a little clearer today. DPOA in agreement with start of Depakote Start Time: 17:30 Stop Time: 17:45 Mental Status Exam Vitals: Last Vital Signs Temp 98.2 F 06/02/17 16:04 Pulse 84 06/02/17 16:04 Resp 16 06/02/17 16:45 BP 145/61 H 06/02/17 16:04 Pulse Ox 95 06/02/17 16:45 Height: 1.7 m Weight: 54.4 kg - Mental Status Exam Muscle Strength/Tone: Normal Dressing: Casual Grooming: Good Attitude: Guarded Motor Activity: Normal Eye Contact: Fair Speech: Slowed Volume: Soft Rhythm: Appropriate Rhythm Orientation: Oriented to person Mood: Neutral Rate of Thoughts: Delayed Thought Organization: [place] Associations: Flight of Ideas Abstract Reasoning: Poor abstract reasoning Thought Content: Normal Perception/Psychotic: Perception Normal Language: Naming Impaired Fund of Knowledge: Poor fund of knowledge Memory: Poor-immediate, Poor-recent Suicidal Ideation: Intermittent Homicidal Ideation: None Insight: Poor Judgement: Poor Impulse Control: Poor Assessment and Plan (1) Major neurocognitive disorder Problem details: with behavioral disturbance. Most likely Alzheimer's Type Current visit: Yes Status: Acute Hospital Course Summary Disclaimer: The visit summary below is not to be considered part of the above Progress Note. Hospital Course: 06/01/17 Impression Self-inflicted lacerations, suicidal ideation Increase behaviors Hypertension. COPD Anemia. Chronic back pain. Anxiety, depression Plan Agree with admission to the [facility] unit under the care of Dr. Vivar for further psychiatric evaluation and treatment. Monitor superficial skin lacerations. Utilize Neosporin and dressing daily. Monitor for evidence of infection. Monitor blood pressure, continue on Norvasc daily Pulmicort, albuterol and Brovono for chronic COPD Any to use topical Kenalog for chronic psoriasis Encourage patient to participate in unit activities and provide a safe environment. The hospitalist services will continue to follow patient medically manage her existing comorbidities. At time of discharge her medical care will return to her primary care provider in [place] 06/01/17 19:29 Remains confused and agitated at times. Will contact family about starting Depakote 06/02/17 18:18 Slightly improved today. Will start Depakote 125mg PO BID
[2017-06-02] MEDS: DIVALPROEX 125 MG TABLET PO SCH (20:08)
[2017-06-03] MEDS: ALBUTEROL 2.5mg/3ml (0.083%) NEB AEROSOL PRN (04:55)
[2017-06-03] MEDS: DIVALPROEX 125 MG TABLET PO SCH ×2 (08:03→20:30)
[2017-06-03] MEDS: ASPIRIN 81 MG CHEWABLE TABLET PO SCH (08:03)
[2017-06-03] MEDS: AMLODIPINE 10 MG TABLET PO SCH (08:03)
[2017-06-03] MEDS: ARFORMOTEROL NEB 15mcg/2ml AEROSOL SCH ×2 (10:28→18:30)
[2017-06-03] MEDS: BUDESONIDE INH.SOLN 0.25mg/2ml NEB AEROSOL SCH ×2 (10:28→18:30)
--- NOTE | 2017-06-03 10:52 | Neuropsych Progress Note ---
[facility] Subjective Date: 06/03/17 - Sujective/Severity of Illness Medications: Albuterol Sulfate (Proventil Neb (0.083%)) 2.5 mg AEROSOL Q4HR PRN Last Admin: 06/03/17 04:55 Dose: 2.5 mg Amlodipine Besylate (Norvasc) 10 mg PO DAILY [facility] Last Admin: 06/03/17 08:03 Dose: 10 mg Arformoterol Tartrate (Brovana Neb) 15 mcg AEROSOL RTBID [facility] Last Admin: 06/03/17 10:28 Dose: 15 mcg Aspirin (Asa) 81 mg PO DAILY [facility] Last Admin: 06/03/17 08:03 Dose: 81 mg Budesonide (Pulmicort Inhalation) 0.25 mg AEROSOL RTBID [facility] Last Admin: 06/03/17 10:28 Dose: 0.25 mg Divalproex Sodium (Depakote) 125 mg PO BID [facility] Last Admin: 06/03/17 08:03 Dose: 125 mg Haloperidol (Haldol) 0.5 mg PO Q6H PRN PRN Reason: Extreme agitation Last Admin: 06/02/17 13:48 Dose: 0.5 mg Haloperidol Lactate (Haldol) 0.5 mg IM Q6H PRN PRN Reason: Extreme agitation Lorazepam (Ativan Inj) 0.5 mg IM Q6H PRN PRN Reason: Extreme agitation Lorazepam (Ativan) 0.5 mg PO Q6H PRN PRN Reason: Extreme agitation Last Admin: 06/02/17 13:48 Dose: 0.5 mg Triamcinolone Acetonide (Kenalog) 1 applic TOP TID PRN Last Admin: 05/31/17 20:55 Dose: 1 applic Subjective: Pt seen and chart examined. Nursing reports pt can be irritable and labile at times with anxiety. Pt received Ativan yesterday afternoon for pacing and exit seeking. On face to face the pt is pleasant but has poor short term memory. She states she is upset with her family because they did not visit yesterday although this personal lines underwriter so her family visiting with her for some time. She reports she would like to go home but feels her mood is stable. Denies S/I. Start Time: 10:45 Stop Time: 11:00 Mental Status Exam Vitals: Last Vital Signs Temp 97.9 F 06/03/17 07:55 Pulse 84 06/03/17 07:55 Resp 18 06/03/17 10:20 BP 148/70 H 06/03/17 07:55 Pulse Ox 99 06/03/17 10:20 Height: 1.7 m Weight: 54.4 kg - Mental Status Exam Muscle Strength/Tone: Normal Dressing: Casual Grooming: Good Attitude: Guarded Motor Activity: Normal Eye Contact: Fair Speech: Slowed Volume: Soft Rhythm: Appropriate Rhythm Orientation: Oriented to person Mood: Neutral Rate of Thoughts: Delayed Thought Organization: [place] Associations: Flight of Ideas Abstract Reasoning: Poor abstract reasoning Thought Content: Normal Perception/Psychotic: Perception Normal Language: Naming Impaired Fund of Knowledge: Poor fund of knowledge Memory: Poor-immediate, Poor-recent Suicidal Ideation: Intermittent Homicidal Ideation: None Insight: Poor Judgement: Poor Impulse Control: Poor Assessment and Plan (1) Major neurocognitive disorder Problem details: with behavioral disturbance. Most likely Alzheimer's Type Current visit: Yes Status: Acute Hospital Course Summary Disclaimer: The visit summary below is not to be considered part of the above Progress Note. Hospital Course: 06/01/17 Impression Self-inflicted lacerations, suicidal ideation Increase behaviors Hypertension. COPD Anemia. Chronic back pain. Anxiety, depression Plan Agree with admission to the [facility] unit under the care of Dr. Vivar for further psychiatric evaluation and treatment. Monitor superficial skin lacerations. Utilize Neosporin and dressing daily. Monitor for evidence of infection. Monitor blood pressure, continue on Norvasc daily Pulmicort, albuterol and Brovono for chronic COPD Any to use topical Kenalog for chronic psoriasis Encourage patient to participate in unit activities and provide a safe environment. The hospitalist services will continue to follow patient medically manage her existing comorbidities. At time of discharge her medical care will return to her primary care provider in [place] 06/01/17 19:29 Remains confused and agitated at times. Will contact family about starting Depakote 06/02/17 18:18 Slightly improved today. Will start Depakote 125mg PO BID 06/03/17 10:52 Remains irritable and exit seeking at times. Continue current care
[2017-06-03] MEDS: LORazepam 0.5 MG TABLET PO PRN (17:56)
[2017-06-04] MEDS: AMLODIPINE 10 MG TABLET PO SCH (09:25)
[2017-06-04] MEDS: ASPIRIN 81 MG CHEWABLE TABLET PO SCH (09:25)
[2017-06-04] MEDS: DIVALPROEX 125 MG TABLET PO SCH ×2 (09:25→20:24)
[2017-06-04] MEDS: ARFORMOTEROL NEB 15mcg/2ml AEROSOL SCH ×2 (09:38→17:10)
[2017-06-04] MEDS: BUDESONIDE INH.SOLN 0.25mg/2ml NEB AEROSOL SCH ×2 (09:39→17:10)
--- NOTE | 2017-06-04 11:42 | Neuropsych Progress Note ---
[facility] Subjective Date: 06/04/17 - Sujective/Severity of Illness Medications: Albuterol Sulfate (Proventil Neb (0.083%)) 2.5 mg AEROSOL Q4HR PRN Last Admin: 06/03/17 04:55 Dose: 2.5 mg Amlodipine Besylate (Norvasc) 10 mg PO DAILY [facility] Last Admin: 06/04/17 09:25 Dose: 10 mg Arformoterol Tartrate (Brovana Neb) 15 mcg AEROSOL RTBID [facility] Last Admin: 06/04/17 09:38 Dose: 15 mcg Aspirin (Asa) 81 mg PO DAILY [facility] Last Admin: 06/04/17 09:25 Dose: 81 mg Budesonide (Pulmicort Inhalation) 0.25 mg AEROSOL RTBID [facility] Last Admin: 06/04/17 09:39 Dose: 0.25 mg Divalproex Sodium (Depakote) 125 mg PO BID [facility] Last Admin: 06/04/17 09:25 Dose: 125 mg Haloperidol (Haldol) 0.5 mg PO Q6H PRN PRN Reason: Extreme agitation Last Admin: 06/02/17 13:48 Dose: 0.5 mg Haloperidol Lactate (Haldol) 0.5 mg IM Q6H PRN PRN Reason: Extreme agitation Lorazepam (Ativan Inj) 0.5 mg IM Q6H PRN PRN Reason: Extreme agitation Lorazepam (Ativan) 0.5 mg PO Q6H PRN PRN Reason: Extreme agitation Last Admin: 06/03/17 17:56 Dose: 0.5 mg Triamcinolone Acetonide (Kenalog) 1 applic TOP TID PRN Last Admin: 05/31/17 20:55 Dose: 1 applic Subjective: Pt seen and chart examined. Nursing reports pt can be irritable and labile at times with anxiety. On face to face the pt has very poor short term memory. She is unable to tell me why she made the cuts to her wrist. She states she is concerned because she feels her family does not want her back. She reports some mild depression and anxiety. Denies S/I. Tolerating meds Start Time: 10:45 Stop Time: 11:00 Mental Status Exam Vitals: Last Vital Signs Temp 98.4 F 06/04/17 08:00 Pulse 88 06/04/17 08:00 Resp 18 06/04/17 09:37 BP 151/66 H 06/04/17 08:00 Pulse Ox 95 06/04/17 09:37 Height: 1.7 m Weight: 54.4 kg - Mental Status Exam Muscle Strength/Tone: Normal Dressing: Casual Grooming: Good Attitude: Guarded Motor Activity: Normal Eye Contact: Fair Speech: Slowed Volume: Soft Rhythm: Appropriate Rhythm Orientation: Oriented to person Mood: Neutral Rate of Thoughts: Delayed Thought Organization: [place] Associations: Flight of Ideas Abstract Reasoning: Poor abstract reasoning Thought Content: Normal Perception/Psychotic: Perception Normal Language: Naming Impaired Fund of Knowledge: Poor fund of knowledge Memory: Poor-immediate, Poor-recent Suicidal Ideation: Intermittent Homicidal Ideation: None Insight: Poor Judgement: Poor Impulse Control: Poor Assessment and Plan (1) Major neurocognitive disorder Problem details: with behavioral disturbance. Most likely Alzheimer's Type Current visit: Yes Status: Acute Hospital Course Summary Disclaimer: The visit summary below is not to be considered part of the above Progress Note. Hospital Course: 06/01/17 Impression Self-inflicted lacerations, suicidal ideation Increase behaviors Hypertension. COPD Anemia. Chronic back pain. Anxiety, depression Plan Agree with admission to the [facility] unit under the care of Dr. Vivar for further psychiatric evaluation and treatment. Monitor superficial skin lacerations. Utilize Neosporin and dressing daily. Monitor for evidence of infection. Monitor blood pressure, continue on Norvasc daily Pulmicort, albuterol and Brovono for chronic COPD Any to use topical Kenalog for chronic psoriasis Encourage patient to participate in unit activities and provide a safe environment. The hospitalist services will continue to follow patient medically manage her existing comorbidities. At time of discharge her medical care will return to her primary care provider in [place] 06/01/17 19:29 Remains confused and agitated at times. Will contact family about starting Depakote 06/02/17 18:18 Slightly improved today. Will start Depakote 125mg PO BID 06/03/17 10:52 Remains irritable and exit seeking at times. Continue current care 06/04/17 11:42 Remains irritable. Increase Depakote to 250mg PO BID
[2017-06-04] MEDS: TRIAMCINOLONE 0.1% CREAM 15 G TUBE TOP PRN (20:26)
[2017-06-04] MEDS: ALBUTEROL 2.5mg/3ml (0.083%) NEB AEROSOL PRN (21:10)
[2017-06-04] MEDS: LORazepam 0.5 MG TABLET PO PRN (22:11)
[2017-06-05] MEDS: ARFORMOTEROL NEB 15mcg/2ml AEROSOL SCH ×2 (09:17→20:05)
[2017-06-05] MEDS: BUDESONIDE INH.SOLN 0.25mg/2ml NEB AEROSOL SCH ×2 (09:17→20:05)
[2017-06-05] MEDS: DIVALPROEX 125 MG TABLET PO SCH ×3 (10:20→22:18)
[2017-06-05] MEDS: AMLODIPINE 10 MG TABLET PO SCH (10:20)
[2017-06-05] MEDS: ASPIRIN 81 MG CHEWABLE TABLET PO SCH (10:20)
--- NOTE | 2017-06-05 18:54 | Neuropsych Progress Note ---
[facility] Subjective Date: 06/05/17 - Sujective/Severity of Illness Medications: Albuterol Sulfate (Proventil Neb (0.083%)) 2.5 mg AEROSOL Q4HR PRN Last Admin: 06/04/17 21:10 Dose: 2.5 mg Amlodipine Besylate (Norvasc) 10 mg PO DAILY [facility] Last Admin: 06/05/17 10:20 Dose: 10 mg Arformoterol Tartrate (Brovana Neb) 15 mcg AEROSOL RTBID [facility] Last Admin: 06/05/17 09:17 Dose: 15 mcg Aspirin (Asa) 81 mg PO DAILY [facility] Last Admin: 06/05/17 10:20 Dose: 81 mg Budesonide (Pulmicort Inhalation) 0.25 mg AEROSOL RTBID [facility] Last Admin: 06/05/17 09:17 Dose: 0.25 mg Divalproex Sodium (Depakote) 250 mg PO BID [facility] Last Admin: 06/05/17 10:20 Dose: 250 mg Haloperidol (Haldol) 0.5 mg PO Q6H PRN PRN Reason: Extreme agitation Last Admin: 06/02/17 13:48 Dose: 0.5 mg Haloperidol Lactate (Haldol) 0.5 mg IM Q6H PRN PRN Reason: Extreme agitation Lorazepam (Ativan Inj) 0.5 mg IM Q6H PRN PRN Reason: Extreme agitation Lorazepam (Ativan) 0.5 mg PO Q6H PRN PRN Reason: Extreme agitation Last Admin: 06/04/17 22:11 Dose: 0.5 mg Triamcinolone Acetonide (Kenalog) 1 applic TOP TID PRN Last Admin: 06/04/17 20:26 Dose: 1 applic Subjective: Pt seen and chart examined. Nursing reports pt can be irritable and labile at times with anxiety. On face to face the pt has very poor short term memory. She states she is sad because she does not want to be here and wants to go home. She states she worries that her family does not care because she can not remember that they have been here to visit. She reports some anxiety at times. Denies S/I. Tolerating meds Start Time: 18:45 Stop Time: 19:00 Mental Status Exam Vitals: Last Vital Signs Temp 96.8 F 06/05/17 15:52 Pulse 75 06/05/17 15:52 Resp 14 06/05/17 15:52 BP 122/60 06/05/17 15:52 Pulse Ox 96 06/05/17 15:52 Height: 1.7 m Weight: 54.4 kg - Mental Status Exam Muscle Strength/Tone: Normal Dressing: Casual Grooming: Good Attitude: Guarded Motor Activity: Normal Eye Contact: Fair Speech: Slowed Volume: Soft Rhythm: Appropriate Rhythm Orientation: Oriented to person Mood: Neutral Rate of Thoughts: Delayed Thought Organization: [place] Associations: Flight of Ideas Abstract Reasoning: Poor abstract reasoning Thought Content: Normal Perception/Psychotic: Perception Normal Language: Naming Impaired Fund of Knowledge: Poor fund of knowledge Memory: Poor-immediate, Poor-recent Suicidal Ideation: Intermittent Homicidal Ideation: None Insight: Poor Judgement: Poor Impulse Control: Poor Assessment and Plan (1) Major neurocognitive disorder Problem details: with behavioral disturbance. Most likely Alzheimer's Type Current visit: Yes Status: Acute Hospital Course Summary Disclaimer: The visit summary below is not to be considered part of the above Progress Note. Hospital Course: 06/01/17 Impression Self-inflicted lacerations, suicidal ideation Increase behaviors Hypertension. COPD Anemia. Chronic back pain. Anxiety, depression Plan Agree with admission to the [facility] unit under the care of Dr. Vivar for further psychiatric evaluation and treatment. Monitor superficial skin lacerations. Utilize Neosporin and dressing daily. Monitor for evidence of infection. Monitor blood pressure, continue on Norvasc daily Pulmicort, albuterol and Brovono for chronic COPD Any to use topical Kenalog for chronic psoriasis Encourage patient to participate in unit activities and provide a safe environment. The hospitalist services will continue to follow patient medically manage her existing comorbidities. At time of discharge her medical care will return to her primary care provider [place] 06/01/17 19:29 Remains confused and agitated at times. Will contact family about starting Depakote 06/02/17 18:18 Slightly improved today. Will start Depakote 125mg PO BID 06/03/17 10:52 Remains irritable and exit seeking at times. Continue current care 06/04/17 11:42 Remains irritable. Increase Depakote to 250mg PO BID 06/05/17 18:54 Remains irritable but improving. Continue current care
[2017-06-05] MEDS: LORazepam 0.5 MG TABLET PO PRN (21:14)
[2017-06-05] MEDS: HALOPERIDOL 0.5 MG TABLET PO PRN (22:01)
[2017-06-06] MEDS: ASPIRIN 81 MG CHEWABLE TABLET PO SCH (08:33)
[2017-06-06] MEDS: TRIAMCINOLONE 0.1% CREAM 15 G TUBE TOP PRN ×2 (08:33→20:30)
[2017-06-06] MEDS: AMLODIPINE 10 MG TABLET PO SCH (08:33)
[2017-06-06] MEDS: DIVALPROEX 125 MG TABLET PO SCH ×2 (08:34→20:30)
[2017-06-06] MEDS: BUDESONIDE INH.SOLN 0.25mg/2ml NEB AEROSOL SCH ×2 (09:43→20:00)
[2017-06-06] MEDS: ARFORMOTEROL NEB 15mcg/2ml AEROSOL SCH ×2 (09:43→20:00)
--- NOTE | 2017-06-06 10:45 | Progress Note ---
- Date 06/06/17 Subjective: Jazlyn is feeling miserable because of her terribly itch rash. She states that this started about a year ago. She denies any history of allergies or asthma. She denies any history of autoimmune conditions. No joint pain/swelling. She states that the kenalog cream is helpful, but very temporary. No SOA or chest pain. Denies abd pain or GI complaints and has been eating well. Objective Vital signs: Temperature 97.8 F 06/06/17 08:00 Pulse Rate 80 06/06/17 08:00 Respiratory Rate 18 06/06/17 08:00 Blood Pressure 139/67 06/06/17 08:00 Pulse Oximetry 96 06/06/17 08:00 Height/Weight/BMI: Height 1.7 m Weight 54.4 kg Body Mass Index 18.8 - Constitutional Present: no acute distress, well nourished, well developed - Routine HEENT Exam Eye: Absent: conjunctival icterus, scleral injection - Routine Respiratory Exam Present: CTA bilaterally - Routine Cardiovascular Exam Present: RRR, S1, S2 - Routine Abdominal Exam Present: soft, normoactive bowel sounds, non tender - Routine Extremities Exam Present: edema (trace edema b/l lower ext.) - Routine Skin Exam Present: rash (eczematous rash to both arms, legs, and diffusely to back. Coban dressings on her wrists. There are multiple excoriations. No signs of scabies.) - Routine Neurological Exam Present: alert - Routine Psychiatric Exam Present: normal affect, normal thought process, cooperative Assessment and Plan (1) Major neurocognitive disorder Problem details: with behavioral disturbance. Most likely Alzheimer's Type Current visit: Yes Status: Acute (2) Suicide and self-inflicted injury Current visit: Yes Status: Acute Assessment and Plan: ASSESSMENT Dementia Stage IV COPD with nocturnal hypoxia requiring 2L of oxygen Hypertension ITP Back pain Osteoporosis Cataracts Psoriasis Pernicious Anemia Vitamin B12 deficiency PLAN Eczema - start mixing Eucerin cream with Kenalog. Reduce bathing frequency to at most, every 2 days, ideally every 4-5 days. Start Prednisone 20 mg daily to see if this will help ease symptoms. Prior labs reviewed in chart - no recent labs seen. Check CBC and CMP. Confirmed previous diagnosis of eczema in clinic notes. Dr. Vivar's notes reviewed - Depakote dose recently increased to 250 mg BID. Hospital Course Summary Disclaimer: The visit summary below is not to be considered part of the above Progress Note. Hospital Course: 06/01/17 Impression Self-inflicted lacerations, suicidal ideation Increase behaviors Hypertension. COPD Anemia. Chronic back pain. Anxiety, depression Plan Agree with admission to the [facility] unit under the care of Dr. Vivar for further psychiatric evaluation and treatment. Monitor superficial skin lacerations. Utilize Neosporin and dressing daily. Monitor for evidence of infection. Monitor blood pressure, continue on Norvasc daily Pulmicort, albuterol and Brovono for chronic COPD Any to use topical Kenalog for chronic psoriasis Encourage patient to participate in unit activities and provide a safe environment. The hospitalist services will continue to follow patient medically manage her existing comorbidities. At time of discharge her medical care will return to her primary care provider in [place] 06/01/17 19:29 Remains confused and agitated at times. Will contact family about starting Depakote 06/02/17 18:18 Slightly improved today. Will start Depakote 125mg PO BID 06/03/17 10:52 Remains irritable and exit seeking at times. Continue current care 06/04/17 11:42 Remains irritable. Increase Depakote to 250mg PO BID 06/05/17 18:54 Remains irritable but improving. Continue current care 06/06/17 Eczema - start mixing Eucerin cream with Kenalog. Reduce bathing frequency to at most, every 2 days, ideally every 4-5 days. Start Prednisone 20 mg daily to see if this will help ease symptoms. Prior labs reviewed in chart - no recent labs seen. Check CBC and CMP. Confirmed previous diagnosis of eczema in clinic notes.
[2017-06-06] MEDS: ALBUTEROL 2.5mg/3ml (0.083%) NEB AEROSOL PRN (13:43)
--- NOTE | 2017-06-06 18:52 | Neuropsych Progress Note ---
[facility] Subjective Date: 06/06/17 - Sujective/Severity of Illness Medications: Albuterol Sulfate (Proventil Neb (0.083%)) 2.5 mg AEROSOL Q4HR PRN Last Admin: 06/06/17 13:43 Dose: 2.5 mg Amlodipine Besylate (Norvasc) 10 mg PO DAILY [facility] Last Admin: 06/06/17 08:33 Dose: 10 mg Arformoterol Tartrate (Brovana Neb) 15 mcg AEROSOL RTBID [facility] Last Admin: 06/06/17 09:43 Dose: 15 mcg Aspirin (Asa) 81 mg PO DAILY [facility] Last Admin: 06/06/17 08:33 Dose: 81 mg Budesonide (Pulmicort Inhalation) 0.25 mg AEROSOL RTBID [facility] Last Admin: 06/06/17 09:43 Dose: 0.25 mg Divalproex Sodium (Depakote) 250 mg PO BID [facility] Last Admin: 06/06/17 08:34 Dose: 250 mg Haloperidol (Haldol) 0.5 mg PO Q6H PRN PRN Reason: Extreme agitation Last Admin: 06/05/17 22:01 Dose: 0.5 mg Haloperidol Lactate (Haldol) 0.5 mg IM Q6H PRN PRN Reason: Extreme agitation Lorazepam (Ativan Inj) 0.5 mg IM Q6H PRN PRN Reason: Extreme agitation Lorazepam (Ativan) 0.5 mg PO Q6H PRN PRN Reason: Extreme agitation Last Admin: 06/05/17 21:14 Dose: 0.5 mg Triamcinolone Acetonide (Kenalog) 1 applic TOP TID PRN Last Admin: 06/06/17 08:33 Dose: 1 applic Subjective: Pt seen and chart examined. Nursing reports pt can be irritable and labile at times with anxiety. Primarily in the afteroon. On face to face the pt has very poor short term memory. She is seen with her family at the bedside. She does not remember this blurb writer. She states she would like to go home. Family discussed with the pt about AL and the pt seemed to be okay with this. She denies any S/I. Start Time: 17:45 Stop Time: 18:00 Mental Status Exam Vitals: Last Vital Signs Temp 99.6 F 06/06/17 15:59 Pulse 83 06/06/17 15:59 Resp 16 06/06/17 15:59 BP 110/49 06/06/17 15:59 Pulse Ox 98 06/06/17 15:59 Height: 1.7 m Weight: 54.4 kg - Mental Status Exam Muscle Strength/Tone: Normal Dressing: Casual Grooming: Good Attitude: Guarded Motor Activity: Normal Eye Contact: Fair Speech: Slowed Volume: Soft Rhythm: Appropriate Rhythm Orientation: Oriented to person Mood: Neutral Rate of Thoughts: Delayed Thought Organization: [place] Associations: Flight of Ideas Abstract Reasoning: Poor abstract reasoning Thought Content: Normal Perception/Psychotic: Perception Normal Language: Naming Impaired Fund of Knowledge: Poor fund of knowledge Memory: Poor-immediate, Poor-recent Suicidal Ideation: Intermittent Homicidal Ideation: None Insight: Poor Judgement: Poor Impulse Control: Poor - Laboratory Result Diagrams: 06/06/17 11:38 06/06/17 11:38 Laboratory Results - last 24 hr 06/06/17 06/06/17 11:38 11:38 WBC 7.7 RBC 4.29 Hgb 13.6 Hct 41.5 MCV 96.7 MCH 31.7 MCHC 32.8 RDW Std Deviation 43.5 Plt Count 269 MPV 11.0 Immature Gran % (Auto) 0.3 Neut % (Auto) 74.5 H Lymph % (Auto) 11.2 L [place] % (Auto) 7.7 Eos % (Auto) 5.3 H Baso % (Auto) 1.0 Neut # (Auto) 5.7 Lymph # (Auto) 0.9 L [place] # (Auto) 0.6 Eos # (Auto) 0.4 Baso # (Auto) 0.1 Abs Immat Gran (auto) 0.02 Turbidity < 20 Sodium 142 Potassium 4.4 Chloride 104 Carbon Dioxide 29 Anion Gap 9 BUN 18.0 H Creatinine 0.6 L GFR Calculation 97 BUN/Creatinine Ratio 30 H Glucose 83 Calculated Osmolality 274 Calcium 8.8 Total Bilirubin 0.50 Icterus Index < 2 AST 16 ALT 28 Alkaline Phosphatase 51 Total Protein 6.6 Albumin 3.8 Globulin 2.8 Albumin/Globulin Ratio 1.4 Specimen Hemolysis 29 H Assessment and Plan (1) Major neurocognitive disorder Problem details: with behavioral disturbance. Most likely Alzheimer's Type Current visit: Yes Status: Acute Hospital Course Summary Disclaimer: The visit summary below is not to be considered part of the above Progress Note. Hospital Course: 06/01/17 Impression Self-inflicted lacerations, suicidal ideation Increase behaviors Hypertension. COPD Anemia. Chronic back pain. Anxiety, depression Plan Agree with admission to the [facility] unit under the care of Dr. Vivar for further psychiatric evaluation and treatment. Monitor superficial skin lacerations. Utilize Neosporin and dressing daily. Monitor for evidence of infection. Monitor blood pressure, continue on Norvasc daily Pulmicort, albuterol and Brovono for chronic COPD Any to use topical Kenalog for chronic psoriasis Encourage patient to participate in unit activities and provide a safe environment. The hospitalist services will continue to follow patient medically manage her existing comorbidities. At time of discharge her medical care will return to her primary care provider in [place] 06/01/17 19:29 Remains confused and agitated at times. Will contact family about starting Depakote 06/02/17 18:18 Slightly improved today. Will start Depakote 125mg PO BID 06/03/17 10:52 Remains irritable and exit seeking at times. Continue current care 06/04/17 11:42 Remains irritable. Increase Depakote to 250mg PO BID 06/05/17 18:54 Remains irritable but improving. Continue current care 06/06/17 Eczema - start mixing Eucerin cream with Kenalog. Reduce bathing frequency to at most, every 2 days, ideally every 4-5 days. Start Prednisone 20 mg daily to see if this will help ease symptoms. Prior labs reviewed in chart - no recent labs seen. Check CBC and CMP. Confirmed previous diagnosis of eczema in clinic notes. 06/06/17 18:52 Some irritability in the afternoon. Ativan 0.5mg at 1500
[2017-06-06] MEDS: EUCERIN CREAM 57gm TP PRN (20:30)
[2017-06-07] MEDS: BUDESONIDE INH.SOLN 0.25mg/2ml NEB AEROSOL SCH ×2 (07:06→18:45)
[2017-06-07] MEDS: ARFORMOTEROL NEB 15mcg/2ml AEROSOL SCH ×2 (07:06→18:45)
[2017-06-07] MEDS: ASPIRIN 81 MG CHEWABLE TABLET PO SCH (08:57)
[2017-06-07] MEDS: DIVALPROEX 125 MG TABLET PO SCH ×2 (08:57→20:23)
[2017-06-07] MEDS: AMLODIPINE 10 MG TABLET PO SCH (08:57)
[2017-06-07] MEDS: TRIAMCINOLONE 0.1% CREAM 15 G TUBE TOP PRN ×2 (09:38→21:28)
[2017-06-07] MEDS: EUCERIN CREAM 57gm TP PRN ×2 (09:38→21:28)
[2017-06-07] MEDS: LORazepam 0.5 MG TABLET PO SCH (14:23)
[2017-06-07] MEDS: HALOPERIDOL 0.5 MG TABLET PO PRN (15:38)
--- NOTE | 2017-06-07 18:02 | Neuropsych Progress Note ---
[facility] Subjective Date: 06/07/17 - Sujective/Severity of Illness Medications: Albuterol Sulfate (Proventil Neb (0.083%)) 2.5 mg AEROSOL Q4HR PRN Last Admin: 06/06/17 13:43 Dose: 2.5 mg Amlodipine Besylate (Norvasc) 10 mg PO DAILY [facility] Last Admin: 06/07/17 08:57 Dose: 10 mg Arformoterol Tartrate (Brovana Neb) 15 mcg AEROSOL RTBID [facility] Last Admin: 06/07/17 07:06 Dose: 15 mcg Aspirin (Asa) 81 mg PO DAILY [facility] Last Admin: 06/07/17 08:57 Dose: 81 mg Budesonide (Pulmicort Inhalation) 0.25 mg AEROSOL RTBID [facility] Last Admin: 06/07/17 07:06 Dose: 0.25 mg Divalproex Sodium (Depakote) 250 mg PO BID [facility] Last Admin: 06/07/17 08:57 Dose: 250 mg Haloperidol (Haldol) 0.5 mg PO Q6H PRN PRN Reason: Extreme agitation Last Admin: 06/07/17 15:38 Dose: 0.5 mg Haloperidol Lactate (Haldol) 0.5 mg IM Q6H PRN PRN Reason: Extreme agitation Lorazepam (Ativan Inj) 0.5 mg IM Q6H PRN PRN Reason: Extreme agitation Lorazepam (Ativan) 0.5 mg PO Q6H PRN PRN Reason: Extreme agitation Last Admin: 06/05/17 21:14 Dose: 0.5 mg Lorazepam (Ativan) 0.5 mg PO 1500 [facility] Last Admin: 06/07/17 14:23 Dose: 0.5 mg Multi-Ingredient Ointment (Eucerin) 1 applic TP TID PRN Last Admin: 06/07/17 09:38 Dose: 1 applic Triamcinolone Acetonide (Kenalog) 1 applic TOP TID PRN Last Admin: 06/07/17 09:38 Dose: 1 applic Subjective: Pt seen and chart examined. Nursing reports pt can be irritable and labile at times with anxiety. PT will pace at times and become distressed asking to leave. Pt was given Ativan and later Haldol this afternoon. On face to face the pt has very poor short term memory but is pleasant. We discussed going to an AL and she staets she wants to go home. She has very poor insight into her illness. Tolerating meds Start Time: 17:30 Stop Time: 17:45 Mental Status Exam Vitals: Last Vital Signs Temp 97.7 F 06/07/17 16:00 Pulse 81 06/07/17 16:00 Resp 18 06/07/17 16:00 BP 127/63 06/07/17 16:00 Pulse Ox 98 06/07/17 16:00 Height: 1.7 m Weight: 54.4 kg - Mental Status Exam Muscle Strength/Tone: Normal Dressing: Casual Grooming: Good Attitude: Guarded Motor Activity: Normal Eye Contact: Fair Speech: Slowed Volume: Soft Rhythm: Appropriate Rhythm Orientation: Oriented to person Mood: Neutral Rate of Thoughts: Delayed Thought Organization: [place] Associations: Flight of Ideas Abstract Reasoning: Poor abstract reasoning Thought Content: Normal Perception/Psychotic: Perception Normal Language: Naming Impaired Fund of Knowledge: Poor fund of knowledge Memory: Poor-immediate, Poor-recent Suicidal Ideation: Intermittent Homicidal Ideation: None Insight: Poor Judgement: Poor Impulse Control: Poor - Laboratory Result Diagrams: 06/06/17 11:38 06/06/17 11:38 Assessment and Plan (1) Major neurocognitive disorder Problem details: with behavioral disturbance. Most likely Alzheimer's Type Current visit: Yes Status: Acute Hospital Course Summary Disclaimer: The visit summary below is not to be considered part of the above Progress Note. Hospital Course: 06/01/17 Impression Self-inflicted lacerations, suicidal ideation Increase behaviors Hypertension. COPD Anemia. Chronic back pain. Anxiety, depression Plan Agree with admission to the [facility] unit under the care of Dr. Vivar for further psychiatric evaluation and treatment. Monitor superficial skin lacerations. Utilize Neosporin and dressing daily. Monitor for evidence of infection. Monitor blood pressure, continue on Norvasc daily Pulmicort, albuterol and Brovono for chronic COPD Any to use topical Kenalog for chronic psoriasis Encourage patient to participate in unit activities and provide a safe environment. The hospitalist services will continue to follow patient medically manage her existing comorbidities. At time of discharge her medical care will return to her primary care provider in [place] 06/01/17 19:29 Remains confused and agitated at times. Will contact family about starting Depakote 06/02/17 18:18 Slightly improved today. Will start Depakote 125mg PO BID 06/03/17 10:52 Remains irritable and exit seeking at times. Continue current care 06/04/17 11:42 Remains irritable. Increase Depakote to 250mg PO BID 06/05/17 18:54 Remains irritable but improving. Continue current care 06/06/17 Eczema - start mixing Eucerin cream with Kenalog. Reduce bathing frequency to at most, every 2 days, ideally every 4-5 days. Start Prednisone 20 mg daily to see if this will help ease symptoms. Prior labs reviewed in chart - no recent labs seen. Check CBC and CMP. Confirmed previous diagnosis of eczema in clinic notes. 06/06/17 18:52 Some irritability in the afternoon. Ativan 0.5mg at 1500 06/07/17 18:02 Remains irritable and anxious at times. Continue current care
[2017-06-07] MEDS: LORazepam 0.5 MG TABLET PO PRN (20:24)
[2017-06-08] MEDS: BUDESONIDE INH.SOLN 0.25mg/2ml NEB AEROSOL SCH ×2 (07:05→17:40)
[2017-06-08] MEDS: ARFORMOTEROL NEB 15mcg/2ml AEROSOL SCH ×2 (07:05→17:40)
[2017-06-08] MEDS: DIVALPROEX 125 MG TABLET PO SCH ×2 (08:36→20:00)
[2017-06-08] MEDS: ASPIRIN 81 MG CHEWABLE TABLET PO SCH (08:36)
[2017-06-08] MEDS: AMLODIPINE 10 MG TABLET PO SCH (08:36)
[2017-06-08] MEDS: LORazepam 0.5 MG TABLET PO PRN (09:44)
[2017-06-08] MEDS: LORazepam 0.5 MG TABLET PO SCH (14:24)
--- NOTE | 2017-06-08 19:27 | Neuropsych Progress Note ---
[facility] Subjective Date: 06/08/17 - Sujective/Severity of Illness Medications: Albuterol Sulfate (Proventil Neb (0.083%)) 2.5 mg AEROSOL Q4HR PRN Last Admin: 06/06/17 13:43 Dose: 2.5 mg Amlodipine Besylate (Norvasc) 10 mg PO DAILY [facility] Last Admin: 06/08/17 08:36 Dose: 10 mg Arformoterol Tartrate (Brovana Neb) 15 mcg AEROSOL RTBID [facility] Last Admin: 06/08/17 17:40 Dose: 15 mcg Aspirin (Asa) 81 mg PO DAILY [facility] Last Admin: 06/08/17 08:36 Dose: 81 mg Budesonide (Pulmicort Inhalation) 0.25 mg AEROSOL RTBID [facility] Last Admin: 06/08/17 17:40 Dose: 0.25 mg Divalproex Sodium (Depakote) 250 mg PO BID [facility] Last Admin: 06/08/17 08:36 Dose: 250 mg Haloperidol (Haldol) 0.5 mg PO Q6H PRN PRN Reason: Extreme agitation Last Admin: 06/07/17 15:38 Dose: 0.5 mg Haloperidol Lactate (Haldol) 0.5 mg IM Q6H PRN PRN Reason: Extreme agitation Lorazepam (Ativan Inj) 0.5 mg IM Q6H PRN PRN Reason: Extreme agitation Lorazepam (Ativan) 0.5 mg PO Q6H PRN PRN Reason: Extreme agitation Last Admin: 06/08/17 09:44 Dose: 0.5 mg Lorazepam (Ativan) 0.5 mg PO 1500 [facility] Last Admin: 06/08/17 14:24 Dose: 0.5 mg Multi-Ingredient Ointment (Eucerin) 1 applic TP TID PRN Last Admin: 06/07/17 21:28 Dose: 1 applic Triamcinolone Acetonide (Kenalog) 1 applic TOP TID PRN Last Admin: 06/07/17 21:28 Dose: 1 applic Subjective: Pt seen and chart examined. Nursing reports pt can be irritable and labile at times with anxiety. Today pt thought her was going to take her home so she began to pack her things and was exit seeking. Pt was given Ativan which was helpful. On face to face the pt is pleasant but confused. She reports some depression tied to her current situation and requests to go home. She denies any S/I. Start Time: 17:00 Stop Time: 17:15 Mental Status Exam Vitals: Last Vital Signs Temp 97.7 F 06/08/17 07:55 Pulse 83 06/08/17 07:55 Resp 18 06/08/17 17:40 BP 140/52 H 06/08/17 07:55 Pulse Ox 92 06/08/17 17:40 Height: 1.7 m Weight: 56.7 kg - Mental Status Exam Muscle Strength/Tone: Normal Dressing: Casual Grooming: Good Attitude: Guarded Motor Activity: Normal Eye Contact: Fair Speech: Slowed Volume: Soft Rhythm: Appropriate Rhythm Orientation: Oriented to person Mood: Neutral Rate of Thoughts: Delayed Thought Organization: [place] Associations: Flight of Ideas Abstract Reasoning: Poor abstract reasoning Thought Content: Normal Perception/Psychotic: Perception Normal Language: Naming Impaired Fund of Knowledge: Poor fund of knowledge Memory: Poor-immediate, Poor-recent Suicidal Ideation: Intermittent Homicidal Ideation: None Insight: Poor Judgement: Poor Impulse Control: Poor - Laboratory Result Diagrams: 06/06/17 11:38 06/06/17 11:38 Laboratory Results - last 24 hr 06/08/17 07:33 Triglycerides 84 Cholesterol 196 LDL Cholesterol, Calc 107.2 VLDL Cholesterol 16.8 HDL Cholesterol 72 H Cholesterol/HDL Ratio 2.7 Assessment and Plan (1) Major neurocognitive disorder Problem details: with behavioral disturbance. Most likely Alzheimer's Type Current visit: Yes Status: Acute Hospital Course Summary Disclaimer: The visit summary below is not to be considered part of the above Progress Note. Hospital Course: 06/01/17 Impression Self-inflicted lacerations, suicidal ideation Increase behaviors Hypertension. COPD Anemia. Chronic back pain. Anxiety, depression Plan Agree with admission to the [facility] unit under the care of Dr. Vivar for further psychiatric evaluation and treatment. Monitor superficial skin lacerations. Utilize Neosporin and dressing daily. Monitor for evidence of infection. Monitor blood pressure, continue on Norvasc daily Pulmicort, albuterol and Brovono for chronic COPD Any to use topical Kenalog for chronic psoriasis Encourage patient to participate in unit activities and provide a safe environment. The hospitalist services will continue to follow patient medically manage her existing comorbidities. At time of discharge her medical care will return to her primary care provider in [place] 06/01/17 19:29 Remains confused and agitated at times. Will contact family about starting Depakote 06/02/17 18:18 Slightly improved today. Will start Depakote 125mg PO BID 06/03/17 10:52 Remains irritable and exit seeking at times. Continue current care 06/04/17 11:42 Remains irritable. Increase Depakote to 250mg PO BID 06/05/17 18:54 Remains irritable but improving. Continue current care 06/06/17 Eczema - start mixing Eucerin cream with Kenalog. Reduce bathing frequency to at most, every 2 days, ideally every 4-5 days. Start Prednisone 20 mg daily to see if this will help ease symptoms. Prior labs reviewed in chart - no recent labs seen. Check CBC and CMP. Confirmed previous diagnosis of eczema in clinic notes. 06/06/17 18:52 Some irritability in the afternoon. Ativan 0.5mg at 1500 06/07/17 18:02 Remains irritable and anxious at times. Continue current care 06/08/17 19:27 D/C PRN Haldol. Seroquel 12.5mg PO TID PRN agitation
[2017-06-08] MEDS: ALBUTEROL 2.5mg/3ml (0.083%) NEB AEROSOL PRN (21:40)
[2017-06-09] MEDS: DIVALPROEX 125 MG TABLET PO SCH ×2 (08:10→19:58)
[2017-06-09] MEDS: AMLODIPINE 10 MG TABLET PO SCH (08:10)
[2017-06-09] MEDS: ASPIRIN 81 MG CHEWABLE TABLET PO SCH (08:10)
[2017-06-09] MEDS: BUDESONIDE INH.SOLN 0.25mg/2ml NEB AEROSOL SCH ×2 (09:09→20:15)
[2017-06-09] MEDS: ARFORMOTEROL NEB 15mcg/2ml AEROSOL SCH ×2 (09:09→20:10)
[2017-06-09] MEDS: LORazepam 0.5 MG TABLET PO SCH (14:19)
--- NOTE | 2017-06-09 15:11 | Progress Note ---
- Date 06/09/17 Subjective: Jazlyn is doing well, no complaints today. Specifically she denied chest pain, dyspnea, fevers, cough or congestion; she states that her appetite has been good and she doesn't have any GI complaints. Her rash is improving and nurses report much less itching. Objective Vital signs: Temperature 97.9 F 06/09/17 08:00 Pulse Rate 84 06/09/17 08:00 Respiratory Rate 16 06/09/17 09:10 Blood Pressure 145/68 H 06/09/17 08:00 Pulse Oximetry 100 06/09/17 09:10 Height/Weight/BMI: Height 1.7 m Weight 56.7 kg Body Mass Index 18.8 - Constitutional Present: no acute distress, well nourished, well developed, thin - Routine HEENT Exam ENT: Present: oropharynx clear - Routine Respiratory Exam Present: diminished air movement - Routine Cardiovascular Exam Present: RRR, S1, S2 - Routine Abdominal Exam Present: soft, normoactive bowel sounds, non tender - Routine Extremities Exam Present: edema (trace b/l) - Routine Skin Exam Present: dry, warm, wounds (tiny linear abrasion to left gutierrez), rash (much improved; still with excoriations to back) Comments: chronic skin color changes of PVD to both lower ext. - Routine Neurological Exam Present: alert, oriented X3 - Routine Psychiatric Exam Present: normal thought process, cooperative Results - Labs CBC & Chem 7: 06/06/17 11:38 06/06/17 11:38 Assessment and Plan (1) Major neurocognitive disorder Problem details: with behavioral disturbance. Most likely Alzheimer's Type Current visit: Yes Status: Acute (2) Suicide and self-inflicted injury Current visit: Yes Status: Acute Assessment and Plan: ASSESSMENT Dementia Stage IV COPD with nocturnal hypoxia requiring 2L of oxygen Hypertension ITP Back pain Osteoporosis Cataracts Psoriasis Pernicious Anemia Vitamin B12 deficiency PLAN Eczema - much improved with using (1) Eucerin cream with Kenalog, & (2) reduce bathing frequency to at most, every 2 days, ideally every 4-5 days. Originally considered Prednisone but this was not started. Could consider steroids if symptoms flare up. Labs from 06/06 reviewed, stable. Seeing occasional BP elevations (?steroid effect) - monitor. Dr. Vivar's notes reviewed Resuscitation Status: Full Code Hospital Course Summary Disclaimer: The visit summary below is not to be considered part of the above Progress Note. Hospital Course: 06/01/17 Impression Self-inflicted lacerations, suicidal ideation Increase behaviors Hypertension. COPD Anemia. Chronic back pain. Anxiety, depression Plan Agree with admission to the [facility] unit under the care of Dr. Vivar for further psychiatric evaluation and treatment. Monitor superficial skin lacerations. Utilize Neosporin and dressing daily. Monitor for evidence of infection. Monitor blood pressure, continue on Norvasc daily Pulmicort, albuterol and Brovono for chronic COPD Any to use topical Kenalog for chronic psoriasis Encourage patient to participate in unit activities and provide a safe environment. The hospitalist services will continue to follow patient medically manage her existing comorbidities. At time of discharge her medical care will return to her primary care provider in [place] 06/01/17 19:29 Remains confused and agitated at times. Will contact family about starting Depakote 06/02/17 18:18 Slightly improved today. Will start Depakote 125mg PO BID 06/03/17 10:52 Remains irritable and exit seeking at times. Continue current care 06/04/17 11:42 Remains irritable. Increase Depakote to 250mg PO BID 06/05/17 18:54 Remains irritable but improving. Continue current care 06/06/17 Eczema - start mixing Eucerin cream with Kenalog. Reduce bathing frequency to at most, every 2 days, ideally every 4-5 days. Consider Prednisone. Prior labs reviewed in chart - no recent labs seen. Check CBC and CMP. Confirmed previous diagnosis of eczema in clinic notes. 06/06/17 18:52 Some irritability in the afternoon. Ativan 0.5mg at 1500 06/07/17 18:02 Remains irritable and anxious at times. Continue current care 06/08/17 19:27 D/C PRN Haldol. Seroquel 12.5mg PO TID PRN agitation
--- NOTE | 2017-06-09 18:50 | Neuropsych Progress Note ---
[facility] Subjective Date: 06/09/17 - Sujective/Severity of Illness Medications: Albuterol Sulfate (Proventil Neb (0.083%)) 2.5 mg AEROSOL Q4HR PRN Last Admin: 06/08/17 21:40 Dose: 2.5 mg Amlodipine Besylate (Norvasc) 10 mg PO DAILY [facility] Last Admin: 06/09/17 08:10 Dose: 10 mg Arformoterol Tartrate (Brovana Neb) 15 mcg AEROSOL RTBID [facility] Last Admin: 06/09/17 09:09 Dose: 15 mcg Aspirin (Asa) 81 mg PO DAILY [facility] Last Admin: 06/09/17 08:10 Dose: 81 mg Budesonide (Pulmicort Inhalation) 0.25 mg AEROSOL RTBID [facility] Last Admin: 06/09/17 09:09 Dose: 0.25 mg Divalproex Sodium (Depakote) 250 mg PO BID [facility] Last Admin: 06/09/17 08:10 Dose: 250 mg Haloperidol Lactate (Haldol) 0.5 mg IM Q6H PRN PRN Reason: Extreme agitation Lorazepam (Ativan Inj) 0.5 mg IM Q6H PRN PRN Reason: Extreme agitation Lorazepam (Ativan) 0.5 mg PO Q6H PRN PRN Reason: Extreme agitation Last Admin: 06/08/17 09:44 Dose: 0.5 mg Lorazepam (Ativan) 0.5 mg PO 1500 [facility] Last Admin: 06/09/17 14:19 Dose: 0.5 mg Multi-Ingredient Ointment (Eucerin) 1 applic TP TID PRN Last Admin: 06/07/17 21:28 Dose: 1 applic Quetiapine Fumarate (Seroquel) 12.5 mg PO TID PRN PRN Reason: Agitation Triamcinolone Acetonide (Kenalog) 1 applic TOP TID PRN Last Admin: 06/07/17 21:28 Dose: 1 applic Subjective: Pt seen and chart examined. Nursing reports pt has been better today. Pacing at times but is less and she is easily redirected. On face to face the pt is pleasant. She has very poor short term memory and requests to go home. She reports some depression but states it is tied to being here. Denies S/I. Tolerating meds Start Time: 16:45 Stop Time: 17:00 Mental Status Exam Vitals: Last Vital Signs Temp 96.5 F L 06/09/17 16:00 Pulse 74 06/09/17 16:00 Resp 16 06/09/17 16:00 BP 119/56 06/09/17 16:00 Pulse Ox 96 06/09/17 16:00 Height: 1.7 m Weight: 56.7 kg - Mental Status Exam Muscle Strength/Tone: Normal Dressing: Casual Grooming: Good Attitude: Guarded Motor Activity: Normal Eye Contact: Fair Speech: Slowed Volume: Soft Rhythm: Appropriate Rhythm Orientation: Oriented to person Mood: Neutral Rate of Thoughts: Delayed Thought Organization: [place] Associations: Flight of [employer] Abstract Reasoning: Poor abstract reasoning Thought Content: Normal Perception/Psychotic: Perception Normal Language: Naming Impaired Fund of Knowledge: Poor fund of knowledge Memory: Poor-immediate, Poor-recent Suicidal Ideation: Intermittent Homicidal Ideation: None Insight: Poor Judgement: Poor Impulse Control: Poor - Laboratory Result Diagrams: 06/06/17 11:38 06/06/17 11:38 Assessment and Plan (1) Major neurocognitive disorder Problem details: with behavioral disturbance. Most likely Alzheimer's Type Current visit: Yes Status: Acute Hospital Course Summary Disclaimer: The visit summary below is not to be considered part of the above Progress Note. Hospital Course: 06/01/17 Impression Self-inflicted lacerations, suicidal ideation Increase behaviors Hypertension. COPD Anemia. Chronic back pain. Anxiety, depression Plan Agree with admission to the [facility] unit under the care of Dr. Vivar for further psychiatric evaluation and treatment. Monitor superficial skin lacerations. Utilize Neosporin and dressing daily. Monitor for evidence of infection. Monitor blood pressure, continue on Norvasc daily Pulmicort, albuterol and Brovono for chronic COPD Any to use topical Kenalog for chronic psoriasis Encourage patient to participate in unit activities and provide a safe environment. The hospitalist services will continue to follow patient medically manage her existing comorbidities. At time of discharge her medical care will return to her primary care provider in [place] 06/01/17 19:29 Remains confused and agitated at times. Will contact family about starting Depakote 06/02/17 18:18 Slightly improved today. Will start Depakote 125mg PO BID 06/03/17 10:52 Remains irritable and exit seeking at times. Continue current care 06/04/17 11:42 Remains irritable. Increase Depakote to 250mg PO BID 06/05/17 18:54 Remains irritable but improving. Continue current care 06/06/17 Eczema - start mixing Eucerin cream with Kenalog. Reduce bathing frequency to at most, every 2 days, ideally every 4-5 days. Consider Prednisone. Prior labs reviewed in chart - no recent labs seen. Check CBC and CMP. Confirmed previous diagnosis of eczema in clinic notes. 06/06/17 18:52 Some irritability in the afternoon. Ativan 0.5mg at 1500 06/07/17 18:02 Remains irritable and anxious at times. Continue current care 06/08/17 19:27 D/C PRN Haldol. Seroquel 12.5mg PO TID PRN agitation 06/09/17 18:49 Less irritability today. Continue current care
[2017-06-09] MEDS: QUETIAPINE 25 MG TABLET PO PRN (20:07)
[2017-06-10] MEDS: BUDESONIDE INH.SOLN 0.25mg/2ml NEB AEROSOL SCH ×2 (07:10→20:35)
[2017-06-10] MEDS: ARFORMOTEROL NEB 15mcg/2ml AEROSOL SCH ×2 (07:10→20:35)
[2017-06-10] MEDS: AMLODIPINE 10 MG TABLET PO SCH (08:03)
[2017-06-10] MEDS: ASPIRIN 81 MG CHEWABLE TABLET PO SCH (08:03)
[2017-06-10] MEDS: DIVALPROEX 250 MG TABLET PO SCH ×2 (08:16→20:05)
--- NOTE | 2017-06-10 12:29 | Neuropsych Progress Note ---
[facility] Subjective Date: 06/10/17 - Sujective/Severity of Illness Medications: Albuterol Sulfate (Proventil Neb (0.083%)) 2.5 mg AEROSOL Q4HR PRN Last Admin: 06/08/17 21:40 Dose: 2.5 mg Amlodipine Besylate (Norvasc) 10 mg PO DAILY [facility] Last Admin: 06/10/17 08:03 Dose: 10 mg Arformoterol Tartrate (Brovana Neb) 15 mcg AEROSOL RTBID [facility] Last Admin: 06/10/17 07:10 Dose: 15 mcg Aspirin (Asa) 81 mg PO DAILY [facility] Last Admin: 06/10/17 08:03 Dose: 81 mg Budesonide (Pulmicort Inhalation) 0.25 mg AEROSOL RTBID [facility] Last Admin: 06/10/17 07:10 Dose: 0.25 mg Divalproex Sodium (Depakote) 250 mg PO BID [facility] Last Admin: 06/10/17 08:16 Dose: 250 mg Haloperidol Lactate (Haldol) 0.5 mg IM Q6H PRN PRN Reason: Extreme agitation Lorazepam (Ativan Inj) 0.5 mg IM Q6H PRN PRN Reason: Extreme agitation Lorazepam (Ativan) 0.5 mg PO Q6H PRN PRN Reason: Extreme agitation Last Admin: 06/08/17 09:44 Dose: 0.5 mg Lorazepam (Ativan) 0.5 mg PO 1500 [facility] Last Admin: 06/09/17 14:19 Dose: 0.5 mg Multi-Ingredient Ointment (Eucerin) 1 applic TP TID PRN Last Admin: 06/07/17 21:28 Dose: 1 applic Quetiapine Fumarate (Seroquel) 12.5 mg PO TID PRN PRN Reason: Agitation Last Admin: 06/09/17 20:07 Dose: 12.5 mg Triamcinolone Acetonide (Kenalog) 1 applic TOP TID PRN Last Admin: 06/07/17 21:28 Dose: 1 applic Subjective: Pt seen and chart examined. Nursing reports pt has been better today. Pacing gets confused at times but is pleasant and redirectable. On face to face the pt states she wants to go home. She has very poor short term memory. Reports some depression tied to her uncertain of going home. Denies S/I. Tolerating meds Start Time: 10:45 Stop Time: 11:00 Mental Status Exam Vitals: Last Vital Signs Temp 98.0 F 06/10/17 07:31 Pulse 85 06/10/17 07:31 Resp 18 06/10/17 07:31 BP 150/63 H 06/10/17 07:31 Pulse Ox 94 06/10/17 07:31 Height: 1.7 m Weight: 56.7 kg - Mental Status Exam Muscle Strength/Tone: Normal Dressing: Casual Grooming: Good Attitude: Guarded Motor Activity: Normal Eye Contact: Fair Speech: Slowed Volume: Soft Rhythm: Appropriate Rhythm Orientation: Oriented to person Mood: Neutral Rate of Thoughts: Delayed Thought Organization: [place] Associations: Flight of [employer] Abstract Reasoning: Poor abstract reasoning Thought Content: Normal Perception/Psychotic: Perception Normal Language: N[place] Impaired Fund of Knowledge: Poor fund of knowledge Memory: Poor-immediate, Poor-recent Suicidal Ideation: Intermittent Homicidal Ideation: None Insight: Poor Judgement: Poor Impulse Control: Poor - Laboratory Result Diagrams: 06/06/17 11:38 06/06/17 11:38 Assessment and Plan (1) Major neurocognitive disorder Problem details: with behavioral disturbance. Most likely Alzheimer's Type Current visit: Yes Status: Acute Hospital Course Summary Disclaimer: The visit summary below is not to be considered part of the above Progress Note. Hospital Course: 06/01/17 Impression Self-inflicted lacerations, suicidal ideation Increase behaviors Hypertension. COPD Anemia. Chronic back pain. Anxiety, depression Plan Agree with admission to the [facility] unit under the care of Dr. Vivar for further psychiatric evaluation and treatment. Monitor superficial skin lacerations. Utilize Neosporin and dressing daily. Monitor for evidence of infection. Monitor blood pressure, continue on Norvasc daily Pulmicort, albuterol and Brovono for chronic COPD Any to use topical Kenalog for chronic psoriasis Encourage patient to participate in unit activities and provide a safe environment. The hospitalist services will continue to follow patient medically manage her existing comorbidities. At time of discharge her medical care will return to her primary care provider in [place] 06/01/17 19:29 Remains confused and agitated at times. Will contact family about starting Depakote 06/02/17 18:18 Slightly improved today. Will start Depakote 125mg PO BID 06/03/17 10:52 Remains irritable and exit seeking at times. Continue current care 06/04/17 11:42 Remains irritable. Increase Depakote to 250mg PO BID 06/05/17 18:54 Remains irritable but improving. Continue current care 06/06/17 Eczema - start mixing Eucerin cream with Kenalog. Reduce bathing frequency to at most, every 2 days, ideally every 4-5 days. Consider Prednisone. Prior labs reviewed in chart - no recent labs seen. Check CBC and CMP. Confirmed previous diagnosis of eczema in clinic notes. 06/06/17 18:52 Some irritability in the afternoon. Ativan 0.5mg at 1500 06/07/17 18:02 Remains irritable and anxious at times. Continue current care 06/08/17 19:27 D/C PRN Haldol. Seroquel 12.5mg PO TID PRN agitation 06/09/17 18:49 Less irritability today. Continue current care 06/10/17 12:28 Continues to improve. Continue current care
[2017-06-10] MEDS: LORazepam 0.5 MG TABLET PO SCH (14:32)
[2017-06-11] MEDS: LORazepam 0.5 MG TABLET PO PRN (01:35)
[2017-06-11] MEDS: BUDESONIDE INH.SOLN 0.25mg/2ml NEB AEROSOL SCH ×2 (07:02→21:40)
[2017-06-11] MEDS: ARFORMOTEROL NEB 15mcg/2ml AEROSOL SCH ×2 (07:03→21:40)
[2017-06-11] MEDS: AMLODIPINE 10 MG TABLET PO SCH (08:30)
[2017-06-11] MEDS: DIVALPROEX 250 MG TABLET PO SCH ×2 (08:31→22:00)
[2017-06-11] MEDS: ASPIRIN 81 MG CHEWABLE TABLET PO SCH (08:31)
[2017-06-11] MEDS ORDERED: Bisacodyl EC TAB 5 MG TABLET PO PRN (09:27)
--- NOTE | 2017-06-11 12:26 | Neuropsych Progress Note ---
[facility] Subjective Date: 06/11/17 - Sujective/Severity of Illness Medications: Albuterol Sulfate (Proventil Neb (0.083%)) 2.5 mg AEROSOL Q4HR PRN Last Admin: 06/08/17 21:40 Dose: 2.5 mg Amlodipine Besylate (Norvasc) 10 mg PO DAILY [facility] Last Admin: 06/11/17 08:30 Dose: 10 mg Arformoterol Tartrate (Brovana Neb) 15 mcg AEROSOL RTBID [facility] Last Admin: 06/11/17 07:03 Dose: 15 mcg Aspirin (Asa) 81 mg PO DAILY [facility] Last Admin: 06/11/17 08:31 Dose: 81 mg Bisacodyl (Dulcolax) 10 mg PO DAILY PRN PRN Reason: Constipation Last Admin: 06/11/17 09:31 Dose: 10 mg Budesonide (Pulmicort Inhalation) 0.25 mg AEROSOL RTBID [facility] Last Admin: 06/11/17 07:02 Dose: 0.25 mg Divalproex Sodium (Depakote) 250 mg PO BID [facility] Last Admin: 06/11/17 08:31 Dose: 250 mg Haloperidol Lactate (Haldol) 0.5 mg IM Q6H PRN PRN Reason: Extreme agitation Lorazepam (Ativan Inj) 0.5 mg IM Q6H PRN PRN Reason: Extreme agitation Lorazepam (Ativan) 0.5 mg PO Q6H PRN PRN Reason: Extreme agitation Last Admin: 06/11/17 01:35 Dose: 0.5 mg Lorazepam (Ativan) 0.5 mg PO 1500 [facility] Last Admin: 06/10/17 14:32 Dose: 0.5 mg Multi-Ingredient Ointment (Eucerin) 1 applic TP TID PRN Last Admin: 06/07/17 21:28 Dose: 1 applic Quetiapine Fumarate (Seroquel) 12.5 mg PO TID PRN PRN Reason: Agitation Last Admin: 06/09/17 20:07 Dose: 12.5 mg Triamcinolone Acetonide (Kenalog) 1 applic TOP TID PRN Last Admin: 06/07/17 21:28 Dose: 1 applic Subjective: Pt seen and chart examined. Nursing reports pt is doing well. Received Ativan last night because she was anxious and had some issues with sleep but no behaviors noted. On face to face the pt states she is doing well. She states her family told her she would go to [place] on D/C and she states she is okay with this. She reports her mood is improved and she denies any S/I. She reports tolerating her medication well. Start Time: 12:15 Stop Time: 12:30 Mental Status Exam Vitals: Last Vital Signs Temp 98.2 F 06/11/17 08:00 Pulse 83 06/11/17 08:00 Resp 18 06/11/17 08:00 BP 121/67 06/11/17 08:00 Pulse Ox 98 06/11/17 08:00 Height: 1.7 m Weight: 56.7 kg - Mental Status Exam Muscle Strength/Tone: Normal Dressing: Casual Grooming: Good Attitude: Cooperative Motor Activity: Normal Eye Contact: Fair Speech: Slowed Volume: Soft Rhythm: Appropriate Rhythm Orientation: Oriented to person Mood: Neutral Rate of Thoughts: Delayed Thought Organization: [place] Associations: Intact Abstract Reasoning: Poor abstract reasoning Thought Content: Normal Perception/Psychotic: Perception Normal Language: Naming Impaired Fund of Knowledge: Poor fund of knowledge Memory: Poor-immediate, Poor-recent Suicidal Ideation: Intermittent Homicidal Ideation: None Insight: Poor Judgement: Poor Impulse Control: Poor - Laboratory Result Diagrams: 06/06/17 11:38 06/06/17 11:38 Laboratory Results - last 24 hr 06/11/17 03:49 Ur Collection Type Urine, clean catch Urine Color Yellow Urine Clarity Clear Urine pH 7.5 Ur Specific Sylvester 1.015 Urine Protein Negative Urine Glucose (UA) Negative Urine Ketones Negative Urine Occult Blood 1+ A Urine Nitrate Negative Urine Bilirubin Negative Urine Urobilinogen 0.2 Ur Leukocyte Esterase Negative Urine RBC 1-3 Urine WBC None seen Urine Bacteria None seen Ur Culture Indicated? Cult not indicated Assessment and Plan (1) Major neurocognitive disorder Problem details: with behavioral disturbance. Most likely Alzheimer's Type Current visit: Yes Status: Acute Hospital Course Summary Disclaimer: The visit summary below is not to be considered part of the above Progress Note. Hospital Course: 06/01/17 Impression Self-inflicted lacerations, suicidal ideation Increase behaviors Hypertension. COPD Anemia. Chronic back pain. Anxiety, depression Plan Agree with admission to the [facility] unit under the care of Dr. Vivar for further psychiatric evaluation and treatment. Monitor superficial skin lacerations. Utilize Neosporin and dressing daily. Monitor for evidence of infection. Monitor blood pressure, continue on Norvasc daily Pulmicort, albuterol and Brovono for chronic COPD Any to use topical Kenalog for chronic psoriasis Encourage patient to participate in unit activities and provide a safe environment. The hospitalist services will continue to follow patient medically manage her existing comorbidities. At time of discharge her medical care will return to her primary care provider in [place] 06/01/17 19:29 Remains confused and agitated at times. Will contact family about starting Depakote 06/02/17 18:18 Slightly improved today. Will start Depakote 125mg PO BID 06/03/17 10:52 Remains irritable and exit seeking at times. Continue current care 06/04/17 11:42 Remains irritable. Increase Depakote to 250mg PO BID 06/05/17 18:54 Remains irritable but improving. Continue current care 06/06/17 Eczema - start mixing Eucerin cream with Kenalog. Reduce bathing frequency to at most, every 2 days, ideally every 4-5 days. Consider Prednisone. Prior labs reviewed in chart - no recent labs seen. Check CBC and CMP. Confirmed previous diagnosis of eczema in clinic notes. 06/06/17 18:52 Some irritability in the afternoon. Ativan 0.5mg at 1500 06/07/17 18:02 Remains irritable and anxious at times. Continue current care 06/08/17 19:27 D/C PRN Haldol. Seroquel 12.5mg PO TID PRN agitation 06/09/17 18:49 Less irritability today. Continue current care 06/10/17 12:28 Continues to improve. Continue current care 06/11/17 12:25 Doing well. Continue current care
[2017-06-11] MEDS: LORazepam 0.5 MG TABLET PO SCH (14:28)
[2017-06-11] MEDS: ALBUTEROL 2.5mg/3ml (0.083%) NEB AEROSOL PRN (15:09)
[2017-06-12] MEDS: ARFORMOTEROL NEB 15mcg/2ml AEROSOL SCH ×2 (08:16→19:05)
[2017-06-12] MEDS: BUDESONIDE INH.SOLN 0.25mg/2ml NEB AEROSOL SCH ×2 (08:16→19:05)
[2017-06-12] MEDS: AMLODIPINE 10 MG TABLET PO SCH (08:35)
[2017-06-12] MEDS: ASPIRIN 81 MG CHEWABLE TABLET PO SCH (08:35)
[2017-06-12] MEDS: DIVALPROEX 250 MG TABLET PO SCH ×2 (08:38→20:21)
[2017-06-12] MEDS: LORazepam 0.5 MG TABLET PO SCH (15:10)
[2017-06-12] MEDS: EUCERIN CREAM 57gm TP PRN (18:37)
[2017-06-12] MEDS: TRIAMCINOLONE 0.1% CREAM 15 G TUBE TOP PRN (18:37)
[2017-06-12] MEDS: QUETIAPINE 25 MG TABLET PO PRN (20:21)
--- NOTE | 2017-06-12 21:33 | Neuropsych Progress Note ---
[facility] Subjective Date: 06/12/17 - Sujective/Severity of Illness Medications: Albuterol Sulfate (Proventil Neb (0.083%)) 2.5 mg AEROSOL Q4HR PRN Last Admin: 06/11/17 15:09 Dose: 2.5 mg Amlodipine Besylate (Norvasc) 10 mg PO DAILY [facility] Last Admin: 06/12/17 08:35 Dose: 10 mg Arformoterol Tartrate (Brovana Neb) 15 mcg AEROSOL RTBID [facility] Last Admin: 06/12/17 19:05 Dose: 15 mcg Aspirin (Asa) 81 mg PO DAILY [facility] Last Admin: 06/12/17 08:35 Dose: 81 mg Bisacodyl (Dulcolax) 10 mg PO DAILY PRN PRN Reason: Constipation Last Admin: 06/11/17 09:31 Dose: 10 mg Budesonide (Pulmicort Inhalation) 0.25 mg AEROSOL RTBID [facility] Last Admin: 06/12/17 19:05 Dose: 0.25 mg Divalproex Sodium (Depakote) 250 mg PO BID [facility] Last Admin: 06/12/17 20:21 Dose: 250 mg Haloperidol Lactate (Haldol) 0.5 mg IM Q6H PRN PRN Reason: Extreme agitation Levalbuterol HCl (Xopenex 1.25mg/3ml) 1.25 mg AEROSOL Q4H PRN Lorazepam (Ativan Inj) 0.5 mg IM Q6H PRN PRN Reason: Extreme agitation Last Admin: 06/11/17 16:57 Dose: 0.5 mg Lorazepam (Ativan) 0.5 mg PO Q6H PRN PRN Reason: Extreme agitation Last Admin: 06/11/17 01:35 Dose: 0.5 mg Lorazepam (Ativan) 0.5 mg PO 1500 [facility] Last Admin: 06/12/17 15:10 Dose: 0.5 mg Multi-Ingredient Ointment (Eucerin) 1 applic TP TID PRN Last Admin: 06/12/17 18:37 Dose: 1 applic Quetiapine Fumarate (Seroquel) 12.5 mg PO TID PRN PRN Reason: Agitation Last Admin: 06/12/17 20:21 Dose: 12.5 mg Triamcinolone Acetonide (Kenalog) 1 applic TOP TID PRN Last Admin: 06/12/17 18:37 Dose: 1 applic Subjective: Pt seen and chart examined. Nursing reports pt is doing well. Sleeping well and has a good appetite. Pt will pack up at times and is confused but is easily redirected. On face to face the pt states she is doing well. She states her mood is stable. She realizes she is going to [place] tomorrow and is in agreement. Denies S/I. Tolerating meds Start Time: 18:30 Stop Time: 18:45 Mental Status Exam Vitals: Last Vital Signs Temp 97.4 F 06/12/17 16:00 Pulse 73 06/12/17 16:00 Resp 16 06/12/17 19:05 BP 117/60 06/12/17 16:00 Pulse Ox 99 06/12/17 16:00 Height: 1.7 m Weight: 56.7 kg - Mental Status Exam Muscle Strength/Tone: Normal Dressing: Casual Grooming: Good Attitude: Cooperative Motor Activity: Normal Eye Contact: Fair Speech: Slowed Volume: Soft Rhythm: Appropriate Rhythm Orientation: Oriented to person Mood: Neutral Rate of Thoughts: Delayed Thought Organization: [place] Associations: Intact Abstract Reasoning: Poor abstract reasoning Thought Content: Normal Perception/Psychotic: Perception Normal Language: Naming Impaired Fund of Knowledge: Poor fund of knowledge Memory: Poor-immediate, Poor-recent Suicidal Ideation: Intermittent Homicidal Ideation: None Insight: Poor Judgement: Poor Impulse Control: Poor - Laboratory Result Diagrams: 06/12/17 07:07 06/12/17 07:08 Laboratory Results - last 24 hr 06/12/17 06/12/17 07:07 07:08 WBC 6.1 RBC 4.28 Hgb 13.1 Hct 40.9 MCV 95.6 MCH 30.6 MCHC 32.0 RDW Std Deviation 41.8 Plt Count 252 MPV 11.0 Immature Gran % (Auto) 0.3 Neut % (Auto) 66.9 H Lymph % (Auto) 15.0 L Baker % (Auto) 9.8 H Eos % (Auto) 6.5 H Baso % (Auto) 1.5 Neut # (Auto) 4.1 Lymph # (Auto) 0.9 L Baker # (Auto) 0.6 Eos # (Auto) 0.4 Baso # (Auto) 0.1 Abs Immat Gran (auto) 0.02 Turbidity < 20 Sodium 142 Potassium 3.8 Chloride 106 Carbon Dioxide 29 Anion Gap 7 BUN 20.0 H Creatinine 0.6 L GFR Calculation 97 BUN/Creatinine Ratio 33 H Glucose 84 Calculated Osmolality 275 Calcium 8.7 Icterus Index < 2 Specimen Hemolysis < 15 Assessment and Plan (1) Major neurocognitive disorder Problem details: with behavioral disturbance. Most likely Alzheimer's Type Current visit: Yes Status: Acute Hospital Course Summary Disclaimer: The visit summary below is not to be considered part of the above Progress Note. Hospital Course: 06/01/17 Impression Self-inflicted lacerations, suicidal ideation Increase behaviors Hypertension. COPD Anemia. Chronic back pain. Anxiety, depression Plan Agree with admission to the [facility] under the care of Dr. Vivar for further psychiatric evaluation and treatment. Monitor superficial skin lacerations. Utilize Neosporin and dressing daily. Monitor for evidence of infection. Monitor blood pressure, continue on Norvasc daily Pulmicort, albuterol and Brovono for chronic COPD Any to use topical Kenalog for chronic psoriasis Encourage patient to participate in unit activities and provide a safe environment. The hospitalist services will continue to follow patient medically manage her existing comorbidities. At time of discharge her medical care will return to her primary care provider in [place] 06/01/17 19:29 Remains confused and agitated at times. Will contact family about starting Depakote 06/02/17 18:18 Slightly improved today. Will start Depakote 125mg PO BID 06/03/17 10:52 Remains irritable and exit seeking at times. Continue current care 06/04/17 11:42 Remains irritable. Increase Depakote to 250mg PO BID 06/05/17 18:54 Remains irritable but improving. Continue current care 06/06/17 Eczema - start mixing Eucerin cream with Kenalog. Reduce bathing frequency to at most, every 2 days, ideally every 4-5 days. Consider Prednisone. Prior labs reviewed in chart - no recent labs seen. Check CBC and CMP. Confirmed previous diagnosis of eczema in clinic notes. 06/06/17 18:52 Some irritability in the afternoon. Ativan 0.5mg at 1500 06/07/17 18:02 Remains irritable and anxious at times. Continue current care 06/08/17 19:27 D/C PRN Haldol. Seroquel 12.5mg PO TID PRN agitation 06/09/17 18:49 Less irritability today. Continue current care 06/10/17 12:28 Continues to improve. Continue current care 06/11/17 12:25 Doing well. Continue current care 06/12/17 21:32 Plan D/C for tomorrow
--- NOTE | 2017-06-12 21:45 | Discharge Instructions ---
Discharge Plan - Med Rec/Dispo Referrals/Follow Up: [facility] [Provider Group] (Dr. Lesvia Ladd on 06/20/17 at 11:00 am [place] [address] ) Jasson Vivar MD [Physician] - (Dr. Isabella Vivar will see patient for Mental Health follow-up. [phone] [facility] does walk-in appts. M-W 8-3:30, . 11-3:30, and Mon. 8-2:30 pm. Let staff know you would like to see Dr. Vivar.) Additional Instructions: Discharge Diagnosis:Major Neurocognitive Disorder with Behavioral Disturbance Reasons for Admission: Patient had self lacerations on her right and left forearms, verbally abusive and hostile towards and other family members. IN CASE OF PSYCHIATRIC EMERGENCY, CONTACT [facility] STAFF AT [phone] ( available 24 hrs daily). Prescriptions: New LORazepam [Ativan] 0.5 mg PO 1500 #30 tablet Quetiapine [Seroquel] 12.5 mg PO TID PRN #90 tablet PRN Reason: Agitation Divalproex [Depakote] 250 mg PO BID #60 tablet Discharge Instructions/Outpatient Orders: Provider Discharge Instructions Location: Determined By Patient - Disposition 01 Discharged Home, Self-Care
[2017-06-13] MEDS: ARFORMOTEROL NEB 15mcg/2ml AEROSOL SCH (07:30)
[2017-06-13] MEDS: BUDESONIDE INH.SOLN 0.25mg/2ml NEB AEROSOL SCH (07:30)
[2017-06-13 07:32] VITALS: RESP 16
[2017-06-13 07:44] VITALS: BP 122/65; PULSE 85; TEMP 96.6; O2SAT 97
--- NOTE | 2017-06-13 08:12 | Discharge Instructions ---
Discharge Plan - Med Rec/Dispo Referrals/Follow Up: [facility] [Provider Group] (Dr. Lesvia Ladd on 06/20/17 at 11:00 [place] [address] ) Jasson Vivar MD [Physician] - (Dr. Isabella Vivar will see patient for Mental Health follow-up. [facility] does walk-in appts. M-W 8-3:30, . 11-3:30, and Mon. 8-2:30 pm. Let staff know you would like to see Dr. Vivar.) Additional Instructions: Discharge Diagnosis:Major Neurocognitive Disorder with Behavioral Disturbance Reasons for Admission: Patient had self lacerations on her right and left forearms, verbally abusive and hostile towards and other family members. IN CASE OF PSYCHIATRIC EMERGENCY, CONTACT [facility] STAFF AT [phone] ( available 24 hrs daily). Jazlyn had a flare up of eczema. It responded well to a 1:1 mixture of Eucerin cream + triamcinolone cream applied TID PRN. Recommend to limit bathing to 2-3 times a week to minimize skin dryness. Prescriptions: New LORazepam [Ativan] 0.5 mg PO 1500 #30 tablet Quetiapine [Seroquel] 12.5 mg PO TID PRN #90 tablet PRN Reason: Agitation Triamcinolone 0.1% Cream 15 G [Kenalog] 1 applic TOP TID PRN #1 tube PRN Reason: Rash Divalproex [Depakote] 250 mg PO BID #60 tablet Eucerin Cream [Eucerin] 1 applic TP TID PRN #1 tube PRN Reason: Rash Discharge Instructions/Outpatient Orders: Provider Discharge Instructions Location: Determined By Patient
[2017-06-13] MEDS: ASPIRIN 81 MG CHEWABLE TABLET PO SCH (09:19)
[2017-06-13] MEDS: AMLODIPINE 10 MG TABLET PO SCH (09:19)
[2017-06-13] MEDS: DIVALPROEX 250 MG TABLET PO SCH (09:19)
[2017-06-13] MEDS: LORazepam 0.5 MG TABLET PO PRN (10:22)
== END 2017-06-13 11:00 | disposition home or self-care (01) | DRG 57 ==
LOC: GEN 16:10
PROVIDERS: ADMIT Psychiatry & Neurology Psychiatry; ATTEND Psychiatry & Neurology Psychiatry